=== PATIENT | female | born 1940 | race Caucasian/White ===

== ENCOUNTER 2017-06-08 18:18 | Inpatient (IN) | payer OTHER ==
[~2017-06-08] VITALS: Ht 147.3 cm; Wt 56.0 kg
[~2017-06-08 18:18] MED LIST: FERR325T51 PO; FLX10 PO; FURO80TA63 PO; Ipratropium-Albuterol INH; LDDP5 TD; LEVO125T72 PO; MAGN1CAP2 PO; METO25TA4 PO; MRLP17 PO; OXYB10TA13 PO; PRLSR20 PO; RXC5 PO; TYL325X PO; VLTG EXT
[2017-06-08] MEDS ORDERED: METHYLPREDNISOLONE 125 MG VIAL IV STA (18:27)
[2017-06-08] MEDS ORDERED: ALBUT/IPRATROP 3MG/0.5MG NEB 3 ML VIAL INH ONE (18:30)
[2017-06-08] MEDS ORDERED: SODIUM CHLORIDE 0.9% 1000ML 1,000 ML IV STA (18:31)
[2017-06-08] MEDS ORDERED: SODIUM CHLORIDE 0.9% 250ML 250 ML IV STA (18:31)
[2017-06-08 18:38] VITALS: PULSE 101; O2SAT 92
[2017-06-08 18:48] LABS: BASO % 0.3 %; BASO ABS # 0.04 K/uL (0-0.2); EOS % 0.3 %; EOS ABS # 0.04 K/uL (0-0.5); HEMATOCRIT 39.4 % (37-47); HEMOGLOBIN 13.2 g/dL (12.0-16.0); IG# 0.02 K/uL (0.00-0.02); LYMPH ABS # 1.01 K/uL (1.2-3.4); MEAN CELL VOLUME 92.9 fL (80-100); MEAN CORPUSCULAR HEMOGLOBIN 31.1 pg (25-34); MEAN CORPUSCULAR HGB CONC 33.5 g/dl (32-36); MEAN PLATELET VOLUME 11.1 fL (7.4-10.4); MONO % 5.9 %; MONO ABS # 0.74 K/uL (0.11-0.59); NEUT % 85.3 %; NEUT ABS # 10.73 K/uL (1.4-6.5); PLATELET COUNT 297 K/uL (130-400); RED CELL DISTRIBUTION WIDTH CV 13.3 % (11.5-14.5); RED CELL DISTRIBUTION WIDTH SD 45.2 fL (36.4-46.3); WHITE BLOOD COUNT 12.58 K/uL (4.8-10.8)
--- NOTE | 2017-06-08 18:51 | EMERGENCY ROOM VISIT NOTE ---
History Report prepared by Leatha: Marely Gonzalez Under the Supervision of: Dr. Desiree Gonsales M.D. 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 She presents to the ED by EMS. She lives alone at home. Today she thought she had a syncopal episode so she alerted EMS. She did lose consciousness while EMS was transporting her here. She is feeling weak and SOB. She reports nausea, vomiting, and diarrhea. She has had some black stools which she attributes to taking iron. She notes that she did have a fever at one point. She denies any urinary symptoms. The patient wears 2 L of oxygen at night. She did receive a flu shot this season. She has not had the flu this season. She smokes 1 pack per day. She has a nebulizer at home. She has not been on steroids lately. She has a history of COPD. Source of History: patient, nursing staff Onset: LEAVE COORDINATOR Position: other (global) Quality: other (syncope) Timing: other (episodic) Associated Symptoms: + fevers, + SOB, + nausea, + vomiting, + diarrhea, + weakness, No urinary symptoms Review of Systems See HPI for pertinent positives & negatives. A total of 10 systems reviewed and were otherwise negative. Past Medical & Surgical Medical Problems: (1) COPD (chronic obstructive pulmonary disease) (2) Heart disease (3) Respiratory failure, acute Family History Omitted due to age Social History Smoking Status: Current Every Day Smoker Drug Use: none Housing Status: lives alone Occupation Status: retired Current/Historical Medications Scheduled Alendronate/Cholecalciferol (Fosamax+D 70MG/2800 Iu), 1 TABLET PO WK Aspirin (Aspirin Chewable), 81 MG PO DAILY Atorvastatin (Lipitor), 20 MG PO HS Ferrous Sulfate (Ferrous Sulfate), 325 MG PO DAILY Furosemide (Lasix), 1 TAB PO DAILY Levothyroxine Sodium (Synthroid), 112 MCG PO DAILY Magnesium Oxide (Mg Supplement (Magnesium), 1 CAP PO BID Metoprolol Succinate (Toprol Xl), 1 TAB PO DAILY Moxifloxacin Hcl (Ophth) (Vigamox 0.5% Oph), 1 DROPS OP TID Multivitamins/Minerals (Mvi With Minerals), 1 TAB PO DAILY Omeprazole (Prilosec), 20 MG PO DAILY Potassium Chloride (Micro-K Ext Rel), 10 MEQ PO BID [Monoxidil], 1 APPLN TOP UD Scheduled PRN Acetaminophen Tab (Tylenol), 650 MG PO Q4 PRN for Headache or Pain Ipratropium-Albuterol (Duoneb), 1 TREATMENT INH Q6 PRN for Shortness of Breath Allergies Coded Allergies: Penicillins (Verified Allergy, Intermediate, HIVES,SWELLING, 02/14/15) Sulfa Antibiotics (Verified Allergy, Intermediate, hives, 02/19/15) Simvastatin (Verified Allergy, Unknown, Unknown, 02/14/15) Source - PT List Physical Exam Vital Signs Date Time Temp Pulse Resp B/P (MAP) Pulse Ox O2 Delivery O2 Flow Rate FiO2 06/08/17 20:47 114 06/08/17 20:43 113 101/64 06/08/17 20:35 36.4 167 26 101/67 91 Nasal Cannula 3.0 06/08/17 20:25 150 113/84 167 101/64 06/08/17 18:54 80 Room Air 06/08/17 18:41 104 06/08/17 18:39 36.4 104 26 142/74 80 Room Air 06/08/17 18:38 101 18 92 Nasal Cannula 3.0 Physical Exam Vital signs reviewed. Hypoxic at 79% on room air. General: Chronically ill-appearing female, in some respiratory discomfort. HEENT: No scleral icterus, PERRLA, neck supple. Atraumatic. Cardiovascular: Slightly tachycardic rate and regular rhythm, no extra sounds. Pulmonary: Wheezing throughout the lung dior bilaterally. Normal WOB on 2 L n/ c O2 Abdomen: Soft, nontender, nondistended, positive bowel sounds. Musculoskeletal: Atraumatic, no peripheral edema. Neurologic: Patient awake alert and oriented x 3, full strength in all 4 extremities. Cranial nerves 2 through 12 grossly intact. Skin: Warm, dry, no rash Medical Decision & Procedures ER Provider Diagnostic Interpretation: X-ray results as stated below per interpretation by me and the radiologist. Radiology results as stated below per my review and radiologist interpretation: CHEST ONE VIEW PORTABLE HISTORY: Short of breath. Hypoxia. COMPARISON: Chest 02/21/2015. FINDINGS: No pleural effusions. No pneumothorax. The heart is normal in size. Mild diffuse interstitial thickening. No focal lung consolidations to suggest pneumonia. There is a right shoulder prosthesis. Surgical clips within the right neck. IMPRESSION: Mild interstitial thickening which is likely chronic. No new focal lung consolidations to suggest pneumonia. Electronically signed by: Kvng Urias M.D. 06/08/2017 7:23 PM Dictated Date/Time: 06/08/2017 7:[address]AST CT DOSE: 691.05 mGy.cm HISTORY: syncope, head injury. TECHNIQUE: Multiaxial CT images of the head were performed without the use of intravenous contrast. Automated exposure control was utilized for this study. A dose lowering technique was utilized adhering to the principles of ALARA. Comparison: Head CT 02/23/2015. Findings: The paranasal sinuses and mastoid air cells are clear. The calvarium and skull base are intact. There is no mass, hematoma, midline shift, acute infarct. White matter hypodensity is nonspecific but suggestive of microvascular ischemic change. The ventricles and sulci demonstrate mild age-related involutional changes. Small focus of encephalomalacia within the left frontal lobe, unchanged. 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 Impression: No significant change compared to the prior study. No acute intracranial abnormality. Electronically signed by: Kvng Urias M.D. 06/08/2017 8:14 PM Dictated Date/Time: 06/08/2017 8:07 PM CHEST CTA for PULMONARY ARTERIES CT DOSE: 208.25 mGy.cm HISTORY: Short of breath. Elevated d-dimer. TECHNIQUE: Multiaxial CT images of the chest were performed following the intravenous administration of contrast to evaluate the pulmonary arteries. Maximal intensity projection images were also obtained. A dose lowering technique was utilized adhering to the principles of ALARA. COMPARISON STUDY: Chest 06/12/2014. FINDINGS: Multiple old compression deformities seen within the lower thoracic and upper lumbar spine. The visualized liver and spleen are unremarkable. Subcentimeter mediastinal and hilar lymph nodes do not meet CT criteria for pathologic involvement. Dominant right hilar lymph node measures 8 mm in short axis diameter. A prominent subcarinal lymph node measures 9 mm in short axis diameter. No pleural or pericardial effusions. The heart is mildly enlarged. No suspicious lytic or blastic osseous lesions. No pneumothorax. Mild emphysema. Linear densities within the right middle lobe and lingula favor subsegmental atelectasis persists are scarring. Mild respiratory motion artifact is noted. No focal lung consolidations to suggest pneumonia. Mild calcified plaque within the normal caliber thoracic aorta. No evidence for aortic dissection. No filling defects seen within the visualized pulmonary arteries to suggest pulmonary embolus. The main pulmonary artery measures up to 3.1 cm in diameter. This is consistent with mild pulmonary arterial hypertension. IMPRESSION: 1. No evidence for pulmonary vessels. 2. Mild emphysema. 3. Mild pulmonary arterial hypertension. Electronically signed by: Kvng Urias M.D. 06/08/2017 11:04 PM Dictated Date/Time: 06/08/2017 10:55 PM Laboratory Results Test 06/08/17 17:58 06/08/17 19:15 06/08/17 19:16 06/08/17 20:04 Activated Partial Thromboplast Time 26.8 SECONDS (21.0-31.0) Partial Thromboplastin Ratio 1.0 D-Dimer > 47915 ug/L FEU (0-500) Total Bilirubin 0.7 mg/dl (0.2-1) Direct Bilirubin mg/dl (0-0.2) Aspartate Amino Transf (AST/SGOT) 25 U/L (15-37) Alanine Aminotransferase (ALT/SGPT) 29 U/L (12-78) Alkaline Phosphatase 125 U/L (45-117) Total Creatine Kinase 77 U/L (26-192) Creatine Kinase MB 0.9 ng/ml (0.5-3.6) Creatine Kinase MB Ratio 1.2 (0-3.0) Total Protein 7.3 gm/dl (6.4-8.2) Albumin 3.5 gm/dl (3.4-5.0) Chemistry Specimen Hemolysis Influenza Type A (RT-PCR) POS for Influ A (NEG) Influenza Type B (RT-PCR) Neg for Influ B (NEG) Bedside D-Dimer 6 ng/mlFEU (0-450) Bedside Troponin I < 0.030 ng/ml (0-0.045) Bedside Lactic Acid Venous 3.23 mmol/L (0.90-1.70) Urine Color DK YELLOW Urine Appearance CLEAR (CLEAR) Urine pH 5.0 (4.5-7.5) Urine Specific [place] 1.023 (1.000-1.030) Urine Protein 1+ (NEG) Urine Glucose (UA) NEG (NEG) Urine Ketones 1+ (NEG) Urine Occult Blood NEG (NEG) Urine Nitrite NEG (NEG) Urine Bilirubin NEG (NEG) Urine Urobilinogen NEG (NEG) Urine Leukocyte Esterase NEG (NEG) Urine WBC (Auto) 1-5 /hpf (0-5) Urine RBC (Auto) 5-10 /hpf (0-4) Urine Hyaline Casts (Auto) 5-10 /lpf (0-5) Urine Epithelial Cells (Auto) 10-20 /lpf (0-5) Urine Bacteria (Auto) NEG (NEG) Laboratory results per my review. Medications Administered Medications (Trade) Dose Ordered Sig/Robby Route Start Time Stop Time Status Last Admin Dose Admin Albuterol/ Ipratropium (Duoneb) 12 ml ONE ONCE INH 06/08/17 18:30 06/08/17 18:31 DC 06/08/17 18:37 12 ML Methylprednisolone Sodium Succinate (Solu-Medrol IV) 125 mg NOW STAT IV 06/08/17 18:27 06/08/17 18:29 DC 06/08/17 19:23 125 MG Sodium Chloride 250 ml @ 999 mls/hr Q16M STAT IV 06/08/17 18:31 06/08/17 18:46 DC 06/08/17 19:23 999 MLS/HR Sodium Chloride 1,000 ml @ 125 mls/hr Q8H STAT IV 06/08/17 18:31 06/08/17 22:39 DC 06/08/17 20:10 125 MLS/HR Metoprolol Tartrate (Lopressor Iv) 5 mg NOW STAT IV 06/08/17 20:32 06/08/17 20:33 DC 06/08/17 20:43 5 MG Levofloxacin (Levaquin / D5W) 750 mg NOW STAT IV 06/08/17 21:01 06/08/17 21:02 DC 06/08/17 21:16 750 MG ECG Per My Interpretation Indication: syncope Rate (beats per minute): 101 Rhythm: sinus tachycardia Findings: no acute ischemic change, no ectopy, other (poor quality baseline, QTC 443) ED Course 182: Past medical records reviewed. The patient was evaluated in room C3. A complete history and physical examination was performed. 1826: Solu-Medrol IV 125 mg IV. 1829: Duoneb 12 ml INH. 1830: NSS 1000 ml @ 125 mls/hr IV, NSS 250 ml @ 999 mls/hr IV. 2028: I reevaluated the patient. 2031: Lopressor Iv 5 mg IV. 2034: Repeat EKG per my interpretation shows rapid atrial fibrillation, rate 128 , no acute ischemia. 2035: I reevaluated the patient. She converted to sinus tachycardia without any intervention. She notes that she did not take her medications this morning including metoprolol. 2100: Levofloxacin 750 mg IV. 2118: I reviewed the patient's case with Dr. Orlando, [facility] hospitalist. He will evaluate the patient for further management. Medical Decision Differential diagnosis: Etiologies such as pneumonia, metabolic, infection, hypo/hyperglycemia, electrolyte abnormalities, cardiac sources, intracerebral event, toxicologic, neurologic, as well as others were entertained. This patient was evaluated and appeared to be in no significant distress. IV access was obtained and laboratory work was drawn. The patient was placed on the winding inspector. IV hydration was initiated. Physical examination reveals a chronically ill female with an O2 requirement. The patient does normally wear oxygen to sleep, but not during the day. She has a known history of COPD and does smoke one pack per day. Patient was given an hour-long DuoNeb treatment, IV Solu-Medrol. Blood cultures were obtained and a vdycr-al-ainl lactic. Lactic acid is elevated. Troponin is normal. EKG reveals no evidence of acute ischemia. Patient's chest x-ray is negative for focal infiltrate. Head CT was performed due to the syncopal episode with head injury. This study is negative for acute intracranial findings. Patient did have a short episode of a rapid atrial fibrillation and metoprolol was ordered. The patient denies taking her metoprolol as prescribed today. The episode of atrial fibrillation was self-limited. Influenza swab positive for flu A. The persistent tachycardia thereafter is likely secondary to the albuterol. Given the hypoxia , history of COPD and smoking, elevated lactic acid, IV Levaquin was ordered. D -dimer is noted to be markedly elevated and a CT angiogram was performed. This study is negative for acute pulmonary embolus. Patient's case was discussed with Dr. Sloan of the hospitalist service who will evaluate patient for admission and further management. Medication Reconcilliation Current Medication List: was personally reviewed by me Blood Pressure Screening Patient's blood pressure: Normal blood pressure Blood pressure disposition: Did not require urgent referral Consults Time Called: 2116 Consulting Physician: Dr. Orlando [facility] hospitalist Returned Call: [phone] I reviewed the patient's case with him. He will evaluate the patient for further management. Impression Primary Impression: Influenza A Additional Impressions: Hypoxia Paroxysmal atrial fibrillation Scribe Attestation The scribe's documentation has been prepared under my direction and personally reviewed by me in its entirety. I confirm that the note above accurately reflects all work, treatment, procedures, and medical decision making performed by me. Departure Information Dispostion Being Evaluated By Hospitalist Referrals Shelton Dhillon M.D. (PCP) Problem Qualifiers
--- NOTE | 2017-06-08 19:25 | DIAGNOSTIC IMAGING REPORT ---
CHEST ONE VIEW PORTABLE HISTORY: Short of breath. Hypoxia. COMPARISON: Chest 02/21/2015. FINDINGS: No pleural effusions. No pneumothorax. The heart is normal in size. Mild diffuse interstitial thickening. No focal lung consolidations to suggest pneumonia. There is a right shoulder prosthesis. Surgical clips within the right neck. IMPRESSION: Mild interstitial thickening which is likely chronic. No new focal lung consolidations to suggest pneumonia. Electronically signed by: Kvng Urias M.D. 06/08/2017 7:23 PM Dictated Date/Time: 06/08/2017 7:18 PM
[2017-06-08 19:39] LABS: ALBUMIN 3.5 gm/dl (3.4-5.0)
[2017-06-08 19:40] LABS: CKMB 0.9 ng/ml (0.5-3.6); CREATININE 0.79 mg/dl (0.60-1.20); POTASSIUM 4.3 mmol/L (3.5-5.1); TOTAL PROTEIN 7.3 gm/dl (6.4-8.2)
[2017-06-08] MEDS ORDERED: MONOXIDIL TOP (20:14)
[2017-06-08] MEDS ORDERED: ASPCH81X PO (20:14)
[2017-06-08] MEDS ORDERED: IPRASOL4 INH (20:14)
[2017-06-08] MEDS ORDERED: ACET-1693 PO (20:14)
[2017-06-08] MEDS ORDERED: FERR1TAB62 PO (20:14)
[2017-06-08] MEDS ORDERED: POTA10CA28 PO (20:14)
[2017-06-08] MEDS ORDERED: FSMD/70 PO (20:14)
[2017-06-08] MEDS ORDERED: VGMOPS OP (20:14)
[2017-06-08] MEDS ORDERED: ATOR-22 PO (20:14)
[2017-06-08] MEDS ORDERED: LEVO112T2 PO (20:16)
[2017-06-08] MEDS ORDERED: MULT-513 PO (20:16)
--- NOTE | 2017-06-08 20:16 | DIAGNOSTIC IMAGING REPORT ---
HEAD CT NONCONTRAST CT DOSE: 691.05 mGy.cm HISTORY: syncope, head injury. TECHNIQUE: Multiaxial CT images of the head were performed without the use of intravenous contrast. Automated exposure control was utilized for this study. A dose lowering technique was utilized adhering to the principles of ALARA. Comparison: Head CT 02/23/2015. Findings: The paranasal sinuses and mastoid air cells are clear. The calvarium and skull base are intact. There is no mass, hematoma, midline shift, acute infarct. White matter hypodensity is nonspecific but suggestive of microvascular ischemic change. The ventricles and sulci demonstrate mild age-related involutional changes. Small focus of encephalomalacia within the left frontal lobe, unchanged. 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 Impression: No significant change compared to the prior study. No acute intracranial abnormality. Electronically signed by: Kvng Urias M.D. 06/08/2017 8:14 PM Dictated Date/Time: 06/08/2017 8:07 PM
[2017-06-08] MEDS ORDERED: DILTIAZEM HCL 5 MG/ML 5 ML VIAL IV STA (20:31)
[2017-06-08] MEDS ORDERED: METOPROLOL TARTRATE 1 MG/ML VIAL IV STA (20:32)
[2017-06-08] MEDS ORDERED: METOPROLOL TARTRATE 1 MG/ML VIAL ONE (20:41)
[2017-06-08] MEDS ORDERED: LEVAQUIN 750MG / 150ML D5W IV STA (21:01)
[2017-06-08] MEDS ORDERED: DOXYCYCLINE IV 100 MG in DEXTROSE 5% 100ML 100 ML IV STA (22:40)
[2017-06-08 22:45] LABS: PTT PATIENT 26.8 SECONDS (21.0-31.0)
[2017-06-08] MEDS ORDERED: LEVALBUTEROL/IPRATROPIUM NEB INH PRN (22:45)
[2017-06-08] MEDS ORDERED: TRAMADOL HCL 50 MG TAB PO PRN (22:45)
[2017-06-08] MEDS ORDERED: ACETAMINOPHEN 325 MG TAB PO PRN (22:45)
[2017-06-08] MEDS ORDERED: NITROGLYCERIN 0.4 MG SL PER TAB CHARGE SL PRN (22:45)
[2017-06-08 22:58] LABS: INFLUENZA B PCR Neg for Influ B (NEG)
[2017-06-08] MEDS ORDERED: OSELTAMIVIR PHOSPHATE 75 MG CAP PO ONE (22:59)
--- NOTE | 2017-06-08 23:06 | DIAGNOSTIC IMAGING REPORT ---
CHEST CTA for PULMONARY ARTERIES CT DOSE: 208.25 mGy.cm HISTORY: Short of breath. Elevated d-dimer. TECHNIQUE: Multiaxial CT images of the chest were performed following the intravenous administration of contrast to evaluate the pulmonary arteries. Maximal intensity projection images were also obtained. A dose lowering technique was utilized adhering to the principles of ALARA. COMPARISON STUDY: Chest 06/12/2014. FINDINGS: Multiple old compression deformities seen within the lower thoracic and upper lumbar spine. The visualized liver and spleen are unremarkable. Subcentimeter mediastinal and hilar lymph nodes do not meet CT criteria for pathologic involvement. Dominant right hilar lymph node measures 8 mm in short axis diameter. A prominent subcarinal lymph node measures 9 mm in short axis diameter. No pleural or pericardial effusions. The heart is mildly enlarged. No suspicious lytic or blastic osseous lesions. No pneumothorax. Mild emphysema. Linear densities within the right middle lobe and lingula favor subsegmental atelectasis persists are scarring. Mild respiratory motion artifact is noted. No focal lung consolidations to suggest pneumonia. Mild calcified plaque within the normal caliber thoracic aorta. No evidence for aortic dissection. No filling defects seen within the visualized pulmonary arteries to suggest pulmonary embolus. The main pulmonary artery measures up to 3.1 cm in diameter. This is consistent with mild pulmonary arterial hypertension. IMPRESSION: 1. No evidence for pulmonary vessels. 2. Mild emphysema. 3. Mild pulmonary arterial hypertension. Electronically signed by: Kvng Urias M.D. 06/08/2017 11:04 PM Dictated Date/Time: 06/08/2017 10:55 PM
[2017-06-08 23:08] LABS: INFLUENZA A PCR POS for Influ A (NEG)
[2017-06-08 23:11] VITALS: BP 155/71; PULSE 101; TEMP 37.2; O2SAT 94; Ht 147.3 cm; Wt 56.0 kg
[2017-06-08] MEDS ORDERED: GUAIFENESIN 600 MG TABCR PO ONE (23:31)
[2017-06-09] VITALS (11 sets, daily range): BP systolic 142–174; BP diastolic 67–76; PULSE 78–94; TEMP 36.5–36.9; O2SAT 94–99
[2017-06-09] MEDS: OSELTAMIVIR PHOSPHATE SUSP 30 MG/5 ML UDP PO SCH ×3 (00:10→20:24)
[2017-06-09] MEDS: ALBUMIN HUMAN 25% 12.5 GM/50 ML VIAL IV SCH ×2 (01:06→02:19)
--- NOTE | 2017-06-09 02:35 | Progress Note ---
Progress Note Post Crystalloid Evaluation Date: Jun 08, 2017 Time: 22:30 Subjective (late entry) Cough productive of yellow sputum Physical Exam Vital Signs: Vital Signs Date Time Temp Pulse Resp B/P (MAP) Pulse Ox O2 Delivery O2 Flow Rate FiO2 06/09/17 00:15 154/72 (99) 159/75 (103) 06/08/17 23:11 37.2 101 18 94 Nasal Cannula 4.0 Lungs: + respiratory distress, + wheezing Heart: regular rate, rhythm Peripheral Pulse: Weak Capillary Refill: Normal (less than 2 seconds) Assessment & Plan Presence of: Severe Sepsis Severe sepsis SIRS plus hypoxemic respiratory failure plus lactic acidosis secondary to complicated bronchitis/flu pneumonia Doxycycline, nebs, steroids. Tamiflu course Follow lactic acid. IVF
[2017-06-09] MEDS: IPRATROPIUM BROMIDE NEB SOLN 0.02% 2.5 ML VIAL INH SCH ×4 (02:43→19:01)
[2017-06-09] MEDS: LEVALBUTEROL 1.25MG/0.5ML NEB INH SCH ×4 (02:43→19:01)
[2017-06-09 03:00] LABS: BASO % 0.1 %; BASO ABS # 0.01 K/uL (0-0.2); HEMOGLOBIN 11.6 g/dL (12.0-16.0); IG# 0.04 K/uL (0.00-0.02); LYMPH ABS # 0.26 K/uL (1.2-3.4); MEAN CELL VOLUME 91.6 fL (80-100); MEAN CORPUSCULAR HEMOGLOBIN 30.4 pg (25-34); MEAN CORPUSCULAR HGB CONC 33.1 g/dl (32-36); MONO % 1.7 %; MONO ABS # 0.22 K/uL (0.11-0.59); NEUT % 95.9 %; NEUT ABS # 12.21 K/uL (1.4-6.5); PLATELET COUNT 256 K/uL (130-400); RED CELL DISTRIBUTION WIDTH CV 13.3 % (11.5-14.5); RED CELL DISTRIBUTION WIDTH SD 44.1 fL (36.4-46.3); WHITE BLOOD COUNT 12.74 K/uL (4.8-10.8)
[2017-06-09] MEDS ORDERED: LEVALBUTEROL/IPRATROPIUM NEB INH SCH (03:00)
[2017-06-09 03:18] LABS: CALCIUM 9.6 mg/dl (8.5-10.1); CREATININE 0.66 mg/dl (0.60-1.20); POTASSIUM 3.8 mmol/L (3.5-5.1)
[2017-06-09] MEDS ORDERED: METOPROLOL SUCC 25MG EXT REL TAB PO ONE (03:41)
[2017-06-09] MEDS ORDERED: SODIUM CHLORIDE 0.9% 250ML 250 ML IV ONE ×2 (03:45→04:00)
[2017-06-09] MEDS ORDERED: SODIUM CHLORIDE 0.9% 500ML 500 ML IV ONE (04:00)
[2017-06-09] MEDS: LEVOTHYROXINE 112 MCG TAB PO SCH (05:04)
--- NOTE | 2017-06-09 06:33 | HISTORY & PHYSICAL EXAMINATION ---
DATE OF ADMISSION: 06/08/2017 PRIMARY CARE DOCTOR: Dr. Shelton Dhillon. CHIEF COMPLAINT: Shortness of breath and syncope. HISTORY OF PRESENT ILLNESS: History obtained from patient and records. Medical history significant for chronic respiratory failure on home O2 at night , COPD, ongoing tobacco abuse, hypertension, hyperlipidemia, PAFib as per records, PVD s surgery, hypothyroidism. chronic anemia (baseline hemoglobin 11) Recent confinement January 2015 for pneumonia, thoracolumbar compression fractures. Few days history of cough symptoms, productive of junky sputum, sick contacts. No aspiration. No chest pain. Increasing shortness of breath. She got up to go to the bathroom yesterday because she was going to throw up from coughing. Subsequently passed out, woke up on the floor, no incontinence. Thinks she may have been unconscious for about an hour. She activated her Med alert device. Patient brought to the Emergency Room by EMS. Noted to be hypoxemic, 80s on room air. She received duo nebs, Solu-Medrol, Levaquin for possible COPD exacerbation. Medical history as above, in addition: Colonoscopy 2010, outpatient, normal, as per records. 2D echo from 2014 showed EF 70%, LVH, diastolic dysfunction. Carotid Dopplers, January 2017 showed right carotid artery duplex less than 50%, left carotid less than 50%. SURGERIES: gynecological procedures, orthopedic procedures, and carotid endarterectomy. HOME MEDICATIONS: Include aspirin, Lipitor, Tylenol, Fosamax, ferrous sulfate, Lasix, DuoNeb, Synthroid, magnesium oxide, minoxidil, Vigamox, Toprol, multivitamins, Prilosec, and Micro-K. ALLERGIES: SIMVASTATIN, PENICILLIN, AND SULFA. FAMILY HISTORY: Colon cancer. PERSONAL AND SOCIAL HISTORY: Half pack daily. No chronic intake of alcohol. 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 REVIEW OF SYSTEMS: As per HPI. Occasional black stools attributed to Home iron Rx , some rectal pain on moving bowels, all other ROS negative. PHYSICAL EXAMINATION: VITAL SIGNS: Blood pressure noted to be 142/74, pulse rate 104, RR 26, temperature 36.4, sats 80s on room air 94 on 3 liters. orthostatic vitals were abnormal. GENERAL: Noted to be in respiratory distress. Uncomfortable. SKIN: Pallor, warm. HEENT: Pale palpebral conjuctivae. No ptosis. Dry mucosa. NECK: Short, nontender. CHEST: Expiratory wheezes, nontender chest wall HEART: Tachycardic. No murmur. ABDOMEN: Soft, nontender. RECTAL intact sphincter, yellow stool, heme positive EXTREMITIES: Minimal LE edema noted. No tenderness. No gross deformities on exam. NEUROLOGIC: No gross focality except for mild hearing impairment. No facial symmetry LABORATORY DATA: Hg 12 hematocrit 39.4, white cells 12.15, and platelets 297. Sodium was noted to be 137, potassium 4.3, chloride 101, CO2 27, BUN 30, creatinine 0.7, glucose 119. Lactic acid was 2.2. UA ketones positive. ABG pH 7.34, pCO2 39, pO2 59 on 4 liters. CTA - mild emphysema, pulmonary hypertension Abnormal flu test ASSESSMENT: 1. Severe sepsis SIRS plus hypoxemic respiratory failure plus lactic acidosis secondary to complicated bronchitis/flu pneumonia 2. Chronic obstructive pulmonary disease exacerbation secondary to above 3. Syncope secondary to cough, nausea symptoms, orthostasis rule out cardiac pathology. 4. HTN, slightly elevated 5. history of peripheral vascular disease sp surgery on ASA 6. occult gastrointestinal bleed Patient gives history of intermittent dark stools w/c she attributes home iron Rx. Patient hemoglobin stable. 7. ongoing tobacco abuse PLAN: PCU supplemental O2. Doxycycline, nebs, steroids. Tamiflu course Follow lactic acid. IVF May need Pulmonary consult if without improvement following initial intervention RE COPD exacerbation 2D echo RE syncope. Follow H&H, hold aspirin for now until hemoglobin at baseline outpatient GI workup for occult GI bleed. Nicotine patch PT, OT eval DVT prophylaxis, SCDs RE occult GI bleed. Full code. Patient's son requesting for updates from providers. Mr. Malvin Beth at [phone]. [facility]
[2017-06-09] MEDS: NICOTINE 7 MG/24 HR TDSY TD SCH (07:57)
[2017-06-09] MEDS: PANTOprazole SOD 40 MG TAB PO SCH (07:58)
[2017-06-09] MEDS: FERROUS SULFATE 325 MG TAB PO SCH (07:58)
[2017-06-09] MEDS: CEROVITE ADV FORMULA TAB PO SCH (07:58)
[2017-06-09] MEDS: GUAIFENESIN 600 MG TABCR PO SCH ×2 (07:59→20:22)
[2017-06-09] MEDS ORDERED: METOPROLOL SUCC 25MG EXT REL TAB PO SCH (09:00)
[2017-06-09] MEDS ORDERED: MOXIFLOXACIN HCL 0.5% OP SOLN 3 ML BTL OP SCH (09:00)
--- NOTE | 2017-06-09 10:10 | Clinical Documentation Query ---
CLINICAL DOCUMENTATION QUERY 76 yo female presenting with SOB and syncope. History includes HTN, Afib, and chronic respiratory failure. A 2015 echo showed EF = 70%, left ventricular hypertrophy and diastolic dysfunction. In your clinical opinion is this patient being managed for: ( ) Chronic diastolic CHF ( ) Not Agree ( ) Other explanation of clinical findings (Please Explain) ( ) Unable to determine (Please Define) ( ) Need to Discuss The medical record reflects the following clinical findings, treatment, and risk factors. Clinical Indicators: As above Treatment: Home Lasix 80mg PO Risk Factors: Age, HTN, Afib Please clarify and document your clinical opinion in the progress notes and discharge summary. Terms such as "probable", "suspected", "likely", "questionable", "possible", or "still to be ruled out" are acceptable. IF IN AGREEMENT, YOU MUST DOCUMENT ABOVE DIAGNOSTIC STATEMENT IN DAILY PROGRESS NOTES AND DISCHARGE SUMMARY. This document is not part of the patient's record. Thank You, Felicia Cuellar RN [phone]
--- NOTE | 2017-06-09 11:45 | ECHOCARDIOGRAM REPORT ---
*NOTICE TO RECEIVING [employer] This information is strictly Confidential and protected under [place] law. [place] law prohibits you from making any further disclosure of this information unless further disclosure is expressly permitted by the written consent of the person to whom it pertains or is authorized by law. A general authorization for the release of medical or other information is not sufficient for this purpose. Hospital accepts no responsibility if the information is made available to any other person, INCLUDING THE PATIENT. Interpretation Summary * Name: ALICIA NETTLES Study Date: 06/09/2017 07:15 AM BP: 150/67 mmHg * Patient Location: C.2T\S\S244\S\1 HR: 87 * : 1940 (M/d/yyyy) Gender: Female Height: 58 in * Age: 76 yrs Ethnicity: [place] Weight: 130 lb * Ordering Physician: Narinder Orlando * Referring Physician: Self, Referred * Performed By: Elsie Martinez RCS * * Reason For Study: SYNCOPE * BSA: 1.5 m2 * -- Conclusions -- * The left ventricle is normal in size. * There is moderate concentric left ventricular hypertrophy. * The left ventricle is hyperdynamic. * No regional wall motion abnormalities noted. * Ejection Fraction = >70 %. * Grade I diastolic dysfunction, (abnormal relaxation pattern). * Aortic valve sclerosis moderate, without significant aortic valvular stenosis. * There is moderate mitral annular calcification. * There is mild mitral regurgitation. * There is moderate tricuspid regurgitation. * Right ventricular systolic pressure is moderately elevated at 40-50mmHg. Procedure Details * A complete two-dimensional transthoracic echocardiogram was performed (2D, M-mode, Doppler and color flow Doppler). Left Ventricle * The left ventricle is normal in size. * There is moderate concentric left ventricular hypertrophy. * The left ventricle is hyperdynamic. * Ejection Fraction = >70 %. * No regional wall motion abnormalities noted. Right Ventricle * The right ventricle is normal in size and function. Atria * The left atrial size is normal. * Right atrial size is normal. * No ASD detected; PFO is not assessed. Mitral Valve * There is moderate mitral annular calcification. * There is no mitral valve stenosis. * There is mild mitral regurgitation. Tricuspid Valve * The tricuspid valve is not well visualized, but is grossly normal. * There is no tricuspid stenosis. * There is moderate tricuspid regurgitation. * Right ventricular systolic pressure is elevated at 40-50mmHg. Aortic Valve * The aortic valve is trileaflet. * Aortic valve sclerosis moderate, without significant aortic valvular stenosis. * No aortic regurgitation is present. Pulmonic Valve * The pulmonic valve is not well visualized. Great Vessels * The aortic root is normal size. Pericardium/Pleural * There is no pericardial effusion. Great Vessels * The inferior vena cava is mildly dilated. Left Ventricular Diastolic Function * Grade I diastolic dysfunction, (abnormal relaxation pattern). MMode 2D Measurements and Calculations IVSd 1.5 cm IVSs 2.1 cm LVIDd 4.0 cm LVIDs 2.5 cm LVPWd 1.2 cm LVPWs 1.4 cm IVS/LVPW 1.3 FS 37.4 % EDV(Teich) 69.6 ml ESV(Teich) 22.3 ml EF(Teich) 68.0 % EDV(cubed) 63.6 ml ESV(cubed) 15.6 ml EF(cubed) 75.5 % % IVS thick 38.3 % % LVPW thick 23.2 % LV mass(C)d 197.2 grams LV mass(C)dI 130.0 grams/m\S\2 LV mass(C)s 172.8 grams LV mass(C)sI 113.9 grams/m\S\2 SV(Teich) 47.3 ml SI(Teich) 31.2 ml/m\S\2 SV(cubed) 48.0 ml SI(cubed) 31.6 ml/m\S\2 Ao root diam 2.7 cm Ao root area 5.8 cm\S\2 ACS 1.7 cm LA dimension 3.5 cm LA/Ao 1.3 LVOT diam 1.9 cm LVOT area 2.8 cm\S\2 LVAd ap4 21.6 cm\S\2 LVLd ap4 6.6 cm EDV(MOD-sp4) 58.3 ml EDV(sp4-el) 59.9 ml LVAs ap4 14.4 cm\S\2 LVLs ap4 5.6 cm ESV(MOD-sp4) 31.0 ml ESV(sp4-el) 31.1 ml EF(MOD-sp4) 46.8 % EF(sp4-el) 48.1 % LVAd ap2 24.2 cm\S\2 LVLd ap2 7.2 cm EDV(MOD-sp2) 65.5 ml EDV(sp2-el) 69.0 ml LVAs ap2 17.9 cm\S\2 LVLs ap2 6.7 cm ESV(MOD-sp2) 38.7 ml ESV(sp2-el) 40.6 ml EF(MOD-sp2) 40.9 % EF(sp2-el) 41.2 % LVLd %diff 7.8 % EDV(MOD-bp) 64.2 ml LVLs %diff 16.0 % ESV(MOD-bp) 37.5 ml EF(MOD-bp) 41.6 % SV(MOD-sp4) 27.3 ml SI(MOD-sp4) 18.0 ml/m\S\2 SV(MOD-sp2) 26.8 ml SI(MOD-sp2) 17.7 ml/m\S\2 SV(MOD-bp) 26.7 ml SI(MOD-bp) 17.6 ml/m\S\2 SV(sp4-el) 28.8 ml SI(sp4-el) 19.0 ml/m\S\2 SV(sp2-el) 28.4 ml SI(sp2-el) 18.7 ml/m\S\2 Doppler Measurements and Calculations MV E max carol 131.0 cm/sec MV A max carol 161.2 cm/sec MV E/A 0.81 MV P1/2t max carol 129.5 cm/sec MV P1/2t 77.3 msec MVA(P1/2t) 2.8 cm\S\2 MV dec slope 490.3 cm/sec\S\2 MV dec time 0.25 sec Ao V2 max 186.2 cm/sec Ao max PG 13.9 mmHg Ao max PG (full) 3.5 mmHg IDANIA(V,A) 2.4 cm\S\2 IDANIA(V,D) 2.4 cm\S\2 AI max carol 363.8 cm/sec AI max PG 52.9 mmHg AI dec slope 107.6 cm/sec\S\2 AI P1/2t 989.9 msec LV V1 max PG 10.3 mmHg LV V1 max 160.7 cm/sec MR max carol 559.8 cm/sec MR max PG 125.4 mmHg TR max carol 321.5 cm/sec
[2017-06-09] MEDS: DOXYCYCLINE IV 100 MG in DEXTROSE 5% 100ML 100 ML IV SCH (12:00)
[2017-06-09 12:15] LABS: HEMATOCRIT 33.8 % (37-47); HEMOGLOBIN 11.5 g/dL (12.0-16.0)
[2017-06-09] MEDS ORDERED: METOPROLOL SUCC 50MG EXT REL TAB PO STA (16:57)
--- NOTE | 2017-06-09 17:02 | Progress Note ---
Subjective Date of Service: Jun 09, 2017. Subjective Pt evaluation today including: conversation w/ patient, physical exam, lab review, review of studies, review of inpatient medication list Saw/examined the patient in room 244 She is doing well States she is breathing better; still on supplemental oxygen at rest Denies chest pain +productive cough persists Problem List Medical Problems: (1) Hypoxia Status: Acute (2) Influenza A Status: Acute (3) Paroxysmal atrial fibrillation Status: Acute Review of Systems Constitutional: + weakness, No fever, No chills Respiratory: + cough, + sputum, + wheezing, + shortness of breath, + dyspnea on exertion, + dyspnea at rest, No hemoptysis Cardiac: No chest pain, No edema, No palpitations Abdomen: No pain, No nausea, No vomiting, No diarrhea Heme: No abnormal bleeding/bruising Medications Current Inpatient Medications Medications (Trade) Dose Ordered Sig/Robby Route Start Time Stop Time Status Last Admin Dose Admin Doxycycline Hyclate 100 mg/ Dextrose 110 ml @ 50 mls/hr Q12H IV 06/09/17 12:00 06/16/17 11:59 06/09/17 12:00 50 MLS/HR Prednisone (PredniSONE TAB) 40 mg DAILY PO 06/09/17 09:00 06/14/17 08:59 06/09/17 07:58 40 MG Acetaminophen (Tylenol Tab) 650 mg Q4H PRN PO 06/08/17 22:45 07/08/17 22:44 Nitroglycerin (Nitrostat Tab) 0.4 mg UD PRN SL 06/08/17 22:45 07/08/17 22:44 Atorvastatin Calcium (Lipitor Tab) 20 mg HS PO 06/09/17 21:00 07/09/17 20:59 Levothyroxine Sodium (Synthroid Tab) 112 mcg DAILYBB PO 06/09/17 06:00 07/09/17 05:59 06/09/17 05:04 112 MCG Multivitamins/ Minerals (Multivitamin W/ Minerals Tab) 1 tab DAILY PO 06/09/17 09:00 07/09/17 08:59 06/09/17 07:58 1 TAB Ferrous Sulfate (Feosol Tab) 325 mg DAILY PO 06/09/17 09:00 07/09/17 08:59 06/09/17 07:58 325 MG Pantoprazole Sodium (Protonix Tab) 40 mg QAM PO 06/09/17 09:00 07/09/17 08:59 06/09/17 07:58 40 MG Tramadol HCl (Ultram Tab) 25 mg Q6H PRN PO 06/08/17 22:45 07/08/17 22:44 [address] [place] (Atrovent 0.02% 0.5MG/2.5ML Neb) 0.5 mg Q6R INH 06/09/17 03:00 07/09/17 02:59 06/09/17 14:28 0.5 MG Levalbuterol (Xopenex 1.25MG/ 0.5ML Neb) 1.25 mg Q6R INH 06/09/17 03:00 07/09/17 02:59 06/09/17 14:28 1.25 MG Ipratropium [place] (Atrovent 0.02% 0.5MG/2.5ML Neb) 0.5 mg Q4H PRN INH 06/08/17 23:00 07/08/17 22:59 Levalbuterol (Xopenex 1.25MG/ 0.5ML Neb) 1.25 mg Q4H PRN INH 06/08/17 23:00 07/08/17 22:59 Oseltamivir Phosphate (Tamiflu Susp) 30 mg BID PO 06/08/17 23:30 06/13/17 23:29 06/09/17 08:02 30 MG Guaifenesin (Mucinex Contr Rel Tab) 600 mg Q12 PO 06/09/17 09:00 07/09/17 08:59 06/09/17 07:59 600 MG Metoprolol Succinate (Toprol Xl Tab) 25 mg DAILY PO 06/10/17 09:00 07/09/17 08:59 Nicotine (Nicoderm Cq 7 Mg Patch) 1 patch QAM TD 06/09/17 09:00 07/09/17 08:59 Miscellaneous (Remove Nicoderm Patch) 1 ea HS N/A 06/09/17 21:00 07/09/17 20:59 Objective Vital Signs Date Time Temp Pulse Resp B/P (MAP) Pulse Ox O2 Delivery O2 Flow Rate FiO2 06/09/17 15:15 36.8 94 16 172/75 (107) 96 Nasal Cannula 4.0 06/09/17 12:00 Nasal Cannula 4.0 06/09/17 10:52 36.7 78 20 152/72 (98) 95 Nasal Cannula 4.0 06/09/17 08:00 94 Nasal Cannula 4.0 06/09/17 07:51 36.5 82 20 150/67 (94) 94 06/09/17 07:05 83 20 97 Nasal Cannula 4.0 06/09/17 04:03 36.9 92 16 142/68 (92) 98 06/09/17 04:00 Nasal Cannula 4.0 06/09/17 02:44 91 20 94 Nasal Cannula 4.0 06/09/17 00:15 154/72 (99) 159/75 (103) 06/09/17 00:00 Nasal Cannula 4.0 06/08/17 23:11 37.2 101 18 155/71 94 Nasal Cannula 4.0 06/08/17 22:04 114 26 101/64 91 06/08/17 20:47 114 06/08/17 20:43 113 101/64 06/08/17 20:35 36.4 167 26 101/67 91 Nasal Cannula 3.0 06/08/17 20:25 150 113/84 167 101/64 06/08/17 18:54 80 Room Air 06/08/17 18:41 104 06/08/17 18:39 36.4 104 26 142/74 80 Room Air 06/08/17 18:38 101 18 92 Nasal Cannula 3.0 Physical Exam General Appearance: no apparent distress ENT: + pertinent finding (hard of hearing) Respiratory/Chest: no respiratory distress, no accessory muscle use, + wheezing (end expiratory wheezing diffusely) Cardiovascular: regular rate, rhythm, no edema, no murmur Extremities: normal inspection, no pedal edema Neurologic/Psychiatric: no motor/sensory deficits, alert, normal mood/affect Skin: normal color Lymphatic: no adenopathy Laboratory Results Last 24 Hours Test 06/08/17 17:58 06/08/17 19:15 06/08/17 19:16 06/08/17 20:04 White Blood Count 12.58 K/uL Red Blood Count 4.24 M/uL Hemoglobin 13.2 g/dL Hematocrit 39.4 % Mean Corpuscular Volume 92.9 fL Mean Corpuscular Hemoglobin 31.1 pg Mean Corpuscular Hemoglobin Concent 33.5 g/dl Platelet Count 297 K/uL Mean Platelet Volume 11.1 fL Neutrophils (%) (Auto) 85.3 % Lymphocytes (%) (Auto) 8.0 % Monocytes (%) (Auto) 5.9 % Eosinophils (%) (Auto) 0.3 % Basophils (%) (Auto) 0.3 % Neutrophils # (Auto) 10.73 K/uL Lymphocytes # (Auto) 1.01 K/uL Monocytes # (Auto) 0.74 K/uL Eosinophils # (Auto) 0.04 K/uL Basophils # (Auto) 0.04 K/uL RDW Standard Deviation 45.2 fL RDW Coefficient of Variation 13.3 % Immature Granulocyte % (Auto) 0.2 % Immature Granulocyte # (Auto) 0.02 K/uL Activated Partial Thromboplast Time 26.8 SECONDS Partial Thromboplastin Ratio 1.0 D-Dimer > 55396 ug/L FEU Sodium Level 137 mmol/L Potassium Level 4.3 mmol/L Chloride Level 101 mmol/L Carbon Dioxide Level 27 mmol/L Anion Gap 9.0 mmol/L Blood Urea Nitrogen 13 mg/dl Creatinine 0.79 mg/dl Est Creatinine Clear Calc Drug Dose 44.6 ml/min Estimated GFR () 83.1 Estimated GFR (Non- 71.7 BUN/Creatinine Ratio 16.6 Random Glucose 119 mg/dl Calcium Level 10.0 mg/dl Magnesium Level 1.9 mg/dl Total Bilirubin 0.7 mg/dl Direct Bilirubin mg/dl Aspartate Amino Transf (AST/SGOT) 25 U/L Alanine Aminotransferase (ALT/SGPT) 29 U/L Alkaline Phosphatase 125 U/L Total Creatine Kinase 77 U/L Creatine Kinase MB 0.9 ng/ml Creatine Kinase MB Ratio 1.2 Total Protein 7.3 gm/dl Albumin 3.5 gm/dl Chemistry Specimen Hemolysis Influenza Type A (RT-PCR) POS for Influ A Influenza Type B (RT-PCR) Neg for Influ B Bedside D-Dimer 6 ng/mlFEU Bedside Troponin I < 0.030 ng/ml Bedside Lactic Acid Venous 3.23 mmol/L Urine Color DK YELLOW Urine Appearance CLEAR Urine pH 5.0 Urine Specific [place] 1.023 Urine Protein 1+ Urine Glucose (UA) NEG Urine Ketones 1+ Urine Occult Blood NEG Urine Nitrite NEG Urine Bilirubin NEG Urine Urobilinogen NEG Urine Leukocyte Esterase NEG Urine WBC (Auto) 1-5 /hpf Urine RBC (Auto) 5-10 /hpf Urine Hyaline Casts (Auto) 5-10 /lpf Urine Epithelial Cells (Auto) 10-20 /lpf Urine Bacteria (Auto) NEG Test 06/08/17 22:21 06/08/17 22:59 06/09/17 02:49 06/09/17 07:48 Lactic Acid Level 2.4 mmol/L 2.1 mmol/L 1.5 mmol/L Pro-B-Type Natriuretic Peptide 3346 pg/ml Thyroid Stimulating Hormone (TSH) 0.601 uIu/ml Arterial Blood pH 7.34 Arterial Blood Partial Pressure CO2 39 mmHg Arterial Blood Partial Pressure O2 59 mm/Hg Arterial Blood HCO3 20 mmol/L Arterial Blood Oxygen Saturation 91.0 % Arterial Blood Base Excess -4.9 mEq/L Arterial Blood Gas Delivery 4 L Mendel Test POS White Blood Count 12.74 K/uL Red Blood Count 3.82 M/uL Hemoglobin 11.6 g/dL Hematocrit 35.0 % Mean Corpuscular Volume 91.6 fL Mean Corpuscular Hemoglobin 30.4 pg Mean Corpuscular Hemoglobin Concent 33.1 g/dl Platelet Count 256 K/uL Mean Platelet Volume 10.0 fL Neutrophils (%) (Auto) 95.9 % Lymphocytes (%) (Auto) 2.0 % Monocytes (%) (Auto) 1.7 % Eosinophils (%) (Auto) 0.0 % Basophils (%) (Auto) 0.1 % Neutrophils # (Auto) 12.21 K/uL Lymphocytes # (Auto) 0.26 K/uL Monocytes # (Auto) 0.22 K/uL Eosinophils # (Auto) 0.00 K/uL Basophils # (Auto) 0.01 K/uL RDW Standard Deviation 44.1 fL RDW Coefficient of Variation 13.3 % Immature Granulocyte % (Auto) 0.3 % Immature Granulocyte # (Auto) 0.04 K/uL Sodium Level 136 mmol/L Potassium Level 3.8 mmol/L Chloride Level 103 mmol/L Carbon Dioxide Level 23 mmol/L Anion Gap 10.0 mmol/L Blood Urea Nitrogen 12 mg/dl Creatinine 0.66 mg/dl Est Creatinine Clear Calc Drug Dose 53.4 ml/min Estimated GFR () 98.1 Estimated GFR (Non- 84.6 BUN/Creatinine Ratio 18.9 Random Glucose 156 mg/dl Calcium Level 9.6 mg/dl Magnesium Level 1.9 mg/dl Troponin I 0.090 ng/ml 0.078 ng/ml Test 06/09/17 11:38 Hemoglobin 11.5 g/dL Hematocrit 33.8 % Assessment and Plan This is a 76 year old female with a PMH of COPD, TRAVIS on 2L O2 nocturnally, ongoing tobacco use, hypertension, hypothyroidism, HLD - presents with worsening shortness of breath Sepsis secondary to Influenza A patient is positive for influenza A presented with leukocytosis, lactic acidosis, tachycardia started on Tamiflu which we will continue to complete the course Acute Hypoxic Respiratory Failure Acute COPD Exacerbation patient with worsening COPD she is an ongoing tobacco smoker does not use inhalers at home, maintenance or rescue only uses nebulizers when she is short of breath for now will add prednisone 40mg x5 days added doxycycline will need outpatient PFTs should be discharged with albuterol rescue inhaler and possibly Combivent Tobacco Use Disorder nicotine patch counseled on smoking cessation Chronic Diastolic CHF takes 80mg of Lasix daily will restart diuretics in 1-2 days HTN BP is elevated due to prednisone use will give an extra dose of Toprol restart Lasix in 1-2 days Hypothyroidism TSH wnl continue Synthroid DVT ppx SCDs FULL CODE
[2017-06-09] MEDS: MAGNESIUM OXIDE 400 MG TAB PO SCH (20:19)
[2017-06-09] MEDS: ATORVASTATIN 20 MG TAB PO SCH (20:21)
[2017-06-09] MEDS ORDERED: OSELTAMIVIR PHOSPHATE 75 MG CAP PO SCH (21:00)
[2017-06-10] VITALS (14 sets, daily range): BP systolic 137–185; BP diastolic 67–109; PULSE 68–125; TEMP 36.7–37.2; O2SAT 91–100
[2017-06-10] MEDS: DOXYCYCLINE IV 100 MG in DEXTROSE 5% 100ML 100 ML IV SCH ×2 (00:24→11:51)
[2017-06-10] MEDS: LEVALBUTEROL 1.25MG/0.5ML NEB INH SCH ×5 (02:00→23:06)
[2017-06-10] MEDS: IPRATROPIUM BROMIDE NEB SOLN 0.02% 2.5 ML VIAL INH SCH ×5 (02:00→23:06)
[2017-06-10] MEDS: LEVOTHYROXINE 112 MCG TAB PO SCH (05:56)
[2017-06-10] MEDS ORDERED: METOPROLOL SUCC 25MG EXT REL TAB PO ONE (06:16)
[2017-06-10 07:12] LABS: BASO % 0.1 %; BASO ABS # 0.01 K/uL (0-0.2); EOS % 0.1 %; EOS ABS # 0.01 K/uL (0-0.5); HEMATOCRIT 37.3 % (37-47); HEMOGLOBIN 12.4 g/dL (12.0-16.0); IG# 0.05 K/uL (0.00-0.02); LYMPH % 8.5 %; LYMPH ABS # 1.31 K/uL (1.2-3.4); MEAN CELL VOLUME 92.1 fL (80-100); MEAN CORPUSCULAR HEMOGLOBIN 30.6 pg (25-34); MEAN CORPUSCULAR HGB CONC 33.2 g/dl (32-36); MEAN PLATELET VOLUME 10.1 fL (7.4-10.4); MONO % 16.2 %; MONO ABS # 2.51 K/uL (0.11-0.59); NEUT % 74.8 %; NEUT ABS # 11.57 K/uL (1.4-6.5); PLATELET COUNT 261 K/uL (130-400); RED CELL DISTRIBUTION WIDTH CV 13.5 % (11.5-14.5); RED CELL DISTRIBUTION WIDTH SD 45.9 fL (36.4-46.3); WHITE BLOOD COUNT 15.46 K/uL (4.8-10.8)
[2017-06-10 07:19] LABS: PTT PATIENT 27.6 SECONDS (21.0-31.0)
[2017-06-10 07:42] LABS: CALCIUM 10.1 mg/dl (8.5-10.1); CREATININE 0.69 mg/dl (0.60-1.20); POTASSIUM 3.9 mmol/L (3.5-5.1)
[2017-06-10] MEDS: GUAIFENESIN 600 MG TABCR PO SCH ×2 (07:49→21:04)
[2017-06-10] MEDS: CEROVITE ADV FORMULA TAB PO SCH (07:49)
[2017-06-10] MEDS: PANTOprazole SOD 40 MG TAB PO SCH (07:49)
[2017-06-10] MEDS: MAGNESIUM OXIDE 400 MG TAB PO SCH ×2 (07:49→21:02)
[2017-06-10] MEDS: FERROUS SULFATE 325 MG TAB PO SCH (07:49)
[2017-06-10] MEDS: OSELTAMIVIR PHOSPHATE SUSP 30 MG/5 ML UDP PO SCH ×2 (07:50→09:41)
[2017-06-10] MEDS: NICOTINE 7 MG/24 HR TDSY TD SCH (07:50)
[2017-06-10] MEDS ORDERED: POTASSIUM CHLORIDE 10 MEQ TABCR PO ONE (08:00)
[2017-06-10] MEDS ORDERED: METOPROLOL SUCC 25MG EXT REL TAB PO SCH (09:00)
--- NOTE | 2017-06-10 12:04 | Progress Note ---
Medicine Progress Note Date & Time of Visit: Jun 10, 2017 at 11:52. Subjective patient seen resting in bed, comfortable states her breathing is somewhat better today, less cough- dry no chest pain, dyspnea, palpitations, dizziness states she had headaches and tremors after taking tamiflu- declines taking it again explained that it will help with her flu symptoms and she accepted the risks of not taking it no other symptoms Objective Last 8 Hrs Date Time Temp Pulse Resp B/P (MAP) Pulse Ox O2 Delivery O2 Flow Rate FiO2 06/10/17 11:45 36.9 78 18 185/77 (113) 96 4.0 06/10/17 08:00 Nasal Cannula 4.0 06/10/17 07:33 36.7 68 18 156/84 (108) 91 06/10/17 07:06 116 20 98 Nasal Cannula 4.0 06/10/17 06:39 125 137/109 (118) 06/10/17 04:46 99 Nasal Cannula 4.0 06/10/17 04:11 37.0 69 20 172/67 (102) 100 Nasal Cannula 4.0 Physical Exam: General- oriented x 3, not in distress, speaks in sentences with no effort Head- atraumatic Eyes- PERRL, EOMI, anicteric ENT- oropharynx clear Neck- supple, no JVD, no adenopathy, no thyromegaly; carotids +2/2 Lungs- (+) bilateral wheezing, scattered Heart- regular rhythm; no murmur, normal rate Abdomen- normal bowel sounds, soft, nontender Extremities- no pretibial edema, no calf tenderness; peripheral pulses intact Neuro- alert, oriented x 3; (+ )decreased hearing, otherwise, no other gross focal deficits Skin- warm & dry Laboratory Results: Last 24 Hours Test 06/10/17 06:59 White Blood Count 15.46 K/uL Red Blood Count 4.05 M/uL Hemoglobin 12.4 g/dL Hematocrit 37.3 % Mean Corpuscular Volume 92.1 fL Mean Corpuscular Hemoglobin 30.6 pg Mean Corpuscular Hemoglobin Concent 33.2 g/dl Platelet Count 261 K/uL Mean Platelet Volume 10.1 fL Neutrophils (%) (Auto) 74.8 % Lymphocytes (%) (Auto) 8.5 % Monocytes (%) (Auto) 16.2 % Eosinophils (%) (Auto) 0.1 % Basophils (%) (Auto) 0.1 % Neutrophils # (Auto) 11.57 K/uL Lymphocytes # (Auto) 1.31 K/uL Monocytes # (Auto) 2.51 K/uL Eosinophils # (Auto) 0.01 K/uL Basophils # (Auto) 0.01 K/uL RDW Standard Deviation 45.9 fL RDW Coefficient of Variation 13.5 % Immature Granulocyte % (Auto) 0.3 % Immature Granulocyte # (Auto) 0.05 K/uL Activated Partial Thromboplast Time 27.6 SECONDS Partial Thromboplastin Ratio 1.1 Sodium Level 137 mmol/L Potassium Level 3.9 mmol/L Chloride Level 103 mmol/L Carbon Dioxide Level 29 mmol/L Anion Gap 5.0 mmol/L Blood Urea Nitrogen 14 mg/dl Creatinine 0.69 mg/dl Est Creatinine Clear Calc Drug Dose 50.5 ml/min Estimated GFR () 96.6 Estimated GFR (Non- 83.4 BUN/Creatinine Ratio 20.0 Random Glucose 96 mg/dl Calcium Level 10.1 mg/dl Magnesium Level 2.2 mg/dl Assessment & Plan This is a 76 year old female with a PMH of COPD, TRAVIS on 2L O2 nocturnally, ongoing tobacco use, hypertension, hypothyroidism, HLD - presents with worsening shortness of breath Sepsis secondary to Influenza A patient is positive for influenza A presented with leukocytosis, lactic acidosis, tachycardia - afebrile WBC increased likely from Prednisone started on Tamiflu- patient declining due to headache, tremors monitor Acute Hypoxic Respiratory Failure Acute COPD Exacerbation patient with worsening COPD she is an ongoing tobacco smoker -- still on 4 liters O2 via NC (+) wheezing -- repeat CXR -- change Prednisone to Solumedrol 40mg q8h continue Nebs, Doxy will need outpatient PFTs should be discharged with albuterol rescue inhaler and possibly Combivent Episode of A fib - noted this AM - Metoprolol increased to 50mg daily - Echo noted - Cardiology consulted - resume usual ASA Chronic Diastolic CHF -- may need to resume Lasix -- repeat CXR HTN BP is elevated due to prednisone use - Toprol increased - monitor Tobacco Use Disorder nicotine patch counseled on smoking cessation Hypothyroidism TSH wnl continue Synthroid DVT ppx SCDs Heparin FULL CODE Disposition PT/OT usually lives at home Current Inpatient Medications: Current Inpatient Medications Medications (Trade) Dose Ordered Sig/Robby Route Start Time Stop Time Status Last Admin Dose Admin Doxycycline Hyclate 100 mg/ Dextrose 110 ml @ 50 mls/hr Q12H IV 06/09/17 12:00 06/16/17 11:59 06/10/17 11:51 50 MLS/HR Prednisone (PredniSONE TAB) 40 mg DAILY PO 06/09/17 09:00 06/14/17 08:59 06/10/17 07:49 40 MG Acetaminophen (Tylenol Tab) 650 mg Q4H PRN PO 06/08/17 22:45 07/08/17 22:44 Nitroglycerin (Nitrostat Tab) 0.4 mg UD PRN SL 06/08/17 22:45 07/08/17 22:44 Atorvastatin Calcium (Lipitor Tab) 20 mg HS PO 06/09/17 21:00 07/09/17 20:59 06/09/17 20:21 20 MG Levothyroxine Sodium (Synthroid Tab) 112 mcg DAILYBB PO 06/09/17 06:00 07/09/17 05:59 06/10/17 05:56 112 MCG Multivitamins/ Minerals (Multivitamin W/ Minerals Tab) 1 tab DAILY PO 06/09/17 09:00 07/09/17 08:59 06/10/17 07:49 1 TAB Ferrous Sulfate (Feosol Tab) 325 mg DAILY PO 06/09/17 09:00 07/09/17 08:59 06/10/17 07:49 325 MG Pantoprazole Sodium (Protonix Tab) 40 mg QAM PO 06/09/17 09:00 07/09/17 08:59 06/10/17 07:49 40 MG Tramadol HCl (Ultram Tab) 25 mg Q6H PRN PO 06/08/17 22:45 07/08/17 22:[address] (Atrovent 0.02% 0.5MG/2.5ML Neb) 0.5 mg Q6R INH 06/09/17 03:00 07/09/17 02:59 06/10/17 06:55 0.5 MG Levalbuterol (Xopenex 1.25MG/ 0.5ML Neb) 1.25 mg Q6R INH 06/09/17 03:00 07/09/17 02:59 06/10/17 06:[address] (Atrovent 0.02% 0.5MG/2.5ML Neb) 0.5 mg Q4H PRN INH 06/08/17 23:00 07/08/17 22:59 Levalbuterol (Xopenex 1.25MG/ 0.5ML Neb) 1.25 mg Q4H PRN INH 06/08/17 23:00 07/08/17 22:59 Oseltamivir Phosphate (Tamiflu Susp) 30 mg BID PO 06/08/17 23:30 06/13/17 23:29 06/09/17 20:24 30 MG Guaifenesin (Mucinex Contr Rel Tab) 600 mg Q12 PO 06/09/17 09:00 07/09/17 08:59 06/10/17 07:49 600 MG Nicotine (Nicoderm Cq 7 Mg Patch) 1 patch QAM TD 06/09/17 09:00 07/09/17 08:59 Miscellaneous (Remove Nicoderm Patch) 1 ea HS N/A 06/09/17 21:00 07/09/17 20:59 06/09/17 20:22 1 EA Magnesium Oxide (Mag-Ox Tab) 400 mg BID PO 06/09/17 21:00 07/09/17 20:59 06/10/17 07:49 400 MG Metoprolol Succinate (Toprol Xl Tab) 50 mg DAILY PO 06/11/17 09:00 07/09/17 08:59
[2017-06-10] MEDS ORDERED: ASPIRIN 81 MG CHEW PO ONE (12:30)
--- NOTE | 2017-06-10 13:28 | DIAGNOSTIC IMAGING REPORT ---
CHEST ONE VIEW PORTABLE CLINICAL HISTORY: ff up, hypoxia, influenza dyspnea COMPARISON STUDY: 06/08/2017 FINDINGS: Chronic interstitial change throughout both hemithoraces. Possible small superimposed parenchymal infiltrate left base. Diaphragms smooth but somewhat flattened. There are findings of mild stable cardiomegaly. IMPRESSION: Chronic interstitial change. Small potential developing parenchymal infiltrate left base. The above report was generated using voice recognition software. It may contain grammatical, syntax or spelling errors. Electronically signed by: Alfonso Galo M.D. 06/10/2017 1:27 PM Dictated Date/Time: 06/10/2017 1:26 PM
[2017-06-10] MEDS: METHYLPREDNISOLONE IV 40 MG in SYRINGE 0 ML IV SCH ×2 (13:52→21:00)
--- NOTE | 2017-06-10 15:31 | CARDIOLOGY CONSULTATION ---
DATE OF CONSULTATION: 06/10/2017 REFERRING PHYSICIAN: Dr. Mims. PRIMARY CARE PHYSICIAN: Dr. Dhillon. INDICATIONS: Transient atrial fibrillation and COPD exacerbation. HISTORY OF PRESENT ILLNESS: The patient is a 76-year-old female whose past medical history per review of records is notable for chronic obstructive lung disease with nocturnal oxygen requirement, atherosclerotic vascular disease status post carotid endarterectomy, hypertension, hyperlipidemia, hypothyroidism on replacement, past history of falls, fractures and chronic compression fractures, and chronic anemia. The patient presents on referral. She was hospitalized at [facility], beginning on 06/08/2017 with symptoms of cough, wheeze, increasing shortness of breath and nausea. She presented to the Emergency Room, where she was found to be hypoxic at 79% O2 saturation on room air. She was admitted for exacerbation of underlying obstructive lung disease. The patient notes she has been gradually improving since hospitalization. Notes no prior history of cardiac complaints. Notes no chest pains. Notes no dizziness or lightheadedness. Blood pressure is variable, but tends to run high per the patient. Appetite has been stable. She has chronic dark stools. Not aware of any overt bleeding. Did fall on this presentation due to weakness. Notes past falls when acutely ill with last hospitalization with pneumonia in 2014. She notes moderate unsteadiness on her feet, but is ambulatory about her home, shops for groceries when able. Notes no headache or visual changes. Notes no rash or arthritic complaints, but has chronic aches and pains from back issues. ALLERGIES: LISTED PENICILLIN, SIMVASTATIN, AND SULFA. MEDICATIONS PRIOR TO HOSPITALIZATION: Fosamax D, aspirin 81 mg per day, atorvastatin 20 mg at bedtime, ferrous sulfate 325 mg p.o. daily, furosemide 80 mg daily, levothyroxine 112 mcg p.o. daily, Mag-Ox 400 mg b.i.d., metoprolol succinate 25 mg p.o. daily, multivitamin per day, omeprazole, and potassium. PAST SURGICAL HISTORY: Notable for as described prior right carotid endarterectomy and repair of radial and ulnar fracture in 2007. Past shoulder surgery per patient and D&C. FAMILY HISTORY: Notable for colon cancer. SOCIAL HISTORY: The patient resides outside at [place]. She continues to smoke 1 pack of cigarettes per day. Uses no significant alcoholic beverages. PHYSICAL EXAMINATION: VITAL SIGNS: Heart rate this morning was 68 and blood pressure 156/84. Telemetry revealed transient atrial fibrillation, lasting approximately several hours this morning and spontaneously converting to sinus rhythm. HEENT: Normocephalic and atraumatic. Nares without discharge. Throat was clear. NECK: Supple. There is no distinct thyromegaly. LUNGS: Reveal markedly diminished breath sounds with diffuse wheezes. CARDIOVASCULAR: Regular, normal S1 and S2. There is a less than grade 1/6 systolic murmur. There is no diastolic murmur. ABDOMEN: Soft and nontender. There is no palpable hepatosplenomegaly. EXTREMITIES: Without cyanosis or clubbing. There is no peripheral edema. There are intact distal pulses. DATA: EKG on presentation revealed sinus tachycardia at a rate of 101. EKG while in atrial fibrillation this morning demonstrated atrial fibrillation at a rate of 106. Echocardiogram this admission reveals small left ventricular cavity with moderate left ventricular hypertrophy with ejection fraction greater than 70% with grade 1 diastolic dysfunction, mild mitral and moderate tricuspid insufficiency, and elevated pulmonary pressures. Chest x-ray reveals chronic interstitial changes and possible infiltrate in the left base. CT scan of the chest on admission demonstrated no evidence of pulmonary emboli, emphysematous changes. LABORATORY STUDIES: Sodium is 137, potassium is 3.9, chloride is 103, bicarbonate is 29, BUN is 14, and creatinine is 0.69. White cell count on presentation was 12.7 and this morning is 15.4. Hemoglobin is 12.4. IMPRESSION: A 76-year-old female with a history of chronic obstructive lung disease, hypertension, vascular disease, prior carotid endarterectomy, hypertensive disease with diastolic dysfunction on chronic diuretic, who was admitted with exacerbation of underlying obstructive lung disease. The patient this morning had a transient lapse into atrial fibrillation, likely incited by the patient's current influenza/pneumonia/chronic obstructive pulmonary disease exacerbation. Beta blockers have been increased and rhythm appears to stabilize. The patient is currently not anticoagulated. She has significant risks, including chronic prednisone use and past multiple falls including fall this admission and chronic GI blood loss, on an iron supplement per records. The patient, however, should if she lapsed back into atrial fibrillation again be at least transiently anticoagulated if not permanently anticoagulated to reduce the risk given substantially elevated CHADs score including age, gender, vascular disease, and hypertension. In the meantime, we will continue current dosing of metoprolol and maintain telemetry as underlying pulmonary issues are treated. Strongly emphasized the need for tobacco cessation. MTDD
[2017-06-10] MEDS: IPRATROPIUM BROMIDE NEB SOLN 0.02% 2.5 ML VIAL INH PRN (19:17)
[2017-06-10] MEDS: HEPARIN SOD 5000 UNIT/0.5 ML CARP SQ SCH (21:03)
[2017-06-10] MEDS: ATORVASTATIN 20 MG TAB PO SCH (21:04)
[2017-06-11] VITALS (18 sets, daily range): BP systolic 110–199; BP diastolic 54–87; PULSE 69–122; TEMP 36.4–37.1; O2SAT 95–99
[2017-06-11] MEDS: DOXYCYCLINE IV 100 MG in DEXTROSE 5% 100ML 100 ML IV SCH ×2 (00:04→12:41)
[2017-06-11] MEDS: IPRATROPIUM BROMIDE NEB SOLN 0.02% 2.5 ML VIAL INH SCH ×6 (03:14→23:15)
[2017-06-11] MEDS: LEVALBUTEROL 1.25MG/0.5ML NEB INH SCH ×7 (03:14→23:14)
[2017-06-11] MEDS: METHYLPREDNISOLONE IV 40 MG in SYRINGE 0 ML IV SCH (04:39)
[2017-06-11] MEDS: LEVOTHYROXINE 112 MCG TAB PO SCH (06:06)
[2017-06-11 07:43] LABS: BASO % 0.1 %; BASO ABS # 0.01 K/uL (0-0.2); HEMATOCRIT 34.7 % (37-47); HEMOGLOBIN 11.8 g/dL (12.0-16.0); IG# 0.03 K/uL (0.00-0.02); LYMPH % 5.7 %; LYMPH ABS # 0.62 K/uL (1.2-3.4); MEAN CELL VOLUME 90.4 fL (80-100); MEAN CORPUSCULAR HEMOGLOBIN 30.7 pg (25-34); MEAN PLATELET VOLUME 9.8 fL (7.4-10.4); MONO % 5.9 %; MONO ABS # 0.64 K/uL (0.11-0.59); NEUT ABS # 9.53 K/uL (1.4-6.5); PLATELET COUNT 253 K/uL (130-400); RED CELL DISTRIBUTION WIDTH CV 13.4 % (11.5-14.5); RED CELL DISTRIBUTION WIDTH SD 44.1 fL (36.4-46.3); WHITE BLOOD COUNT 10.83 K/uL (4.8-10.8)
[2017-06-11] MEDS: GUAIFENESIN 600 MG TABCR PO SCH ×2 (07:55→19:57)
[2017-06-11] MEDS: METOPROLOL SUCC 25MG EXT REL TAB PO SCH (07:56)
[2017-06-11] MEDS: FERROUS SULFATE 325 MG TAB PO SCH (07:57)
[2017-06-11] MEDS: CEROVITE ADV FORMULA TAB PO SCH (07:57)
[2017-06-11] MEDS: ASPIRIN 81 MG ECTAB PO SCH (07:57)
[2017-06-11] MEDS: MAGNESIUM OXIDE 400 MG TAB PO SCH ×2 (07:57→19:59)
[2017-06-11] MEDS: PANTOprazole SOD 40 MG TAB PO SCH (07:58)
[2017-06-11] MEDS: NICOTINE 7 MG/24 HR TDSY TD SCH (07:58)
[2017-06-11] MEDS: HEPARIN SOD 5000 UNIT/0.5 ML CARP SQ SCH ×2 (08:03→19:56)
[2017-06-11] MEDS: IPRATROPIUM BROMIDE NEB SOLN 0.02% 2.5 ML VIAL INH PRN ×2 (11:23→19:15)
[2017-06-11] MEDS ORDERED: CLONIDINE HCL 0.1 MG TAB PO ONE (11:37)
[2017-06-11] MEDS ORDERED: CLONIDINE HCL 0.1 MG TAB PO PRN (11:45)
[2017-06-11] MEDS ORDERED: FUROSEMIDE 40 MG TAB PO ONE (11:56)
[2017-06-11] MEDS ORDERED: NICOTINE 14 MG/24 HR TDSY TD ONE (11:56)
--- NOTE | 2017-06-11 11:56 | Progress Note ---
Medicine Progress Note Date & Time of Visit: Jun 11, 2017 at 11:47. Subjective patient seen resting in bedside chair comfortable, speaks in sentences with no effort states her breathing and cough continues to improve denies palpitations, dizziness, chest pain BP elevated this morning- denies headache, or any other symptoms denies other symptoms Objective Last 8 Hrs Date Time Temp Pulse Resp B/P (MAP) Pulse Ox O2 Delivery O2 Flow Rate FiO2 06/11/17 11:31 36.8 76 20 198/84 (122) 99 4.0 194/86 (122) 06/11/17 11:26 76 18 98 Nasal Cannula 4.0 06/11/17 08:00 Nasal Cannula 4.0 06/11/17 07:20 36.4 76 22 199/78 (118) 06/11/17 07:02 78 20 96 Nasal Cannula 4.0 06/11/17 04:00 97 Nasal Cannula 4.0 06/11/17 04:00 36.4 81 20 145/87 (106) 97 Nasal Cannula 4.0 06/11/17 04:00 97 Nasal Cannula 4.0 Physical Exam: General- oriented x 3, not in distress, speaks in sentences with no effort Eyes- anicteric Neck- supple, no JVD Lungs- (+) bilateral wheezing, scattered- improved Heart- regular rhythm; no murmur, normal rate Abdomen- normal bowel sounds, soft, nontender Extremities- no pretibial edema, no calf tenderness Neuro- alert, oriented x 3; (+)decreased hearing, otherwise, no other gross focal deficits Skin- warm & dry Laboratory Results: Last 24 Hours Test 06/11/17 07:21 White Blood Count 10.83 K/uL Red Blood Count 3.84 M/uL Hemoglobin 11.8 g/dL Hematocrit 34.7 % Mean Corpuscular Volume 90.4 fL Mean Corpuscular Hemoglobin 30.7 pg Mean Corpuscular Hemoglobin Concent 34.0 g/dl Platelet Count 253 K/uL Mean Platelet Volume 9.8 fL Neutrophils (%) (Auto) 88.0 % Lymphocytes (%) (Auto) 5.7 % Monocytes (%) (Auto) 5.9 % Eosinophils (%) (Auto) 0.0 % Basophils (%) (Auto) 0.1 % Neutrophils # (Auto) 9.53 K/uL Lymphocytes # (Auto) 0.62 K/uL Monocytes # (Auto) 0.64 K/uL Eosinophils # (Auto) 0.00 K/uL Basophils # (Auto) 0.01 K/uL RDW Standard Deviation 44.1 fL RDW Coefficient of Variation 13.4 % Immature Granulocyte % (Auto) 0.3 % Immature Granulocyte # (Auto) 0.03 K/uL Assessment & Plan This is a 76 year old female with a PMH of COPD, TRAVIS on 2L O2 nocturnally, ongoing tobacco use, hypertension, hypothyroidism, HLD - presents with worsening shortness of breath Sepsis secondary to Influenza A presented with leukocytosis, lactic acidosis, tachycardia - remains afebrile symptoms continue to improve WBC increased likely from Prednisone patient declined Tamiflu due to headache/tremors Acute Hypoxic Respiratory Failure Acute COPD Exacerbation Smoker -- still on 4 liters O2 via NC less wheezing -- repeat CXR: Chronic interstitial change. Small potential developing parenchymal infiltrate left base. -- d/c Solumedrol, resume Prednisone 40m po daily continue Doxycycline continue Nebs will need outpatient PFTs should be discharged with albuterol rescue inhaler and possibly Combivent Episode of A fib - resolved - Metoprolol increased to 50mg daily resumed usual ASA - Echo noted - Cardiology consulted Dr. Pierce may consider anticoagulation if A Fib recurs Chronic Diastolic CHF -- resume Lasix HTN BP is elevated due to steroids - Toprol increased - PRN Clonidine added d/c Solumedrol Tobacco Use Disorder nicotine patch counseled on smoking cessation Hypothyroidism TSH wnl continue Synthroid DVT ppx SCDs Heparin FULL CODE Disposition PT/OT usually lives at home Current Inpatient Medications: Current Inpatient Medications Medications (Trade) Dose Ordered Sig/Robby Route Start Time Stop Time Status Last Admin Dose Admin Doxycycline Hyclate 100 mg/ Dextrose 110 ml @ 50 mls/hr Q12H IV 06/09/17 12:00 06/16/17 11:59 06/11/17 00:04 50 MLS/HR Acetaminophen (Tylenol Tab) 650 mg Q4H PRN PO 06/08/17 22:45 07/08/17 22:44 06/11/17 10:55 650 MG Nitroglycerin (Nitrostat Tab) 0.4 mg UD PRN SL 06/08/17 22:45 07/08/17 22:44 Atorvastatin Calcium (Lipitor Tab) 20 mg HS PO 06/09/17 21:00 07/09/17 20:59 06/10/17 21:04 20 MG Levothyroxine Sodium (Synthroid Tab) 112 mcg DAILYBB PO 06/09/17 06:00 07/09/17 05:59 06/11/17 06:06 112 MCG Multivitamins/ Minerals (Multivitamin W/ Minerals Tab) 1 tab DAILY PO 06/09/17 09:00 07/09/17 08:59 06/11/17 07:57 1 TAB Ferrous Sulfate (Feosol Tab) 325 mg DAILY PO 06/09/17 09:00 07/09/17 08:59 06/11/17 07:57 325 MG Pantoprazole Sodium (Protonix Tab) 40 mg QAM PO 06/09/17 09:00 07/09/17 08:59 06/11/17 07:58 40 MG Tramadol HCl (Ultram Tab) 25 mg Q6H PRN PO 06/08/17 22:45 07/08/17 22:44 Ipratropium [place] (Atrovent 0.02% 0.5MG/2.5ML Neb) 0.5 mg Q4H PRN INH 06/08/17 23:00 07/08/17 22:59 06/11/17 11:23 0.5 MG Levalbuterol (Xopenex 1.25MG/ 0.5ML Neb) 1.25 mg Q4H PRN INH 06/08/17 23:00 07/08/17 22:59 Guaifenesin (Mucinex Contr Rel Tab) 600 mg Q12 PO 06/09/17 09:00 07/09/17 08:59 06/11/17 07:55 600 MG Nicotine (Nicoderm Cq 7 Mg Patch) 1 patch QAM TD 06/09/17 09:00 07/09/17 08:59 Miscellaneous (Remove Nicoderm Patch) 1 ea HS N/A 06/09/17 21:00 07/09/17 20:59 06/09/17 20:22 1 EA Magnesium Oxide (Mag-Ox Tab) 400 mg BID PO 06/09/17 21:00 07/09/17 20:59 06/11/17 07:57 400 MG Metoprolol Succinate (Toprol Xl Tab) 50 mg DAILY PO 06/11/17 09:00 07/09/17 08:59 06/11/17 07:56 50 MG Ipratropium [place] (Atrovent 0.02% 0.5MG/2.5ML Neb) 0.5 mg Q4R INH 06/10/17 12:30 07/10/17 12:29 06/11/17 07:00 0.5 MG Levalbuterol (Xopenex 1.25MG/ 0.5ML Neb) 1.25 mg Q4R INH 06/10/17 12:30 07/10/17 12:29 06/11/17 11:23 1.25 MG Methylprednisolone Sodium Succinate 40 mg/Syringe 0.64 ml @ 1.5 mls/min Q8H IV 06/10/17 12:30 07/10/17 12:29 06/11/17 04:39 1.5 MLS/MIN Heparin Sodium (Porcine) (Heparin Sq 5000 Unit/0.5ml) 5,000 unit Q12 SQ 06/10/17 21:00 07/10/17 20:59 06/11/17 08:03 5,000 UNIT Aspirin (Ecotrin Tab) 81 mg DAILY PO 06/11/17 09:00 07/11/17 08:59 06/11/17 07:57 81 MG Clonidine HCl (Catapres Tab) 0.1 mg Q6H PRN PO 06/11/17 11:45 07/11/17 11:44 UNV Clonidine HCl (Catapres Tab) 0.1 mg 1137 ONCE PO 06/11/17 11:37 06/11/17 11:38 UNV
[2017-06-11] MEDS ORDERED: AMLODIPINE BESYLATE 5 MG TAB PO ONE (16:25)
--- NOTE | 2017-06-11 16:30 | PROGRESS NOTE ---
DATE: 06/11/2017 CARDIOLOGY CONSULTATION FOLLOWUP NOTE The patient seen and examined. Chart, medications, telemetry reviewed. SUBJECTIVE: The patient has had no further atrial fibrillation, pulmonary status is slowly improving. She has been increasingly more hypertensive this admission. OBJECTIVE: VITAL SIGNS: Heart rate is 76, blood pressure is 167/83. NECK: Without jugular venous distention. LUNGS: Reveal markedly diminished breath sounds, slightly improved by respiratory wheezing. CARDIOVASCULAR: Regular. There is no S3 gallop. ABDOMEN: Soft. EXTREMITIES: Without edema. LABORATORY DATA: White cell count is 10.8, hemoglobin is 11.8. IMAGING DATA: Telemetry reveals sinus rhythm without recurrence of atrial fibrillation. IMPRESSION AND PLAN: A 76-year-old female admitted with acute respiratory decline secondary to influenza A superimposed on chronic obstructive lung disease, O2 dependent. The patient had transient atrial fibrillation yesterday without recurrence. Metoprolol has been increased. Will add amlodipine for hypertension control. If atrial fibrillation recurs, would consider anticoagulation long-term. Strongly encouraged tobacco cessation once again.
[2017-06-11] MEDS ORDERED: METOPROLOL TARTRATE 1 MG/ML VIAL IV PRN (18:15)
[2017-06-11] MEDS ORDERED: HEPARIN IV LOW DOSE NO BOLUS SCH (18:15)
[2017-06-11] MEDS ORDERED: METOPROLOL TARTRATE 1 MG/ML VIAL IV ONE (18:15)
[2017-06-11 19:27] LABS: BASO % 0.1 %; BASO ABS # 0.01 K/uL (0-0.2); HEMATOCRIT 36.1 % (37-47); HEMOGLOBIN 12.3 g/dL (12.0-16.0); IG# 0.03 K/uL (0.00-0.02); LYMPH % 5.4 %; MEAN CORPUSCULAR HEMOGLOBIN 30.7 pg (25-34); MONO % 9.9 %; MONO ABS # 1.48 K/uL (0.11-0.59); NEUT % 84.4 %; NEUT ABS # 12.57 K/uL (1.4-6.5); PLATELET COUNT 282 K/uL (130-400); RED CELL DISTRIBUTION WIDTH CV 13.4 % (11.5-14.5); RED CELL DISTRIBUTION WIDTH SD 44.3 fL (36.4-46.3); WHITE BLOOD COUNT 14.89 K/uL (4.8-10.8)
[2017-06-11 19:32] LABS: MEAN CORPUSCULAR HGB CONC 34.1 g/dl (32-36)
[2017-06-11] MEDS: HEPARIN 25,000 UNIT/500ML D5W 500 ML IV PRN (19:54)
[2017-06-11] MEDS: ATORVASTATIN 20 MG TAB PO SCH (19:59)
[2017-06-11] MEDS ORDERED: METOPROLOL TARTRATE 1 MG/ML VIAL IV STA ×2 (20:47→22:45)
[2017-06-11] MEDS ORDERED: NURSING VERBAL MED ORDER ONE (22:45)
[2017-06-12] VITALS (15 sets, daily range): BP systolic 130–196; BP diastolic 74–88; PULSE 63–116; TEMP 36.4–36.8; O2SAT 91–100
[2017-06-12] MEDS: DOXYCYCLINE IV 100 MG in DEXTROSE 5% 100ML 100 ML IV SCH ×2 (00:07→12:37)
[2017-06-12] MEDS: IPRATROPIUM BROMIDE NEB SOLN 0.02% 2.5 ML VIAL INH PRN ×2 (03:13→19:06)
[2017-06-12] MEDS: IPRATROPIUM BROMIDE NEB SOLN 0.02% 2.5 ML VIAL INH SCH ×6 (03:13→22:58)
[2017-06-12] MEDS: LEVALBUTEROL 1.25MG/0.5ML NEB INH SCH ×6 (03:13→22:58)
[2017-06-12] MEDS ORDERED: HEPARIN IV BOLUS 2,000 UNIT in SYRINGE 0 ML IV ONE (03:30)
[2017-06-12] MEDS: HEPARIN 25,000 UNIT/500ML D5W 500 ML IV PRN (03:35)
[2017-06-12] MEDS: LEVOTHYROXINE 112 MCG TAB PO SCH (06:11)
[2017-06-12] MEDS: FUROSEMIDE 40 MG TAB PO SCH (08:08)
[2017-06-12] MEDS: MAGNESIUM OXIDE 400 MG TAB PO SCH ×2 (08:08→21:40)
[2017-06-12] MEDS: ASPIRIN 81 MG ECTAB PO SCH (08:09)
[2017-06-12] MEDS: METOPROLOL SUCC 25MG EXT REL TAB PO SCH (08:10)
[2017-06-12] MEDS: CEROVITE ADV FORMULA TAB PO SCH (08:11)
[2017-06-12] MEDS: PANTOprazole SOD 40 MG TAB PO SCH (08:11)
[2017-06-12] MEDS: NICOTINE 14 MG/24 HR TDSY TD SCH (08:11)
[2017-06-12] MEDS: GUAIFENESIN 600 MG TABCR PO SCH ×2 (08:12→21:37)
[2017-06-12] MEDS: FERROUS SULFATE 325 MG TAB PO SCH (08:12)
[2017-06-12 08:27] LABS: BASO % 0.1 %; BASO ABS # 0.01 K/uL (0-0.2); EOS % 0.3 %; EOS ABS # 0.03 K/uL (0-0.5); HEMATOCRIT 36.3 % (37-47); HEMOGLOBIN 12.2 g/dL (12.0-16.0); IG# 0.05 K/uL (0.00-0.02); LYMPH % 19.1 %; LYMPH ABS # 2.27 K/uL (1.2-3.4); MEAN CELL VOLUME 91.7 fL (80-100); MEAN CORPUSCULAR HEMOGLOBIN 30.8 pg (25-34); MEAN CORPUSCULAR HGB CONC 33.6 g/dl (32-36); MEAN PLATELET VOLUME 9.9 fL (7.4-10.4); MONO % 9.7 %; MONO ABS # 1.16 K/uL (0.11-0.59); NEUT % 70.4 %; NEUT ABS # 8.39 K/uL (1.4-6.5); PLATELET COUNT 276 K/uL (130-400); RED CELL DISTRIBUTION WIDTH CV 13.5 % (11.5-14.5); RED CELL DISTRIBUTION WIDTH SD 44.8 fL (36.4-46.3); WHITE BLOOD COUNT 11.91 K/uL (4.8-10.8)
[2017-06-12 08:50] LABS: PTT PATIENT 63.9 SECONDS (21.0-31.0)
[2017-06-12] MEDS ORDERED: AMLODIPINE BESYLATE 5 MG TAB PO SCH (09:00)
--- NOTE | 2017-06-12 09:29 | Cardiology Follow-Up ---
Subjective General Date of Service: Jun 12, 2017. Chief Complaint: PAF Pt evaluation today including: conversation w/ patient, physical exam, chart review, lab review, review of studies, review of inpatient medication list History of Present Illness Patient seen and examined. Chart, medications, and telemetry reviewed. + Cough. + Wheezing. + Chest congestion + Fatigue. Paroxysmal atrial fibrillation with a rapid ventricular response noted once again, currently in sinus around 80 bpm. Notes intermittent hypertension associated with pressure on the chest and difficulty breathing. No overt palpitations. No orthopnea or PND. No peripheral edema. Allergies Coded Allergies: Penicillins (Verified Allergy, Intermediate, HIVES,SWELLING, 02/14/15) Sulfa Antibiotics (Verified Allergy, Intermediate, hives, 02/19/15) Simvastatin (Verified Allergy, Unknown, Unknown, 02/14/15) Source - PT List Social History Smoking Status: Current Every Day Smoker Hx Tobacco Use In Past Year?: Yes Hx Alcohol Use - Type And Amou: No Hx Substance Use - Type And Am: No Problem List Medical Problems: (1) Hypoxia Status: Acute (2) Influenza A Status: Acute (3) Paroxysmal atrial fibrillation Status: Acute Physical Exam Vital Signs Last Vital Signs Documentation Date Time Temp Pulse Resp B/P (MAP) Pulse Ox O2 Delivery O2 Flow Rate FiO2 06/12/17 07:44 36.5 73 18 165/85 (111) 100 06/12/17 07:02 Nasal Cannula 2.0 Physical Exam Constitutional: Level of Distress: NAD, chronically ill Psychiatric: Mental Status: active & alert Orientation: to time, to place, to person Memory: recent memory normal, remote memory normal Head: normocephalic, atraumatic Eyes: Pupils: PERRLA Neck: pertinent finding (Normal JVP. No HJR) Lungs: Respiratory effort: dyspneic Auscultation: deminished air movement, decreased breath sounds, inspiratory wheezing, expiratory wheezing, rhonchi Cardiovascular: Heart Auscultation: RRR, normal S1, normal S2, no murmurs, no rubs Peripheral Pulses: Bruits: carotid bruit on the left, carotid bruit on the right Radial Pulse: normal on the left, normal on the right Dorsalis Pedis Pulse: decreased on the left, decreased on the right Abdomen: Bowel Sounds: normal Inspection & Palpation: soft, non-distended, no masses Extremities: no edema Neurologic: Cranial Nerves: grossly intact Assessment and Plan Assessment and Plan 1. Admission with acute respiratory failure, influenza A superimposed on what appears to be significant oxygen dependent obstructive pulmonary disease with ongoing tobacco abuse. 2. Paroxysmal atrial fibrillation with a rapid ventricular response,currently in normal sinus at 80 bpm. 3. [id number] Score 5. Risks of usp anticoagulation appear to be greater than the benefit (multiple falls, chronic GI blood loss, iron deficiency , patient request) 4. Labile hypertension, hypertensive heart disease 5. Peripheral vascular disease status post carotid endarterectomy 6. Dyslipidemia RECOMMENDATIONS: Discontinue Toprol XL Initiate Sotalol 80 mg every twelve hours. Daily electrocardiograms Maintain continuous telemetry monitoring. Increase amlodipine for additional blood pressure control Continue ASA and statin Patient personally seen, plan as outlined above. Will need addtional minimum 48 hours telemetry. Patrice Pierce MD Laboratory Results Last 24 Hours Test 06/11/17 19:10 06/12/17 02:02 06/12/17 08:12 06/12/17 08:56 White Blood Count 14.89 K/uL 11.91 K/uL Red Blood Count 4.01 M/uL 3.96 M/uL Hemoglobin 12.3 g/dL 12.2 g/dL Hematocrit 36.1 % 36.3 % Mean Corpuscular Volume 90.0 fL 91.7 fL Mean Corpuscular Hemoglobin 30.7 pg 30.8 pg Mean Corpuscular Hemoglobin Concent 34.1 g/dl 33.6 g/dl Platelet Count 282 K/uL 276 K/uL Mean Platelet Volume 10.0 fL 9.9 fL Neutrophils (%) (Auto) 84.4 % 70.4 % Lymphocytes (%) (Auto) 5.4 % 19.1 % Monocytes (%) (Auto) 9.9 % 9.7 % Eosinophils (%) (Auto) 0.0 % 0.3 % Basophils (%) (Auto) 0.1 % 0.1 % Neutrophils # (Auto) 12.57 K/uL 8.39 K/uL Lymphocytes # (Auto) 0.80 K/uL 2.27 K/uL Monocytes # (Auto) 1.48 K/uL 1.16 K/uL Eosinophils # (Auto) 0.00 K/uL 0.03 K/uL Basophils # (Auto) 0.01 K/uL 0.01 K/uL RDW Standard Deviation 44.3 fL 44.8 fL RDW Coefficient of Variation 13.4 % 13.5 % Immature Granulocyte % (Auto) 0.2 % 0.4 % Immature Granulocyte # (Auto) 0.03 K/uL 0.05 K/uL Prothrombin Time 10.2 SECONDS Prothromb Time International Ratio 1.0 Activated Partial Thromboplast Time 26.0 SECONDS 46.0 SECONDS 63.9 SECONDS Partial Thromboplastin Ratio 1.0 1.8 2.5
[2017-06-12 10:40] LABS: CALCIUM 9.9 mg/dl (8.5-10.1); CREATININE 0.75 mg/dl (0.60-1.20); POTASSIUM 3.4 mmol/L (3.5-5.1)
[2017-06-12 10:44] LABS: PTT PATIENT 50.4 SECONDS (21.0-31.0)
--- NOTE | 2017-06-12 11:40 | Progress Note ---
Medicine Progress Note Date & Time of Visit: Jun 12, 2017 at 11:35. Subjective converted to a fib last, then converted back to sinus rhythm at around 2am was having chest pain this AM, BP elevated improved after AM meds resting in bed, alert, not in distress, in good spirits speaks in sentences with minimal effort, on 4 liters NC states she feels about the same as yesterday has occasional cough denies chest pain, palpitations, dizziness no other symptom Objective Last 8 Hrs Date Time Temp Pulse Resp B/P (MAP) Pulse Ox O2 Delivery O2 Flow Rate FiO2 06/12/17 11:22 75 18 98 Nasal Cannula 1.0 06/12/17 08:00 Nasal Cannula 2.0 06/12/17 07:44 36.5 73 18 165/85 (111) 100 06/12/17 07:02 75 18 98 Nasal Cannula 2.0 06/12/17 04:00 Nasal Cannula 2.0 06/12/17 03:48 36.7 87 18 158/77 (104) 97 3.0 Physical Exam: General- oriented x 3, not in distress, speaks in sentences with minimal effort Eyes- anicteric Neck- supple, no JVD Lungs- (+) bilateral wheezing, scattered- increased Heart- regular rhythm; no murmur, normal rate Abdomen- normal bowel sounds, soft, nontender Extremities- no pretibial edema, no calf tenderness Neuro- alert, oriented x 3; (+)decreased hearing, otherwise, no other gross focal deficits Skin- warm & dry Laboratory Results: Last 24 Hours Test 06/11/17 19:10 06/12/17 02:02 06/12/17 08:12 06/12/17 10:10 White Blood Count 14.89 K/uL 11.91 K/uL Red Blood Count 4.01 M/uL 3.96 M/uL Hemoglobin 12.3 g/dL 12.2 g/dL Hematocrit 36.1 % 36.3 % Mean Corpuscular Volume 90.0 fL 91.7 fL Mean Corpuscular Hemoglobin 30.7 pg 30.8 pg Mean Corpuscular Hemoglobin Concent 34.1 g/dl 33.6 g/dl Platelet Count 282 K/uL 276 K/uL Mean Platelet Volume 10.0 fL 9.9 fL Neutrophils (%) (Auto) 84.4 % 70.4 % Lymphocytes (%) (Auto) 5.4 % 19.1 % Monocytes (%) (Auto) 9.9 % 9.7 % Eosinophils (%) (Auto) 0.0 % 0.3 % Basophils (%) (Auto) 0.1 % 0.1 % Neutrophils # (Auto) 12.57 K/uL 8.39 K/uL Lymphocytes # (Auto) 0.80 K/uL 2.27 K/uL Monocytes # (Auto) 1.48 K/uL 1.16 K/uL Eosinophils # (Auto) 0.00 K/uL 0.03 K/uL Basophils # (Auto) 0.01 K/uL 0.01 K/uL RDW Standard Deviation 44.3 fL 44.8 fL RDW Coefficient of Variation 13.4 % 13.5 % Immature Granulocyte % (Auto) 0.2 % 0.4 % Immature Granulocyte # (Auto) 0.03 K/uL 0.05 K/uL Prothrombin Time 10.2 SECONDS Prothromb Time International Ratio 1.0 Activated Partial Thromboplast Time 26.0 SECONDS 46.0 SECONDS 63.9 SECONDS 50.4 SECONDS Partial Thromboplastin Ratio 1.0 1.8 2.5 1.9 Sodium Level 139 mmol/L Potassium Level 3.4 mmol/L Chloride Level 101 mmol/L Carbon Dioxide Level 32 mmol/L Anion Gap 6.0 mmol/L Blood Urea Nitrogen 22 mg/dl Creatinine 0.75 mg/dl Est Creatinine Clear Calc Drug Dose 46.3 ml/min Estimated GFR () 88.5 Estimated GFR (Non- 76.3 BUN/Creatinine Ratio 29.2 Random Glucose 116 mg/dl Calcium Level 9.9 mg/dl Assessment & Plan This is a 76 year old female with a PMH of COPD, TRAVIS on 2L O2 nocturnally, ongoing tobacco use, hypertension, hypothyroidism, HLD - presents with worsening shortness of breath Sepsis secondary to Influenza A presented with leukocytosis, lactic acidosis, tachycardia - remains afebrile symptoms about the same (+) increased wheezing patient declined Tamiflu due to headache/tremors Acute Hypoxic Respiratory Failure Acute COPD Exacerbation Smoker -- still on 4 liters O2 via NC less wheezing -- repeat CXR: Chronic interstitial change. Small potential developing parenchymal infiltrate left base. -- Solumedrol changed to Prednisone yesterday (+) increased wheezing will resume Solumedrol 40mg q8h today, monitor BP continue Doxycycline continue Nebs q4h -- will consult Pulmonary Paroxysmal A fib - Metoprolol increased to 50mg daily resumed usual ASA - Echo noted - Cardiology consulted Dr. Pierce - Metoprolol changed to Sotalol today discussion re: chronic anticoagulation in progress Chronic Diastolic CHF -- resumed Lasix at 40mg po daily, usually takes 80 mg HTN BP is elevated due to steroids - Amlodipine added - PRN Clonidine added - monitor while on Solumedrol Tobacco Use Disorder nicotine patch counseled on smoking cessation Hypothyroidism TSH wnl continue Synthroid DVT ppx SCDs Heparin FULL CODE Disposition PT/OT usually lives at home Current Inpatient Medications: Current Inpatient Medications Medications (Trade) Dose Ordered Sig/Robby Route Start Time Stop Time Status Last Admin Dose Admin Doxycycline Hyclate 100 mg/ Dextrose 110 ml @ 50 mls/hr Q12H IV 06/09/17 12:00 06/16/17 11:59 06/12/17 00:07 50 MLS/HR Acetaminophen (Tylenol Tab) 650 mg Q4H PRN PO 06/08/17 22:45 07/08/17 22:44 06/11/17 10:55 650 MG Nitroglycerin (Nitrostat Tab) 0.4 mg UD PRN SL 06/08/17 22:45 07/08/17 22:44 Atorvastatin Calcium (Lipitor Tab) 20 mg HS PO 06/09/17 21:00 07/09/17 20:59 06/11/17 19:59 20 MG Levothyroxine Sodium (Synthroid Tab) 112 mcg DAILYBB PO 06/09/17 06:00 07/09/17 05:59 06/12/17 06:11 112 MCG Multivitamins/ Minerals (Multivitamin W/ Minerals Tab) 1 tab DAILY PO 06/09/17 09:00 07/09/17 08:59 06/12/17 08:11 1 TAB Ferrous Sulfate (Feosol Tab) 325 mg DAILY PO 06/09/17 09:00 07/09/17 08:59 06/12/17 08:12 325 MG Pantoprazole Sodium (Protonix Tab) 40 mg QAM PO 06/09/17 09:00 07/09/17 08:59 06/12/17 08:11 40 MG Tramadol HCl (Ultram Tab) 25 mg Q6H PRN PO 06/08/17 22:45 07/08/17 22:44 Ipratropium [place] (Atrovent 0.02% 0.5MG/2.5ML Neb) 0.5 mg Q4H PRN INH 06/08/17 23:00 07/08/17 22:59 06/12/17 03:13 0.5 MG Levalbuterol (Xopenex 1.25MG/ 0.5ML Neb) 1.25 mg Q4H PRN INH 06/08/17 23:00 07/08/17 22:59 Guaifenesin (Mucinex Contr Rel Tab) 600 mg Q12 PO 06/09/17 09:00 07/09/17 08:59 06/12/17 08:12 600 MG Miscellaneous (Remove Nicoderm Patch) 1 ea HS N/A 06/09/17 21:00 07/09/17 20:59 06/11/17 19:56 1 EA Magnesium Oxide (Mag-Ox Tab) 400 mg BID PO 06/09/17 21:00 07/09/17 20:59 06/12/17 08:08 400 MG Ipratropium [place] (Atrovent 0.02% 0.5MG/2.5ML Neb) 0.5 mg Q4R INH 06/10/17 12:30 07/10/17 12:29 06/12/17 11:18 0.5 MG Levalbuterol (Xopenex 1.25MG/ 0.5ML Neb) 1.25 mg Q4R INH 06/10/17 12:30 07/10/17 12:29 06/12/17 11:18 1.25 MG Aspirin (Ecotrin Tab) 81 mg DAILY PO 06/11/17 09:00 07/11/17 08:59 06/12/17 08:09 81 MG Clonidine HCl (Catapres Tab) 0.1 mg Q6H PRN PO 06/11/17 11:45 07/11/17 11:44 Nicotine (Nicoderm Cq 14MG Patch) 1 patch QAM TD 06/12/17 09:00 07/12/17 08:59 06/12/17 08:11 1 PATCH Furosemide (Lasix Tab) 40 mg DAILY PO 06/12/17 09:00 07/12/17 08:59 06/12/17 08:08 40 MG Metoprolol Tartrate (Lopressor Iv) 2.5 mg Q6 PRN IV 06/11/17 18:15 07/11/17 18:14 Heparin Sodium/ Dextrose 500 ml @ 13 mls/hr Q24H PRN IV 06/11/17 19:30 07/11/17 19:29 06/12/17 03:35 13 MLS/HR Amlodipine Besylate (Norvasc Tab) 2.5 mg BID PO 06/12/17 21:00 07/12/17 08:59 Sotalol HCl (Betapace Tab) 80 mg BID PO 06/12/17 21:00 07/12/17 20:59 Methylprednisolone Sodium Succinate 40 mg/Syringe 0.64 ml @ 1.5 mls/min Q8H IV 06/12/17 11:45 07/12/17 11:44 UNV
[2017-06-12] MEDS ORDERED: POTASSIUM CHLORIDE 20 MEQ TABCR PO ONE (11:45)
[2017-06-12] MEDS: METHYLPREDNISOLONE IV 40 MG in SYRINGE 0 ML IV SCH ×2 (14:23→21:37)
--- NOTE | 2017-06-12 20:23 | Pulmonary Consultation ---
History General Date of Service: Jun 12, 2017. Stated Complaint: Respiratory Failure, Acute HPI This is 76-year-old female with history of COPD, home O2 dependent mainly at night, has been followed by Dr. Mares as an outpatient, the patient has history of peripheral arterial disease, hypertension, osteoporosis, and brief A. fib, presented to the hospital after the patient felt near syncopal episode according to her. The patient did have shortness of breath but was not above then her level of respiratory status. The patient has been using the oxygen and the bronchodilators at home. The patient last seen her group care worker was 6 months ago. The patient denies any cough no sputum production. No chest pain but she felt heavy in her chest only. No abdominal pain no nausea or vomiting no heartburn. Denies any increased swelling in her lower extremities. The patient was admitted to the hospital and underwent cardiac workup as well as had a chest x-ray which showed chronic left pleural effusion which appeared to be small. No infiltrate was reported. Cardiac megaly was noted. Hyperinflated lungs as well. In evaluation of the patient, she did not have any wheezing, no cough or colored sputum, no hemoptysis reported. She has been taking her inhalers and which she has been using only the nebulizer and bronchodilator more. Historian: patient Severity: mild Complaint Status: improved Review of Systems Constitutional: reports: no symptoms Eyes: reports: no symptoms Cardiovascular: reports: chest pain Respiratory: reports: cough, shortness of breath Musculoskeletal: denies: no symptoms, as stated in HPI, arthralgias, neck pain , back pain, joint pain, joint swelling, deformity, myalgias, muscle spasms, other Neurologic: denies: no symptoms, as stated in HPI, headache, dizziness, general weakness, focal weakness, numbness, tingling, paresthesia, pre-existing deficit, tremors, tics, vertigo, seizure, lethargy, memory loss, other Psychiatric: denies: no symptoms, as stated in HPI, anxiety, depression, suicidal ideation, homicidal ideation, visual hallucinations, auditory hallucinations, mood changes, alcohol abuse, drug abuse, other Past Medical History Past Medical History: As above. Family History Omitted due to age Social History Hx Tobacco Use In Past Year?: Yes Smoking Status: Current Every Day Smoker Housing status: lives alone Occupational Status: retired Immunizations History of Influenza Vaccine: Yes Influenza Vaccine Date: Apr 21, 2012 History of Tetanus Vaccine?: 5 YEARS AGO History of Pneumococcal: 4 YEARS AGO History of Hepatitis B Vaccine: Unknown Allergies Coded Allergies: Penicillins (Verified Allergy, Intermediate, HIVES,SWELLING, 02/14/15) Sulfa Antibiotics (Verified Allergy, Intermediate, hives, 02/19/15) Simvastatin (Verified Allergy, Unknown, Unknown, 02/14/15) Source - PT List Current Medications Reported Home Medications Medications Dose Route/Sig Max Daily Dose Days Date Category Dose Instructions Mvi With Minerals (Multivitamins/Minerals) Tab 1 Tab PO DAILY 06/08/17 Reported Synthroid (Levothyroxine Sodium) 112 Mcg Tab 112 Mcg PO DAILY 06/08/17 Reported [Monoxidil] 1 Appln TOP UD 06/08/17 Reported APPLY TO SCALP AM & PM Vigamox 0.5% Oph (Moxifloxacin Hcl (Ophth)) 0.5 % Tremaine 1 Drops OP TID 7 06/08/17 Reported Tylenol (Acetaminophen) 325 Mg Tab 650 Mg PO Q4 PRN 06/08/17 Reported Aspirin Chewable (Aspirin) 81 Mg Chew 81 Mg PO DAILY 06/08/17 Reported Micro-K Ext Rel (Potassium Chloride) 10 Meq Capcr 10 Meq PO BID 06/08/17 Reported Lipitor (Atorvastatin Calcium) 20 Mg Tab 20 Mg PO HS 06/08/17 Reported Duoneb (Ipratropium-Albuterol) 3 Ml Nebu 1 Treatment INH Q6 PRN 06/08/17 Reported Fosamax+D 70MG/2800 Iu (Alendronate Sodium/Vitamin D3) 70 Mg Tab 1 Tablet PO WK 06/08/17 Reported Ferrous Sulfate 325 Mg Tab 325 Mg PO DAILY 06/08/17 Reported Magnesium (Magnesium Oxide (Mg Supplement) 400 Mg Cap 1 Cap PO BID 02/14/15 Reported Lasix (Furosemide) 80 Mg Tab 1 Tab PO DAILY 30 02/14/15 Reported Prilosec (Omeprazole) 20 Mg Capcr 20 Mg PO DAILY 02/14/15 Reported Toprol Xl (Metoprolol Succinate) 25 Mg Tabcr 1 Tab PO DAILY 30 02/14/15 Reported Physical Physical Exam Vital Signs: Date Time Temp Pulse Resp B/P (MAP) Pulse Ox O2 Delivery O2 Flow Rate FiO2 06/12/17 19:16 36.8 78 28 172/87 (115) 99 Room Air 06/12/17 16:02 73 18 97 Nasal Cannula 4.0 06/12/17 16:00 Nasal Cannula 2.0 06/12/17 15:01 36.4 78 20 170/83 (112) 99 Nasal Cannula 2.0 06/12/17 12:00 36.6 87 22 172/87 (115) 99 Nasal Cannula 2.0 06/12/17 12:00 Nasal Cannula 2.0 06/12/17 11:22 75 18 98 Nasal Cannula 1.0 06/12/17 08:35 86 166/78 (107) 06/12/17 08:05 94 196/88 (124) 06/12/17 08:00 Nasal Cannula 2.0 06/12/17 07:44 36.5 73 18 165/85 (111) 100 06/12/17 07:02 75 18 98 Nasal Cannula 2.0 06/12/17 04:00 Nasal Cannula 2.0 06/12/17 03:48 36.7 87 18 158/77 (104) 97 3.0 06/12/17 03:13 78 18 99 Nasal Cannula 3.0 06/12/17 00:01 36.7 116 20 135/86 (102) 97 Room Air 06/11/17 23:59 Nasal Cannula 2.0 06/11/17 23:29 132 06/11/17 23:16 120 20 98 Nasal Cannula 3.0 06/11/17 22:26 122 113/76 (88) 06/11/17 21:29 135 General Appearance: NO APPARENT DISTRESS Eyes: PERRLA, EOMI ENT: NORMAL THROAT EXAM Neck: TRACHEA MIDLINE, NO STRIDOR Respiratory: BREATH SOUNDS NORMAL, other (distant breath sounds) Cardiovasular: REGULAR RATE/RHYTHM, NORMAL S1S2, NO M/G/R, NO MURMUR Abdomen: NON TENDER, NO MASSES, NO GUARDING Lower Extremities: NO EDEMA Neuro: ALERT, ORIENTED x 3, NORMAL MOTOR EXAM Psychiatric: NORMAL AFFECT Diagnostics Labs Results Past 24 Hours Test 06/12/17 02:02 06/12/17 08:12 06/12/17 10:10 Range/Units Activated Partial Thromboplast Time 46.0 63.9 50.4 21.0-31.0 SECONDS Partial Thromboplastin Ratio 1.8 2.5 1.9 White Blood Count 11.91 4.8-10.8 K/uL Red Blood Count 3.96 4.2-5.4 M/uL Hemoglobin 12.2 12.0-16.0 g/dL Hematocrit 36.3 37-47 % Mean Corpuscular Volume 91.7 80-100 fL Mean Corpuscular Hemoglobin 30.8 25-34 pg Mean Corpuscular Hemoglobin Concent 33.6 32-36 g/dl Platelet Count 276 130-400 K/uL Mean Platelet Volume 9.9 7.4-10.4 fL Neutrophils (%) (Auto) 70.4 % Lymphocytes (%) (Auto) 19.1 % Monocytes (%) (Auto) 9.7 % Eosinophils (%) (Auto) 0.3 % Basophils (%) (Auto) 0.1 % Neutrophils # (Auto) 8.39 1.4-6.5 K/uL Lymphocytes # (Auto) 2.27 1.2-3.4 K/uL Monocytes # (Auto) 1.16 0.11-0.59 K/uL Eosinophils # (Auto) 0.03 0-0.5 K/uL Basophils # (Auto) 0.01 0-0.2 K/uL RDW Standard Deviation 44.8 36.4-46.3 fL RDW Coefficient of Variation 13.5 11.5-14.5 % Immature Granulocyte % (Auto) 0.4 % Immature Granulocyte # (Auto) 0.05 0.00-0.02 K/uL Sodium Level 139 136-145 mmol/L Potassium Level 3.4 3.5-5.1 mmol/L Chloride Level 101 98-107 mmol/L Carbon Dioxide Level 32 21-32 mmol/L Anion Gap 6.0 3-11 mmol/L Blood Urea Nitrogen 22 7-18 mg/dl Creatinine 0.75 0.60-1.20 mg/dl Est Creatinine Clear Calc Drug Dose 46.3 ml/min Estimated GFR () 88.5 Estimated GFR (Non- 76.3 BUN/Creatinine Ratio 29.2 10-20 Random Glucose 116 70-99 mg/dl Calcium Level 9.9 8.5-10.1 mg/dl Diagnostic Radiology Chest x-ray reviewed personally which showed hyperinflated lungs, small pleural effusion on the left, I did not appreciate any infiltrate. Impression Assessment and Plan #1 COPD, does not appear to be in exacerbation. #2 chest pain, likely related to her current and recurrent A. fib. Not sure about it. #3 pulmonary hypertension. #4 small left-sided pleural effusion which has been chronic. Plan: #1 agree with your current management including steroids bronchodilators and oxygen. #2 continue oxygen on 24/7 basis not nocturnally as the patient was doing at home. #3 change steroids to oral prednisone 60 mg by mouth daily and continue it for 5 days with no taper. #4 disposition plan per hospital service. #5 complete 5 days course of doxycycline only. #6 no evidence of significant infiltrate. Leukocytosis, steroid related. Thank you, will follow.
[2017-06-12] MEDS: AMLODIPINE BESYLATE 5 MG TAB PO SCH (21:38)
[2017-06-12] MEDS: SOTALOL HCL 80 MG TAB PO SCH (21:39)
[2017-06-12] MEDS: ATORVASTATIN 20 MG TAB PO SCH (21:39)
[2017-06-13] VITALS (11 sets, daily range): BP systolic 133–158; BP diastolic 69–82; PULSE 53–72; TEMP 36.5–36.8; O2SAT 91–100
[2017-06-13] MEDS: DOXYCYCLINE IV 100 MG in DEXTROSE 5% 100ML 100 ML IV SCH ×2 (00:39→12:17)
[2017-06-13] MEDS: LEVALBUTEROL 1.25MG/0.5ML NEB INH SCH ×6 (03:41→23:05)
[2017-06-13] MEDS: IPRATROPIUM BROMIDE NEB SOLN 0.02% 2.5 ML VIAL INH SCH ×6 (03:41→23:05)
[2017-06-13 06:05] LABS: BASO % 0.1 %; BASO ABS # 0.01 K/uL (0-0.2); HEMOGLOBIN 12.4 g/dL (12.0-16.0); IG# 0.06 K/uL (0.00-0.02); LYMPH % 8.2 %; LYMPH ABS # 0.85 K/uL (1.2-3.4); MEAN CELL VOLUME 91.1 fL (80-100); MEAN CORPUSCULAR HEMOGLOBIN 30.5 pg (25-34); MEAN CORPUSCULAR HGB CONC 33.5 g/dl (32-36); MEAN PLATELET VOLUME 10.2 fL (7.4-10.4); MONO % 6.2 %; MONO ABS # 0.64 K/uL (0.11-0.59); NEUT % 84.9 %; NEUT ABS # 8.81 K/uL (1.4-6.5); PLATELET COUNT 297 K/uL (130-400); RED CELL DISTRIBUTION WIDTH CV 13.3 % (11.5-14.5); RED CELL DISTRIBUTION WIDTH SD 44.6 fL (36.4-46.3); WHITE BLOOD COUNT 10.37 K/uL (4.8-10.8)
[2017-06-13] MEDS: LEVOTHYROXINE 112 MCG TAB PO SCH (06:07)
[2017-06-13] MEDS: METHYLPREDNISOLONE IV 40 MG in SYRINGE 0 ML IV SCH ×2 (06:07→14:13)
[2017-06-13 06:19] LABS: PTT PATIENT 36.2 SECONDS (21.0-31.0)
[2017-06-13 06:43] LABS: CALCIUM 9.8 mg/dl (8.5-10.1); CREATININE 0.69 mg/dl (0.60-1.20); POTASSIUM 4.8 mmol/L (3.5-5.1)
[2017-06-13] MEDS ORDERED: HEPARIN IV BOLUS 4,000 UNIT in SYRINGE 0 ML IV ONE (07:45)
[2017-06-13] MEDS: PANTOprazole SOD 40 MG TAB PO SCH (08:15)
[2017-06-13] MEDS: GUAIFENESIN 600 MG TABCR PO SCH ×2 (08:16→21:32)
[2017-06-13] MEDS: CEROVITE ADV FORMULA TAB PO SCH (08:16)
[2017-06-13] MEDS: FERROUS SULFATE 325 MG TAB PO SCH (08:17)
[2017-06-13] MEDS: ASPIRIN 81 MG ECTAB PO SCH (08:17)
[2017-06-13] MEDS: HEPARIN 25,000 UNIT/500ML D5W 500 ML IV PRN (08:18)
[2017-06-13] MEDS: NICOTINE 14 MG/24 HR TDSY TD SCH (08:20)
[2017-06-13] MEDS: MAGNESIUM OXIDE 400 MG TAB PO SCH ×2 (08:21→21:37)
[2017-06-13] MEDS: FUROSEMIDE 40 MG TAB PO SCH (08:21)
[2017-06-13] MEDS: SOTALOL HCL 80 MG TAB PO SCH ×2 (08:21→21:35)
[2017-06-13] MEDS: AMLODIPINE BESYLATE 5 MG TAB PO SCH ×2 (08:21→21:36)
--- NOTE | 2017-06-13 09:31 | Cardiology Follow-Up ---
Subjective General Date of Service: Jun 13, 2017. Chief Complaint: PAF Pt evaluation today including: conversation w/ patient, physical exam, chart review, lab review, review of studies, review of inpatient medication list History of Present Illness Patient seen and examined. Chart, medications, and telemetry reviewed. Feels better overall. Less cough, congestion and wheezing. First dose of sotalol administered on 06/12/2017 at 21:39. No atrial fibrillation noted on the last 24 hours of continuous telemetry monitoring Electrocardiogram pending from this morning. Blood pressures are mildly improved with titration of amlodipine. No chest pain. No palpitations. No orthopnea or PND. No peripheral edema. Allergies Coded Allergies: Penicillins (Verified Allergy, Intermediate, HIVES,SWELLING, 02/14/15) Sulfa Antibiotics (Verified Allergy, Intermediate, hives, 02/19/15) Simvastatin (Verified Allergy, Unknown, Unknown, 02/14/15) Source - PT List Social History Smoking Status: Current Every Day Smoker Hx Tobacco Use In Past Year?: Yes Hx Alcohol Use - Type And Amou: No Hx Substance Use - Type And Am: No Problem List Medical Problems: (1) Hypoxia Status: Acute (2) Influenza A Status: Acute (3) Paroxysmal atrial fibrillation Status: Acute Physical Exam Vital Signs Last Vital Signs Documentation Date Time Temp Pulse Resp B/P (MAP) Pulse Ox O2 Delivery O2 Flow Rate FiO2 06/13/17 07:12 36.5 57 20 158/82 (107) 91 Nasal Cannula 2.0 Physical Exam Constitutional: Level of Distress: NAD, chronically ill Psychiatric: Mental Status: active & alert Orientation: to time, to place, to person Memory: recent memory normal, remote memory normal Head: normocephalic, atraumatic Eyes: Pupils: PERRLA Neck: pertinent finding (Normal JVP. No HJR) Lungs: Respiratory effort: dyspneic Auscultation: deminished air movement, decreased breath sounds, inspiratory wheezing, expiratory wheezing, rhonchi Cardiovascular: Heart Auscultation: RRR, normal S1, normal S2, no murmurs, no rubs Peripheral Pulses: Bruits: carotid bruit on the left, carotid bruit on the right Radial Pulse: normal on the left, normal on the right Dorsalis Pedis Pulse: decreased on the left, decreased on the right Abdomen: Bowel Sounds: normal Inspection & Palpation: soft, non-distended, no masses Extremities: no edema Neurologic: Cranial Nerves: grossly intact Assessment and Plan Assessment and Plan 1. Admission with acute respiratory failure, influenza A superimposed on what appears to be significant oxygen dependent obstructive pulmonary disease with ongoing tobacco abuse. 2. Paroxysmal atrial fibrillation with a rapid ventricular response 3. [id number] Score 5. History of multiple falls, chronic GI blood loss, iron deficiency. 4. Labile hypertension, hypertensive heart disease 5. Suspect mild intravascular volume depletion. 6. Peripheral vascular disease status post carotid endarterectomy 7. Dyslipidemia RECOMMENDATIONS: 1. Continue Sotalol, 80 mg every twelve hours. Note: Toprol XL discontinued this admission 2. Daily electrocardiograms 3. Maintain continuous telemetry monitoring. 4. Continue ASA and statin 5. Risks of correction anticoagulation appear to be greater than the benefit and patient is adverse. 6. Oral fluid intake encouraged. 7. Increase activity as tolerated. Addendum: EKG this AM reveals sinus bradycardia at 58 bpm. QT/QTc 454/445 ms. Patient seen and examined, assessment as above . Maintaining sinus, no QT prolongation Continue telemetry , daily EKG Patrice Pierce MD Laboratory Results Last 24 Hours Test 06/12/17 10:10 06/13/17 05:15 Activated Partial Thromboplast Time 50.4 SECONDS 36.2 SECONDS Partial Thromboplastin Ratio 1.9 1.4 Sodium Level 139 mmol/L 134 mmol/L Potassium Level 3.4 mmol/L 4.8 mmol/L Chloride Level 101 mmol/L 97 mmol/L Carbon Dioxide Level 32 mmol/L 31 mmol/L Anion Gap 6.0 mmol/L 6.0 mmol/L Blood Urea Nitrogen 22 mg/dl 27 mg/dl Creatinine 0.75 mg/dl 0.69 mg/dl Est Creatinine Clear Calc Drug Dose 46.3 ml/min 50.4 ml/min Estimated GFR () 88.5 96.6 Estimated GFR (Non- 76.3 83.4 BUN/Creatinine Ratio 29.2 38.8 Random Glucose 116 mg/dl 114 mg/dl Calcium Level 9.9 mg/dl 9.8 mg/dl White Blood Count 10.37 K/uL Red Blood Count 4.06 M/uL Hemoglobin 12.4 g/dL Hematocrit 37.0 % Mean Corpuscular Volume 91.1 fL Mean Corpuscular Hemoglobin 30.5 pg Mean Corpuscular Hemoglobin Concent 33.5 g/dl Platelet Count 297 K/uL Mean Platelet Volume 10.2 fL Neutrophils (%) (Auto) 84.9 % Lymphocytes (%) (Auto) 8.2 % Monocytes (%) (Auto) 6.2 % Eosinophils (%) (Auto) 0.0 % Basophils (%) (Auto) 0.1 % Neutrophils # (Auto) 8.81 K/uL Lymphocytes # (Auto) 0.85 K/uL Monocytes # (Auto) 0.64 K/uL Eosinophils # (Auto) 0.00 K/uL Basophils # (Auto) 0.01 K/uL RDW Standard Deviation 44.6 fL RDW Coefficient of Variation 13.3 % Immature Granulocyte % (Auto) 0.6 % Immature Granulocyte # (Auto) 0.06 K/uL
[2017-06-13 14:41] LABS: PTT PATIENT 67.1 SECONDS (21.0-31.0)
--- NOTE | 2017-06-13 15:07 | Progress Note ---
Medicine Progress Note Date & Time of Visit: Jun 13, 2017 at 14:58. Subjective seen resting in bed, in good spirits states she feels improved, breathing and coughing is better denies chest pain, dyspnea, palpitations, dizziness no bleeding no other symptoms Objective Last 8 Hrs Date Time Temp Pulse Resp B/P (MAP) Pulse Ox O2 Delivery O2 Flow Rate FiO2 06/13/17 12:41 36.5 53 20 145/69 (94) 95 Nasal Cannula 2.0 06/13/17 12:00 Nasal Cannula 2.0 06/13/17 11:24 54 18 93 Nasal Cannula 2.0 06/13/17 08:00 Nasal Cannula 2.0 06/13/17 07:12 36.5 57 20 158/82 (107) 91 Nasal Cannula 2.0 06/13/17 07:06 58 18 93 Nasal Cannula 2.0 Physical Exam: General- oriented x 3, not in distress, speaks in sentences with minimal effort Eyes- anicteric Neck- supple, no JVD Lungs- no wheezing, no rales, clear bilaterally Heart- regular rhythm; no murmur, normal rate Abdomen- normal bowel sounds, soft, nontender Extremities- no pretibial edema, no calf tenderness Neuro- alert, oriented x 3; (+)decreased hearing, otherwise, no other gross focal deficits Skin- warm & dry Laboratory Results: Last 24 Hours Test 06/13/17 05:15 06/13/17 14:02 White Blood Count 10.37 K/uL Red Blood Count 4.06 M/uL Hemoglobin 12.4 g/dL Hematocrit 37.0 % Mean Corpuscular Volume 91.1 fL Mean Corpuscular Hemoglobin 30.5 pg Mean Corpuscular Hemoglobin Concent 33.5 g/dl Platelet Count 297 K/uL Mean Platelet Volume 10.2 fL Neutrophils (%) (Auto) 84.9 % Lymphocytes (%) (Auto) 8.2 % Monocytes (%) (Auto) 6.2 % Eosinophils (%) (Auto) 0.0 % Basophils (%) (Auto) 0.1 % Neutrophils # (Auto) 8.81 K/uL Lymphocytes # (Auto) 0.85 K/uL Monocytes # (Auto) 0.64 K/uL Eosinophils # (Auto) 0.00 K/uL Basophils # (Auto) 0.01 K/uL RDW Standard Deviation 44.6 fL RDW Coefficient of Variation 13.3 % Immature Granulocyte % (Auto) 0.6 % Immature Granulocyte # (Auto) 0.06 K/uL Activated Partial Thromboplast Time 36.2 SECONDS 67.1 SECONDS Partial Thromboplastin Ratio 1.4 2.6 Sodium Level 134 mmol/L Potassium Level 4.8 mmol/L Chloride Level 97 mmol/L Carbon Dioxide Level 31 mmol/L Anion Gap 6.0 mmol/L Blood Urea Nitrogen 27 mg/dl Creatinine 0.69 mg/dl Est Creatinine Clear Calc Drug Dose 50.4 ml/min Estimated GFR () 96.6 Estimated GFR (Non- 83.4 BUN/Creatinine Ratio 38.8 Random Glucose 114 mg/dl Calcium Level 9.8 mg/dl Assessment & Plan This is a 76 year old female with a PMH of COPD, TRAVIS on 2L O2 nocturnally, ongoing tobacco use, hypertension, hypothyroidism, HLD - presents with worsening shortness of breath Sepsis secondary to Influenza A presented with leukocytosis, lactic acidosis, tachycardia - remains afebrile improving clinically patient declined Tamiflu due to headache/tremors Acute Hypoxic Respiratory Failure Acute COPD Exacerbation Smoker -- still on 4 liters O2 via NC -- repeat CXR: Chronic interstitial change. Small potential developing parenchymal infiltrate left base. -- wheezing resolved transition to Prednisone tomorrow continue Doxycycline continue Nebs q4h --Pulmonary consulted Paroxysmal A fib - Echo noted - Cardiology consulted Dr. Pierce - Metoprolol changed to Sotalol Day 2 chronic anticoagulation not recommended at this time Chronic Diastolic CHF -- resumed Lasix at 40mg po daily, usually takes 80 mg HTN BP is elevated due to steroids - Amlodipine added - PRN Clonidine added - BP improving Tobacco Use Disorder nicotine patch counseled on smoking cessation Hypothyroidism TSH wnl continue Synthroid DVT ppx SCDs Heparin FULL CODE Disposition PT/OT usually lives at home Current Inpatient Medications: Current Inpatient Medications Medications (Trade) Dose Ordered Sig/Robby Route Start Time Stop Time Status Last Admin Dose Admin Doxycycline Hyclate 100 mg/ Dextrose 110 ml @ 50 mls/hr Q12H IV 06/09/17 12:00 06/16/17 11:59 06/13/17 12:17 50 MLS/HR Acetaminophen (Tylenol Tab) 650 mg Q4H PRN PO 06/08/17 22:45 3/20/18 22:44 06/11/17 10:55 650 MG Nitroglycerin (Nitrostat Tab) 0.4 mg UD PRN SL 06/08/17 22:45 07/08/17 22:44 Atorvastatin Calcium (Lipitor Tab) 20 mg HS PO 06/09/17 21:00 07/09/17 20:59 06/12/17 21:39 20 MG Levothyroxine Sodium (Synthroid Tab) 112 mcg DAILYBB PO 06/09/17 06:00 07/09/17 05:59 06/13/17 06:07 112 MCG Multivitamins/ Minerals (Multivitamin W/ Minerals Tab) 1 tab DAILY PO 06/09/17 09:00 07/09/17 08:59 06/13/17 08:16 1 TAB Ferrous Sulfate (Feosol Tab) 325 mg DAILY PO 06/09/17 09:00 07/09/17 08:59 06/13/17 08:17 325 MG Pantoprazole Sodium (Protonix Tab) 40 mg QAM PO 06/09/17 09:00 07/09/17 08:59 06/13/17 08:15 40 MG Tramadol HCl (Ultram Tab) 25 mg Q6H PRN PO 06/08/17 22:45 07/08/17 22:44 Ipratropium [place] (Atrovent 0.02% 0.5MG/2.5ML Neb) 0.5 mg Q4H PRN INH 06/08/17 23:00 07/08/17 22:59 06/12/17 19:06 0.5 MG Levalbuterol (Xopenex 1.25MG/ 0.5ML Neb) 1.25 mg Q4H PRN INH 06/08/17 23:00 07/08/17 22:59 Guaifenesin (Mucinex Contr Rel Tab) 600 mg Q12 PO 06/09/17 09:00 07/09/17 08:59 06/13/17 08:16 600 MG Miscellaneous (Remove Nicoderm Patch) 1 ea HS N/A 06/09/17 21:00 07/09/17 20:59 06/12/17 21:00 1 EA Magnesium Oxide (Mag-Ox Tab) 400 mg BID PO 06/09/17 21:00 07/09/17 20:59 06/13/17 08:21 400 MG Ipratropium [place] (Atrovent 0.02% 0.5MG/2.5ML Neb) 0.5 mg Q4R INH 06/10/17 12:30 07/10/17 12:29 06/13/17 11:21 0.5 MG Levalbuterol (Xopenex 1.25MG/ 0.5ML Neb) 1.25 mg Q4R INH 06/10/17 12:30 07/10/17 12:29 06/13/17 11:21 1.25 MG Aspirin (Ecotrin Tab) 81 mg DAILY PO 06/11/17 09:00 07/11/17 08:59 06/13/17 08:17 81 MG Clonidine HCl (Catapres Tab) 0.1 mg Q6H PRN PO 06/11/17 11:45 07/11/17 11:44 06/12/17 15:49 0.1 MG Nicotine (Nicoderm Cq 14MG Patch) 1 patch QAM TD 06/12/17 09:00 07/12/17 08:59 06/13/17 08:20 1 PATCH Furosemide (Lasix Tab) 40 mg DAILY PO 06/12/17 09:00 07/12/17 08:59 06/13/17 08:21 40 MG Metoprolol Tartrate (Lopressor Iv) 2.5 mg Q6 PRN IV 06/11/17 18:15 07/11/17 18:14 Heparin Sodium/ Dextrose 500 ml @ 15 mls/hr Q24H PRN IV 06/11/17 19:30 07/11/17 19:29 06/13/17 08:18 15 MLS/HR Amlodipine Besylate (Norvasc Tab) 2.5 mg BID PO 06/12/17 21:00 07/12/17 08:59 06/13/17 08:21 2.5 MG Sotalol HCl (Betapace Tab) 80 mg BID PO 06/12/17 21:00 07/12/17 20:59 06/13/17 08:21 80 MG Methylprednisolone Sodium Succinate 40 mg/Syringe 0.64 ml @ 1.5 mls/min Q8H IV 06/12/17 14:00 07/12/17 13:59 06/13/17 14:13 1.5 MLS/MIN
--- NOTE | 2017-06-13 17:49 | Pulmonology Progress Note ---
Pulmonary Progress Note Date of Service Jun 13, 2017. Attending Dr. Samantha Fallon The patient is slightly improving, she was ambulatory today, she does have shortness of breath and wheezing only with ambulation that resolved within 1 minute. No sputum production, she continue to have occasional cough. No fever reported. No events overnight. Objective Physical exam on 06/13/2017, the patient has no fever, O2 saturation 92% on 2 L which is what she uses at home, scattered wheezing, S1-S2 regular rate and rhythm with systolic ejection murmur, abdomen is benign, edema. Assessment & Plan #1 COPD, gold level III, grade C. #2 cor pulmonale with pulmonary hypertension. #3 demand,2 non-ST elevation [place]. #4 chronic respiratory failure. With hypoxia. #5 small, negligible pleural effusion left-sided. Plan: #1 agree with prednisone 60 mg for 5 days with no taper, the patient continued to be short of breath, then taper course by 10 mg every third day can be initiated after a full course. #2 continue current bronchodilators. #3 I have stopped ipratropium as needed since the patient is receiving already 6 doses daily. #4 I have changed doxycycline 200 mg by mouth twice a day for additional 4 days. #5 continue oxygen with 2 L O2 saturation above than 88%. #6 disposition plan per possible team. Thank you Data Medications: Current Inpatient Medications Medications (Trade) Dose Ordered Sig/Robby Route Start Time Stop Time Status Last Admin Dose Admin Acetaminophen (Tylenol Tab) 650 mg Q4H PRN PO 06/08/17 22:45 07/08/17 22:44 06/11/17 10:55 650 MG Nitroglycerin (Nitrostat Tab) 0.4 mg UD PRN SL 06/08/17 22:45 07/08/17 22:44 Atorvastatin Calcium (Lipitor Tab) 20 mg HS PO 06/09/17 21:00 07/09/17 20:59 06/12/17 21:39 20 MG Levothyroxine Sodium (Synthroid Tab) 112 mcg DAILYBB PO 06/09/17 06:00 07/09/17 05:59 06/13/17 06:07 112 MCG Multivitamins/ Minerals (Multivitamin W/ Minerals Tab) 1 tab DAILY PO 06/09/17 09:00 07/09/17 08:59 06/13/17 08:16 1 TAB Ferrous Sulfate (Feosol Tab) 325 mg DAILY PO 06/09/17 09:00 07/09/17 08:59 06/13/17 08:17 325 MG Pantoprazole Sodium (Protonix Tab) 40 mg QAM PO 06/09/17 09:00 07/09/17 08:59 06/13/17 08:15 40 MG Tramadol HCl (Ultram Tab) 25 mg Q6H PRN PO 06/08/17 22:45 07/08/17 22:44 Levalbuterol (Xopenex 1.25MG/ 0.5ML Neb) 1.25 mg Q4H PRN INH 06/08/17 23:00 07/08/17 22:59 Guaifenesin (Mucinex Contr Rel Tab) 600 mg Q12 PO 06/09/17 09:00 07/09/17 08:59 06/13/17 08:16 600 MG Miscellaneous (Remove Nicoderm Patch) 1 ea HS N/A 06/09/17 21:00 07/09/17 20:59 06/12/17 21:00 1 EA Magnesium Oxide (Mag-Ox Tab) 400 mg BID PO 06/09/17 21:00 07/09/17 20:59 06/13/17 08:21 400 MG Ipratropium [place] (Atrovent 0.02% 0.5MG/2.5ML Neb) 0.5 mg Q4R INH 06/10/17 12:30 07/10/17 12:29 06/13/17 15:25 0.5 MG Levalbuterol (Xopenex 1.25MG/ 0.5ML Neb) 1.25 mg Q4R INH 06/10/17 12:30 07/10/17 12:29 06/13/17 15:25 1.25 MG Aspirin (Ecotrin Tab) 81 mg DAILY PO 06/11/17 09:00 07/11/17 08:59 06/13/17 08:17 81 MG Clonidine HCl (Catapres Tab) 0.1 mg Q6H PRN PO 06/11/17 11:45 07/11/17 11:44 06/12/17 15:49 0.1 MG Nicotine (Nicoderm Cq 14MG Patch) 1 patch QAM TD 2/22/18 09:00 07/12/17 08:59 06/13/17 08:20 1 PATCH Furosemide (Lasix Tab) 40 mg DAILY PO 06/12/17 09:00 07/12/17 08:59 06/13/17 08:21 40 MG Metoprolol Tartrate (Lopressor Iv) 2.5 mg Q6 PRN IV 06/11/17 18:15 07/11/17 18:14 Amlodipine Besylate (Norvasc Tab) 2.5 mg BID PO 06/12/17 21:00 07/12/17 08:59 06/13/17 08:21 2.5 MG Sotalol HCl (Betapace Tab) 80 mg BID PO 06/12/17 21:00 07/12/17 20:59 06/13/17 08:21 80 MG Prednisone (PredniSONE TAB) 60 mg DAILY PO 06/14/17 09:00 07/14/17 08:59 Heparin Sodium (Porcine) (Heparin Sq 5000 Unit/0.5ml) 5,000 unit Q8 SQ 06/13/17 22:00 07/13/17 21:59 I & O: 24-Hour Column 06/14/17 08:00 Intake Total 1006 ml Output Total 925 ml Balance 81 ml Vital Signs: Date Time Temp Pulse Resp B/P (MAP) Pulse Ox O2 Delivery O2 Flow Rate FiO2 06/13/17 16:00 Nasal Cannula 2.0 06/13/17 15:53 36.7 62 26 153/79 (103) 92 Nasal Cannula 2.0 06/13/17 15:27 68 18 93 Nasal Cannula 2.0 06/13/17 12:41 36.5 53 20 145/69 (94) 95 Nasal Cannula 2.0 06/13/17 12:00 Nasal Cannula 2.0 06/13/17 11:24 54 18 93 Nasal Cannula 2.0 06/13/17 08:00 Nasal Cannula 2.0 06/13/17 07:12 36.5 57 20 158/82 (107) 91 Nasal Cannula 2.0 06/13/17 07:06 58 18 93 Nasal Cannula 2.0 06/13/17 04:00 Nasal Cannula 2.0 06/13/17 03:43 36.8 56 18 144/75 (98) 100 3.0 06/13/17 03:41 57 16 98 Nasal Cannula 3.0 06/12/17 23:59 Nasal Cannula 2.0 06/12/17 23:58 36.6 63 20 130/74 (92) 98 Nasal Cannula 2.0 06/12/17 22:59 69 18 91 Room Air 06/12/17 20:00 Nasal Cannula 2.0 06/12/17 19:16 36.8 78 28 172/87 (115) 99 Room Air 06/12/17 19:06 77 18 97 Nasal Cannula 3.0 Laboratory Results: Last 24 Hours Test 06/13/17 05:15 06/13/17 14:02 White Blood Count 10.37 K/uL Red Blood Count 4.06 M/uL Hemoglobin 12.4 g/dL Hematocrit 37.0 % Mean Corpuscular Volume 91.1 fL Mean Corpuscular Hemoglobin 30.5 pg Mean Corpuscular Hemoglobin Concent 33.5 g/dl Platelet Count 297 K/uL Mean Platelet Volume 10.2 fL Neutrophils (%) (Auto) 84.9 % Lymphocytes (%) (Auto) 8.2 % Monocytes (%) (Auto) 6.2 % Eosinophils (%) (Auto) 0.0 % Basophils (%) (Auto) 0.1 % Neutrophils # (Auto) 8.81 K/uL Lymphocytes # (Auto) 0.85 K/uL Monocytes # (Auto) 0.64 K/uL Eosinophils # (Auto) 0.00 K/uL Basophils # (Auto) 0.01 K/uL RDW Standard Deviation 44.6 fL RDW Coefficient of Variation 13.3 % Immature Granulocyte % (Auto) 0.6 % Immature Granulocyte # (Auto) 0.06 K/uL Activated Partial Thromboplast Time 36.2 SECONDS 67.1 SECONDS Partial Thromboplastin Ratio 1.4 2.6 Sodium Level 134 mmol/L Potassium Level 4.8 mmol/L Chloride Level 97 mmol/L Carbon Dioxide Level 31 mmol/L Anion Gap 6.0 mmol/L Blood Urea Nitrogen 27 mg/dl Creatinine 0.69 mg/dl Est Creatinine Clear Calc Drug Dose 50.4 ml/min Estimated GFR () 96.6 Estimated GFR (Non- 83.4 BUN/Creatinine Ratio 38.8 Random Glucose 114 mg/dl Calcium Level 9.8 mg/dl
[2017-06-13] MEDS: HEPARIN SOD 5000 UNIT/0.5 ML CARP SQ SCH (21:34)
[2017-06-13] MEDS: ATORVASTATIN 20 MG TAB PO SCH (21:35)
[2017-06-13] MEDS: DOXYCYCLINE HYCLATE 100 MG CAP PO SCH (21:48)
[2017-06-14] VITALS (12 sets, daily range): BP systolic 107–184; BP diastolic 66–85; PULSE 49–60; TEMP 36.3–36.7; O2SAT 90–98
[2017-06-14] MEDS: LEVALBUTEROL 1.25MG/0.5ML NEB INH SCH ×5 (03:20→19:13)
[2017-06-14] MEDS: IPRATROPIUM BROMIDE NEB SOLN 0.02% 2.5 ML VIAL INH SCH ×5 (03:20→19:12)
[2017-06-14] MEDS: LEVOTHYROXINE 112 MCG TAB PO SCH (05:45)
[2017-06-14] MEDS: HEPARIN SOD 5000 UNIT/0.5 ML CARP SQ SCH ×3 (05:46→21:54)
[2017-06-14] MEDS: AMLODIPINE BESYLATE 5 MG TAB PO SCH ×2 (07:54→19:35)
[2017-06-14] MEDS: DOXYCYCLINE HYCLATE 100 MG CAP PO SCH ×2 (07:55→19:34)
[2017-06-14] MEDS: ASPIRIN 81 MG ECTAB PO SCH (07:55)
[2017-06-14] MEDS: NICOTINE 14 MG/24 HR TDSY TD SCH (07:55)
[2017-06-14] MEDS: CEROVITE ADV FORMULA TAB PO SCH (07:55)
[2017-06-14] MEDS: PANTOprazole SOD 40 MG TAB PO SCH (07:55)
[2017-06-14] MEDS: FERROUS SULFATE 325 MG TAB PO SCH (07:56)
[2017-06-14] MEDS: MAGNESIUM OXIDE 400 MG TAB PO SCH ×2 (07:56→19:34)
[2017-06-14] MEDS: GUAIFENESIN 600 MG TABCR PO SCH ×2 (07:56→19:27)
[2017-06-14] MEDS: FUROSEMIDE 40 MG TAB PO SCH (07:59)
[2017-06-14 08:58] LABS: HEMATOCRIT 39.6 % (37-47); HEMOGLOBIN 13.4 g/dL (12.0-16.0); MEAN CELL VOLUME 90.4 fL (80-100); MEAN CORPUSCULAR HEMOGLOBIN 30.6 pg (25-34); MEAN CORPUSCULAR HGB CONC 33.8 g/dl (32-36); MEAN PLATELET VOLUME 10.7 fL (7.4-10.4); PLATELET COUNT 330 K/uL (130-400); RED CELL DISTRIBUTION WIDTH CV 12.9 % (11.5-14.5); WHITE BLOOD COUNT 11.27 K/uL (4.8-10.8)
[2017-06-14 09:08] LABS: PTT PATIENT 27.1 SECONDS (21.0-31.0)
[2017-06-14] MEDS: SOTALOL HCL 80 MG TAB PO SCH ×2 (09:27→19:33)
[2017-06-14 09:37] LABS: CALCIUM 9.7 mg/dl (8.5-10.1); CREATININE 0.78 mg/dl (0.60-1.20); POTASSIUM 3.7 mmol/L (3.5-5.1)
[2017-06-14] MEDS ORDERED: COUGH DROP (SUGAR FREE) LOZ 24 LOZ/1 BOX LOZ PRN (16:00)
[2017-06-14] MEDS ORDERED: NURSING VERBAL MED ORDER ONE (16:00)
--- NOTE | 2017-06-14 17:25 | Progress Note ---
Medicine Progress Note Date & Time of Visit: Jun 14, 2017 at 17:21. Subjective resting in bedside chair comfortable states she continues to feel improved no dyspnea, less cough no chest pain,palpitations,dizziness no other symptoms Objective Last 8 Hrs Date Time Temp Pulse Resp B/P (MAP) Pulse Ox O2 Delivery O2 Flow Rate FiO2 06/14/17 16:02 Nasal Cannula 2.0 06/14/17 15:21 36.5 56 18 137/74 (95) 90 Nasal Cannula 1.0 06/14/17 15:09 49 16 94 Nasal Cannula 2.0 06/14/17 12:03 Nasal Cannula 2.0 06/14/17 11:32 36.3 54 19 157/72 (100) 93 Nasal Cannula 2.0 06/14/17 11:29 55 16 94 Nasal Cannula 2.0 Physical Exam: General- oriented x 3, not in distress, speaks in sentences with minimal effort Neck- no JVD Lungs- no wheezing, clear breath sounds bl Heart- regular rhythm; no murmur, normal rate Abdomen- normal bowel sounds, soft, nontender Extremities- no pretibial edema, no calf tenderness Neuro- alert, oriented x 3; (+)decreased hearing, otherwise, no other gross focal deficits Skin- warm & dry Laboratory Results: Last 24 Hours Test 06/14/17 08:08 White Blood Count 11.27 K/uL Red Blood Count 4.38 M/uL Hemoglobin 13.4 g/dL Hematocrit 39.6 % Mean Corpuscular Volume 90.4 fL Mean Corpuscular Hemoglobin 30.6 pg Mean Corpuscular Hemoglobin Concent 33.8 g/dl RDW Standard Deviation 43.0 fL RDW Coefficient of Variation 12.9 % Platelet Count 330 K/uL Mean Platelet Volume 10.7 fL Activated Partial Thromboplast Time 27.1 SECONDS Partial Thromboplastin Ratio 1.0 Sodium Level 134 mmol/L Potassium Level 3.7 mmol/L Chloride Level 95 mmol/L Carbon Dioxide Level 34 mmol/L Anion Gap 6.0 mmol/L Blood Urea Nitrogen 32 mg/dl Creatinine 0.78 mg/dl Est Creatinine Clear Calc Drug Dose 44.4 ml/min Estimated GFR () 84.4 Estimated GFR (Non- 72.8 BUN/Creatinine Ratio 40.6 Random Glucose 118 mg/dl Calcium Level 9.7 mg/dl Assessment & Plan This is a 76 year old female with a PMH of COPD, TRAVIS on 2L O2 nocturnally, ongoing tobacco use, hypertension, hypothyroidism, HLD - presents with worsening shortness of breath Sepsis secondary to Influenza A presented with leukocytosis, lactic acidosis, tachycardia - much improved patient declined Tamiflu due to headache/tremors Acute Hypoxic Respiratory Failure Acute COPD Exacerbation Smoker --now only on 2 L via NC -- repeat CXR: Chronic interstitial change. Small potential developing parenchymal infiltrate left base. -- wheezing resolved transitioned to Prednisone continue Doxycycline continue Nebs q6h --Pulmonary consulted Paroxysmal A fib - Echo noted - Cardiology consulted Dr. Pierce - Metoprolol changed to Sotalol Day 3 chronic anticoagulation not recommended at this time Chronic Diastolic CHF -- resumed Lasix at 40mg po daily, usually takes 80 mg HTN BP is elevated due to steroids - Amlodipine added - PRN Clonidine added - BP improving Tobacco Use Disorder nicotine patch counseled on smoking cessation Hypothyroidism TSH wnl continue Synthroid DVT ppx SCDs Heparin FULL CODE Disposition PT/OT usually lives at home Current Inpatient Medications: Current Inpatient Medications Medications (Trade) Dose Ordered Sig/Robby Route Start Time Stop Time Status Last Admin Dose Admin Acetaminophen (Tylenol Tab) 650 mg Q4H PRN PO 06/08/17 22:45 07/08/17 22:44 06/11/17 10:55 650 MG Nitroglycerin (Nitrostat Tab) 0.4 mg UD PRN SL 06/08/17 22:45 07/08/17 22:44 Atorvastatin Calcium (Lipitor Tab) 20 mg HS PO 06/09/17 21:00 07/09/17 20:59 06/13/17 21:35 20 MG Levothyroxine Sodium (Synthroid Tab) 112 mcg DAILYBB PO 06/09/17 06:00 07/09/17 05:59 06/14/17 05:45 112 MCG Multivitamins/ Minerals (Multivitamin W/ Minerals Tab) 1 tab DAILY PO 06/09/17 09:00 07/09/17 08:59 06/14/17 07:55 1 TAB Ferrous Sulfate (Feosol Tab) 325 mg DAILY PO 06/09/17 09:00 07/09/17 08:59 06/14/17 07:56 325 MG Pantoprazole Sodium (Protonix Tab) 40 mg QAM PO 06/09/17 09:00 07/09/17 08:59 06/14/17 07:55 40 MG Tramadol HCl (Ultram Tab) 25 mg Q6H PRN PO 06/08/17 22:45 07/08/17 22:44 Levalbuterol (Xopenex 1.25MG/ 0.5ML Neb) 1.25 mg Q4H PRN INH 06/08/17 23:00 07/08/17 22:59 Guaifenesin (Mucinex Contr Rel Tab) 600 mg Q12 PO 06/09/17 09:00 07/09/17 08:59 06/14/17 07:56 600 MG Miscellaneous (Remove Nicoderm Patch) 1 ea HS N/A 06/09/17 21:00 07/09/17 20:59 06/13/17 21:00 1 EA Magnesium Oxide (Mag-Ox Tab) 400 mg BID PO 06/09/17 21:00 07/09/17 20:59 06/14/17 07:56 400 MG Ipratropium [place] (Atrovent 0.02% 0.5MG/2.5ML Neb) 0.5 mg Q4R INH 06/10/17 12:30 07/10/17 12:29 06/14/17 15:08 0.5 MG Levalbuterol (Xopenex 1.25MG/ 0.5ML Neb) 1.25 mg Q4R INH 06/10/17 12:30 07/10/17 12:29 06/14/17 15:08 1.25 MG Aspirin (Ecotrin Tab) 81 mg DAILY PO 06/11/17 09:00 07/11/17 08:59 06/14/17 07:55 81 MG Clonidine HCl (Catapres Tab) 0.1 mg Q6H PRN PO 06/11/17 11:45 07/11/17 11:44 06/12/17 15:49 0.1 MG Nicotine (Nicoderm Cq 14MG Patch) 1 patch QAM TD 06/12/17 09:00 07/12/17 08:59 06/14/17 07:55 1 PATCH Furosemide (Lasix Tab) 40 mg DAILY PO 06/12/17 09:00 07/12/17 08:59 06/14/17 07:59 40 MG Metoprolol Tartrate (Lopressor Iv) 2.5 mg Q6 PRN IV 06/11/17 18:15 07/11/17 18:14 Sotalol HCl (Betapace Tab) 80 mg BID PO 06/12/17 21:00 07/12/17 20:59 06/14/17 09:27 80 MG Prednisone (PredniSONE TAB) 60 mg DAILY PO 06/14/17 09:00 07/14/17 08:59 06/14/17 07:55 60 MG Heparin Sodium (Porcine) (Heparin Sq 5000 Unit/0.5ml) 5,000 unit Q8 SQ 06/13/17 22:00 07/13/17 21:59 06/14/17 14:18 5,000 UNIT Doxycycline Hyclate (Vibramycin Cap) 100 mg BID PO 06/13/17 21:00 06/17/17 20:59 06/14/17 07:55 100 MG Amlodipine Besylate (Norvasc Tab) 5 mg BID PO 06/14/17 09:00 07/12/17 08:59 06/14/17 07:54 5 MG Menthol (Nice Quintin) 1 quintin PRN PRN QUINTIN 06/14/17 16:00 07/14/17 15:59
--- NOTE | 2017-06-14 17:25 | Cardiology Progress Note ---
Cardiology Progress Note Date of Service Jun 14, 2017. Cardiology Progress Note Telemetry reviewed. Currently sinus rhythm at 63 bpm is present. Sinus rhythm in the 50-60 bpm range has been present throughout the day today and overnight last night. EKG this morning 06/14/17 revealed sinus bradycardia 51 bpm with stable QT interval 447 ms. The patient has received 4 doses of sotalol thus far, and her fifth dose of sotalol loading will be due this evening. Repeat EKG tomorrow. Continue current dose of sotalol 80 mg twice daily
--- NOTE | 2017-06-14 18:13 | Pulmonology Progress Note ---
Pulmonary Progress Note Date of Service Jun 14, 2017. Attending Dr. Singh Subjective The patient is doing better, she has been off the oxygen with O2 sats 94%, however with ambulation her O2 saturation dropped significantly. The patient denies any shortness of breath or chest pain, no wheezing. Overall she is returning to her baseline. Objective Physical exam on 06/13/2017, the patient has no fever, O2 saturation 92% on 2 L which is what she uses at home, scattered wheezing, S1-S2 regular rate and rhythm with systolic ejection murmur, abdomen is benign, edema. Her physical exam on 06/14/2017, the patient had no fever, O2 saturation 94% on room air at rest, no wheezing, S1-S2 regular rate and rhythm, systolic ejection murmur, edema in the periphery. Assessment & Plan #1 COPD, gold level III, grade C. #2 cor pulmonale with pulmonary hypertension. #3 demand,2 non-ST elevation [place]. #4 chronic respiratory failure. With hypoxia. #5 small, negligible pleural effusion left-sided. Plan: #1 agree with prednisone 60 mg for 5 days with no taper, if the patient continued to be short of breath, then taper course by 10 mg every third day can be initiated after a full course. #2 continue current bronchodilators. #3 no need for when necessary ipratropium. #4 I have changed doxycycline 100 mg by mouth twice a day for additional 3 days. #5 continue oxygen with 2 L O2 saturation above than 88%. Even of the patient O2 sats at rest remains above 90, I would continue with 24/7 oxygen. #6 disposition plan per possible team. No further recommendation from pulmonary standpoint, we'll follow as needed, please call me with any questions. Thank you Data Medications: Current Inpatient Medications Medications (Trade) Dose Ordered Sig/Robby Route Start Time Stop Time Status Last Admin Dose Admin Acetaminophen (Tylenol Tab) 650 mg Q4H PRN PO 06/08/17 22:45 07/08/17 22:44 06/11/17 10:55 650 MG Nitroglycerin (Nitrostat Tab) 0.4 mg UD PRN SL 06/08/17 22:45 07/08/17 22:44 Atorvastatin Calcium (Lipitor Tab) 20 mg HS PO 06/09/17 21:00 07/09/17 20:59 06/13/17 21:35 20 MG Levothyroxine Sodium (Synthroid Tab) 112 mcg DAILYBB PO 06/09/17 06:00 07/09/17 05:59 06/14/17 05:45 112 MCG Multivitamins/ Minerals (Multivitamin W/ Minerals Tab) 1 tab DAILY PO 06/09/17 09:00 07/09/17 08:59 06/14/17 07:55 1 TAB Ferrous Sulfate (Feosol Tab) 325 mg DAILY PO 06/09/17 09:00 07/09/17 08:59 06/14/17 07:56 325 MG Pantoprazole Sodium (Protonix Tab) 40 mg QAM PO 06/09/17 09:00 07/09/17 08:59 06/14/17 07:55 40 MG Tramadol HCl (Ultram Tab) 25 mg Q6H PRN PO 06/08/17 22:45 07/08/17 22:44 Levalbuterol (Xopenex 1.25MG/ 0.5ML Neb) 1.25 mg Q4H PRN INH 06/08/17 23:00 07/08/17 22:59 Guaifenesin (Mucinex Contr Rel Tab) 600 mg Q12 PO 06/09/17 09:00 07/09/17 08:59 06/14/17 07:56 600 MG Miscellaneous (Remove Nicoderm Patch) 1 ea HS N/A 06/09/17 21:00 07/09/17 20:59 06/13/17 21:00 1 EA Magnesium Oxide (Mag-Ox Tab) 400 mg BID PO 06/09/17 21:00 07/09/17 20:59 06/14/17 07:56 400 MG Aspirin (Ecotrin Tab) 81 mg DAILY PO 06/11/17 09:00 07/11/17 08:59 06/14/17 07:55 81 MG Clonidine HCl (Catapres Tab) 0.1 mg Q6H PRN PO 06/11/17 11:45 07/11/17 11:44 06/12/17 15:49 0.1 MG Nicotine (Nicoderm Cq 14MG Patch) 1 patch QAM TD 06/12/17 09:00 07/12/17 08:59 06/14/17 07:55 1 PATCH Furosemide (Lasix Tab) 40 mg DAILY PO 06/12/17 09:00 07/12/17 08:59 06/14/17 07:59 40 MG Metoprolol Tartrate (Lopressor Iv) 2.5 mg Q6 PRN IV 06/11/17 18:15 07/11/17 18:14 Sotalol HCl (Betapace Tab) 80 mg BID PO 06/12/17 21:00 07/12/17 20:59 06/14/17 09:27 80 MG Prednisone (PredniSONE TAB) 60 mg DAILY PO 06/14/17 09:00 07/14/17 08:59 06/14/17 07:55 60 MG Heparin Sodium (Porcine) (Heparin Sq 5000 Unit/0.5ml) 5,000 unit Q8 SQ 06/13/17 22:00 07/13/17 21:59 06/14/17 14:18 5,000 UNIT Doxycycline Hyclate (Vibramycin Cap) 100 mg BID PO 06/13/17 21:00 06/17/17 20:59 06/14/17 07:55 100 MG Amlodipine Besylate (Norvasc Tab) 5 mg BID PO 06/14/17 09:00 07/12/17 08:59 06/14/17 07:54 5 MG Menthol (Nice [place]) 1 eloina PRN PRN ELOINA 06/14/17 16:00 07/14/17 15:59 Ipratropium [place] (Atrovent 0.02% 0.5MG/2.5ML Neb) 0.5 mg Q6RWA INH 06/14/17 21:00 07/14/17 20:59 Levalbuterol (Xopenex 1.25MG/ 0.5ML Neb) 1.25 mg Q6RWA INH 06/14/17 21:00 07/14/17 20:59 I & O: 24-Hour Column 06/15/17 08:00 Intake Total 980 ml Output Total 800 ml Balance 180 ml Vital Signs: Date Time Temp Pulse Resp B/P (MAP) Pulse Ox O2 Delivery O2 Flow Rate FiO2 06/14/17 16:02 Nasal Cannula 2.0 06/14/17 15:21 36.5 56 18 137/74 (95) 90 Nasal Cannula 1.0 06/14/17 15:09 49 16 94 Nasal Cannula 2.0 06/14/17 12:03 Nasal Cannula 2.0 06/14/17 11:32 36.3 54 19 157/72 (100) 93 Nasal Cannula 2.0 06/14/17 11:29 55 16 94 Nasal Cannula 2.0 06/14/17 08:05 Nasal Cannula 2.0 06/14/17 07:37 36.6 57 20 107/85 (92) 95 Room Air 06/14/17 07:04 50 16 98 Nasal Cannula 2.0 06/14/17 04:05 36.7 55 18 184/78 (113) 98 06/14/17 04:00 Nasal Cannula 2.0 06/14/17 03:20 52 16 92 Nasal Cannula 2.0 06/14/17 00:14 36.4 54 18 173/80 (111) 97 Nasal Cannula 06/14/17 00:00 Nasal Cannula 2.0 06/13/17 23:06 57 16 96 Nasal Cannula 2.0 06/13/17 20:13 36.6 60 20 133/73 (93) 97 Nasal Cannula 2.0 06/13/17 20:00 Nasal Cannula 2.0 06/13/17 19:38 72 18 94 Nasal Cannula 2.0 Laboratory Results: Last 24 Hours Test 06/14/17 08:08 White Blood Count 11.27 K/uL Red Blood Count 4.38 M/uL Hemoglobin 13.4 g/dL Hematocrit 39.6 % Mean Corpuscular Volume 90.4 fL Mean Corpuscular Hemoglobin 30.6 pg Mean Corpuscular Hemoglobin Concent 33.8 g/dl RDW Standard Deviation 43.0 fL RDW Coefficient of Variation 12.9 % Platelet Count 330 K/uL Mean Platelet Volume 10.7 fL Activated Partial Thromboplast Time 27.1 SECONDS Partial Thromboplastin Ratio 1.0 Sodium Level 134 mmol/L Potassium Level 3.7 mmol/L Chloride Level 95 mmol/L Carbon Dioxide Level 34 mmol/L Anion Gap 6.0 mmol/L Blood Urea Nitrogen 32 mg/dl Creatinine 0.78 mg/dl Est Creatinine Clear Calc Drug Dose 44.4 ml/min Estimated GFR () 84.4 Estimated GFR (Non- 72.8 BUN/Creatinine Ratio 40.6 Random Glucose 118 mg/dl Calcium Level 9.7 mg/dl
[2017-06-14] MEDS: LEVALBUTEROL 1.25MG/0.5ML NEB INH PRN (19:12)
[2017-06-14] MEDS: ATORVASTATIN 20 MG TAB PO SCH (19:34)
[2017-06-15 04:50] VITALS: BP 139/57; PULSE 50; TEMP 36.7; O2SAT 93
[2017-06-15] MEDS: HEPARIN SOD 5000 UNIT/0.5 ML CARP SQ SCH ×2 (05:32→14:00)
[2017-06-15] MEDS: LEVOTHYROXINE 112 MCG TAB PO SCH (05:32)
[2017-06-15] MEDS: LEVALBUTEROL 1.25MG/0.5ML NEB INH SCH (07:03)
[2017-06-15] MEDS: IPRATROPIUM BROMIDE NEB SOLN 0.02% 2.5 ML VIAL INH SCH ×2 (07:03→14:16)
[2017-06-15 07:05] VITALS: PULSE 51; O2SAT 94
[2017-06-15 07:53] LABS: BASO % 0.2 %; BASO ABS # 0.03 K/uL (0-0.2); EOS % 0.9 %; EOS ABS # 0.12 K/uL (0-0.5); HEMATOCRIT 37.3 % (37-47); HEMOGLOBIN 12.8 g/dL (12.0-16.0); IG# 0.45 K/uL (0.00-0.02); LYMPH % 23.2 %; LYMPH ABS # 3.07 K/uL (1.2-3.4); MEAN CELL VOLUME 89.7 fL (80-100); MEAN CORPUSCULAR HEMOGLOBIN 30.8 pg (25-34); MEAN CORPUSCULAR HGB CONC 34.3 g/dl (32-36); MEAN PLATELET VOLUME 10.3 fL (7.4-10.4); MONO % 16.1 %; MONO ABS # 2.13 K/uL (0.11-0.59); NEUT % 56.2 %; NEUT ABS # 7.42 K/uL (1.4-6.5); PLATELET COUNT 335 K/uL (130-400); RED CELL DISTRIBUTION WIDTH CV 12.9 % (11.5-14.5); RED CELL DISTRIBUTION WIDTH SD 42.2 fL (36.4-46.3); WHITE BLOOD COUNT 13.22 K/uL (4.8-10.8)
[2017-06-15 07:54] VITALS: BP 152/77; PULSE 52; TEMP 36.6; O2SAT 92
[2017-06-15] MEDS: CEROVITE ADV FORMULA TAB PO SCH (07:56)
[2017-06-15] MEDS: PANTOprazole SOD 40 MG TAB PO SCH (07:56)
[2017-06-15] MEDS: SOTALOL HCL 80 MG TAB PO SCH (07:56)
[2017-06-15] MEDS: MAGNESIUM OXIDE 400 MG TAB PO SCH (07:57)
[2017-06-15] MEDS: GUAIFENESIN 600 MG TABCR PO SCH (07:57)
[2017-06-15] MEDS: NICOTINE 14 MG/24 HR TDSY TD SCH (07:57)
[2017-06-15] MEDS: ASPIRIN 81 MG ECTAB PO SCH (07:57)
[2017-06-15] MEDS: AMLODIPINE BESYLATE 5 MG TAB PO SCH (07:57)
[2017-06-15] MEDS: FUROSEMIDE 40 MG TAB PO SCH (07:57)
[2017-06-15] MEDS: DOXYCYCLINE HYCLATE 100 MG CAP PO SCH (07:58)
[2017-06-15] MEDS: FERROUS SULFATE 325 MG TAB PO SCH (07:58)
[2017-06-15 07:59] LABS: PTT PATIENT 31.9 SECONDS (21.0-31.0)
[2017-06-15 08:23] LABS: CALCIUM 9.4 mg/dl (8.5-10.1); CREATININE 0.71 mg/dl (0.60-1.20); POTASSIUM 3.7 mmol/L (3.5-5.1)
[2017-06-15 11:59] VITALS: BP 127/64; PULSE 48; TEMP 37; O2SAT 94
[2017-06-15 13:03] VITALS: BP 127/64; PULSE 48; TEMP 37; O2SAT 94
--- NOTE | 2017-06-15 13:20 | Cardiology Progress Note ---
Cardiology Progress Note Date of Service Jun 15, 2017. Cardiology Progress Note Telemetry, EKG reviewed. Telemetry reveals sinus bradycardia in the range of 44-55 bpm without any significant pauses. EKG performed this morning 06/15/17 and reviewed independently reveals sinus bradycardia at 49 bpm with stable corrected QT interval 448 ms. Patient has received 6 doses of sotalol 80 mg thus far. As noted, metoprolol discontinued this admission in favor of sotalol. Not an anticoagulation candidate due to bleeding risk, falls.
[2017-06-15 14:16] VITALS: PULSE 60; O2SAT 95
[2017-06-15] MEDS: LEVALBUTEROL 1.25MG/0.5ML NEB INH PRN (14:16)
--- NOTE | 2017-06-15 15:07 | Progress Note ---
Medicine Progress Note Date & Time of Visit: Jun 15, 2017 at 15:01. Subjective resting in bed, comfortable states she feels much better overall denies dyspnea, cough, chest pain, palpitations, dizziness no other symptoms states she is ready and would like to be discharged Objective Last 8 Hrs Date Time Temp Pulse Resp B/P (MAP) Pulse Ox O2 Delivery O2 Flow Rate FiO2 06/15/17 14:16 60 16 95 Nasal Cannula 2.0 06/15/17 13:03 37.0 48 19 94 Nasal Cannula 06/15/17 12:03 Nasal Cannula 2.0 06/15/17 11:59 37.0 48 19 127/64 (85) 94 Nasal Cannula 2.0 06/15/17 08:04 Nasal Cannula 2.0 06/15/17 07:54 36.6 52 20 152/77 (102) 92 Nasal Cannula 2.0 06/15/17 07:05 51 16 94 Nasal Cannula 2.0 Physical Exam: General- oriented x 3, not in distress, speaks in sentences with minimal effort Neck- no JVD Lungs- clear breath sounds bilaterally, no rales/wheezes Heart- regular rhythm; no murmur, normal rate Abdomen- normal bowel sounds, soft, nontender Extremities- no pretibial edema, no calf tenderness Neuro- alert, oriented x 3; (+)decreased hearing, otherwise, no other gross focal deficits Skin- warm & dry Laboratory Results: Last 24 Hours Test 06/15/17 07:24 White Blood Count 13.22 K/uL Red Blood Count 4.16 M/uL Hemoglobin 12.8 g/dL Hematocrit 37.3 % Mean Corpuscular Volume 89.7 fL Mean Corpuscular Hemoglobin 30.8 pg Mean Corpuscular Hemoglobin Concent 34.3 g/dl Platelet Count 335 K/uL Mean Platelet Volume 10.3 fL Neutrophils (%) (Auto) 56.2 % Lymphocytes (%) (Auto) 23.2 % Monocytes (%) (Auto) 16.1 % Eosinophils (%) (Auto) 0.9 % Basophils (%) (Auto) 0.2 % Neutrophils # (Auto) 7.42 K/uL Lymphocytes # (Auto) 3.07 K/uL Monocytes # (Auto) 2.13 K/uL Eosinophils # (Auto) 0.12 K/uL Basophils # (Auto) 0.03 K/uL RDW Standard Deviation 42.2 fL RDW Coefficient of Variation 12.9 % Immature Granulocyte % (Auto) 3.4 % Immature Granulocyte # (Auto) 0.45 K/uL Activated Partial Thromboplast Time 31.9 SECONDS Partial Thromboplastin Ratio 1.2 Sodium Level 134 mmol/L Potassium Level 3.7 mmol/L Chloride Level 95 mmol/L Carbon Dioxide Level 35 mmol/L Anion Gap 5.0 mmol/L Blood Urea Nitrogen 35 mg/dl Creatinine 0.71 mg/dl Est Creatinine Clear Calc Drug Dose 48.4 ml/min Estimated GFR () 94.6 Estimated GFR (Non- 81.6 BUN/Creatinine Ratio 48.5 Random Glucose 77 mg/dl Calcium Level 9.4 mg/dl Assessment & Plan This is a 76 year old female with a PMH of COPD, TRAVIS on 2L O2 nocturnally, ongoing tobacco use, hypertension, hypothyroidism, HLD - presents with worsening shortness of breath Sepsis secondary to Influenza A presented with leukocytosis, lactic acidosis, tachycardia - much improved patient declined Tamiflu due to headache/tremors Acute Hypoxic Respiratory Failure Acute COPD Exacerbation Smoker --now only on 2 L via NC -- repeat CXR: Chronic interstitial change. Small potential developing parenchymal infiltrate left base. -- wheezing resolved transitioned to Prednisone taper received 7 days of Doxycycline given Nebs q6h --Pulmonary consulted, Dr Singh -- discharge plan: tapering course of Prednisone Duoneb PRN Oxygen at rest and while ambulating Paroxysmal A fib - Echo noted - Cardiology consulted Dr. Pierce - Metoprolol changed to Sotalol 80mg bid chronic anticoagulation not recommended at this time continue Aspirin - ff up with [facility] in 1-2 weeks Chronic Diastolic CHF -- Lasix reduced to 40mg daily monitor HTN BP is elevated due to steroids - Amlodipine 5mg bid added - BP improved monitor Tobacco Use Disorder nicotine patch counseled on smoking cessation Hypothyroidism TSH wnl continue Synthroid Disposition d/c home with home health services ff up with PCP in 3-5 days ff up with [facility] 1-2 weeks Current Inpatient Medications: Current Inpatient Medications Medications (Trade) Dose Ordered Sig/Robby Route Start Time Stop Time Status Last Admin Dose Admin Acetaminophen (Tylenol Tab) 650 mg Q4H PRN PO 06/08/17 22:45 07/08/17 22:44 06/11/17 10:55 650 MG Nitroglycerin (Nitrostat Tab) 0.4 mg UD PRN SL 06/08/17 22:45 07/08/17 22:44 Atorvastatin Calcium (Lipitor Tab) 20 mg HS PO 06/09/17 21:00 07/09/17 20:59 06/14/17 19:34 20 MG Levothyroxine Sodium (Synthroid Tab) 112 mcg DAILYBB PO 06/09/17 06:00 07/09/17 05:59 06/15/17 05:32 112 MCG Multivitamins/ Minerals (Multivitamin W/ Minerals Tab) 1 tab DAILY PO 06/09/17 09:00 07/09/17 08:59 06/15/17 07:56 1 TAB Ferrous Sulfate (Feosol Tab) 325 mg DAILY PO 06/09/17 09:00 07/09/17 08:59 06/15/17 07:58 325 MG Pantoprazole Sodium (Protonix Tab) 40 mg QAM PO 06/09/17 09:00 07/09/17 08:59 06/15/17 07:56 40 MG Tramadol HCl (Ultram Tab) 25 mg Q6H PRN PO 06/08/17 22:45 07/08/17 22:44 Levalbuterol (Xopenex 1.25MG/ 0.5ML Neb) 1.25 mg Q4H PRN INH 06/08/17 23:00 07/08/17 22:59 06/15/17 14:16 1.25 MG Guaifenesin (Mucinex Contr Rel Tab) 600 mg Q12 PO 06/09/17 09:00 07/09/17 08:59 06/15/17 07:57 600 MG Miscellaneous (Remove Nicoderm Patch) 1 ea HS N/A 06/09/17 21:00 07/09/17 20:59 06/13/17 21:00 1 EA Magnesium Oxide (Mag-Ox Tab) 400 mg BID PO 06/09/17 21:00 07/09/17 20:59 06/15/17 07:57 400 MG Aspirin (Ecotrin Tab) 81 mg DAILY PO 06/11/17 09:00 07/11/17 08:59 06/15/17 07:57 81 MG Clonidine HCl (Catapres Tab) 0.1 mg Q6H PRN PO 06/11/17 11:45 07/11/17 11:44 06/12/17 15:49 0.1 MG Nicotine (Nicoderm Cq 14MG Patch) 1 patch QAM TD 06/12/17 09:00 07/12/17 08:59 06/15/17 07:57 1 PATCH Furosemide (Lasix Tab) 40 mg DAILY PO 06/12/17 09:00 07/12/17 08:59 06/15/17 07:57 40 MG Metoprolol Tartrate (Lopressor Iv) 2.5 mg Q6 PRN IV 06/11/17 18:15 07/11/17 18:14 Sotalol HCl (Betapace Tab) 80 mg BID PO 06/12/17 21:00 07/12/17 20:59 06/15/17 07:56 80 MG Prednisone (PredniSONE TAB) 60 mg DAILY PO 06/14/17 09:00 07/14/17 08:59 06/15/17 07:56 60 MG Heparin Sodium (Porcine) (Heparin Sq 5000 Unit/0.5ml) 5,000 unit Q8 SQ 06/13/17 22:00 07/13/17 21:59 06/15/17 05:32 5,000 UNIT Doxycycline Hyclate (Vibramycin Cap) 100 mg BID PO 06/13/17 21:00 06/17/17 20:59 06/15/17 07:58 100 MG Amlodipine Besylate (Norvasc Tab) 5 mg BID PO 06/14/17 09:00 07/12/17 08:59 06/15/17 07:57 5 MG Menthol (Nice Quintin) 1 quintin PRN PRN QUINTIN 06/14/17 16:00 07/14/17 15:59 Ipratropium [place] (Atrovent 0.02% 0.5MG/2.5ML Neb) 0.5 mg Q6RWA INH 06/14/17 21:00 07/14/17 20:59 06/15/17 14:16 0.5 MG Levalbuterol (Xopenex 1.25MG/ 0.5ML Neb) 1.25 mg Q6RWA INH 06/14/17 21:00 07/14/17 20:59 06/15/17 07:03 1.25 MG
[2017-06-15] MEDS ORDERED: LSX40 PO (15:12)
[2017-06-15] MEDS ORDERED: PRED10TA PO (15:12)
[2017-06-15] MEDS ORDERED: NRV5 PO (15:12)
[2017-06-15] MEDS ORDERED: BTP80 PO (15:12)
[2017-06-15] MEDS ORDERED: NICO14DI5 TD (15:12)
--- NOTE | 2017-06-15 15:17 | Discharge Summary ---
Discharge Summary Date of Service Jun 15, 2017. Discharge Summary Admission Date: Jun 08, 2017 at 21:37 Discharge Date: Jun 15, 2017 Discharge Disposition: Home with services Principal Diagnosis: Sepsis secondary to Influenza A Acute Hypoxic Respiratory Failure Acute COPD Exacerbation Secondary Diagnoses/Problems: New Onset Atrial Fibrillation, Please refer to hospital course below for further details. Procedures: CHEST ONE VIEW PORTABLE HISTORY: Short of breath. Hypoxia. COMPARISON: Chest 02/21/2015. FINDINGS: No pleural effusions. No pneumothorax. The heart is normal in size. Mild diffuse interstitial thickening. No focal lung consolidations to suggest pneumonia. There is a right shoulder prosthesis. Surgical clips within the right neck. IMPRESSION: Mild interstitial thickening which is likely chronic. No new focal lung consolidations to suggest pneumonia. HEAD CT NONCONTRAST CT DOSE: 691.05 mGy.cm HISTORY: syncope, head injury. TECHNIQUE: Multiaxial CT images of the head were performed without the use of intravenous contrast. Automated exposure control was utilized for this study. A dose lowering technique was utilized adhering to the principles of ALARA. Comparison: Head CT 02/23/2015. Findings: The paranasal sinuses and mastoid air cells are clear. The calvarium and skull base are intact. There is no mass, hematoma, midline shift, acute infarct. White matter hypodensity is nonspecific but suggestive of microvascular ischemic change. The ventricles and sulci demonstrate mild age-related involutional changes. Small focus of encephalomalacia within the left frontal lobe, unchanged. 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 Impression: No significant change compared to the prior study. No acute intracranial abnormality. CHEST CTA for PULMONARY ARTERIES CT DOSE: 208.25 mGy.cm HISTORY: Short of breath. Elevated d-dimer. TECHNIQUE: Multiaxial CT images of the chest were performed following the intravenous administration of contrast to evaluate the pulmonary arteries. Maximal intensity projection images were also obtained. A dose lowering technique was utilized adhering to the principles of ALARA. COMPARISON STUDY: Chest 06/12/2014. FINDINGS: Multiple old compression deformities seen within the lower thoracic and upper lumbar spine. The visualized liver and spleen are unremarkable. Subcentimeter mediastinal and hilar lymph nodes do not meet CT criteria for pathologic involvement. Dominant right hilar lymph node measures 8 mm in short axis diameter. A prominent subcarinal lymph node measures 9 mm in short axis diameter. No pleural or pericardial effusions. The heart is mildly enlarged. No suspicious lytic or blastic osseous lesions. No pneumothorax. Mild emphysema. Linear densities within the right middle lobe and lingula favor subsegmental atelectasis persists are scarring. Mild respiratory motion artifact is noted. No focal lung consolidations to suggest pneumonia. Mild calcified plaque within the normal caliber thoracic aorta. No evidence for aortic dissection. No filling defects seen within the visualized pulmonary arteries to suggest pulmonary embolus. The main pulmonary artery measures up to 3.1 cm in diameter. This is consistent with mild pulmonary arterial hypertension. IMPRESSION: 1. No evidence for pulmonary vessels. 2. Mild emphysema. 3. Mild pulmonary arterial hypertension. CHEST ONE VIEW PORTABLE CLINICAL HISTORY: ff up, hypoxia, influenza dyspnea COMPARISON STUDY: 06/08/2017 FINDINGS: Chronic interstitial change throughout both hemithoraces. Possible small superimposed parenchymal infiltrate left base. Diaphragms smooth but somewhat flattened. There are findings of mild stable cardiomegaly. IMPRESSION: Chronic interstitial change. Small potential developing parenchymal infiltrate left base. Consultations: [facility] Director Pending Studies/Follow-Up: Please refer to hospital course below. Medication Reconciliation New Medications: Prednisone Tab (Prednisone) 10 Mg Tab 10 MG PO UD for 11 Days, #34 TAB take 6 tabs po daily x 1 day, then take 5 tabs po daiy x 2 days, then take 4 tabs po daily x 2 days, then take 3 tabs po daily x 2 days, then take 2 tabs po daily x 2 days, then take 1 tab po daily x 2 days, then STOP Amlodipine Besylate (Amlodipine Besylate) 5 Mg Tab 5 MG PO BID for 30 Days, #60 TAB 2 Refills Furosemide (Furosemide) 40 Mg Tab 40 MG PO DAILY for 30 Days, #30 TAB 2 Refills Nicotine (Nicoderm Cq 14MG Patch) 14 Mg/24 Hr Dis 1 PATCH TD QAM for 7 Days, #7 PATCH 0 Refills Sotalol HCl (Sotalol HCl) 80 Mg Tab 80 MG PO BID for 30 Days, #60 TAB 2 Refills Continued Medications: Acetaminophen Tab (Tylenol) 325 Mg Tab 650 MG PO Q4 PRN for Headache or Pain, TAB Alendronate/Cholecalciferol (Fosamax+D 70MG/2800 Iu) 70 Mg Tab 1 TABLET PO WK, TAB Aspirin (Aspirin Chewable) 81 Mg Chew 81 MG PO DAILY Atorvastatin (Lipitor) 20 Mg Tab 20 MG PO HS, TAB Ferrous Sulfate (Ferrous Sulfate) 325 Mg Tab 325 MG PO DAILY Ipratropium-Albuterol (Duoneb) 3 Ml Nebu 1 TREATMENT INH Q6 PRN for Shortness of Breath, INHA Levothyroxine Sodium (Synthroid) 112 Mcg Tab 112 MCG PO DAILY, TAB Magnesium Oxide (Mg Supplement (Magnesium) 400 Mg Cap 1 CAP PO BID Moxifloxacin Hcl (Ophth) (Vigamox 0.5% Oph) 0.5 % [place]aine 1 DROPS OP TID for 7 Days, BTL Multivitamins/Minerals (Mvi With Minerals) Tab 1 TAB PO DAILY, TAB Omeprazole (Prilosec) 20 Mg Capcr 20 MG PO DAILY, CAP Potassium Chloride (Micro-K Ext Rel) 10 Meq Capcr 10 MEQ PO BID, CAP [Monoxidil] () 1 APPLN TOP UD APPLY TO SCALP AM & PM Discontinued Medications: Furosemide (Lasix) 80 Mg Tab 1 TAB PO DAILY for 30 Days, #30 TAB 5 Refills Metoprolol Succinate (Toprol Xl) 25 Mg Tabcr 1 TAB PO DAILY for 30 Days, #30 TAB 5 Refills Admission Information HPI (per Admitting provider): CHIEF COMPLAINT: Shortness of breath and syncope. HISTORY OF PRESENT ILLNESS: History obtained from patient and records. Medical history significant for chronic respiratory failure on home O2 at night , COPD, ongoing tobacco abuse, hypertension, hyperlipidemia, PAFib as per records, PVD s surgery, hypothyroidism. chronic anemia (baseline hemoglobin 11) Recent confinement January 2015 for pneumonia, thoracolumbar compression fractures. Few days history of cough symptoms, productive of junky sputum, sick contacts. No aspiration. No chest pain. Increasing shortness of breath. She got up to go to the bathroom yesterday because she was going to throw up from coughing. Subsequently passed out, woke up on the floor, no incontinence. Thinks she may have been unconscious for about an hour. She activated her Med alert device. Patient brought to the Emergency Room by EMS. Noted to be hypoxemic, 80s on room air. She received duo nebs, Solu-Medrol, Levaquin for possible COPD exacerbation. Medical history as above, in addition: Colonoscopy 2010, outpatient, normal, as per records. 2D echo from 2014 showed EF 70%, LVH, diastolic dysfunction. Carotid Dopplers, January 2017 showed right carotid artery duplex less than 50%, left carotid less than 50%. Physical Exam (per Admitting): VITAL SIGNS: Blood pressure noted to be 142/74, pulse rate 104, RR 26, temperature 36.4, sats 80s on room air 94 on 3 liters. orthostatic vitals were abnormal. GENERAL: Noted to be in respiratory distress. Uncomfortable. SKIN: Pallor, warm. HEENT: Pale palpebral conjuctivae. No ptosis. Dry mucosa. NECK: Short, nontender. CHEST: Expiratory wheezes, nontender chest wall HEART: Tachycardic. No murmur. ABDOMEN: Soft, nontender. RECTAL intact sphincter, yellow stool, heme positive EXTREMITIES: Minimal LE edema noted. No tenderness. No gross deformities on exam. NEUROLOGIC: No gross focality except for mild hearing impairment. No facial symmetry Hospital Course This is a 76 year old female with a PMH of COPD, TRAVIS on 2L O2 nocturnally, ongoing tobacco use, hypertension, hypothyroidism, HLD - presents with worsening shortness of breath Sepsis secondary to Influenza A - presented with leukocytosis, lactic acidosis, tachycardia - patient declined Tamiflu due to headache/tremors - symptoms resolved Acute Hypoxic Respiratory Failure Acute COPD Exacerbation Smoker -- required 4 liters o2 via nasal cannula, weaned off to 2 L -- repeat CXR: Chronic interstitial change. Small potential developing parenchymal infiltrate left base. --- Pulmonary Dr. Singh consulted given Solumedrol, transitioned to Prednisone taper finished course of Doxycycline x 1 week given Nebs treatments -- discharge plan: tapering course of Prednisone Duoneb PRN Oxygen at rest and while ambulating -- ff up with PCP in 3-5 days Paroxysmal A fib - noted during inpatient stay - Echo: * -- Conclusions -- * The left ventricle is normal in size. * There is moderate concentric left ventricular hypertrophy. * The left ventricle is hyperdynamic. * No regional wall motion abnormalities noted. * Ejection Fraction = >70 %. * Grade I diastolic dysfunction, (abnormal relaxation pattern). * Aortic valve sclerosis moderate, without significant aortic valvular stenosis. * There is moderate mitral annular calcification. * There is mild mitral regurgitation. * There is moderate tricuspid regurgitation. * Right ventricular systolic pressure is moderately elevated at 40-50mmHg. - Cardiology consulted Dr. Pierce - Metoprolol changed to Sotalol 80mg bid, QT monitored chronic anticoagulation not recommended at this time per Cardiology, patient also declines continue Aspirin - ff up with [facility] in 1-2 weeks Chronic Diastolic CHF -- Lasix reduced to 40mg daily euvolemic monitor HTN BP is elevated due to steroids - Amlodipine 5mg bid added - BP improved monitor Tobacco Use Disorder nicotine patch counseled on smoking cessation Hypothyroidism continue Synthroid Disposition d/c home with home health services ff up with PCP in 3-5 days ff up with [facility] Director 1-2 weeks Total time spent on discharge = 40 mins This includes examination of the patient, discharge planning, medication reconciliation, and communication with other providers. Discharge Instructions Discharge Instructions Date of Service Jun 15, 2017. Admission Reason for Admission: Respiratory Failure, Acute Discharge Discharge Diagnosis / Problem: INFLUENZA, BRONCHITIS, ATRIAL FIBRILLATION Discharge Goals Goal(s): Diagnostic testing, Therapeutic intervention Activity Recommendations Activity Limitations: as noted below (NO HEAVY EXERTION UNTIL FOLLOW UP WITH PRIMARY CARE PHYSICIAN) Lifting Limitations: until after follow-up appointment Exercise/Sports Limitations: until after follow-up appointment . Instructions / Follow-Up Instructions / Follow-Up PLEASE REFER TO YOUR NEW MEDICATION LIST AND FOLLOW INSTRUCTIONS CAREFULLY. CALL YOUR PRIMARY CARE PHYSICIAN OR RETURN TO ER IMMEDIATELY IF WITH WORSENING OF SYMPTOMS, SHORTNESS OF BREATH, CHEST PAIN, HEART RACING, DIZZINESS, WEAKNESS. FOLLOW UP WITH YOUR PRIMARY CARE PHYSICIAN IN 3-5 DAYS. FOLLOW UP WITH YOUR [facility] IN [facility] IN 1-2 WEEKS. THE CLINIC WILL BE CALLING YOU FOR YOUR APPOINTMENTS. Current Hospital Diet Patient's current hospital diet: AHA Diet (Heart Healthy) Discharge Diet Recommended Diet: AHA Diet (Heart Healthy) Procedures Procedures Performed: ECHOCARDIOGRAM, CHEST XRAY Pending Studies Studies pending at discharge: no Medical Emergencies . Who to Call and When: Medical Emergencies: If at any time you feel your situation is an emergency, please call 911 immediately. . Non-Emergent Contact Non-Emergency issues call your: Primary Care Provider, Re[facility] Director Call Non-Emergent contact if: you have a fever, you have any medication questions . . "Provider Documentation" section prepared by Terrance Mims. . VTE Core Measure Inpt VTE Proph given/why not?: Unfractionated heparin SQ, Warfarin (Coumadin)
== END 2017-06-15 16:07 | disposition home health service (06) | DRG 871 ==
LOC: EDBD 18:18 → C.EDC 18:19 → C.2T 21:37 → ENRESERV 21:50 → C.2T 06-09 00:04
PROVIDERS: ADMIT Family Medicine; ATTEND Internal Medicine
DX: A41.9 Sepsis, unspecified organism (principal); J96.01 Acute respiratory failure with hypoxia; J44.1 Chronic obstructive pulmonary disease with (acute) exacerbation; I50.32 Chronic diastolic (congestive) heart failure; E87.2 Acidosis; K92.2 Gastrointestinal hemorrhage, unspecified; J10.1 Influenza due to other identified influenza virus with other respiratory manifestations; I51.9 Heart disease, unspecified; R65.20 Severe sepsis without septic shock; F17.200 Nicotine dependence, unspecified, uncomplicated; I48.0 Paroxysmal atrial fibrillation; E78.5 Hyperlipidemia, unspecified; E03.9 Hypothyroidism, unspecified; I27.20 Pulmonary hypertension, unspecified; Z87.01 Personal history of pneumonia (recurrent); Z99.81 Dependence on supplemental oxygen; Z79.82 Long term (current) use of aspirin; Z88.0 Allergy status to penicillin; Z88.2 Allergy status to sulfonamides; Z80.0 Family history of malignant neoplasm of digestive organs; Z91.81 History of falling

== ENCOUNTER 2019-05-21 21:47 | Inpatient (IN) ==
--- OUTSIDE RECORDS SUMMARY | 2019-05-21 21:49 | External Medical Summary | Continuity of Care Document ---
:1940 Author Name Amanda Doyle, Provider Address Unavailable Unavailable , Care Team Providers Name Role Phone Non[facility] Vivek, Provider Unavailable [email or web address] PCP, UNKNOWN Unavailable Unavailable Problems Active medical history not documented Allergies and Adverse Reactions Allergy history not documented Medications Medications not documented Procedures Procedures not documented Immunizations Immunizations not documented Plan of Treatment Planned Observations Planned Goals not documented Results No Known Results Results not documented
[2019-05-21] MEDS ORDERED: SODIUM CHLORIDE 0.9% 500 ML IV ONE (22:28)
[2019-05-21 22:34] LABS: Basophils # (auto) 0.02 K/uL (0-0.2); Basophils % (auto) 0.1 %; Eosinophils # (auto) 0.56 K/uL (0-0.5); Eosinophils % (auto) 3.5 %; Hematocrit (blood only) 39.4 % (37-47); Immature Granulocytes # (auto) 0.06 K/uL (0.00-0.02); Immature Granulocytes % (auto) 0.4 %; Lymphocytes # (auto) 1.86 K/uL (1.2-3.4); Lymphocytes % (auto) 11.6 %; Mean Corpuscular Volume 90.8 fL (80-100); Mean Platelet Volume 10.1 fL (7.4-10.4); Monocytes # (auto) 2.93 K/uL (0.11-0.59); Monocytes % (auto) 18.3 %; Neutrophils # (auto) 10.61 K/uL (1.4-6.5); Neutrophils % (auto) 66.1 %; Platelet Count 312 K/uL (130-400); RDW Coefficient of Variation 13.7 % (11.5-14.5); RDW Standard Deviation 45.3 fL (36.4-46.3); Red Blood Count 4.34 M/uL (4.2-5.4); White Blood Count 16.04 K/uL (4.8-10.8)
--- NOTE | 2019-05-21 22:35 | XRay Report ---
XR chest 1V portable HISTORY: 78 years-old Female Chest Pain acute atypical chest pain COMPARISON: Chest radiograph 03/13/2019 TECHNIQUE: Portable AP view of the chest FINDINGS: Cardiac silhouette is enlarged, unchanged. Calcified plaque of the thoracic aortic arch. Mild scarrin g/atelectasis of the lateral right midlung. Chronic interstitial coarsening of the lung bases. Emphys johnathon. Chronic blunting of the costophrenic angles. No pneumothorax, large pleural effusion or overt pu lmonary edema. No airspace consolidation typical for pneumonia. Degenerative changes of the spine and left shoulder. Right shoulder arthroplasty. Surgical clips of the right neck. IMPRESSION: 1. Cardiomegaly without acute process. 2. Emphysema with chronic bibasilar interstitial coarsening and lateral right midlung scarring/atelec tasis. ACT 112: Negative or not required by law. The above report was generated using voice recognition software. It may contain grammatical, syntax o r spelling errors. Electronically signed by: Sukhdeep Sanz M.D. 05/21/2019 10:34 PM
[2019-05-21 22:47] LABS: Partial Thromboplastin Time 27.2 Seconds (21.0-31.0)
[2019-05-21 22:53] LABS: Alanine Aminotransferase 48 U/L (12-78); Albumin Level 3.1 gm/dl (3.4-5.0); Aspartate Aminotransferase 35 U/L (15-37); BUN Creatinine Ratio 25.4 (10-20); Blood Urea Nitrogen 17 mg/dl (7-18); Calcium 9.6 mg/dl (8.5-10.1); Carbon Dioxide 29 mmol/L (21-32); Chloride 103 mmol/L (98-107); Creatinine Clr Calc Pharmacy 49.7 ml/min; Est GFR (African American) 96.2; Glucose 103 mg/dl (70-99); Lipase 99 U/L (73-393); Magnesium 1.9 mg/dl (1.8-2.4); Potassium 4.1 mmol/L (3.5-5.1); Sodium 137 mmol/L (136-145)
[2019-05-21 22:58] LABS: Albumin Globulin Ratio 0.8 (0.9-2); Alkaline Phosphatase 149 U/L (45-117); Bilirubin,Total 0.4 mg/dl (0.2-1); Globulin 3.7 gm/dl (2.5-4.0); Total Protein 6.8 gm/dl (6.4-8.2); Troponin I < 0.015 ng/ml (0-0.045)
[2019-05-21] MEDS ORDERED: MAGNESIUM SULFATE / D5W 1 GM/100 ML BAG IV ONE (23:13)
[2019-05-21 23:35] LABS: Thyroid Stimulating Hormone 0.146 uIu/ml (0.300-4.500)
--- NOTE | 2019-05-21 23:58 | History & Physical Report ---
Date of Service May 21, 2019 Assessment & Plan (1) Symptomatic bradycardia: Secondary to sick sinus syndrome Episodic outpatient sinus pauses causing near syncope/syncopal events hx AF, rate controlled on decreased outpatient Sotalol dose, not on anticoagulation second to fall risk n chronic respiratory failure secondary to COPD on home O2 at night, pulmonary status at baseline ongoing tobacco abuse chronic diastolic heart failure (EF 575-60%, TTE 2019), euvolemic hypertension, slight elevated hyperlipidemia on statin Rx PVD sp surgery hypothyroidism. low TSH likely secondary to sick euthyroid syndrome PCU Hold sotalol for now Atropine as needed for symptomatic bradycardia External pacer pads on Cardiology consult RE symptomatic bradycardia (ER provider already in touch with Dr. Spears.) N.p.o. after midnight in anticipation of procedure in a.m. Nicotine patch PRN DVT prophylaxis. Lovenox subcu Full code Patient son requesting updates from providers. Mr. Miguel Varela, contact #[phone]. History of Present Illness Chief Complaint: Recurrent syncope Primary Care Provider: Dr. Dhillon History obtained from patient, family, and records. History somewhat limited from patient secondary to hearing impairment. Medical history significant for chronic respiratory failure on home O2 at night, COPD, ongoing tobacco abuse, chronic diastolic heart failure (EF 575-60%, TTE 2019), hypertension, hyperlipidemia, PAFib not on anticoagulation secondary to fall risk as per records, PVD sp surgery, hypothyroidism. Recent confinement May 2017 for new onset A. fib. Patient discharged on on Sotalol. Anticoagulation not recommended by cardiology due to fall risk as per records. Recent ER visit February 2019 for syncopal event. Sinus bradycardia on EKG. Outpatient providers arrange for [facility] nurse monitoring March 2019 which showed multiple long conversion pauses of 10 seconds as per documentation. Patient sotalol decreased to half dose. Recurrent near syncope//syncopal events outpatient as per patient and family. EPS outpatient referral appointment this a.m. Outpatient PPM placement scheduled May 25, 2019 for sinus node dysfunction. Upon return to personal residential, patient had 2 syncopal events while sitting down as per son. Patient denies chest pain or unusual shortness of breath. Usual smoker's cough symptoms. Patient brought to the ER for evaluation. Medical history as above, in addition: SURGERIES: gynecological procedures, orthopedic procedures, carotid endarterectomy FAMILY HISTORY: Colon cancer. PERSONAL AND SOCIAL HISTORY: Half pack daily. No chronic intake of alcohol. 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 Allergies Allergy/AdvReac Type Severity Reaction Status Date / Time Penicillins Allergy Intermediate Hives of Verified 05/21/19 23:08 lower extremeties, no resp symptoms Sulfa (Sulfonamide Allergy Intermediate hives Verified 05/21/19 23:08 Antibiotics) simvastatin Allergy Unknown Unknown Verified 05/21/19 23:08 Home Medications Home Medications Medication Instructions Recorded Confirmed Type aspirin [Aspirin Low Dose] 81 mg PO DAILY 03/13/19 05/21/19 History atorvastatin 10 mg PO HS 03/13/19 05/21/19 History ferrous sulfate 325 mg PO BID 03/13/19 05/21/19 History omeprazole 20 mg PO DAILYBB 03/13/19 05/21/19 History potassium chloride 10 meq PO BID 03/13/19 05/21/19 History amlodipine 5 mg PO DAILY 05/21/19 05/21/19 History calcium carbonate-vitamin D3 2 tab PO DAILY 05/21/19 05/21/19 History [Calcium 600 + D(3)] diphenhydramine HCl [Benadryl] 25 mg PO Q6H PRN 05/21/19 05/21/19 History furosemide [Lasix] 40 mg PO DAILY 05/21/19 05/21/19 History hydrocodone-acetaminophen 1 tab PO Q6H PRN MDD 3 GRAMS/24 05/21/19 05/21/19 History HOURS. ipratropium-albuterol 3 ml INHALATION Q6H PRN 05/21/19 05/21/19 History levothyroxine 125 mcg PO DAILYBB 05/21/19 05/21/19 History loratadine [Claritin] 10 mg PO DAILY PRN 05/21/19 05/21/19 History hdofdgjt-xfmg-VZ-calcium-mins 1 tab PO DAILY 05/21/19 05/21/19 History [Women's One Daily] sotalol 40 mg PO BID 05/21/19 05/21/19 History Past Med/Surg History Medical History Afib COPD (chronic obstructive pulmonary disease) (Chronic) Forearm fracture (Acute) Humeral surgical neck fracture (Acute) Hyponatremia (Acute) Leukocytosis (Acute) Oxygen desaturation (Acute) Pneumonia (Acute) Respiratory failure, acute Syncope (Acute) Troponin level elevated (Acute) Family History Other No significant family history Social History Preferred Language: [place] Communication Ability: Effective Mottle Lay Up Operator Required: No Beliefs That Will Affect Care: None Current Living Situation: Other Other Information That Helps Us Care for You: No Feels Safe at Home: Yes Safety Concerns: Feels Safe At This Time Smoking Status: Unknown if ever smoked Hx Alcohol Use: No Hx Substance Use: No Review of Systems Review of Systems: As per HPI, all 10 systems reviewed, all other ROS negative Physical Exam Physical Exam: GENERAL: Comfortable, mild hearing impairment, no respiratory distress SKIN: Normal color, warm HEENT: Ne[place]ert palpebral conjunctivae, no ptosis, dry buccal mucosa, nasal cannula in place NECK : Supple, no tenderness CHEST : Decreased breath sounds, expiratory wheezes that clear with coughing, no tenderness HEART : Irregular,, systolic murmur ABDOMEN: Some distention, nontender EXTREMITIES : Minimal LE swelling, no LE tenderness, no other conspicuous deformities noted NEUROLOGIC : Coherent, no facial asymmetry, mild hearing impairment, no other gross focality Results & Data Vital Signs (Past 12 Hours) Vital Signs Temp Pulse Pulse Resp BP BP Pulse Ox 05/21/19 23:45 93 H 28 H 146/65 H 92 05/21/19 23:30 91 H 22 127/62 97 05/21/19 23:15 94 H 20 123/102 H 98 05/21/19 23:01 109 H 21 123/97 93 05/21/19 22:45 88 20 117/73 96 05/21/19 22:30 97 H 20 130/63 96 05/21/19 22:28 94 05/21/19 22:07 37.1 C 94 H 18 113/73 94 Diagnostic Findings Laboratory Results WBC 16.04 K/uL (4.8-10.8) H 05/21/19 22:22 RBC 4.34 M/uL (4.2-5.4) 05/21/19 22:22 Hgb 13.0 g/dL (12.0-16.0) 05/21/19 22:22 Hct 39.4 % (37-47) 05/21/19 22:22 MCV 90.8 fL (80-100) 05/21/19 22:22 MCH 30.0 pg (25-34) 05/21/19 22:22 MCHC 33.0 g/dL (32-36) 05/21/19 22:22 RDW Std Deviation 45.3 fL (36.4-46.3) 05/21/19: RDW Coeff of [place] 13.7 % (11.5-14.5) 05/21/19 22:22 Plt Count 312 K/uL (130-400) 05/21/19 22:22 MPV 10.1 fL (7.4-10.4) 05/21/19 22:22 Immature Gran % (Auto) 0.4 % 05/21/19 22:22 Neut % (Auto) 66.1 % 05/21/19 22:22 Lymph % (Auto) 11.6 % 05/21/19 22:22 [place] % (Auto) 18.3 % 05/21/19 22:22 Eos % (Auto) 3.5 % 05/21/19 22:22 Baso % (Auto) 0.1 % 05/21/19:22 Immature Gran # (Auto) 0.06 K/uL (0.00-0.02) H 05/21/19 22:22 Neut # (Auto) 10.61 K/uL (1.4-6.5) H 05/21/19 22:22 Lymph # (Auto) 1.86 K/uL (1.2-3.4) 05/21/19 22:22 [place] # (Auto) 2.93 K/uL (0.11-0.59) H 05/21/19 22:22 Eos # (Auto) 0.56 K/uL (0-0.5) H 05/21/19:22 Baso # (Auto) 0.02 K/uL (0-0.2) 05/21/19:22 PT 10.0 Seconds (9.0-12.0) 05/21/19 22:22 INR 1.0 (0.9-1.1) 05/21/19 22:22 APTT 27.2 Seconds (21.0-31.0) 05/21/19 22:22 PTT Ratio 1.0 05/21/19 22:22 Sodium 137 mmol/L (136-145) 05/21/19 22:22 Potassium 4.1 mmol/L (3.5-5.1) 05/21/19 22:22 Chloride 103 mmol/L (98-107) 05/21/19 22:22 Carbon Dioxide 29 mmol/L (21-32) 05/21/19 22:22 Anion Gap 5.0 (3-11) 05/21/19 22:22 BUN 17 mg/dl (7-18) 05/21/19 22:22 Creatinine 0.67 mg/dl (0.6-1.2) 05/21/19 22:22 Est Cr Clr Drug Dosing 49.7 ml/min 05/21/19 22:22 Est GFR ( Amer) 96.2 05/21/19 22:22 Est GFR (Non-Af Amer) 83.0 05/21/19 22:22 BUN/Creatinine Ratio 25.4 (10-20) H 05/21/19 22:22 Glucose 103 mg/dl (70-99) H 05/21/19 22:22 Calcium 9.6 mg/dl (8.5-10.1) 05/21/19 22:22 Phosphorus 3.0 mg/dl (2.5-4.9) 05/21/19 22:22 Magnesium 1.9 mg/dl (1.8-2.4) 05/21/19 22:22 Total Bilirubin 0.4 mg/dl (0.2-1) 05/21/19 22:22 AST 35 U/L (15-37) 05/21/19 22:22 ALT 48 U/L (12-78) 05/21/19 22:22 Alkaline Phosphatase 149 U/L (45-117) H 05/21/19 22:22 Troponin I < 0.015 ng/ml (0-0.045) 05/21/19 22:22 Total Protein 6.8 gm/dl (6.4-8.2) 05/21/19 22:22 Albumin 3.1 gm/dl (3.4-5.0) L 05/21/19 22:22 Globulin 3.7 gm/dl (2.5-4.0) 05/21/19 22:22 Albumin/Globulin Ratio 0.8 (0.9-2) L 05/21/19 22:22 Lipase 99 U/L (73-393) 05/21/19 22:22 Procalcitonin 0.05 ng/ml (0-0.5) 05/21/19 22:23 TSH 0.146 uIu/ml (0.300-4.500) L 05/21/19 22:22 Free T4 1.60 ng/dl (0.8-1.6) 05/21/19 22:22 Chest x-ray : 1. Cardiomegaly without acute process. 2. Emphysema with chronic bibasilar interstitial coarsening and lateral right midlung scarring/atelectasis. EKG as per my interpretation : Rate 90, A. fib, normal axis, ST depression inferior leads
[2019-05-22] MEDS ORDERED: ALBUT/IPRATROP 3MG/0.5MG NEB 3 ML VIAL NEB STA (00:06)
[2019-05-22 00:27] LABS: Appearance Urine Clear (Clear); Bacteria Urine Automated Negative (Negative); Bilirubin Urine Negative (Negative); Blood Urine Negative (Negative); Cast Urine Automated 0 /lpf (0-5); Color Urine Yellow; Epithelial Cell Urine Auto 0-5 /lpf (0-5); Glucose Urine UA Negative (Negative); Ketones Urine Negative (Negative); Leukocyte Esterase Urine Trace (Negative); Nitrite Urine Negative (Negative); Protein Urine Negative (Negative); RBC Urine Automated 0-4 /hpf (0-4); Specific Gravity Urine 1.007 (1.000-1.030); Urobilinogen Urine Negative (Negative)
[2019-05-22] MEDS ORDERED: ATROPINE SULFATE 0.1 MG/ML 5ML SYR IV PRN (01:08)
[2019-05-22] MEDS ORDERED: SODIUM CHLORIDE 0.9% 1000ML 1,000 ML IV SCH (01:08)
[2019-05-22] MEDS ORDERED: ACETAMINOPHEN 325 MG TAB PO PRN ×2 (01:08→11:30)
[2019-05-22] MEDS ORDERED: PROMETHAZINE HCL 12.5 MG in SODIUM CHLORIDE 0.9% 50 ML IV PRN (01:08)
[2019-05-22] MEDS ORDERED: HYDROCODONE/ACETAMOPHEN 5/325MG TAB PO PRN (01:08)
[2019-05-22] MEDS ORDERED: LORATADINE 10 MG TAB PO PRN (01:08)
[2019-05-22] MEDS ORDERED: TRAMADOL HCL 50 MG TABLET PO PRN (01:08)
--- NOTE | 2019-05-22 03:26 | Emergency Department Note ---
Entered by Diamond Robbins acting as a scribe for History of Present Illness General Chief complaint: Cardiac Assessment Stated complaint: HEART STOPPING FOR 12 SECONDS, GOES UNCONCIOUS Time Seen by Provider: 05/21/19 22:16 History of Present Illness Provider complaint: cardiac pauses Onset (ago): hour(s) (12) Pain Consistency: + intermittent Maximum Pain Intensity: 0 Quality: + other (cardiac pauses) Associated symptoms: + denies other symptoms (congestion), + syncope (2 episodes today) and + other (last 5-10 seconds, anxious, bears down, occurs when sitting down, Sotalol prescription cut in half last week ); no cough Treatments prior to arrival: none The patient is an 78 year old female who presents to the ED for intermittent cardiac pauses that started 12 hours ago. The patient states that she saw Dr. Gray- Cardiology today because she has had one of these episode. The patient states that these episodes last for approximately 5-10 seconds. 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 The patient states that she becomes very anxious when she feels these episodes coming on so she bears down and has an episode of syncope. The patient states that she had 2 episodes of syncope today. The patient states that she is usually sitting down when these episodes occur. The patient notes that she had her Sotalol prescription cut in half last week. The patient states that she has a history of Afib but does not take blood thinners because of fall risk. The patient denies cough and congestion. The patient states that she did not receive any treatments prior to arrival. Home Medications Home Medications Medication Instructions Recorded Confirmed Type aspirin [Aspirin Low Dose] 81 mg PO DAILY 03/13/19 05/21/19 History atorvastatin 10 mg PO HS 03/13/19 05/21/19 History ferrous sulfate 325 mg PO BID 03/13/19 05/21/19 History omeprazole 20 mg PO DAILYBB 03/13/19 05/21/19 History potassium chloride 10 meq PO BID 03/13/19 05/21/19 History amlodipine 5 mg PO DAILY 05/21/19 05/21/19 History calcium carbonate-vitamin D3 2 tab PO DAILY 05/21/19 05/21/19 History [Calcium 600 + D(3)] diphenhydramine HCl [Benadryl] 25 mg PO Q6H PRN 05/21/19 05/21/19 History furosemide [Lasix] 40 mg PO DAILY 05/21/19 05/21/19 History hydrocodone-acetaminophen 1 tab PO Q6H PRN MDD 3 GRAMS/24 05/21/19 05/21/19 History HOURS. ipratropium-albuterol 3 ml INHALATION Q6H PRN 05/21/19 05/21/19 History levothyroxine 125 mcg PO DAILYBB 05/21/19 05/21/19 History loratadine [Claritin] 10 mg PO DAILY PRN 05/21/19 05/21/19 History hqcsebym-lhcn-AJ-calcium-mins 1 tab PO DAILY 05/21/19 05/21/19 History [Women's One Daily] sotalol 40 mg PO BID 05/21/19 05/21/19 History Allergies Allergy/AdvReac Type Severity Reaction Status Date / Time Penicillins Allergy Intermediate Hives of Verified 05/21/19 23:08 lower extremeties, no resp symptoms Sulfa (Sulfonamide Allergy Intermediate hives Verified 05/21/19 23:08 Antibiotics) simvastatin Allergy Unknown Unknown Verified 05/21/19 23:08 Past Med/Surg History Medical History Afib COPD (chronic obstructive pulmonary disease) (Chronic) Forearm fracture (Acute) Humeral surgical neck fracture (Acute) Hyponatremia (Acute) Leukocytosis (Acute) Oxygen desaturation (Acute) Pneumonia (Acute) Respiratory failure, acute Syncope (Acute) Troponin level elevated (Acute) Family History Other No significant family history Social History Preferred Language: Nigerian Communication Ability: Effective [employer] 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 and A total of 10 systems reviewed and were otherwise negative Physical Exam Vital Signs Vital Signs - 24 hr 05/21/19 22:07 05/21/19 22:28 05/21/19 22:30 Temperature 37.1 C Temperature Source Oral Pulse Rate 94 H Pulse Rate [Finger] 97 H Pulse Rate from SpO2 Sensor Pulse Rhythm Regular Pulse Strength Normal Respiratory Rate 18 20 Respiratory Effort / Characteristics Non-Labored Spontaneous Non-Labored Spontaneous Respiratory Depth Normal Normal Respiratory Pattern Regular Blood Pressure 113/73 Blood Pressure [Right Arm] 130/63 Blood Pressure Mean 86 Blood Pressure Mean [Right Arm] 85 Blood Pressure Position Sitting Pulse Oximetry 94 94 96 Oxygen Delivery Method Room Air Room Air Room Air Oxygen Flow Rate Sepsis Recent Fever Within 48 Hours No Sepsis Action Taken by Nursing No Action Required 05/21/19 22:45 05/21/19 23:01 05/21/19 23:15 Temperature Temperature Source Pulse Rate 109 H 94 H Pulse Rate [Finger] 88 Pulse Rate from SpO2 Sensor 102 H 98 H Pulse Rhythm Pulse Strength Respiratory Rate 20 21 20 Respiratory Effort / Characteristics Respiratory Depth Respiratory Pattern Blood Pressure 123/97 123/102 H Blood Pressure [Right Arm] 117/73 Blood Pressure Mean 110 105 Blood Pressure Mean [Right Arm] 87 Blood Pressure Position Pulse Oximetry 96 93 98 Oxygen Delivery Method Room Air Room Air Oxygen Flow Rate Sepsis Recent Fever Within 48 Hours Sepsis Action Taken by Nursing 05/21/19 23:30 05/21/19 23:45 Temperature Temperature Source Pulse Rate 91 H 93 H Pulse Rate [Finger] Pulse Rate from SpO2 Sensor 91 H 92 H Pulse Rhythm Pulse Strength Respiratory Rate 22 28 H Respiratory Effort / Characteristics Respiratory Depth Respiratory Pattern Blood Pressure 127/62 146/65 H Blood Pressure [Right Arm] Blood Pressure Mean 108 92 Blood Pressure Mean [Right Arm] Blood Pressure Position Pulse Oximetry 97 92 Oxygen Delivery Method Nasal Cannula Oxygen Flow Rate 2 Sepsis Recent Fever Within 48 Hours Sepsis Action Taken by Nursing GENERAL: Awake, alert, fatigued-appearing, in no distress HENT: Normocephalic, atraumatic. Oropharynx with dry mucous membranes and otherwise unremarkable. EYES: Normal conjunctiva. Sclera non-icteric. NECK: Supple. No nuchal rigidity. FROM. No JVD. RESPIRATORY: Clear to auscultation bilaterally. CARDIAC: Regular rate, normal rhythm. Extremities warm and well perfused. Pulses equal. ABDOMEN: Soft, non-distended. No tenderness to palpation. No rebound or guarding. No masses. RECTAL: Deferred. MUSCULOSKELETAL: Chest examination reveals no tenderness. The back is symmetrical on inspection without obvious abnormality. There is no CVA tenderness to palpation. No joint edema. LOWER EXTREMITIES: Calves are equal size bilaterally and non-tender. No edema. No discoloration. NEURO: Normal sensorium. No sensory or motor deficits noted. SKIN: No rash or jaundice noted. Course Course 2220: Past medical records reviewed. The patient was evaluated in room A01. A complete history and physical exam was performed. 2310: I discussed the patient's case with Dr. Spears Cardiology. He agrees admission and telemetry. He states that if the patient does not have any episodes longer than 5 seconds then there is no need for emergent pacer at this time. 2349: I discussed the patient's case with Dr. Castillo Bar, Hospitalist. He will evaluate the patient for further management. Consultations Consultation #1: I discussed the patient's case with Dr. Spears Cardiology. He agrees admission and telemetry. He states that if the patient does not have any episodes longer than 5 seconds then there is no need for emergent pacer at this time. Time: 23:10 Consultation #2: I discussed the patient's case with Dr. Castillo Bar, Hospitalist. He will evaluate the patient for further management. Time: 23:49 Administered Medications Sodium Chloride (Nss 1000ml) 1,000 mls @ 40 mls/hr IV .Q24H DAVID Stop: 06/21/19 01:07 Last Admin: 05/22/19 01:51 Dose: 40 mls/hr Documented by: [id number] Discontinued Medications Albuterol (Duoneb) 3 ml NEB NOW STA Stop: 05/22/19 00:07 Last Admin: 05/22/19 00:27 Dose: 3 ml Documented by: [id number] Sodium Chloride (Nss) 500 mls @ 999 mls/hr IV .Q31M ONE Stop: 05/21/19 22:58 Last Infusion: 05/21/19 23:07 Dose: 0 mls/hr Documented by: [id number] Admin: 05/21/19 22:36 Dose: 999 mls/hr Documented by: [id number] Magnesium Sulfate/Dextrose (Magnesium Sulfate / D5w) 1 gm in 100 mls @ 100 mls/hr IV ONE ONE Stop: 05/22/19 00:12 Last Infusion: 05/22/19 00:20 Dose: 0 mls/hr Documented by: [id number] Admin: 05/21/19 23:20 Dose: 100 mls/hr Documented by: [id number] Medical Decision Making Differential Diagnosis Differential diagnosis: Etiologies such as vasovagal event, infection, anemia, hypoglycemia, hypovolemia, electrolyte abnormalities, dysrhythmias, cardiac ischemia, cardiac tamponade, valvular heart disease, structural heart disease, seizure, vascular stenosis/dissection, pulmonary embolism, intracerebral event, toxicological process, neurologic event, as well as others were entertained. Medical Records Attestation: I reviewed the patient's medical records. Home Medications Current Medication List: was personally reviewed by me Laboratory Data Attestation: I reviewed the patient's lab results. Result diagrams: 05/21/19 22:22 05/21/19 22:22 Lab Results 05/21/19 05/21/19 05/21/19 Range/Units 22:22 22:22 22:22 WBC 16.04 H (4.8-10.8) K/uL RBC 4.34 (4.2-5.4) M/uL Hgb 13.0 (12.0-16.0) g/dL Hct 39.4 (37-47) % MCV 90.8 (80-100) fL MCH 30.0 (25-34) pg MCHC 33.0 (32-36) g/dL RDW Std Deviation 45.3 (36.4-46.3) fL RDW Coeff of Haydee 13.7 (11.5-14.5) % Plt Count 312 (130-400) K/uL MPV 10.1 (7.4-10.4) fL Immature Gran % (Auto) 0.4 % Neut % (Auto) 66.1 % Lymph % (Auto) 11.6 % Power % (Auto) 18.3 % Eos % (Auto) 3.5 % Baso % (Auto) 0.1 % Immature Gran # (Auto) 0.06 H (0.00-0.02) K/uL Neut # (Auto) 10.61 H (1.4-6.5) K/uL Lymph # (Auto) 1.86 (1.2-3.4) K/uL Power # (Auto) 2.93 H (0.11-0.59) K/uL Eos # (Auto) 0.56 H (0-0.5) K/uL Baso # (Auto) 0.02 (0-0.2) K/uL PT 10.0 (9.0-12.0) Seconds INR 1.0 (0.9-1.1) APTT 27.2 (21.0-31.0) Seconds PTT Ratio 1.0 Sodium 137 (136-145) mmol/L Potassium 4.1 (3.5-5.1) mmol/L Chloride 103 (98-107) mmol/L Carbon Dioxide 29 (21-32) mmol/L Anion Gap 5.0 (3-11) BUN 17 (7-18) mg/dl Creatinine 0.67 (0.6-1.2) mg/dl Est Cr Clr Drug Dosing 49.7 ml/min Est GFR ( Amer) 96.2 Est GFR (Non-Af Amer) 83.0 BUN/Creatinine Ratio 25.4 H (10-20) Glucose 103 H (70-99) mg/dl Calcium 9.6 (8.5-10.1) mg/dl Phosphorus 3.0 (2.5-4.9) mg/dl Magnesium 1.9 (1.8-2.4) mg/dl Total Bilirubin 0.4 (0.2-1) mg/dl AST 35 (15-37) U/L ALT 48 (12-78) U/L Alkaline Phosphatase 149 H (45-117) U/L Troponin I < 0.015 (0-0.045) ng/ml Total Protein 6.8 (6.4-8.2) gm/dl Albumin 3.1 L (3.4-5.0) gm/dl Globulin 3.7 (2.5-4.0) gm/dl Albumin/Globulin Ratio 0.8 L (0.9-2) Lipase 99 (73-393) U/L Procalcitonin (0-0.5) ng/ml TSH 0.146 L (0.300-4.500) uIu/ml Free T4 1.60 (0.8-1.6) ng/dl 05/21/19 Range/Units 22:23 WBC (4.8-10.8) K/uL RBC (4.2-5.4) M/uL Hgb (12.0-16.0) g/dL Hct (37-47) % MCV (80-100) fL MCH (25-34) pg MCHC (32-36) g/dL RDW Std Deviation (36.4-46.3) fL RDW Coeff of Haydee (11.5-14.5) % Plt Count (130-400) K/uL MPV (7.4-10.4) fL Immature Gran % (Auto) % Neut % (Auto) % Lymph % (Auto) % Power % (Auto) % Eos % (Auto) % Baso % (Auto) % Immature Gran # (Auto) (0.00-0.02) K/uL Neut # (Auto) (1.4-6.5) K/uL Lymph # (Auto) (1.2-3.4) K/uL Power # (Auto) (0.11-0.59) K/uL Eos # (Auto) (0-0.5) K/uL Baso # (Auto) (0-0.2) K/uL PT (9.0-12.0) Seconds INR (0.9-1.1) APTT (21.0-31.0) Seconds PTT Ratio Sodium (136-145) mmol/L Potassium (3.5-5.1) mmol/L Chloride (98-107) mmol/L Carbon Dioxide (21-32) mmol/L Anion Gap (3-11) BUN (7-18) mg/dl Creatinine (0.6-1.2) mg/dl Est Cr Clr Drug Dosing ml/min Est GFR ( Amer) Est GFR (Non-Af Amer) BUN/Creatinine Ratio (10-20) Glucose (70-99) mg/dl Calcium (8.5-10.1) mg/dl Phosphorus (2.5-4.9) mg/dl Magnesium (1.8-2.4) mg/dl Total Bilirubin (0.2-1) mg/dl AST (15-37) U/L ALT (12-78) U/L Alkaline Phosphatase (45-117) U/L Troponin I (0-0.045) ng/ml Total Protein (6.4-8.2) gm/dl Albumin (3.4-5.0) gm/dl Globulin (2.5-4.0) gm/dl Albumin/Globulin Ratio (0.9-2) Lipase (73-393) U/L Procalcitonin 0.05 (0-0.5) ng/ml TSH (0.300-4.500) uIu/ml Free T4 (0.8-1.6) ng/dl Imaging Data Radiologist's Impression: Radiology results as stated below per my review and the radiologist's interpretation: XR chest 1V portable HISTORY: 78 years-old Female Chest Pain acute atypical chest pain COMPARISON: Chest radiograph 03/13/2019 TECHNIQUE: Portable AP view of the chest FINDINGS: Cardiac silhouette is enlarged, unchanged. Calcified plaque of the thoracic aor tic arch. Mild scarring/atelectasis of the lateral right midlung. Chronic interstitial coarsening of the lung bases. Emphysema. Chronic blunting of the costophrenic angles. No pneumothorax, large pleural effusion or overt pulmonary edema. No airspace consolidation typical for pneumonia. Degenerative changes of the spine and left shoulder. Right shoulder arthroplasty. Surgical clips of the right neck. IMPRESSION: 1. Cardiomegaly without acute process. 2. Emphysema with chronic bibasilar interstitial coarsening and lateral right midlung scarring/atelectasis. ACT 112: Negative or not required by law. The above report was generated using voice recognition software. It may contain grammatical, syntax or spelling errors. Electronically signed by: Sukhdeep Sanz M.D. 05/21/2019 10:34 PM ECG Data Attestation: I personally reviewed and interpreted this ECG as follows: Indication: + weakness Rate (beats per minute): 88 Rhythm: + atrial fibrillation ECG Tiro: + Normal ECG ST segments: + Nonspecific ST abnormalities; no ST depression and no ST elevation ECG Findings: + Other (QTC 457) Blood Pressure Blood Pressure Findings: Elevated blood pressure Blood Pressure Disposition: further management by hospitalist MDM Narrative The patient is a pleasant 78-year-old woman with a past medical history of COPD paroxysmal atrial fibrillation on Sotalol not on anticoagulation due to fall risk who presents emergency department for recurrent episodes of syncope/near syncope who was recently seen this morning by cardio electrophysiology where Zio monitor was interpreted and noted to have recurrent conversion pauses with the longest episode lasting 11 seconds that occurred on 05/02. Given it appeared that the patient was not having any episodes today, plan was made to have the patient have pacemaker placed on Friday but was instructed to go to emergency department should any episodes recur per HPI. Per patient and family report upon returning to her facility today she did have 2 episodes this evening of near syncope with concern for repeat pauses. Here in the emergency department she did also have repeat episodes of 2-3 second during which she would maintain alertness but would sense the episodes and instant before they would occur. EKG demonstrates A. fib without overt acute ischemia. Chest x-ray without acute process. WBC 16, nonspecific. H/H and platelets within normal limits. Chemi stry without acidosis. Magnesium 1.9 with repletion provided. Electrolytes and LFTs otherwise unremarkable. Troponin negative/undetectable. Case was discussed with Dr. Monzon, [facility] hospitalist, who will evaluate the patient for admission. Case was also discussed with Dr. pSears, [facility] cardiology on- call and we agree that given the patient is hemodynamically stable and mentating throughout episodes no indication for emergent pacer at this time. Agrees with plan for admission to hospitalist service on telemetry. 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 I confirm that the note above accurately reflects all work, treatment, procedures, and medical decision making performed by me.
[2019-05-22] MEDS: PANTOprazole 40 MG TAB PO SCH (06:25)
[2019-05-22] MEDS: LEVOTHYROXINE SODIUM 125 MCG TABLET PO SCH (06:25)
[2019-05-22 07:29] LABS: Basophils # (auto) 0.04 K/uL (0-0.2); Basophils % (auto) 0.4 %; Eosinophils # (auto) 0.36 K/uL (0-0.5); Eosinophils % (auto) 3.2 %; Hematocrit (blood only) 37.3 % (37-47); Hemoglobin 12.2 g/dL (12.0-16.0); Immature Granulocytes # (auto) 0.02 K/uL (0.00-0.02); Immature Granulocytes % (auto) 0.2 %; Lymphocytes # (auto) 1.78 K/uL (1.2-3.4); Lymphocytes % (auto) 15.7 %; Mean Corpuscular Hgb Conc 32.7 g/dL (32-36); Mean Corpuscular Volume 91.6 fL (80-100); Mean Platelet Volume 10.2 fL (7.4-10.4); Monocytes % (auto) 14.1 %; Neutrophils # (auto) 7.57 K/uL (1.4-6.5); Neutrophils % (auto) 66.4 %; Platelet Count 264 K/uL (130-400); RDW Coefficient of Variation 13.9 % (11.5-14.5); RDW Standard Deviation 46.4 fL (36.4-46.3); Red Blood Count 4.07 M/uL (4.2-5.4); White Blood Count 11.37 K/uL (4.8-10.8)
--- NOTE | 2019-05-22 09:11 | Cardiology Consultation ---
Date of Consultation May 22, 2019 Assessment & Plan (1) Tachy-shad syndrome: (2) Paroxysmal A-fib: (3) Syncope: The patient obviously needs a permanent pacemaker. Unfortunately, I do not believe he can wait until Friday. I will try to have the EP service come in today and complete the procedure otherwise the patient will require temporary pacing line until an elective pacemaker can be put in early next week. I spoke to the patient's son Malvin over the phone so that he is aware and is willing to proceed. History of Present Illness Attending Physician: Terrance Mims MD History of Present Illness This is an elderly 78-year-old female, resident of [facility]. She has been having syncopal episodes and blackout spells and was evaluated as an outpatient with a ZIO monitor. The patient has a history of paroxysmal atrial fibrillation. The monitor indicated episodes of PAF followed by prolonged pauses of up to 12 seconds. Her sotalol was decreased. She was evaluated by Dr. Morris yesterday and she was scheduled for a permanent pacemaker on Friday. Last evening she was brought to the ER by her son stating she had additional episodes of dizziness. No syncope. She was admitted to the telemetry floor and although she is in sinus rhythm she is having runs of PAF with pauses up to 11 seconds overnight. She has no complaints this morning. She is very hard of hearing but appears to be alert and oriented. She has been in bed and has not noted any dizziness or lightheadedness through the night. She denies shortness of breath or chest pain. Allergies Allergy/AdvReac Type Severity Reaction Status Date / Time Penicillins Allergy Intermediate Hives of Verified 05/21/19 23:08 lower extremeties, no resp symptoms Sulfa (Sulfonamide Allergy Intermediate hives Verified 05/21/19 23:08 Antibiotics) simvastatin Allergy Unknown Unknown Verified 05/21/19 23:08 Home Medications Home Medications Medication Instructions Recorded Confirmed Type aspirin [Aspirin Low Dose] 81 mg PO DAILY 03/13/19 05/21/19 History atorvastatin 10 mg PO HS 03/13/19 05/21/19 History ferrous sulfate 325 mg PO BID 03/13/19 05/21/19 History omeprazole 20 mg PO DAILYBB 03/13/19 05/21/19 History potassium chloride 10 meq PO BID 03/13/19 05/21/19 History amlodipine 5 mg PO DAILY 05/21/19 05/21/19 History calcium carbonate-vitamin D3 2 tab PO DAILY 05/21/19 05/21/19 History [Calcium 600 + D(3)] diphenhydramine HCl [Benadryl] 25 mg PO Q6H PRN 05/21/19 05/21/19 History furosemide [Lasix] 40 mg PO DAILY 05/21/19 05/21/19 History hydrocodone-acetaminophen 1 tab PO Q6H PRN MDD 3 GRAMS/24 05/21/19 05/21/19 History HOURS. ipratropium-albuterol 3 ml INHALATION Q6H PRN 05/21/19 05/21/19 History levothyroxine 125 mcg PO DAILYBB 05/21/19 05/21/19 History loratadine [Claritin] 10 mg PO DAILY PRN 05/21/19 05/21/19 History cpgiajrb-ppvl-KP-calcium-mins 1 tab PO DAILY 05/21/19 05/21/19 History [Women's One Daily] sotalol 40 mg PO BID 05/21/19 05/21/19 History Patient History Medical History Afib COPD (chronic obstructive pulmonary disease) (Chronic) Forearm fracture (Acute) Humeral surgical neck fracture (Acute) Hyponatremia (Acute) Leukocytosis (Acute) Oxygen desaturation (Acute) Pneumonia (Acute) Respiratory failure, acute Syncope (Acute) Troponin level elevated (Acute) Family History Other No significant family history Social History Preferred Language: Khmer Communication Ability: Effective Management Trainer Required: No Beliefs That Will Affect Care: None Current Living Situation: Other Other Information That Helps Us Care for You: No Feels Safe at Home: Yes Safety Concerns: Feels Safe At This Time Smoking Status: Unknown if ever smoked Hx Alcohol Use: No Hx Substance Use: No Review of Systems Review of Systems: All systems reviewed & are unremarkable except as noted in HPI & below Nothing additional to add. Physical Exam Physical Exam: General: no acute distress and stated age Head: normocephalic, no masses, lesions, tenderness or abnormalities Eyes: conjunctiva are pink and non-injected, sclera clear Neck: supple, no adenopathy, no bruits, normal jugular venous pulse, no hepatojugular reflux Chest: normal shape and normal respiratory effort Lungs: clear to auscultation and percussion Cardiac Exam: - regular rate & rhythm, no murmurs gallops or rubs - normal S1, normal S2 Pulses: 2(+) throughout Abdomen: abdomen soft, non-tender, no abnormal masses and no hepatosplenomegaly Musculoskeletal: no gait disturbance, no joint inflammation, no deforming arthritis Extremities: no edema and no cyanosis Neuro: grossly normal exam Results & Data Vital Signs (Past 12 Hours) Vital Signs Temp Pulse Pulse Resp BP BP Pulse Ox 05/22/19 03:38 36.4 C L 76 19 116/61 97 05/22/19 02:20 87 05/22/19 01:21 36.4 C L 74 16 151/78 H 96 05/22/19 00:31 85 19 142/66 H 100 05/22/19 00:29 94 H 22 100 05/22/19 00:20 102 H 17 141/68 H 97 05/22/19 00:03 79 25 H 158/75 H 97 05/21/19 23:45 93 H 28 H 146/65 H 92 05/21/19 23:30 91 H 22 127/62 97 05/21/19 23:15 94 H 20 123/102 H 98 05/21/19 23:01 109 H 21 123/97 93 05/21/19 22:45 88 20 117/73 96 05/21/19 22:30 97 H 20 130/63 96 05/21/19 22:28 94 05/21/19 22:07 37.1 C 94 H 18 113/73 94 Laboratory Results Laboratory Results - last 24 hr 05/21/19 05/21/19 05/21/19 22:22 22:22 22:22 WBC 16.04 H RBC 4.34 Hgb 13.0 Hct 39.4 MCV 90.8 MCH 30.0 MCHC 33.0 RDW Std Deviation 45.3 RDW Coeff of [place] 13.7 Plt Count 312 MPV 10.1 Immature Gran % (Auto) 0.4 Neut % (Auto) 66.1 Lymph % (Auto) 11.6 [place] % (Auto) 18.3 Eos % (Auto) 3.5 Baso % (Auto) 0.1 Immature Gran # (Auto) 0.06 H Neut # (Auto) 10.61 H Lymph # (Auto) 1.86 [place] # (Auto) 2.93 H Eos # (Auto) 0.56 H Baso # (Auto) 0.02 PT 10.0 INR 1.0 APTT 27.2 PTT Ratio 1.0 Sodium 137 Potassium 4.1 Chloride 103 Carbon Dioxide 29 Anion Gap 5.0 BUN 17 Creatinine 0.67 Est Cr Clr Drug Dosing 49.7 Est GFR ( Amer) 96.2 Est GFR (Non-Af Amer) 83.0 BUN/Creatinine Ratio 25.4 H Glucose 103 H Calcium 9.6 Phosphorus 3.0 Magnesium 1.9 Total Bilirubin 0.4 AST 35 ALT 48 Alkaline Phosphatase 149 H Troponin I < 0.015 Total Protein 6.8 Albumin 3.1 L Globulin 3.7 Albumin/Globulin Ratio 0.8 L Lipase 99 Procalcitonin TSH 0.146 L Free T4 1.60 Total T3 Urine Color Urine Appearance Urine pH Ur Specific [place] Urine Protein Urine Glucose (UA) Urine Ketones Urine Blood Urine Nitrite Urine Bilirubin Urine Urobilinogen Ur Leukocyte Esterase Urine WBC (Auto) Urine RBC (Auto) U Hyaline Cast (Auto) U Epithel Cells (Auto) Urine Bacteria (Auto) 05/21/19 05/22/19 05/22/19 22:23 00:05 07:04 WBC 11.37 H RBC 4.07 L Hgb 12.2 Hct 37.3 MCV 91.6 MCH 30.0 MCHC 32.7 RDW Std Deviation 46.4 H RDW Coeff of [place] 13.9 Plt Count 264 MPV 10.2 Immature Gran % (Auto) 0.2 Neut % (Auto) 66.4 Lymph % (Auto) 15.7 [place] % (Auto) 14.1 Eos % (Auto) 3.2 Baso % (Auto) 0.4 Immature Gran # (Auto) 0.02 Neut # (Auto) 7.57 H Lymph # (Auto) 1.78 [place] # (Auto) 1.60 H Eos # (Auto) 0.36 Baso # (Auto) 0.04 PT INR APTT PTT Ratio Sodium Potassium Chloride Carbon Dioxide Anion Gap BUN Creatinine Est Cr Clr Drug Dosing Est GFR ( Amer) Est GFR (Non-Af Amer) BUN/Creatinine Ratio Glucose Calcium Phosphorus Magnesium Total Bilirubin AST ALT Alkaline Phosphatase Troponin I Total Protein Albumin Globulin Albumin/Globulin Ratio Lipase Procalcitonin 0.05 TSH Free T4 Total T3 Urine Color Yellow Urine Appearance Clear Urine pH 7.0 Ur Specific [place] 1.007 Urine Protein Negative Urine Glucose (UA) Negative Urine Ketones Negative Urine Blood Negative Urine Nitrite Negative Urine Bilirubin Negative Urine Urobilinogen Negative Ur Leukocyte Esterase Trace H Urine WBC (Auto) 1-5 Urine RBC (Auto) 0-4 U Hyaline Cast (Auto) 0 U Epithel Cells (Auto) 0-5 Urine Bacteria (Auto) Negative 05/22/19 07:12 WBC RBC Hgb Hct MCV MCH MCHC RDW Std Deviation RDW Coeff of [place] Plt Count MPV Immature Gran % (Auto) Neut % (Auto) Lymph % (Auto) [place] % (Auto) Eos % (Auto) Baso % (Auto) Immature Gran # (Auto) Neut # (Auto) Lymph # (Auto) [place] # (Auto) Eos # (Auto) Baso # (Auto) PT INR APTT PTT Ratio Sodium Potassium Chloride Carbon Dioxide Anion Gap BUN Creatinine Est Cr Clr Drug Dosing Est GFR ( Amer) Est GFR (Non-Af Amer) BUN/Creatinine Ratio Glucose Calcium Phosphorus Magnesium Total Bilirubin AST ALT Alkaline Phosphatase Troponin I Total Protein Albumin Globulin Albumin/Globulin Ratio Lipase Procalcitonin TSH Free T4 Total T3 0.87 Urine Color Urine Appearance Urine pH Ur Specific [place] Urine Protein Urine Glucose (UA) Urine Ketones Urine Blood Urine Nitrite Urine Bilirubin Urine Urobilinogen Ur Leukocyte Esterase Urine WBC (Auto) Urine RBC (Auto) U Hyaline Cast (Auto) U Epithel Cells (Auto) Urine Bacteria (Auto) Medications Administered Current Inpatient Medications Acetaminophen (Tylenol) 650 mg PO Q4H PRN PRN Reason: Pain or Fever Stop: 06/21/19 01:07 Hydrocodone Bitart/Acetaminophen ([place] 5/325) 1 tab PO Q6H PRN PRN Reason: Pain Stop: 06/05/19 01:07 Albuterol (Duoneb) 3 ml NEB Q2H PRN PRN Reason: Wheezing Stop: 06/21/19 01:07 Amlodipine Besylate (Norvasc) 5 mg PO DAILY DAVID Stop: 06/21/19 08:59 Aspirin (Ecotrin Ectab) 81 mg PO DAILY DAVID Stop: 06/21/19 08:59 Atorvastatin Calcium (Lipitor) 10 mg PO HS [facility] Stop: 06/21/19 20:59 Atropine Sulfate (Atropine Sulfate) 0.5 mg IV Q3M PRN PRN Reason: symptomatic bradycardia Stop: 06/21/19 01:07 Enoxaparin Sodium (Lovenox) 30 mg SQ QAM DAVID Stop: 06/21/19 08:59 Ferrous Sulfate (Feosol) 325 mg PO BID DAVID Stop: 06/21/19 08:59 Sodium Chloride (Nss 1000ml) 1,000 mls @ 40 mls/hr IV .Q24H DAVID Stop: 06/21/19 01:07 Last Admin: 05/22/19 01:51 Dose: 40 mls/hr Documented by: Promethazine HCl 12.5 mg/ (Sodium Chloride) 50.5 mls @ 202 mls/hr IV Q6H PRN PRN Reason: Nausea And Vomiting Stop: 06/21/19 01:07 Levothyroxine Sodium (Synthroid) 125 mcg PO DAILYBB [facility] Stop: 06/21/19 06:29 Last Admin: 05/22/19 06:25 Dose: 125 mcg Documented by: Loratadine (Claritin) 10 mg PO DAILY PRN PRN Reason: Congestion Stop: 06/21/19 01:07 Multivitamins/Minerals (Multivitamin W/ Minerals Tab) 1 tab PO DAILY DAVID Stop: 06/21/19 08:59 Pantoprazole Sodium (Protonix) 40 mg PO DAILYBB [facility] Stop: 06/21/19 06:29 Last Admin: 05/22/19 06:25 Dose: 40 mg Documented by: Tramadol HCl (Ultram) 25 mg PO Q4H PRN PRN Reason: Pain Stop: 06/21/19 01:07 (1) Syncope Syncope type: unspecified Qualified Code(s): R55 - Syncope and collapse
--- NOTE | 2019-05-22 09:53 | History & Physical Bridge Note ---
Date of Service May 22, 2019 History & Physical Bridge Note I have examined the patient, reviewed the History & Physical and in the interval since the performance of the History & Physical I have noted the following changes of clinical significance: pt with significant sinus arrest and needs emergent ppm. consents signed
--- NOTE | 2019-05-22 09:54 | Pre Anesthesia Assessment ---
Date of Service May 22, 2019 Pre Sedation Assessment Vital Signs Temp Pulse Pulse Resp BP BP Pulse Ox 05/22/19 03:38 36.4 C L 76 19 116/61 97 05/22/19 02:20 87 05/22/19 01:21 36.4 C L 74 16 151/78 H 96 05/22/19 00:31 85 19 142/66 H 100 05/22/19 00:29 94 H 22 100 05/22/19 00:20 102 H 17 141/68 H 97 05/22/19 00:03 79 25 H 158/75 H 97 05/21/19 23:45 93 H 28 H 146/65 H 92 05/21/19 23:30 91 H 22 127/62 97 05/21/19 23:15 94 H 20 123/102 H 98 05/21/19 23:01 109 H 21 123/97 93 05/21/19 22:45 88 20 117/73 96 05/21/19 22:30 97 H 20 130/63 96 05/21/19 22:28 94 05/21/19 22:07 37.1 C 94 H 18 113/73 94 Cardiovascular + bradycardic Respiratory normal respiratory effort, lungs clear to auscultation Pre-Sedation Airway Assessment Smoking Status: Unknown if ever smoked Oral Cavity: + Dental Abnormalities Mallampati Class: III ASA: ASA3 NPO Status Date of Last Intake of Fluids: 05/21/19 Date of Last Intake of Solid Food: 05/21/19 Procedure Planning Contraindications for Sedation: none Current Medications Reviewed: Yes Notes The planned sedation has been discussed with the patient. Informed Consent was obtained. I have identified the patient, determined the appropriateness of sedation and have assessed the patient immediately prior to the procedure. All medicine(s) and interventions are by my order.
[2019-05-22] MEDS ORDERED: LIDOCAINE HCL 1% 20 ML VIAL ONE (10:04)
[2019-05-22] MEDS ORDERED: MIDAZOLAM HCL 5 MG/ML 1 ML VIAL ONE (10:04)
[2019-05-22] MEDS ORDERED: BUPIVACAINE 0.25% 30 ML VIAL ONE (10:04)
[2019-05-22] MEDS ORDERED: fentaNYL citrate 100 MCG/2 ML VIAL ONE (10:04)
[2019-05-22] MEDS ORDERED: CLINDAMYCIN PHOS 300 MG/2 ML VIAL ONE (10:10)
[2019-05-22] MEDS ORDERED: METOPROLOL TARTRATE 1 MG/ML VIAL IV ONE (11:14)
--- NOTE | 2019-05-22 11:29 | Post Anesthesia Assessment ---
Date of Service May 22, 2019 Post Sedation Assessment Vital Signs Temp Pulse Pulse Resp BP BP Pulse Ox 05/22/19 03:38 36.4 C L 76 19 116/61 97 05/22/19 02:20 87 05/22/19 01:21 36.4 C L 74 16 151/78 H 96 05/22/19 00:31 85 19 142/66 H 100 05/22/19 00:29 94 H 22 100 05/22/19 00:20 102 H 17 141/68 H 97 05/22/19 00:03 79 25 H 158/75 H 97 05/21/19 23:45 93 H 28 H 146/65 H 92 05/21/19 23:30 91 H 22 127/62 97 05/21/19 23:15 94 H 20 123/102 H 98 05/21/19 23:01 109 H 21 123/97 93 05/21/19 22:45 88 20 117/73 96 05/21/19 22:30 97 H 20 130/63 96 05/21/19 22:28 94 05/21/19 22:07 37.1 C 94 H 18 113/73 94 Recovery Score Activity: Moves 4 extremities Respiration: Deep Breath/Cough Circulation: +/-20% PreAnes Value Consciousness: Fully Awake Oxygen Saturation: > 92% On Room Air Discharge Sedation Level of Care: Fast Track Phase II Post Sedation Plan On clinical assessment, the patient appears to have tolerated the sedation without complications. Patient is recovering as anticipated. Patient will continue to be monitored by nursing and may be discharged when sedation discharge criteria are met per below protocol. Upon Completions of procedure up to 15 minutes continue every 5 minute vital signs and the P.A.R. score; then discharge to a Phase I or Fast Track to Phase II per the following guidelines: * Discharge Patient to appropriate Phase II area if PAR is 8 or greater or return to pre- procedure baseline. The post - procedure orders will be as directed. * If PAR score is less than 8 or not return to pre-procedure baseline then patient will follow Phase I monitoring till PAR is reached for Phase II. The Phase I may be done in procedure room or may call to secure a Phase I area. * If naloxone or flumazenil are used for reversal, hold in Phase I for continued monitoring from when last reversal dose was given for a minimum of 60 minutes or longer pending the nurse and/or physician discretion of patient condition before discharge to Phase II. Please call the Sedation Physician to re-evaluate and complete post-note for discharge to Phase II area. Do NOT discharge from procedure sedation or Phase 1 until post- sedation evaluation note is complete by procedure /sedation MD Sedation Discharge Instructions to be given to the patient at discharge to home.
[2019-05-22] MEDS ORDERED: OXYCODONE/ACETAMINOPHEN 5mg/325mg TAB PO PRN (11:30)
--- NOTE | 2019-05-22 11:30 | Operative Report ---
Post Operative Report Pre & Post Diagnosis Sinus arrest and syncope Operation Date: 05/22/19 10:30 <No data on this case meets the specified criteria> I identified the patient and participated in the time-out.: Yes Procedure Operation Date: 05/22/19 10:30 Actual Procedures p Pacer with A/V Leads (Dual) - Doris Morris DO Surgeon Doris Morris, DO Management Specialist none Estimated Blood Loss 10 Findings Consistent with Post-Op Diagnosis Specimens none Description of Procedure see official report I attest to the content of the Intraoperative Record and any orders documented therein. Any exceptions are noted below.
[2019-05-22] MEDS: ASPIRIN 81 MG ECTAB PO SCH (12:00)
[2019-05-22] MEDS: CEROVITE ADV FORMULA TAB PO SCH (12:01)
[2019-05-22] MEDS: FERROUS SULFATE 325 MG TAB PO SCH ×2 (12:01→20:04)
[2019-05-22] MEDS: AMLODIPINE BESYLATE 5 MG TAB PO SCH (12:01)
[2019-05-22] MEDS: ALBUT/IPRATROP 3MG/0.5MG NEB 3 ML VIAL NEB PRN ×2 (12:06→19:39)
[2019-05-22] MEDS: ENOXAPARIN INJ 30 MG/0.3 ML SYR SQ SCH (13:00)
[2019-05-22] MEDS: FUROSEMIDE 40 MG TAB PO SCH (13:01)
[2019-05-22] MEDS: SOTALOL HCL 80 MG TAB PO SCH ×2 (13:14→20:06)
--- NOTE | 2019-05-22 16:46 | Hospitalist Progress Note ---
Date of Service delayed entry date of service noted below May 22, 2019 Assessment & Plan (1) Tachy-shad syndrome: (2) Paroxysmal A-fib: (3) Syncope: Episodic outpatient sinus pauses causing near syncope/syncopal events hx AF -- s/p pacemaker placement no recurrence of syncope, asymptomatic -- continue Sotalol monitor chronic respiratory failure secondary to COPD on home O2 at night ongoing tobacco abuse - respiratory status stable chronic diastolic heart failure (EF 575-60%, TTE 2019) -- euvolemic -- continue Lasix hypertension -- continue Amlodipine hyperlipidemia on statin Rx PVD sp surgery hypothyroidism. low TSH 0.14, normal t4 and t3 -- likely secondary to sick euthyroid syndrome -- repeat TFTs as outpatient may need to decrease Lthyroxine Subjective ff up for syncope seen resting in bed, comfortable mild soreness over pacemaker denies dizziness, chest pain, SOB, palpitations no other symptoms Review of Systems Review of Systems: All systems reviewed & are unremarkable except as noted in HPI & below Physical Exam Physical Exam: General- oriented x 3, not in distress, speaks in sentences with no effort or accessory muscle use Head- atraumatic Eyes- PERRL, EOMI, anicteric ENT- oropharynx clear Neck- supple, no JVD, no adenopathy, no thyromegaly; carotids +2/2, no bruits appreciated Lungs- clear to auscultation bilaterally, no rales/wheezes Heart- normal rate, regular rhythm; no murmur, no gallop, no rub appreciated (+) dressing in place over PM- no bleeding, edema Abdomen- normal bowel sounds, nondistended, soft, nontender, no masses or hepatosplenomegaly Extremities- no pretibial edema, no calf tenderness; peripheral pulses intact Neuro- alert, oriented x 3; CN 2-12 grossly intact; motor 5/5 bilaterally;sensation 100% on all extremities; no other gross focal neurologic deficits Skin- warm & dry Results & Data ([facility]) Vital Signs (Past 12 Hours) Vital Signs Temp Pulse Resp BP Pulse Ox 05/22/19 15:45 36.4 C L 90 18 129/72 96 05/22/19 13:45 94 H 18 126/71 97 05/22/19 12:45 36.5 C 84 18 104/61 05/22/19 12:06 64 18 96 05/22/19 12:00 70 18 114/67 95 05/22/19 11:30 72 20 106/60 96 Laboratory Results all noted and reviewed (1) Syncope Syncope type: unspecified Qualified Code(s): R55 - Syncope and collapse
[2019-05-22] MEDS: POTASSIUM CHLORIDE 10 MEQ TABCR PO SCH (20:04)
[2019-05-22] MEDS ORDERED: ATORVASTATIN 10 MG TAB PO SCH (21:00)
[2019-05-22] MEDS ORDERED: SOTALOL HCL 80 MG TAB PO SCH (21:00)
--- NOTE | 2019-05-22 21:45 | Electrocardiogram Report ---
Test Reason : Blood Pressure : / mmHG Vent. Rate : 088 BPM Atrial Rate : 267 BPM P-R Int : 000 ms QRS Dur : 082 ms QT Int : 378 ms P-R-T Axes : 000 018 030 degrees QTc Int : 457 ms Poor data quality, interpretation may be adversely affected Atrial fibrillation Nonspecific ST abnormality Abnormal ECG When compared with ECG of 13-MAR-2019 14:08, Atrial fibrillation has replaced Sinus rhythm Vent. rate has increased BY 36 BPM Confirmed by Cuong Anguiano ([id number]) on 05/22/2019 9:45:27 PM Referred By: REFERRED SELF Confirmed By:Cuong Anguiano
--- NOTE | 2019-05-22 22:45 | Electrocardiogram Report ---
Test Reason : Blood Pressure : / mmHG Vent. Rate : 097 BPM Atrial Rate : 125 BPM P-R Int : 000 ms QRS Dur : 084 ms QT Int : 364 ms P-R-T Axes : 000 -06 026 degrees QTc Int : 462 ms Atrial fibrillation with occasional ventricular-paced complexes When compared with ECG of 21-MAY-2019 22:10, Ventricular paced complexes are now Present Confirmed by Cuong Anguiano ([id number]) on 05/22/2019 10:45:29 PM Referred By: REFERRED SELF Confirmed By:Cuong Anguiano
[2019-05-23] MEDS: PANTOprazole 40 MG TAB PO SCH (05:49)
[2019-05-23] MEDS: LEVOTHYROXINE SODIUM 125 MCG TABLET PO SCH (05:49)
[2019-05-23] MEDS: ALBUT/IPRATROP 3MG/0.5MG NEB 3 ML VIAL NEB PRN (06:23)
[2019-05-23] MEDS: FUROSEMIDE 40 MG TAB PO SCH (08:15)
[2019-05-23] MEDS: CEROVITE ADV FORMULA TAB PO SCH (08:15)
[2019-05-23] MEDS: ASPIRIN 81 MG ECTAB PO SCH (08:15)
[2019-05-23] MEDS: AMLODIPINE BESYLATE 5 MG TAB PO SCH (08:15)
[2019-05-23] MEDS: ENOXAPARIN INJ 30 MG/0.3 ML SYR SQ SCH (08:16)
[2019-05-23] MEDS: FERROUS SULFATE 325 MG TAB PO SCH (08:16)
[2019-05-23] MEDS: SOTALOL HCL 80 MG TAB PO SCH (08:16)
[2019-05-23] MEDS: POTASSIUM CHLORIDE 10 MEQ TABCR PO SCH (08:16)
--- NOTE | 2019-05-23 08:30 | XRay Report ---
TWO VIEW CHEST CLINICAL HISTORY: Status post pacemaker implantation. FINDINGS: PA and lateral chest radiographs are compared to study dated 05/21/2019. Correlation is made with chest CT dated 06/08/2017. A 2-lead cardiac pacemaker has been placed. Leads project over the ri ght atrial appendage and the right ventricle. The heart is enlarged noting atherosclerotic calcificat ion of the thoracic aorta. The pulmonary vasculature is noncongested. Emphysema and chronic interstit ial thickening are similar to previous. There is bibasilar scarring/atelectasis. No airspace consolid ation is seen typical for pneumonia. Trace pleural effusions are identified. There is no pneumothorax . The skeletal structures are osteopenic. There are healed bilateral rib fractures. Degenerative alexandra ge and mild scoliosis is noted in the thoracic spine. Thoracic compression deformities are noted. A r ight shoulder arthroplasty is in place. Surgical clips are noted in the right lower neck. IMPRESSION: 1. A 2-lead cardiac pacemaker has been placed as above. No pneumothorax is seen post procedure. 2. Cardiomegaly and emphysema. There is no radiographic evidence of congestive failure. 3. Trace pleural effusions. ACT 112: Negative or not required by law. Electronically signed by: Inocente Sheriff M.D. 05/23/2019 8:29 AM
[2019-05-23 10:27] LABS: BUN Creatinine Ratio 25.7 (10-20); Calcium 9.3 mg/dl (8.5-10.1); Creatinine Clr Calc Pharmacy 59.8 ml/min; Est GFR (African American) 102.1; Est GFR (Non-African American) 88.1; Potassium 3.9 mmol/L (3.5-5.1)
[2019-05-23 10:36] LABS: Hematocrit (blood only) 33.5 % (37-47); Hemoglobin 11.1 g/dL (12.0-16.0); Mean Corpuscular Hemoglobin 29.4 pg (25-34); Mean Corpuscular Hgb Conc 33.1 g/dL (32-36); Mean Corpuscular Volume 88.6 fL (80-100); Mean Platelet Volume 9.7 fL (7.4-10.4); Platelet Count 233 K/uL (130-400); RDW Coefficient of Variation 13.2 % (11.5-14.5); RDW Standard Deviation 43.1 fL (36.4-46.3); Red Blood Count 3.78 M/uL (4.2-5.4); White Blood Count 19.49 K/uL (4.8-10.8)
[2019-05-23 10:58] LABS: Basophils # (auto) 0.03 K/uL (0-0.2); Basophils % (auto) 0.2 %; Eosinophils # (auto) 0.28 K/uL (0-0.5); Eosinophils % (auto) 1.4 %; Immature Granulocytes # (auto) 0.04 K/uL (0.00-0.02); Immature Granulocytes % (auto) 0.2 %; Lymphocytes # (auto) 1.75 K/uL (1.2-3.4); Monocytes % (auto) 6.7 %; Neutrophils # (auto) 16.09 K/uL (1.4-6.5); Neutrophils % (auto) 82.5 %
--- NOTE | 2019-05-23 12:09 | Cardiology Progress Note ---
Date of Service May 23, 2019 Assessment & Plan (1) Tachy-shad syndrome: (2) Paroxysmal A-fib: (3) Syncope: The patient can be discharged home to outpatient follow-up. She has a wound check scheduled for Friday at her office. As an outpatient she was on aspirin only and no anticoagulation. I believe she is a fall risk and she should continue with aspirin only. All her other medications will remain the same including the sotalol. She is currently in a sinus mechanism with a pac ing. Subjective Pacemaker parameter check is good. The patient is sitting and eating lunch. She has no complaints today. Review of Systems Review of Systems: All systems reviewed & are unremarkable except as noted in HPI & below Nothing additional to add. Physical Exam Physical Exam: General: no acute distress and stated age Head: normocephalic, no masses, lesions, tenderness or abnormalities Eyes: conjunctiva are pink and non-injected, sclera clear Neck: supple, no adenopathy, no bruits, normal jugular venous pulse, no hepatojugular reflux Chest: Pacer site is clean and dry. Lungs: clear to auscultation and percussion Cardiac Exam: - regular rate & rhythm, no murmurs gallops or rubs - normal S1, normal S2 Pulses: 2(+) throughout Abdomen: abdomen soft, non-tender, no abnormal masses and no hepatosplenomegaly Musculoskeletal: no gait disturbance, no joint inflammation, no deforming arthritis Extremities: no edema and no cyanosis Neuro: grossly normal exam Results & Data Vital Signs (Past 12 Hours) Vital Signs Temp Pulse Resp BP Pulse Ox 05/23/19 09:55 111/61 05/23/19 08:13 37.1 C 72 16 156/70 H 95 05/23/19 06:23 72 20 98 05/23/19 03:14 36.8 C 72 20 170/70 H 96 Laboratory Results Laboratory Results - last 24 hr 05/23/19 05/23/19 05/23/19 09:46 09:46 10:17 WBC Cancelled 19.49 H RBC Cancelled 3.78 L Hgb Cancelled 11.1 L Hct Cancelled 33.5 L MCV Cancelled 88.6 MCH Cancelled 29.4 MCHC Cancelled 33.1 RDW Std Deviation Cancelled 43.1 RDW Coeff of [place] Cancelled 13.2 Plt Count Cancelled 233 MPV Cancelled 9.7 Immature Gran % (Auto) Cancelled 0.2 Neut % (Auto) Cancelled 82.5 Lymph % (Auto) Cancelled 9.0 [place] % (Auto) Cancelled 6.7 Eos % (Auto) Cancelled 1.4 Baso % (Auto) Cancelled 0.2 Immature Gran # (Auto) Cancelled 0.04 H Neut # (Auto) Cancelled 16.09 H Lymph # (Auto) Cancelled 1.75 [place] # (Auto) Cancelled 1.30 H Eos # (Auto) Cancelled 0.28 Baso # (Auto) Cancelled 0.03 Absolute Nucleated RBC Cancelled Nucleated RBC % (auto) Cancelled Neutrophils % (Manual) Cancelled Band Neutrophils % Cancelled Lymphocytes % (Manual) Cancelled Prolymphocyte % Cancelled Reactive Lymphs % (Man) Cancelled Monocytes % (Manual) Cancelled Eosinophils % (Manual) Cancelled Basophils % (Manual) Cancelled Metamyelocytes % (Man) Cancelled Myelocytes % (Man) Cancelled Promyelocytes % (Man) Cancelled Blast Cells % (Manual) Cancelled Plasma Cell % (Manual) Cancelled Other Cells % Cancelled Nucleated RBC % Cancelled Neutrophils # (Manual) Cancelled Band Neutrophils # Cancelled Total Absolute Neuts Cancelled Lymphocytes # (Manual) Cancelled Prolymphocyte # Cancelled Reactive Lymphs # Cancelled Total Abs Lymphocytes Cancelled Monocytes # (Manual) Cancelled Eosinophils # (Manual) Cancelled Basophils # (Manual) Cancelled Metamyelocytes # (Man) Cancelled Myelocytes # (Manual) Cancelled Promyelocytes # (Man) Cancelled Blast Cells # (Man) Cancelled Plasma Cell # (Manual) Cancelled Other Cells # Cancelled Nucleated RBCs # (Man) Cancelled Hypersegmented Neuts Cancelled Hyposegmented Neuts Cancelled Hypogranular Neuts Cancelled Large Granular Lymphs Cancelled # Lrg Granular Lymphs Cancelled Hairy Cells Cancelled Smudge Cells Cancelled Toxic Granulation Cancelled Toxic Vacuolation Cancelled Dohle Bodies Cancelled [place] Rods Cancelled Platelet Estimate Cancelled Hypogranular Platelets Cancelled Clumped Platelets Cancelled Giant Platelets Cancelled Platelet Satelliting Cancelled RBC Morphology Cancelled Polychromasia Cancelled Hypochromasia Cancelled Poikilocytosis Cancelled Basophilic Stippling Cancelled Anisocytosis Cancelled Microcytosis Cancelled Macrocytosis Cancelled Spherocytes Cancelled Pappenheimer Bodies Cancelled Sickle Cells Cancelled Target Cells Cancelled Tear Drop Cells Cancelled Ovalocytes Cancelled Stomatocytes Cancelled [place] Bodies Cancelled Echinocytes Cancelled Acanthocytes (Spur) Cancelled Rouleaux Cancelled RBC Agglutinates Cancelled Schistocytes Cancelled RBC Morph Comment Cancelled Sezary Cell Cancelled Sodium 134 L Potassium 3.9 Chloride 102 Carbon Dioxide 27 Anion Gap 5.0 BUN 14 Creatinine 0.56 L Est Cr Clr Drug Dosing 59.8 Est GFR ( Amer) 102.1 Est GFR (Non-Af Amer) 88.1 BUN/Creatinine Ratio 25.7 H Glucose 177 H Calcium 9.3 Specimen Hemolysis Medications Administered Current Inpatient Medications Acetaminophen (Tylenol) 650 mg PO Q4H PRN PRN Reason: Pain or Fever Stop: 06/21/19 01:07 Hydrocodone Bitart/Acetaminophen (Switzer 5/325) 1 tab PO Q6H PRN PRN Reason: Pain Stop: 06/05/19 01:07 Last Admin: 05/22/19 20:04 Dose: 1 tab Documented by: Albuterol (Duoneb) 3 ml NEB Q2H PRN PRN Reason: Wheezing Stop: 06/21/19 01:07 Last Admin: 05/23/19 06:23 Dose: 3 ml Documented by: Amlodipine Besylate (Norvasc) 5 mg PO DAILY [facility] Stop: 06/21/19 08:59 Last Admin: 05/23/19 08:15 Dose: 5 mg Documented by: Aspirin (Ecotrin Ectab) 81 mg PO DAILY [facility] Stop: 06/21/19 08:59 Last Admin: 05/23/19 08:15 Dose: 81 mg Documented by: Atorvastatin Calcium (Lipitor) 10 mg PO HS [facility] Stop: 06/21/19 20:59 Last Admin: 05/22/19 20:05 Dose: 10 mg Documented by: Atropine Sulfate (Atropine Sulfate) 0.5 mg IV Q3M PRN PRN Reason: symptomatic bradycardia Stop: 06/21/19 01:07 Enoxaparin Sodium (Lovenox) 30 mg SQ QAM [facility] Stop: 06/21/19 08:59 Last Admin: 05/23/19 08:16 Dose: 30 mg Documented by: Ferrous Sulfate (Feosol) 325 mg PO BID [facility] Stop: 06/21/19 08:59 Last Admin: 05/23/19 08:16 Dose: 325 mg Documented by: Furosemide (Lasix) 40 mg PO DAILY [facility] Stop: 06/21/19 11:34 Last Admin: 05/23/19 08:15 Dose: 40 mg Documented by: Promethazine HCl 12.5 mg/ (Sodium Chloride) 50.5 mls @ 202 mls/hr IV Q6H PRN PRN Reason: Nausea And Vomiting Stop: 06/21/19 01:07 Levothyroxine Sodium (Synthroid) 125 mcg PO DAILYBB [facility] Stop: 06/21/19 06:29 Last Admin: 05/23/19 05:49 Dose: 125 mcg Documented by: Loratadine (Claritin) 10 mg PO DAILY PRN PRN Reason: Congestion Stop: 06/21/19 01:07 Multivitamins/Minerals (Multivitamin W/ Minerals Tab) 1 tab PO DAILY [facility] Stop: 06/21/19 08:59 Last Admin: 05/23/19 08:15 Dose: 1 tab Documented by: Oxycodone/Acetaminophen (Percocet 5mg/325mg) 1 - 2 tab PO Q6H PRN PRN Reason: Moderate-Severe Pain Stop: 06/05/19 11:29 Last Admin: 05/23/19 08:19 Dose: 1 tab Documented by: Pantoprazole Sodium (Protonix) 40 mg PO DAILYBB [facility] Stop: 06/21/19 06:29 Last Admin: 05/23/19 05:49 Dose: 40 mg Documented by: Potassium Chloride (Klor-Con M10) 10 meq PO BID [facility] Stop: 06/21/19 20:59 Last Admin: 05/23/19 08:16 Dose: 10 meq Documented by: Sotalol HCl (Betapace) 40 mg PO BID [facility] Stop: 06/21/19 11:54 Last Admin: 05/23/19 08:16 Dose: 40 mg Documented by: Tramadol HCl (Ultram) 25 mg PO Q4H PRN PRN Reason: Pain Stop: 06/21/19 01:07 (1) Syncope Syncope type: unspecified Qualified Code(s): R55 - Syncope and collapse
--- NOTE | 2019-05-23 23:55 | Hospitalist Progress Note ---
Date of Service delayed entry date of service note below May 23, 2019 Assessment & Plan (1) Tachy-shad syndrome: (2) Paroxysmal A-fib: (3) Syncope: Episodic outpatient sinus pauses causing near syncope/syncopal events hx AF -- s/p pacemaker placement no recurrence of syncope, asymptomatic -- continue Sotalol -- cleared for d/c by Material Manager ff up in Cardio clinic, office to call patient Chronic respiratory failure secondary to COPD on home O2 at night ongoing tobacco abuse - respiratory status stable chronic diastolic heart failure (EF 575-60%, TTE 2019) -- euvolemic -- continue Lasix hypertension -- continue Amlodipine hyperlipidemia on statin Rx PVD sp surgery hypothyroidism. low TSH 0.14, normal t4 and t3 -- likely secondary to sick euthyroid syndrome -- repeat TFTs as outpatient may need to decrease Lthyroxine DC to [facility] ff up with PCP, clinic to call patient, sched office closed ff up with Cardio, clinic to call patient Subjective ff up for syncope, sp pacemaker resting in bed, comfortable states she feels better overall mild soreness of PM site denies dizziness, palpitations, SOB, chest pain no other symptoms Review of Systems Review of Systems: All systems reviewed & are unremarkable except as noted in HPI & below Physical Exam Physical Exam: General- oriented x 3, not in distress, speaks in sentences with no effort or accessory muscle use Eyes- anicteric Neck- no JVD Lungs- clear breath sounds bilaterally Heart- normal rate, regular rhythm; no murmurs PM site- dressing in place, no edema/erythema/bleeding Abdomen- normal bowel sounds, nondistended, soft, nontender Extremities- no pretibial edema, no calf tenderness Neuro- alert, oriented x 3; no gross focal neurologic deficits Skin- warm & dry Results & Data ([facility]) Vital Signs (Past 12 Hours) Vital Signs Temp Pulse Resp BP BP Pulse Ox 05/23/19 15:38 36.6 C 72 18 149/75 H 97 05/23/19 13:04 36.5 C 71 20 111/61 115/65 94 05/23/19 12:00 36.5 C 71 20 115/65 94 Laboratory Results all noted and reviewed (1) Syncope Syncope type: unspecified Qualified Code(s): R55 - Syncope and collapse
--- NOTE | 2019-05-25 01:46 | Operative Report ---
DATE OF OPERATION: 05/22/2019 PREOPERATIVE DIAGNOSIS: Syncope secondary to long conversion pauses, up to 11 seconds. POSTOPERATIVE DIAGNOSIS: Syncope secondary to long conversion pauses, up to 11 seconds. PROCEDURE: Urgent permanent pacemaker, dual chamber pacemaker implantation under fluoroscopic guidance. SURGEON: Doris Morris DO ASSISTANTS: None. ANESTHESIA: Monitored conscious sedation administered under my supervision by Jennifer Ley, start time 10:37, end time 11:26. Total of 2 mg Versed, 75 mcg of fentanyl. INTRAVENOUS FLUIDS: 51 mL. ANTIBIOTICS: 600 mg clindamycin. BLOOD LOSS: 10 mL. URINE OUTPUT: Not applicable. SPECIMENS: None. FINDINGS: See below. DRAINS: None. INDICATIONS: This is an 78-year-old female with past medical history for recurrent syncope. Finally caught on a Zio patch that she has been having 11-second sinus arrest conversion pauses, paroxysmal atrial fibrillation on sotalol. No anticoagulation secondary to high fall risk, chronic diastolic heart failure, [place] Heart Association class 3, hyperlipidemia, hypothyroidism, gastroesophageal reflux disease, hypertension, iron deficiency anemia, tobacco use, on home oxygen at night. Due to the patient's syncope and sinus arrest conversion pauses, she was recommended a pacemaker. CONSENT: Consent was obtained prior to the patient going into the electrophysiology lab. The patient was informed of the risks, benefits and alternatives to procedure. Risks include, but not limited to, sudden cardiac , cardiac arrhythmia, cerebrovascular accident, myocardial infarction, injury to the blood vessels, chamber of the heart, lung, bleeding, and infection. The patient understood these risks and agreed to the procedure as planned. Informed consent was obtained. DESCRIPTION OF THE PROCEDURE: The patient was brought into the electrophysiology lab in a fasting state. She was connected to continuous cardiac monitoring. A timeout was performed to ensure patient's identity and procedure correctly. The patient was prepped and draped over the left infraclavicular space in normal surgical standard fashion. Monitored conscious sedation was given throughout the procedure for patient's comfort level. [place] precautions were maintained throughout the procedure. A 10 mL of 1% lidocaine and bupivacaine mixture were given in the left deltopectoral groove. Incision was made in left deltopectoral groove. Blunt dissection was performed down to identify cephalic vein. Cephalic vein was identified and isolated using 0 silk ties. The vein was nicked with a 11-blade and a guidewire was inserted without any resistance. An 8-Gabonese sheath was inserted over the guidewire without any resistance. The dilator was removed and a second guidewire was inserted through the retained sheath to allow for retained venous access. Then sheath was removed, flushed, and then the sheath was inserted over the guidewire without any resistance. Guidewire and dilator removed and the right ventricular pacing lead was advanced into right ventricle and positioned in the right ventricular apex under fluoroscopic guidance. There was adequate pacing and sensing and there was no diaphragmatic stimulation with high output pacing. The 8-Gabonese sheath was peeled away and lead was fixated to pectoralis muscle using 0 silk suture. A second 8-Gabonese sheath was inserted over the retained guidewire without any resistance. Guidewire and dilator were removed and the right atrial lead was advanced into right atrium and positioned in the right atrial appendage under fluoroscopic guidance. There was adequate pacing and sensing thresholds and no diaphragmatic stimulation with high output pacing. The 8-Gabonese sheath was peeled away and lead was fixated to pectoralis muscle using 0 silk suture. A pursestring was placed around the venous puncture site to prevent any black flow bleeding. Then blunt dissection was performed over the pectoralis muscle within the pectoral fascia and pacemaker pocket was created. The pocket was flushed with copious amounts of bacitracin saline wash and inspected for hemostasis. The leads were attached to the pacemaker making sure that the pins were in appropriate position, passed set screw and set screws were tightened. The lead was placed in the pocket, making sure that the leads were lying flat beneath the device. A stay stitch using 0 silk suture was used to suture the device to the pectoralis muscle. Elizabeth stat was placed in the pocket and then the incision was closed in 3-layer fashion using 2-0 Vicryl interrupted suture followed by 3-0 Vicryl interrupted suture followed by 4-0 Monocryl running stitch, followed by Dermabond and Tegaderm and a micropore dressing. EQUIPMENT: 1. Pulse generator is a Medtronic Alicia XT DR RADAMES Lindsey [id number], serial number [id number]. 2. Right atrial lead, Medtronic 5076-52 cm, serial number [id number]. 3. Right ventricular lead, Medtronic 5076-58 cm, serial number [id number]. INTRAOPERATIVE TESTIN. Right atrial lead: The patient was in fib, so her fib waves were 1.125, impedance was 532 ohms, no threshold testing, but there was no diaphragmatic stimulation with a few paced beats that we got through. 2. Right ventricular lead: R-wave 6.9 millivolts, impedance 722 ohms, threshold 0.75 volts at 0.4 milliseconds. FINAL MEASUREMENTS THROUGH THE DEVICE: 1. Right atrial lead: Fib waves, 1 millivolt, impedance 532 ohms, no threshold testing. The patient is in AFib. 2. Right ventricular lead: R waves 4 millivolts, impedance 741 ohms, threshold 0.5 volts at 0.4 milliseconds. FINAL PARAMETERS: MVP-R 60/130, right atrial amplitude 3.5 volts, pulse width 0.4 milliseconds, sensitivity 0.3 millivolts. Right ventricular amplitude 3.5 volts, pulse width 0.4 milliseconds, sensitivity 0.9 millivolts. IMPRESSION: Successful implantation of a dual chamber rate responsive permanent pacemaker under fluoroscopic guidance secondary to recurrent syncope due to 11-second sinus arrest conversion pauses. PLAN: Monitor patient overnight, 12-lead ECG, chest x-ray. She is not allowed to lift left elbow or left shoulder for 1 month. She cannot lift more than 10 pounds with the left arm for 2 weeks. She is to keep the dressing on and dry until her wound check the following week. We will increase her sotalol back to 80. She will follow up in our [facility] office for device and wound check in 1 week's time. I attest to the content of the Intraoperative Record and any orders documented therein. Any exceptions are noted below. AURELIO
--- NOTE | 2019-05-26 08:18 | Discharge Summary ---
Date of Service May 26, 2019 Admission HPI Per Admitting Provider History obtained from patient, family, and records. History somewhat limited from patient secondary to hearing impairment. Medical history significant for chronic respiratory failure on home O2 at night, COPD, ongoing tobacco abuse, chronic diastolic heart failure (EF 575-60%, TTE 2019), hypertension, hyperlipidemia, PAFib not on anticoagulation secondary to fall risk as per records, PVD sp surgery, hypothyroidism. Recent confinement May 2017 for new onset A. fib. Patient discharged on on Sotalol. Anticoagulation not recommended by cardiology due to fall risk as per records. Recent ER visit February 2019 for syncopal event. Sinus bradycardia on EKG. Outpatient providers arrange for [employer] library monitor March 2019 which showed multiple long conversion pauses of 10 seconds as per documentation. Patient sotalol decreased to half dose. Recurrent near syncope//syncopal events outpatient as per patient and family. EPS outpatient referral appointment this a.m. Outpatient PPM placement scheduled May 25, 2019 for sinus node dysfunction. Upon return to personal custodial, patient had 2 syncopal events while sitting down as per son. Patient denies chest pain or unusual shortness of breath. Usual smoker's cough symptoms. Patient brought to the ER for evaluation. Medical history as above, in addition: SURGERIES: gynecological procedures, orthopedic procedures, carotid endarterectomy FAMILY HISTORY: Colon cancer. PERSONAL AND SOCIAL HISTORY: Half pack daily. No chronic intake of alcohol. 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 Admission Exam Per Admitting Provider GENERAL: Comfortable, mild hearing impairment, no respiratory distress SKIN: Normal color, warm HEENT: Mather palpebral conjunctivae, no ptosis, dry buccal mucosa, nasal cannula in place NECK : Supple, no tenderness CHEST : Decreased breath sounds, expiratory wheezes that clear with coughing, no tenderness HEART : Irregular,, systolic murmur ABDOMEN: Some distention, nontender EXTREMITIES : Minimal LE swelling, no LE tenderness, no other conspicuous deformities noted NEUROLOGIC : Coherent, no facial asymmetry, mild hearing impairment, no other gross focality Principal Diagnosis SYNCOPE, TACHY SHAD SYNDROME, PAROXYSMAL A FIB Discharge Exam General- oriented x 3, not in distress, speaks in sentences with no effort or accessory muscle use Eyes- anicteric Neck- no JVD Lungs- clear breath sounds bilaterally Heart- normal rate, regular rhythm; no murmurs PM site- dressing in place, no edema/erythema/bleeding Abdomen- normal bowel sounds, nondistended, soft, nontender Extremities- no pretibial edema, no calf tenderness Neuro- alert, oriented x 3; no gross focal neurologic deficits Skin- warm & dry Discharge Data Allergies Allergy/AdvReac Type Severity Reaction Status Date / Time Penicillins Allergy Intermediate Hives of Verified 05/21/19 23:08 lower extremeties, no resp symptoms Sulfa (Sulfonamide Allergy Intermediate hives Verified 05/21/19 23:08 Antibiotics) simvastatin Allergy Unknown Unknown Verified 05/21/19 23:08 Consultations 05/21/19 23:03 ED Decision to Admit Stat 05/22/19 01:08 Consult Cardiology Routine Procedures Performed Operation Date: 05/22/19 10:30 Actual Procedures p Pacer with A/V Leads (Dual) - Doris Morris DO Ordered Studies 05/22/19 10:15 EP Lab Images for PACS ONCE 05/22/19 10:24 CL Cath Imgs for PACS use only Stat Hospital Course (1) Tachy-shad syndrome: (2) Paroxysmal A-fib: (3) Syncope: Episodic outpatient sinus pauses causing near syncope/syncopal events hx AF -- s/p pacemaker placement BY Dr burt recurrence of syncope, asymptomatic -- continue Sotalol -- cleared for d/c by Geothermal Operations Manager ff up in Cardio clinic, office to call patient Chronic respiratory failure secondary to COPD on home O2 at night ongoing tobacco abuse - respiratory status stable chronic diastolic heart failure (EF 575-60%, TTE 2019) -- euvolemic -- continue Lasix hypertension -- continue Amlodipine hyperlipidemia on statin Rx PVD sp surgery hypothyroidism. low TSH 0.14, normal t4 and t3 -- likely secondary to sick euthyroid syndrome -- repeat TFTs as outpatient may need to decrease Lthyroxine DC to [facility] ff up with PCP, clinic to call patient, sched office closed ff up with Cardio, clinic to call patient Total Time Total Time Spent Total Time Spent (In Minutes): 40 minutes Discharge Plan Discharge Items Patient Disposition: Transfer [facility] Fac Reason For Visit: SYMPTOMATIC BRADYCARDIA Discharge Diagnosis: TACHYBRADYCARDIA SYNDROME, SYNCOPE Activity: Per Instructions section Activity Comment: do not raise the left shoulder over the right arm for 1 month Lifting: No more than 10 pounds Lifting Comment: do not lift more than 10 pounds with the left arm for 2 weeks Bathing: Keep incision dry Bathing Comment: keep dressing on & dry until Sat 2/8 then remove dressing water run over it Driving/Machine Use: No driving Non-emergency contact: Primary Care Provider and Geothermal Operations Manager Call non-emergency contact if: you have any medication questions, your symptoms worsen, your pain is not controlled, your pain is worsening, your pain is unusual for you, your pain is concerning for you, your wound has increased redness and your wound has increased drainage Follow-up/Referrals: MARILYN Calderon [Primary Care Provider] - Сергей Spears DO [Geothermal Operations Manager] - 05/28/19 Diet: Heart Healthy Addtl Attending Provider Instructions: device and wound check at [facility] Cardiology-call on Wednesday 05/24 to move it up to sunday 05/28 keep dressing on & dry until sunday 05/28 then remove dressing and let water run over the incision Any concerns or swelling at the incision site call Dr. Morris's office immediately Please follow-up with primary care physician Dr. Becky Caldwell on May 26, 2019 at 12:30 PM. Pending Studies at Discharge: Yes Studies:: Pacemaker device and wound check at [facility] cardiology clinic, please call the office to have appointment set up on Tuesday, May 28, 2019 Stand-Alone Forms: My [facility] Skilled Items Patient informed of condition?: Yes DNR: No Discharge Level of Care: Skilled Communicable Disease: No Discharge Prognosis: Stable Lines: None Urinary Catheter: No Medications and DC Order Prescriptions: Continued atorvastatin 10 mg Tablet 10 mg PO HS RF: 0 potassium chloride 10 mEq Tablet Extended Release 10 meq PO BID RF: 0 aspirin [Aspirin Low Dose] 81 mg Tablet,Delayed Release (Dr/Ec) 81 mg PO DAILY RF: 0 ferrous sulfate 325 mg (65 mg iron) Tablet 325 mg PO BID RF: 0 omeprazole 20 mg Capsule,Delayed Release(Dr/Ec) 20 mg PO DAILYBB RF: 0 furosemide [Lasix] 40 mg Tablet 40 mg PO DAILY RF: 0 ipratropium-albuterol 0.5 mg-3 mg(2.5 mg base)/3 mL Solution For Nebulization 3 ml INHALATION Q6H PRN (Reason: Shortness Of Breath Or Wheezing) RF: 0 hydrocodone-acetaminophen 5-325 mg Tablet 1 tab PO Q6H MDD 3 GRAMS/24 HOURS. PRN (Reason: Pain) RF: 0 sotalol 80 mg Tablet 40 mg PO BID RF: 0 amlodipine 5 mg Tablet 5 mg PO DAILY RF: 0 calcium carbonate-vitamin D3 [Calcium 600 + D(3)] 600 mg(1,500mg) -200 unit Tablet 2 tab PO DAILY RF: 0 diphenhydramine HCl [Benadryl] 25 mg Capsule 25 mg PO Q6H PRN (Reason: NEEDED) RF: 0 levothyroxine 125 mcg Tablet 125 mcg PO DAILYBB RF: 0 loratadine [Claritin] 10 mg Tablet 10 mg PO DAILY PRN (Reason: Congestion) RF: 0 Women's One Daily 18 mg iron-400 mcg-500 mg Ca Tablet 1 tab PO DAILY RF: 0 Discharge Orders: Discharge Order (Routine); Ordered 05/23/19 Ordered By: Terrance Hoff/Other Patient Handouts: Pacemakers, Pacemaker Implantation Dc Admission Data Admit Date/Time: 05/21/19 23:59 Attending Provider: Terrance Mims Admit Provider: Narinder Orlando Primary Care Provider: BELLA Calderon Other Providers: Narinder Orlando ; Сергей Spears Other Interventions: Discharge Summary Assessment (RN) Last Done: 05/23/19 13:04 DC Date/Time DO NOT enter until pt leaves facility: 05/23/19 16:44
== END 2019-05-23 16:44 | DRG 243 ==
LOC: ED 21:47 → 2S 23:59

== ENCOUNTER 2023-12-11 06:21 | Inpatient (IN) ==
--- NOTE | 2023-12-11 06:32 | Emergency Department Note ---
Impression & Plan Closed fracture of right hip, Fall ED Provider Note NAME: ALICIA NETTLES AGE: 83 SEX: F : 1940 ARRIVES VIA: Ambulance INFORMANT: Patient, ED PROVIDER(S): Bernardino Campos DO CHIEF COMPLAINT: Trauma alert HPI: The patient is an 83-year-old female who presented to the emergency department for an evaluation after fall. The patient was made a trauma alert prior to arrival. The patient fell onto her right side. The patient injured her right hip. She states that she has no history of trauma to the hip. She denies having any headache. She did not strike her head. The patient denies having any vomiting or abdominal pain but does have some nausea at this time. The patient states her pain is moderate to severe. The patient does take antiplatelet medication and was made a trauma alert because of this. The patient denies having any back pain. She states that she has chronic neck pain. ROS: See above HPI for pertinent positives & negatives. A total of 10 systems reviewed and were otherwise negative. PAST MEDICAL HISTORY: See Below PAST SURGICAL HISTORY: See Below FAMILY HISTORY: See Below SOCIAL HISTORY: See Below HOME MEDICATIONS: See Below ALLERGIES: See Below VITALS: See Below PHYSICAL EXAMINATION: GENERAL: The patient is awake and alert. She is very anxious and appears to be uncomfortable. EYES: The conjunctivae are clear. The pupils are round and reactive. EARS, NOSE, MOUTH AND THROAT: The nose is without any evidence of any deformity. NECK: The neck is nontender and supple. RESPIRATORY: Diminished breath sounds are noted at both bases. There is no tachypnea or conversational dyspnea. CARDIOVASCULAR: Regular rate and rhythm noted there no murmurs rubs or gallops normal S1 normal S2. GASTROINTESTINAL: The abdomen is soft. Abdomen is nontender. BACK: No midline tenderness or or step-off noted range of motion in flexion extension as well as rotation no signs of muscle spasm noted MUSCULOSKELETAL/EXTREMITIES: Right lower extremity shortened and rotated. Pulses were symmetric in both feet. The patient has no palpable tenderness below the knee but there is significant palpable tenderness on the lateral aspect of the right hip. SKIN: Trace pedal edema was noted bilaterally. NEUROLOGIC: Patient is awake alert and oriented x3 MEDICAL DECISION MAKING: The patient is an 83-year-old female who presented to the emergency department for an evaluation after a fall. The patient fell this morning onto her right side. She had an isolated right lower extremity injury. The patient had a history and physical exam consistent with a right hip fracture. X-rays revealed a right hip fracture. The patient was treated with pain medication in the emergency department. I discussed the patient's laboratory and radiographic studies with her. Given her age and comorbidities she will likely be difficult to medically clear for surgery. I discussed her condition with the on-call [facility] group. They have agreed to evaluate the patient in the emergency department for further management and disposition. Triage Nursing notes reviewed. Prior medical records reviewed Vital Signs: reviewed and remarkable for elevated blood pressure. Differential diagnosis: Fracture, dislocation, neurovascular compromise, compartment syndrome, soft tissue injury, as well as other pathologies. ER treatment provided: See below Diagnostics interpreted by me: ECG: EKG was obtained in the emergency department. My interpretation is dual- chamber pacemaker with ventricular sensing at 71 bpm. There were no tlingit & haida beats. This was compared to a tracing from July 25, 2020. No specific changes were noted. Cardiac Monitoring: An order was placed for continuous cardiac monitoring. The monitor shows a rate of with rhythm. Laboratory studies: As stated above and show below. Imaging studies: See below. Radiographic imaging was reviewed by myself Consultation(s): I discussed this case with Dr. Mims who is on-call for the [facility] group. Past Med/Surg History Problem List (Updated 12/11/23 @ 07:36 by Bernardino Campos DO) Fall (Acute) Closed fracture of right hip (Acute) Symptomatic bradycardia SSS (sick sinus syndrome) Tachy-shad syndrome (Acute) Near syncope (Acute) Paroxysmal A-fib (Acute) Syncope (Acute) Respiratory failure, acute Oxygen desaturation (Acute) Pneumonia (Acute) Troponin level elevated (Acute) Leukocytosis (Acute) Hyponatremia (Acute) Humeral surgical neck fracture (Acute) Forearm fracture (Acute) COPD (chronic obstructive pulmonary disease) (Chronic) Heart disease (Chronic) Dizziness (Acute) Fall (Acute) Medical History (Updated 12/11/23 @ 07:36 by Bernardino Campos DO) Afib Family History Other No significant family history Social History Smoking Status: Never smoker Tobacco Type: Cigarettes Hx Alcohol Use: No Hx Substance Use: No Preferred Language: Guamanian Communication Ability: Effective Order Desk Caller Required: No Beliefs That Will Affect Care: None Current Living Situation: Other Feels Safe at Home: Yes Assistive Devices: Oxygen - Continuous Allergies Allergies Allergy/AdvReac Type Severity Reaction Status Date / Time Penicillins Allergy Intermediate Hives of Verified 05/21/19 23:08 lower extremeties, no resp symptoms Sulfa (Sulfonamide Allergy Intermediate hives Verified 05/21/19 23:08 Antibiotics) simvastatin Allergy Unknown Unknown Verified 05/21/19 23:08 Home Meds Home Medications Medication Instructions Recorded Confirmed aspirin 81 mg tablet,delayed 81 mg PO DAILY 03/13/19 05/21/19 release (Kristi Low Dose Aspirin) atorvastatin 10 mg tablet 10 mg PO HS 03/13/19 05/21/19 ferrous sulfate 325 mg (65 mg 325 mg PO BID 03/13/19 05/21/19 iron) tablet omeprazole 20 mg capsule,delayed 20 mg PO DAILYBB 03/13/19 05/21/19 release potassium chloride 10 mEq 10 meq PO BID 03/13/19 05/21/19 tablet,extended release amlodipine 5 mg tablet 5 mg PO DAILY 05/21/19 05/21/19 calcium carbonate 600 mg-vitamin 2 tab PO DAILY 05/21/19 05/21/19 D3 5 mcg (200 unit) tablet (Calcium 600 + D(3)) diphenhydramine HCl 25 mg capsule 25 mg PO Q6H PRN NEEDED 05/21/19 05/21/19 (Benadryl) furosemide 40 mg tablet (Lasix) 40 mg PO DAILY 05/21/19 05/21/19 hydrocodone 5 mg-acetaminophen 325 1 tab PO Q6H PRN Pain 05/21/19 05/21/19 mg tablet ipratropium 0.5 mg-albuterol 3 mg 3 ml inhalation Q6H PRN Shortness 05/21/19 05/21/19 (2.5 mg base)/3 mL nebulization Of Breath Or Wheezing soln levothyroxine 125 mcg tablet 125 mcg PO DAILYBB 05/21/19 05/21/19 loratadine 10 mg tablet (Claritin) 10 mg PO DAILY PRN Congestion 05/21/19 05/21/19 multivit-iron 18 mg-folic acid 400 1 tab PO DAILY 05/21/19 05/21/19 mcg-calcium 500 mg-minerals tablet (Women's One Daily) sotalol 80 mg tablet 40 mg PO BID 05/21/19 05/21/19 Previous Rx's Medication Instructions Recorded tramadol 50 mg tablet 50 mg PO Q6H PRN pain #14 tabs 03/09/23 Results & Data (ED) Vital Signs Vital Signs - 24 hr 12/11/23 06:24 12/11/23 06:24 12/11/23 06:24 Temperature 36.4 C 36.4 C Temperature Source Oral Pulse Rate 73 Pulse Rate [Finger] 73 Pulse Rhythm [Finger] Regular Pulse Strength [Finger] Normal Respiratory Rate 18 18 Respiratory Effort / Characteristics Non-Labored Respiratory Depth Normal Respiratory Pattern Regular Blood Pressure 198/82 H Blood Pressure [Right Arm] 198/82 H Blood Pressure Mean [Right Arm] 120 Pulse Oximetry 100 100 Oxygen Delivery Method Nasal Cannula Room Air Oxygen Flow Rate 4 Sepsis Recent Fever Within 48 Hours No Sepsis New/Unexplained Change in Mental Status No Sepsis Action Taken by Nursing No Action Required 12/11/23 06:27 12/11/23 07:27 Temperature Temperature Source Pulse Rate Pulse Rate [Finger] 70 Pulse Rhythm [Finger] Pulse Strength [Finger] Respiratory Rate 21 Respiratory Effort / Characteristics Non-Labored Respiratory Depth Normal Respiratory Pattern Regular Blood Pressure Blood Pressure [Right Arm] 150/80 H Blood Pressure Mean [Right Arm] 103 Pulse Oximetry 98 99 Oxygen Delivery Method Nasal Cannula Nasal Cannula Oxygen Flow Rate 4 4 Sepsis Recent Fever Within 48 Hours Sepsis New/Unexplained Change in Mental Status Sepsis Action Taken by Usp Medications Current Medication List: was personally reviewed by me Laboratory Data Attestation: I reviewed the patient's lab results. 12/11/23 06:40 12/11/23 06:40 Lab Results 12/11/23 12/11/23 12/11/23 Range/Units 06:40 06:45 07:20 WBC 10.64 (4.8-10.8) K/ul RBC 3.95 L (4.20-5.40) M/uL Hgb 11.6 L (12.0-16.0) g/dl Hct 36.2 L (37.0-47.0) % MCV 91.6 (80.0-100.0) fL MCH 29.4 (25.0-34.0) pg MCHC 32.0 (32.0-36.0) g/dL RDW Std Deviation 47.3 H (36.4-46.3) fL RDW Coeff of Hay[place] 14.0 (11.5-14.5) % Plt Count 307 (130-400) K/uL MPV 10.6 (9.4-12.4) fL Immature Gran % (Auto) 0.6 % Neut % (Auto) 71.7 % Lymph % (Auto) 12.1 % [place] % (Auto) 11.0 % Eos % (Auto) 4.0 % Baso % (Auto) 0.6 % Neut # (Auto) 7.63 H (1.40-6.50) K/uL Lymph # (Auto) 1.29 (1.20-3.40) K/uL [place] # (Auto) 1.17 H (0.11-0.59) K/uL Eos # (Auto) 0.43 (0.00-0.50) K/uL Baso # (Auto) 0.06 (0.00-0.20) K/uL Immature Gran # (Auto) 0.06 (0.01-0.20) K/uL Sodium 137 (136-145) mmol/L Potassium 4.1 (3.5-5.1) mmol/L Chloride 98 (98-107) mmol/L Carbon Dioxide 35 H (21-32) mmol/L Anion Gap 4 (3-11) BUN 33 H (6-23) mg/dl Creatinine 0.81 (0.6-1.2) mg/dl Est Cr Clr Drug Dosing 38.1 ml/min Est GFR ( Amer) 76.8 ml/min Est GFR (Non-Af Amer) 66.2 ml/min BUN/Creatinine Ratio 40.7 H (10-20) Glucose 152 H (70-99(Fasting)) mg/dl Calcium 10.9 H (8.6-10.3) mg/dl Magnesium 2.0 (1.7-2.4) mg/dl Total Bilirubin 0.6 (0.2-1.0) mg/dl AST 22 (13-39) U/L ALT 21 (7-52) U/L Alkaline Phosphatase 122 H (34-104) U/L Troponin I High Sens 10.0 (0-14) pg/ml Total Protein 7.3 (6.0-8.3) gm/dl Albumin 4.1 (3.4-5.0) gm/dl Globulin 3.2 (2.5-4.0) gm/dl Albumin/Globulin Ratio 1.3 (0.9-2) Urine Color Yellow Urine Appearance Clear (Clear) Urine pH 6.0 (4.5-7.5) Ur Specific [place] 1.010 (1.000-1.030) Urine Protein Negative (Negative) Urine Glucose (UA) Negative (Negative) Urine Ketones Negative (Negative) Urine Blood Negative (Negative) Urine Nitrite Negative (Negative) Urine Bilirubin Negative (Negative) Urine Urobilinogen Negative (Negative) Ur Leukocyte Esterase Trace H (Negative) Urine WBC (Auto) 11-20 H (0-5) /hpf Urine RBC (Auto) 0-2 (0-2) /hpf U Hyaline Cast (Auto) 0-2 (0-2) /lpf U Epithel Cells (Auto) 0-2 (0-2) /hpf Urine Bacteria (Auto) 1+ H (None Seen) SARS-CoV-2, RNA, NAAT NEGATIVE (NEGATIVE) Administered Medications Fentanyl Citrate (Fentanyl Citrate Pf 100 Mcg/2 Ml Vial) 25 mcg IV Q15M PRN PRN Reason: Pain Stop: 12/25/23 06:25 Last Admin: 12/11/23 07:28 Dose: 25 mcg Documented By: Admin: 12/11/23 06:40 Dose: 25 mcg Documented By: YU Discontinued Medications Ondansetron HCl (Ondansetron Inj 2 Mg/Ml 2 Ml Vial) 4 mg IV NOW STA Stop: 12/11/23 06:27 Last Admin: 12/11/23 06:40 Dose: 4 mg Documented By: YU Imaging Data Attestation: I personally reviewed and interpreted this imaging study as follows: My Impression: X-ray of the chest was obtained in the emergency department. My interpretation is no definite free air or infiltrate, final report below. X-ray of the right hip and pelvis was obtained in the emergency department. My interpretation is acute right hip fracture, final report pending. Radiologist's Impression: Chest X-Ray 12/11/23 06:27 XR chest 1V portable CLINICAL HISTORY: weakness TECHNIQUE: Single frontal radiograph of the chest was obtained. Comparison: Comparison is made to chest radiograph 07/25/2020 FINDINGS: An implanted pacemaker is seen. There is a right shoulder arthroplasty. Age indeterminate displaced fracture of the left humeral head is seen. Calcified aortic knob is seen. The lungs are clear. No evidence of pleural effusion or pneumothorax. IMPRESSION: No acute chest disease. ACT 112: Negative or not required by law. Electronically signed by: Miguel Ángel Kaye M.D. 12/11/2023 7:03 AM Discharge Plan Visit Data Chief Complaint: Trauma Stated Complaint: ground level fall, on thinners ED Provider: Bernardino Campos Discharge Problem: Closed fracture of right hip, Fall Patient Disposition: Being Evaluated by Hospitalist Forms Stand Alone Forms: My [facility] Prescriptions Prescriptions: No Action atorvastatin 10 mg Tablet 10 mg PO HS potassium chloride 10 mEq Tablet Extended Release 10 meq PO BID aspirin [Kristi Low Dose Aspirin] 81 mg Tablet,Delayed Release (Dr/Ec) 81 mg PO DAILY ferrous sulfate 325 mg (65 mg iron) Tablet 325 mg PO BID omeprazole 20 mg Capsule,Delayed Release(Dr/Ec) 20 mg PO DAILYBB furosemide [Lasix] 40 mg Tablet 40 mg PO DAILY ipratropium-albuterol 0.5 mg-3 mg(2.5 mg base)/3 mL Solution For Nebulization 3 ml INHALATION Q6H PRN (Reason: Shortness Of Breath Or Wheezing) hydrocodone-acetaminophen 5-325 mg Tablet 1 tab PO Q6H MDD 3 GRAMS/24 HOURS. PRN (Reason: Pain) sotalol 80 mg Tablet 40 mg PO BID amlodipine 5 mg Tablet 5 mg PO DAILY calcium carbonate-vitamin D3 [Calcium 600 + D(3)] 600 mg(1,500mg) -200 unit Tablet 2 tab PO DAILY diphenhydramine HCl [Benadryl] 25 mg Capsule 25 mg PO Q6H PRN (Reason: NEEDED) levothyroxine 125 mcg Tablet 125 mcg PO DAILYBB loratadine [Claritin] 10 mg Tablet 10 mg PO DAILY PRN (Reason: Congestion) Women's One Daily 18 mg iron-400 mcg-500 mg Ca Tablet 1 tab PO DAILY tramadol 50 mg tablet 50 mg PO Q6H PRN (Reason: pain) Qty: 14 0RF [facility]errals [facility] - Discharge Problem: Closed fracture of right hip Qualifiers: Encounter type: initial encounter Qualified Code(s): S72.001A - Fracture of unspecified part of neck of right femur, initial encounter for closed fracture Fall Qualifiers: Encounter type: initial encounter Qualified Code(s): W19.XXXA - Unspecified fall, initial encounter
[2023-12-11] MEDS: fentaNYL citrate PF 100 MCG/2 ML VIAL IV PRN (06:40)
[2023-12-11] MEDS: ONDANSETRON INJ 2 MG/ML 2 ML VIAL IV STA ×2 (06:40→11:01)
[2023-12-11 07:01] LABS: Basophils # (auto) 0.06 K/uL (0.00-0.20); Basophils % (auto) 0.6 %; Eosinophils # (auto) 0.43 K/uL (0.00-0.50); Hematocrit (blood only) 36.2 % (37.0-47.0); Hemoglobin 11.6 g/dl (12.0-16.0); Immature Granulocytes # (auto) 0.06 K/uL (0.01-0.20); Immature Granulocytes % (auto) 0.6 %; Lymphocytes # (auto) 1.29 K/uL (1.20-3.40); Lymphocytes % (auto) 12.1 %; Mean Corpuscular Hemoglobin 29.4 pg (25.0-34.0); Mean Corpuscular Volume 91.6 fL (80.0-100.0); Mean Platelet Volume 10.6 fL (9.4-12.4); Monocytes # (auto) 1.17 K/uL (0.11-0.59); Neutrophils # (auto) 7.63 K/uL (1.40-6.50); Neutrophils % (auto) 71.7 %; Platelet Count 307 K/uL (130-400); RDW Standard Deviation 47.3 fL (36.4-46.3); Red Blood Count 3.95 M/uL (4.20-5.40); White Blood Count 10.64 K/ul (4.8-10.8)
--- NOTE | 2023-12-11 07:05 | XRay Report ---
XR chest 1V portable CLINICAL HISTORY: weakness TECHNIQUE: Single frontal radiograph of the chest was obtained. Comparison: Comparison is made to chest radiograph 07/25/2020 FINDINGS: An implanted pacemaker is seen. There is a right shoulder arthroplasty. Age indeterminate displaced f racture of the left humeral head is seen. Calcified aortic knob is seen. The lungs are clear. No evid ence of pleural effusion or pneumothorax. IMPRESSION: No acute chest disease. ACT 112: Negative or not required by law. Electronically signed by: Miguel Ángel Kaye M.D. 12/11/2023 7:03 AM
[2023-12-11 07:24] LABS: Albumin Globulin Ratio 1.3 (0.9-2); Albumin Level 4.1 gm/dl (3.4-5.0); BUN Creatinine Ratio 40.7 (10-20); Bilirubin,Total 0.6 mg/dl (0.2-1.0); Calcium 10.9 mg/dl (8.6-10.3); Creatinine Clr Calc Pharmacy 38.1 ml/min; Est GFR (African American) 76.8 ml/min; Est GFR (Non-African American) 66.2 ml/min; Globulin 3.2 gm/dl (2.5-4.0); Potassium 4.1 mmol/L (3.5-5.1); Total Protein 7.3 gm/dl (6.0-8.3)
[2023-12-11 07:33] LABS: Appearance Urine Clear (Clear); Bacteria Urine Automated 1+ (None Seen); Bilirubin Urine Negative (Negative); Blood Urine Negative (Negative); Cast Urine Automated 0-2 /lpf (0-2); Color Urine Yellow; Epithelial Cell Urine Auto 0-2 /hpf (0-2); Glucose Urine UA Negative (Negative); Ketones Urine Negative (Negative); Leukocyte Esterase Urine Trace (Negative); Nitrite Urine Negative (Negative); Protein Urine Negative (Negative); RBC Urine Automated 0-2 /hpf (0-2); Urobilinogen Urine Negative (Negative)
[2023-12-11 07:34] LABS: Prothrombin Time 10.7 Seconds (9.0-12.0)
[2023-12-11 07:40] LABS: Thyroid Stimulating Hormone 5.306 uIu/ml (0.300-4.500)
--- NOTE | 2023-12-11 07:43 | XRay Report ---
XR hip RT 2V w pelvis CLINICAL HISTORY: fall COMPARISON STUDY: Pelvis 06/12/2014. FINDINGS: Angulated and mildly displaced intertrochanteric fracture within the proximal right femur. The bones are osteopenic. The visualized pelvic bones are intact. Vascular calcifications are noted. No dislocation. No acute fractures within the left hip. IMPRESSION: Angulated and mildly displaced intertrochanteric fracture within the proximal right femu r. ACT 112: Negative or not required by law. Electronically signed by: Kvng Urias M.D. 12/11/2023 7:41 AM
--- NOTE | 2023-12-11 08:15 | History & Physical Report ---
Date of Service December 11, 2023 Assessment & Plan (1) Closed fracture of right hip: (2) Acute UTI (urinary tract infection): Plan Whitney Russell is an 83y/o F with PMHx of chronic hypoxemic respiratory failure [on oxygen supplementation therapy], dyslipidemia, hypothyroidism, COPD, HTN, bilateral carotid artery stenosis, PAD, chronic diastolic congestive heart failure, paroxysmal atrial fibrillation, tachybrady syndrome s/p pacemaker placement, osteoporosis, history of tobacco use disorder and other problems listed below who presented to the ED today from [facility] for evaluation secondary to right hip pain after sustaining a fall and was found to have an acute fracture of her right hip. Closed Fracture of Right Hip CXR negative. Lab work rather unremarkable. Right hip XR reveals an angulated and mildly displaced intertrochanteric fra cture within the proximal femur. Routine ortho consult, NPO until evaluated. Pain regimen. Will need PT/OT evals. Clifton cath placed. Acute UTI: No leukocytosis. UA positive for trace leukocyte esterase, WBC and urine bacteria. Will start her on IV Rocephin for now, urine cx pending - follow. Chronic Hypoxemic Respiratory Failure, COPD: Patient on ~7L O2 via NC at baseline per her son. Continue home inhaler PRN. Currently sating well on 4L via NC at time of admission - continue. CXR negative. Paroxysmal Atrial Fibrillation Tachybrady Syndrome s/p Pacemaker Placement: Patient follows w/ [facility]. Pacemaker interrogation pending - follow. Not currently on anticoagulation therapy. Hold ASA and Eliquis for now. Chronic Diastolic Heart Failure CXR negative. Patient follows w/ [facility]. Most recent echo done 05/20/2023 that showed the following: LVEF of 60 to 64%, grade 1 LV diastolic dysfunction, moderately enlarged left atrium and mild aortic valve regurgitation. HTN: Chronic, stable. Lasix and metoprolol on hold. Continue sotalol. Dyslipidemia, PAD Carotid Artery Stenosis: History of R carotid endarterectomy. Chronic, stable. Continue statin. Hold ASA for now. Hypothyroidism: TSH elevated, free T4 WNL. Continue levothyroxine. DVT Prophylaxis: SCDs/TEDs for now pending orthopedic evaluation. Code Status: FULL CODE PCP: Shelton Dhillon MD Disposition: Admit to PCU/Telemetry Patient seen in collaboration with Dr. Mims. Please see addendum. I spent a total of 55 minutes coordinating, documenting, and providing care for this patient excluding time spent in the performance of separately billed services. This included personally reviewing all current laboratories and imaging studies, medical reconciliation, outpatient chart review and discussion with specialists. This chart was completed in part utilizing Speech Voice Recognition Software. Grammatical errors, random word insertions, pronoun errors, and incomplete sentences are an occasional consequence of this system due to software limitations, ambient noise, and hardware issues. Any formal questions or concerns about the content, text, or information contained within the body of this dictation should be directly addressed to the provider for clarification. History of Present Illness Chief Complaint: Right Hip Pain S/P Fall Primary Care Provider: Spyra, [employer] Juan Carlos Russell is an 83y/o F with PMHx of chronic hypoxemic respiratory failure [on oxygen supplementation therapy], dyslipidemia, hypothyroidism, COPD, HTN, bilateral carotid artery stenosis, PAD, chronic diastolic congestive heart failure, paroxysmal atrial fibrillation, tachybrady syndrome s/p pacemaker placement, osteoporosis, history of tobacco use disorder and other problems listed below who presented to the ED today for evaluation of right hip pain after sustaining a fall. History obtained from patient, son at bedside and associated chart review. Patient was made a trauma alert prior to arrival given a fall on antiplatelet therapy. She was trying to stand and twist herself around this morning around 6AM when she fell onto her right hip region. Did not hit her head or lose consciousness at any point. Son reports that she is generally on ~7L supplemental O2 via NC at baseline given her chronic respiratory failure. Patient is having some pain in her right hip region. Notes a bit of improvement in her pain following a dose of IV fentanyl in the ED. Has been intermittently nauseous since the fall, but no vomiting. Allergies Allergy/AdvReac Type Severity Reaction Status Date / Time Penicillins Allergy Intermediate Hives of Verified 12/12/23 10:48 lower extremeties, no resp symptoms Sulfa (Sulfonamide Allergy Intermediate hives Verified 12/12/23 10:48 Antibiotics) simvastatin Allergy Unknown Unknown Verified 12/12/23 10:48 Home Medications Medication Instructions Recorded Confirmed Type aspirin 81 mg tablet,delayed 81 mg PO DAILY 03/13/19 12/11/23 History release (Kristi Low Dose Aspirin) atorvastatin 10 mg tablet 10 mg PO HS 03/13/19 12/11/23 History ferrous sulfate 325 mg (65 mg 325 mg PO BID 03/13/19 12/11/23 History iron) tablet omeprazole 20 mg capsule,delayed 20 mg PO DAILYBB 03/13/19 12/11/23 History release potassium chloride 10 mEq 10 meq PO BID 03/13/19 12/11/23 History tablet,extended release diphenhydramine HCl 25 mg capsule 25 mg PO HS Allergies 05/21/19 12/11/23 History (Benadryl) ipratropium 0.5 mg-albuterol 3 mg 3 ml inhalation Q6H PRN SOB/COPD 05/21/19 12/11/23 History (2.5 mg base)/3 mL nebulization soln multivit-iron 18 mg-folic acid 400 1 tab PO DAILY 05/21/19 12/11/23 History mcg-calcium 500 mg-minerals tablet (Women's One Daily) sotalol 80 mg tablet 40 mg PO BID 05/21/19 12/11/23 History acetaminophen 325 mg tablet 650 mg PO Q6H PRN Mild Pain/Fever 12/11/23 12/11/23 History (Tylenol) apixaban 2.5 mg tablet (Eliquis) 2.5 mg PO BID 12/11/23 12/12/23 History calcium carbonate 600 mg-vitamin 2 tab PO DAILY 12/11/23 12/11/23 History D3 10 mcg (400 unit) tablet (Calcium 600 + D(3)) diphenhydramine 25 1 tab PO HS PRN Sleep 12/11/23 12/11/23 History mg-acetaminophen 500 mg tablet (Tylenol PM Extra Strength) fluticasone 250 mcg-salmeterol 50 1 inh inhalation BID SOB/Wheezing 12/11/23 12/11/23 History mcg/dose blistr powdr for inhalation fluticasone propionate 50 1 spray intranasal QAM Congestion 12/11/23 12/11/23 History mcg/actuation nasal spray,suspension furosemide 80 mg tablet See Rx Instructions .Route .COMPLEX 12/11/23 12/11/23 History guaifenesin 600 mg tablet, 600 mg PO BID 12/11/23 12/11/23 History extended release 12 hr (Mucus Relief ER) levothyroxine 100 mcg tablet 100 mcg PO DAILYBB 12/11/23 12/11/23 History metoprolol succinate 50 mg 50 mg PO DAILY HTN 12/11/23 12/11/23 History tablet,extended release 24 hr montelukast 10 mg tablet 10 mg PO DAILY 12/11/23 12/11/23 History nystatin 100,000 unit/gram topical 1 applic topical BID PRN yeast rash 12/11/23 12/11/23 History powder peg 400-propylene glycol (PF) 0.4 2 drp OPB BID Dry Eye 12/11/23 12/11/23 History %-0.3 % eye drops in a dropperette (Systane (PF)) Past Med/Surg History Problem List Closed fracture of right hip (Acute) Symptomatic bradycardia Paroxysmal A-fib (Acute) Near syncope (Acute) Troponin level elevated (Acute) Syncope (Acute) Respiratory failure, acute Pneumonia (Acute) Oxygen desaturation (Acute) Leukocytosis (Acute) Hyponatremia (Acute) Humeral surgical neck fracture (Acute) Forearm fracture (Acute) Fall (Acute) Dizziness (Acute) Heart disease (Chronic) Medical History Encounter for pre-operative examination Wrist injury Hypoxemic respiratory failure, chronic Tobacco use disorder Diastolic congestive heart failure PAD (peripheral artery disease) Carotid stenosis, bilateral Pacemaker Hypertension Hypothyroidism Acute UTI (urinary tract infection) Fall SSS (sick sinus syndrome) Tachy-shad syndrome COPD (chronic obstructive pulmonary disease) Afib Surgical History History of arthroplasty of left shoulder History of total replacement of right shoulder joint History of surgery on left wrist fracture repair, Family History Other No significant family history Social History Smoking Status: Current every day smoker Tobacco Type: Cigarettes Second Hand Exposure: Yes; Do You Dip or Chew Tobacco: No; Tobacco Cessation Education Requested by Patient: No Hx Alcohol Use: No Hx Substance Use: No Preferred Language: French Communication Ability: Effective Proofer Apprentice Required: No Beliefs That Will Affect Care: None Current Living Situation: Custodial Feels Safe at Home: Yes Safety Concerns: Feels Safe At This Time Assistive Devices: Cane, Oxygen - Continuous and Walker Review of Systems Review of Systems: At least ten systems reviewed and negative, except as noted in the HPI. Physical Exam Physical Exam: General: WD/WN, vitals as above, NAD, laying down in bed, pleasant, conversing, very hard of hearing, A+Ox3, euthymic affect. HEENT: Normocephalic, atraumatic. Conjunctivae normal, anicteric sclerae. External ear and nose normal, oropharynx normal. Respiratory: Normal respiratory effort, chronic wheezing heard throughout, no crackles. No accessory muscle use. Cardiovascular: Regular rate, rhythm, no murmur, normal peripheral pulses, no BLE edema. Vessels: No JVD Abdomen/GI: Normal bowel sounds, soft, nontender, no hepatosplenomegaly. : Clifton catheter in place and draining clear, yellow urine. Extremities/Musculoskeletal: No cyanosis or clubbing, unable to move right leg very well 2/2 pain. Neurologic: PERRL, EOMI, accommodation nl, no face palsy, no dysarthria. Skin: No rashes, normal color, warm/dry. Results & Data Results & Data Vital Signs (Past 12 Hours) Vital Signs Temp Pulse Pulse Resp BP BP Pulse Ox 12/11/23 07:27 70 21 150/80 H 99 12/11/23 06:27 98 12/11/23 06:24 36.4 C 73 18 198/82 H 100 12/11/23 06:24 36.4 C 73 18 198/82 H 100 O2 Del Method O2 Flow Rate 12/11/23 07:27 Nasal Cannula 4 12/11/23 06:27 Nasal Cannula 4 12/11/23 06:24 Room Air 12/11/23 06:24 Nasal Cannula 4 Laboratory Results Short CBC 12/11/23 Range/Units 06:40 WBC 10.64 (4.8-10.8) K/ul Hgb 11.6 L (12.0-16.0) g/dl Hct 36.2 L (37.0-47.0) % Plt Count 307 (130-400) K/uL BMP 12/11/23 06:40 Sodium 137 Potassium 4.1 Chloride 98 Carbon Dioxide 35 H BUN 33 H Creatinine 0.81 Glucose 152 H Calcium 10.9 H Liver Function 12/11/23 Range/Units 06:40 Total Bilirubin 0.6 (0.2-1.0) mg/dl AST 22 (13-39) U/L ALT 21 (7-52) U/L Alkaline Phosphatase 122 H (34-104) U/L Albumin 4.1 (3.4-5.0) gm/dl Urine 12/11/23 Range/Units 07:20 Urine Color Yellow Urine Appearance Clear (Clear) Urine pH 6.0 (4.5-7.5) Ur Specific Jackson 1.010 (1.000-1.030) Urine Protein Negative (Negative) Urine Glucose (UA) Negative (Negative) Diagnostic Findings Hip/Pelvis X-Ray 12/11/23 06:26 XR hip RT 2V w pelvis CLINICAL HISTORY: fall COMPARISON STUDY: Pelvis 06/12/2014. FINDINGS: Angulated and mildly displaced intertrochanteric fracture within the proximal right femur. The bones are osteopenic. The visualized pelvic bones are intact. Vascular calcifications are noted. No dislocation. No acute fractures within the left hip. IMPRESSION: Angulated and mildly displaced intertrochanteric fracture within the proximal right femur. ACT 112: Negative or not required by law. Electronically signed by: Kvng Urias M.D. 12/11/2023 7:41 AM Chest X-Ray 12/11/23 06:27 XR chest 1V portable CLINICAL HISTORY: weakness TECHNIQUE: Single frontal radiograph of the chest was obtained. Comparison: Comparison is made to chest radiograph 07/25/2020 FINDINGS: An implanted pacemaker is seen. There is a right shoulder arthroplasty. Age indeterminate displaced fracture of the left humeral head is seen. Calcified aortic knob is seen. The lungs are clear. No evidence of pleural effusion or pneumothorax. IMPRESSION: No acute chest disease. ACT 112: Negative or not required by law. Electronically signed by: Miguel Ángel Kaye M.D. 12/11/2023 7:03 AM Medications Administered Fentanyl Citrate (Fentanyl Citrate Pf 100 Mcg/2 Ml Vial) 25 mcg IV Q15M PRN PRN Reason: Pain Stop: 12/25/23 06:25 Last Admin: 12/11/23 07:28 Dose: 25 mcg Documented By: Admin: 12/11/23 06:40 Dose: 25 mcg Documented By: YU Discontinued Medications Ondansetron HCl (Ondansetron Inj 2 Mg/Ml 2 Ml Vial) 4 mg IV NOW STA Stop: 12/11/23 06:27 Last Admin: 12/11/23 06:40 Dose: 4 mg Documented By: YU Code Status & VTE Plan Code Status FULL CODE VTE Prophylaxis Plan VTE Prophylaxis will be ordered: Yes Supervising Physician Co-Signing Physician Notes delayed entry date of service noted above Attending Addendum: Case reviewed with the advanced practitioner. I have personally performed a history and physical examination on the patient. I have reviewed the advanced practitioner's documentation on the date of service referenced in note, and I agree with, and take responsibility for the plan of care. please refer to her notes for full details patient seen and examined, records reviewed by myself as well on exam, patient Seen resting in bed, not in distress Having right hip pain but well-controlled overall no chest pain, dyspnea, palpitations, dizziness no other symptoms VS noted and reviewed oriented x3, not in distress, speaks in sentences with no effort nor accessory muscle use normal rate, regular rhythm, no murmurs clear breath sounds bilaterally non distended, soft, nontender no bipedal edema, erythema, warmth Right lower extremity externally rotated no neuro deficits all labs, imaging noted and reviewed ASSESSMENT AND PLAN Right femur fracture Pacemaker interrogation ordered for preop evaluation Otherwise patient medically stable, optimized for planned orthopedic surgery Patient is at high risk for cardiopulmonary complications secondary to advanced age, multiple comorbidities Patient verbalized understanding and agreement Possible urinary tract infection Urine culture pending Empiric IV ceftriaxone ordered other diagnoses and plan of care as per advanced practitioner's notes Terrance Mims MD (1) Closed fracture of right hip Encounter type: initial encounter Qualified Code(s): S72.001A - Fracture of unspecified part of neck of right femur, initial encounter for closed fracture
[2023-12-11 08:17] LABS: T4 Free Thyroxine 1.34 ng/dl (0.61-1.60)
--- NOTE | 2023-12-11 08:22 | Electrocardiogram Report ---
Test Reason : Blood Pressure : */* mmHG Vent. Rate : 71 BPM Atrial Rate : 71 BPM P-R Int : 242 ms QRS Dur : 92 ms QT Int : 408 ms P-R-T Axes : * -17 18 degrees QTcB Int : 443 ms Atrial-paced rhythm with prolonged AV conduction Abnormal ECG When compared with ECG of 25-Jul-2020 11:16, Atrial fibrillation no longer present Confirmed by Blaine Edward ([id number]) on 12/11/2023 8:21:58 AM Referred By: Confirmed By: Blaine Edward
[2023-12-11] MEDS: MoRPHine SULFATE 2 MG/ML CARP IV STA (11:01)
--- OUTSIDE RECORDS SUMMARY | 2023-12-11 11:16 | External Medical Summary | Summary of Care ---
Author Name Unknown Organization [facility] Address [address] [place] [address] Phone [phone] Care Team Providers Care Artists' Booking Representative Name Role Phone Shelton Emmanuel MD Primary Care Provider [phone]- [phone] Reason for Visit * Reason Comments eRx-Medication Refill Encounter Details Date Type Department Care Team (Late st Contact Info) Description 12/06/2023 Refill [facility] [address] [place] [address] Shelton Emmanuel MD [address] [place] [address] COPD, severity to be determined (HCC) Allergies Active Allergy Reactions Criticality Noted Date Comments Penicillins 07/10/2007 Simvastatin 07/04/2014 Sulfa Antibiotics 07/10/2007 documented as of this encounter (statuses as of 12/08/2023) Medications Medication Sig Dispensed Refills Start Date End Date Status aspirin 81 MG chewable tablet Take 1 Tablet by mouth in the morning. With food.. 100 Tab 5 7 Active ferrous sulfate (FEOSOL) 325 (65 FE) MG Tablet Take 1 Tab by mouth 2 times a day. 180 Tab 3 9 Active diphenhydrAMINE HCl 25 MG Oral Capsule Take 1 Capsule by mouth every 6 hours as needed for Other (Facial swelling). 30 Cap 0 Active Nystatin 182086 UNIT/GM External Cream As needed Active Calcium Carb-Cholecalcife rol 600-500 MG-UNIT Oral Capsule Take 2 Tabs by mouth daily. Active Mucinex DM 30-600 MG Oral Tablet Extended Release 12 Hour Take 1 Tab by mouth 2 times a day as needed for Cough. Take with plenty of water. Do not cut, crush or chew 60 Tab 3 1 Active oxygen IN GAS Use 4 L/min(Oxygen) as directed as needed. Active Acetaminophen 325 MG Oral Capsule Take by mouth 650 mg every 6 hours as needed for Pain, Mild or Other (fever). 90 Capsule 3 2 Active Tylenol PM Extra Strength 500-25 MG Oral Tablet (diphenhydrAMINE- APAP (sleep)) Take 1 tab by mouth at bedtime as needed for sleep 30 Tablet 5 2 Active Ketoconazole 2 % External Shampoo (Nizoral)Indicati ons:Seborrheic dermatitis,Tinea amiantacea Massage into scalp, rinse out after 5-10 minutes, do 3x weekly. Able to use own shampoo afterwards (see printed instructions on checkout sheet) 240 mL 3 2 Active Diclofenac Sodium 1 % External Gel (Voltaren) APPLY 4GMS TOPICALLY TO AFFECTED JOINTS UP TO FOUR TIMES DAILY . MAXIUM DOSE OF 32 GRMS PER DAY FOR PAIN 300 g 5 2 Active Eliquis 2.5 MG Oral Tablet (Apixaban)Indicat ions:Paroxysmal atrial fibrillation (HCC) TAKE ONE TABLET BY MOUTH TWICE DAILY. *A-FIB* 180 Tablet 3 3 Active Fluticasone-Salme terol 250-50 MCG/ACT Inhalation Aerosol Powder Breath Activated (Advair Diskus) Inhale 1 Puff by mouth in the morning and 1 Puff before bedtime. 180 Each 3 3 Active Omeprazole 20 MG Oral Capsule Delayed Release (PriLOSEC) TAKE ONE CAPSULE BY MOUTH DAILY 1HR BEFORE THE 1ST MEAL OF THE DAY *GERD* 28 Capsule 10 3 Active traMADol HCl 50 MG Oral Tablet (Ultram)Indicatio ns:Closed fracture of proximal end of humerus, unspecified fracture morphology, unspecified laterality, initial encounter Take 1 Tablet by mouth every 6 hours as needed for Pain, Moderate. 40 Tablet 3 Active Metoprolol Succinate ER 50 MG Oral Tablet Extended Release 24 Hour (toPROL XL)Indications:HT N, goal below 140/90,Paroxysmal atrial fibrillation (HCC) Take 1 Tablet by mouth daily. 90 Tablet 3 4 Active Loratadine 10 MG Oral Capsule Take 1 Capsule by mouth as needed for Allergies. Active Systane 0.4-0.3 % Ophthalmic Solution (Artificial Tears) Instill 2 Drops into both eyes as needed for Dry eyes. Active Montelukast Sodium 10 MG Oral Tablet (Singulair)Indica tions:Allergy, subsequent encounter TAKE ONE TAB BY MOUTH DAILY FOR ALLERGIES 28 Tablet 5 4 Active Atorvastatin Calcium 10 MG Oral Tablet (Lipitor) TAKE 1 TABLET BY MOUTH DAILY AT BEDTIME (CHOLESTEROL) 28 Tablet 9 4 Active Potassium Chloride Ju ER 10 MEQ Oral Tablet Extended Release TAKE 1 TABLET BY MOUTH TWICE DAILY FOR SUPPLEMENT 56 Tablet 9 4 Active Fluticasone Propionate 50 MCG/ACT Nasal Suspension (Flonase) INSTILL 2 SPRAYS INTO EACH NOSTRIL ONCE DAILY IN THE MORNING FOR CONGESTION 16 g 1 4 Active Levothyroxine Sodium 100 MCG Oral Tablet (Levoxyl)Indicati ons: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 30 Tablet 5 4 Active Sotalol HCl 80 MG Oral Tablet (Betapace)Indicat ions:Paroxysmal atrial fibrillation (HCC) Take 0.5 Tablets by mouth in the morning and 0.5 Tablets before bedtime. 30 Tablet 11 4 Active Furosemide 40 MG Oral Tablet (Lasix)Indication s:HTN, goal below 140/90 TAKE 1 TABLET BY MOUTH DAILY *EDEMA* 28 Tablet 10 4 Active Furosemide 40 MG Oral Tablet (Lasix)Indication s:HTN, goal below 140/90 Take 1 tablet by mouth in the afternoon on Friday, Friday, Friday. 13 Tablet 6 4 Active Ipratropium-Albut quynh 0.5-2.5 (3) MG/3ML Inhalation Solution (Duoneb)Indicatio ns:COPD, severity to be determined (HCC) INHALE 1 VIAL VIA NEB EVERY 6 HOURS (SOB) 90 mL 11 4 Active Ipratropium-Albut quynh 0.5-2.5 (3) MG/3ML Inhalation Solution (Duoneb)Indicatio ns:COPD, severity to be determined (HCC) INHALE 1 VIAL VIA NEB EVERY 6 HOURS 90 mL 11 3 12/08/19 24 Discontinued documented as of this encounter (statuses as of 12/08/2023) Active Problems Problem Noted Date Diagnosed Date Psoriasis 03/12/2023 Osteoporosis without current pathological fractu re 03/12/2023 Other specified peripheral vascular diseases Chronic hypoxemic respiratory failure 12/18/2020 Cardiac pacemaker in situ 06/14/2019 COPD, group B, by GOLD 2017 classification 06/01 Overview: Per COPD GOLD Classification Carotid artery stenosis, unilateral, left 2019 Hypertensive heart disease w ith chronic diastolic congestive heart failure 01/19/2018 Chronic diastolic congestive heart failure 11/28 Paroxysmal atrial fibrillation 11/28/2017 Carotid stenosis, non-symptomatic, bilateral 09/2016 Smoker 02/24/2017 Dyslipidemia, goal LDL below 70 Overview: Hypercholesterolemia Hypothyroidism Overview: Hypothyroidism HTN, goal below 140/90 Overview: Hypertension, benign documented as of this encounter (statuses as of 12/08/2023) Resolved Problems Problem Noted Date Diagnosed Date Resolved Date Gastroesophageal reflux dise ase without esophagitis 05/06/2019 12/05/2020 Senile osteoporosis 05/06/2019 12/06/19 21 Compression fracture of body of thoracic vertebra 03/21/2015 10/01/2016 COPD, severity to be determined 03/21/2015 06/02/2019 Overview: Per COPD GOLD Classification Hyponatremia 03/21/2015 01/12/2019 Open fracture of distal end of ulna (alone) 07/27/2007 10/01/2016 Fracture of radius, open 07/10/2007 documented as of this encounter (statuses as of 12/08/2023) Immunizations Name Administration Dates Next Due COVID-19 mRNA, LNP-s, No Pre serve, 2-Dose Series (Moderna) 06/12/2020,05/15/2020 COVID-19, mRNA, LNP-s, PF, B ooster, 100mcg/0.5mg (Moderna) 03/09/2021 Covid-19, Mrna, Lnp-s, Pf, B ivalent, 50 Mcg, IM, 12 yrs and above (Moderna) 01/28/2022 Pneumococcal Conjugate Vacc, 13 Valent (Prevnar) 07/04/2016 Pneumococcal Polysaccharide PPV23 (Pneumovax) 01/19/2018 Seasonal Influenza Virus Vac cine, Unspecified Formulation 01/12/2019,01/19/2018,01/06/2017,05/13,02/17/2015 Seasonal Influenza, PF, 6 M & above, IM , (FluLaval or Fluzone) 01/12/2019,01/19/2018 Seasonal Influenza, Quadriva lent Hd, 65+ Yrs 01/28/2022 Seasonal Influenza, Quadrivalent, ID 01/28/2022 Seasonal Influenza, Quadriva lent, No Preserve, IM 01/06/2017,05/13/2016 Seasonal Influenza, Quadriva lent, No Preserve, Mdck 02/02/2020 Seasonal Influenza, Split, I IV3, With Preserve, Inj 02/17/2015 TD - Tetanus/Diptheria (ADULT) 07/10/2007 TDAP (age 10 and older)(Boostrix) 08/27/2018 Zoster Vaccine Recombinant (Shingrix) 06/26/2021 documented as of this encounter Social History Tobacco Use Types Packs/Day Years Used Date Smoking Tobacco: Every Day Cigarettes Passive Smoke Exposure: Current Smokeless Tobacco: Never Comments:3 cigarettes a day Alcohol Use Standard Drinks/Week Comments Not Currently 0 (1 standard drink = 0.6 oz pur e alcohol) PHQ-2 Answer Date Recorded PHQ Adult Total Score 18 12/05/2020 Hunger Vital Sign Answer Date Recorded Worried About Running Out of Food in the Last Ye ar Never true 04/20/2019 Ran Out of Food in the Last Year Never true 04/20/2019 Utilities Answer Date Recorded Do you have trouble paying y our heating, water, or electric bill? (Adult - for ages 18 years and over) Not on file 10/07/2023 Is your family able to pay t he heat, water, or electric bill? (Household - for ages 0-17 years) Not on file 10/07/2023 Does your family have access to good internet? (Household - for ages 0-17 years) Not on file 10/07/2023 Social Connections Answer Date Recorded How often do you feel lonely or isolated from those around you? (Adult - for ages 18 years and over) Not on file 10/07/2023 Sex and Gender Information Value Date Recorded Sex Assigned at Female 04/20/2019 11:06 AM EST Gender Identity Female 04/20/2019 11:06 AM EST Sexual Orientation Straight 04/20/2019 11 :06 AM EST Job Start Date Occupation Industry Not on file Not on file Not on file documented as of this encounter Miscellaneous Notes * Telephone Encounter - Shelton Emmanuel MD - 12/08/2023 1:36 PM EDTSigned Prescriptions: Disp Refills Ipratropium-Albuterol 0.5-2.5 (3) MG/3ML I*90 mL 11 Sig: INHALE 1 VIAL VIA NEB EVERY 6 HOURS (SOB)Authorizing Provider: SHELTON EMMANUEL * Telephone Encounter - Wyatt Babcock [facility] - 12/08/2023 1:23 PM EDT Pending Prescriptions: Disp Refills Ipratropium-Albuterol 0.5-2.5 (3) MG/3ML I*90 mL 11 Sig: INHALE 1 VIAL VIA NEB EVERY 6 HOURS (SOB) * Telephone Encounter - Wyatt Babcock, [facility] - 12/08/2023 1:22 PM EDT Unable to authorize proactive medication refills at this time. Part of the criteria used for refill authorization was not satisfied. Patients using Duoneb should have an active short-acting beta agonist rescue inhaler. Please approve if appropriate. Thank you, Wyatt Babcock, PharmD Clinical Pharmacist [facility] ([facility]) 12/08/23 1:22 PM [phone] * Telephone Encounter - Wyatt Babcock, [facility] - 12/08/2023 1:22 PM EDT Pending Prescriptions: Disp Refills Ipratropium-Albuterol 0.5-2.5 (3) MG/3ML *90 mL 11 Sig: INHALE 1 VIAL VIA NEB EVERY 6 HOURS (SOB) Last Visit: 03/12/2023 (in office), 07/16/2021 (telemedicine) Next Visit: Visit date not found If no future appointments scheduled, and last appointment is greater than a year ago, please schedule patient for a follow-up appointment Last date the medication was ordered: 03/20/2023 Pharmacy: [facility] [address] Is this request for a controlled substance? No Urine Drug Screen:No results found for this or any previous visit. Patient Phone Numbers Labs: Lab Results Component Value Date/Time CREAT 0.8 03/06/2023 01:53 PM CREAT 0.71 02/01/2021 12:00 AM CREAT 0.7 05/26/2019 01:27 PM POTASSIUM 4.7 03/06/2023 01:53 PM POTASSIUM 4.2 02/01/2021 12:00 AM POTASSIUM 4.4 05/26/2019 01:27 PM TSH 1.85 03/06/2023 01:53 PM TSH 1.86 03/06/2023 01:53 PM TSH 1.340 02/01/2021 12:00 AM TSH 0.06 (L) 04/20/2019 12:07 PM LDLCALC 103 08/27/2018 11:30 AM LDLDIRECT 119 03/20/2022 03:08 PM LDLDIRECT 90 07/30/2021 12:00 AM LDLDIRECT NOT APPLICABLE 08/27/2018 11:30 AM ALT 24 03/06/2023 01:53 PM ALT 31 02/01/2021 12:00 AM ALT 25 08/27/2018 11:30 AM documented in this encounter Plan of Treatment Health Maintenance Due Date Last Done Comments DISCUSS TOBACCO CESSATION (REFER TO SMARTSET #3291) 1938 Albumin/Creatinine Ratio 1956 Alpha-1 Antitrypsin 1956 Adult Wellness Visit 2004 *COPD SEVERITY VERIFIED BY PFT 03/24/2015 DXA Scan 03/24/2019 03/24/2017, 10/27/2013 Zoster Vaccines (2 of 2) 08/21/2021 06/26/2021 Depression Monitoring 12/05/2021 12/05/2020 COVID-19 Vaccine ( season) 2022 01/28/2022, 03/09/2021, 06/12/2020, Additional history exists *BISPHONATE OR OTHER ACCEPTABLE MEDICATION NEEDED FOR OSTEOPOROSIS (REFER TO SMARTSET #1146) 03/15/2023 Influenza Vaccine (FLU shot) (#1) 2023 01/28/2022, 01/28/2022, 02/02/2020, Additional history exists TSH 03/06/2024 03/06/2023, 02/19, 03/20/2022, Additional history exists O2 ASSESSMENT COMPLETED IN PAST YEAR FOR COPD 03/12/2024 03/12/2023 DTaP,Tdap,and Td Vaccines (2 - Td or Tdap) 08/27/2028 08/27/2018, 07/10/2007 Pneumococcal Vaccine: 65+ Years Completed 01/19/2018, 07/04/2016 VITAMIN D LEVEL ONCE IN A LIFETIME-USE SMARTSET# 63418 Completed 05/15/2020, 10/21/2017 HPV (Gardasil) Vaccine Aged Out No lo nger eligible based on patient's age to complete this topic Hepatitis B Vaccine Aged Out No longe r eligible based on patient's age to complete this topic MENINGOCOCCAL (MENACTRA/MENVEO) Aged Out No longer eligible based on patient's age to complete this topic documented as of this encounter Medical Devices Implanted Type Area Collector Of Aquarium Specimens Device Identifier Shelf Expiration Date Model / Serial / Lot Plate T Lcp 3h5 Ob Lt 241.951 - [id number] [place] [facility] [place] SYNTHES 241.951 / / Screw Lock 3.5 10mm 212.101 - [id number] Implanted:Q[place]: 1 [place]10[place] [facility] [place] Arm SYNTHES 212.101 / / Screw Lock 3.5 60mm 212.124 - [id number] Im[place]ed:Q[place] 1 [place] [facility] [place] Lower Arm SYNTHES 212.124 / / Screw Lock 3.5 12mm 212.102 - [id number] Implanted:Qty: 2 [place] [facility] [place] Lower Arm SYNTHES 212.102 / / Screw Lock 3.5 14mm 212.103 - [id number] [place]ed:Q[place] 1 [place] [facility] [place] Lower Arm SYNTHES 212.103 / / Screw Lock 3.5 16mm 212.104 - [id number] Implanted:Qty: 1 [place] [facility] [place] Lower Arm SYNTHES 212.104 / / Screw Lock 3.5 20mm 212.106 - [id number] Implanted:Q[place] 1 [place] [facility] [place] Lower Arm SYNTHES 212.106 / / Screw Lock 3.5 22mm 212.107 - [id number] Implanted:Q[place]: 1 [place]10[place] [facility] [place] Arm SYNTHES 212.107 / / documented as of this encounter Visit Diagnoses Diagnosis COPD, severity to be determined (HCC) Chronic airway obstruction, not elsewhere classified documented in this encounter Advance Directives Documents on File Type Date Recorded Patient Securities Settlement Processor Expl anation Power of Banking Services Advisor 05/25/2019 POWER OF A TTORNEY Advance Directives and Katy Tovar 07/09/2005 ADVANCE DIRECTIVE Care Teams Artists' Booking Representative Relationship Specialty Start Date End Date Shelton Emmanuel MD [address] [place] [address] PCP - General Family Medicine 11/14/23 documented as of this encounter
--- OUTSIDE RECORDS SUMMARY | 2023-12-11 11:16 | External Medical Summary | Summary of Care ---
Author Name Unknown Organization [facility] Address [address] [place] [address] Phone [phone] Care Team Providers Care Rn Flight Name Role Phone Shelton Dhillon MD Primary Care Provider [phone]- [phone] Encounter Details Date Type Department Care Team (Late st Contact Info) Description 12/08/2023 Result Scan Unspecified Department Kalpesh Gray, DO [address] [place] [address] <No scans attached> Allergies Active Allergy Reactions Criticality Noted Date Comments Penicillins 07/10/2007 Simvastatin 07/04/2014 Sulfa Antibiotics 07/10/2007 documented as of this encounter (statuses as of 12/08/2023) Medications Medication Sig Dispensed Refills Start Date End Date Status aspirin 81 MG chewable tablet Take 1 Tablet by mouth in the morning. With food.. 100 Tab 5 05/13/2016 Active ferrous sulfate (FEOSOL) 325 (65 FE) MG Tablet Take 1 Tab by mouth 2 times a day. 180 Tab 3 02/17/2019 Active diphenhydrAMINE HCl 25 MG Oral Capsule Take 1 Capsule by mouth every 6 hours as needed for Other (Facial swelling). 30 Cap 12/01/2019 Active Nystatin 885798 UNIT/GM External Cream As needed Active Calcium Carb-Cholecalcifero l 600-500 MG-UNIT Oral Capsule Take 2 Tabs by mouth daily. Active Mucinex DM 30-600 MG Oral Tablet Extended Release 12 Hour Take 1 Tab by mouth 2 times a day as needed for Cough. Take with plenty of water. Do not cut, crush or chew 60 Tab 3 06/09/2020 Active oxygen IN GAS Use 4 L/min(Oxygen) as directed as needed. Active Acetaminophen 325 MG Oral Capsule Take by mouth 650 mg every 6 hours as needed for Pain, Mild or Other (fever). 90 Capsule 3 08/07/2021 Active Tylenol PM Extra Strength 500-25 MG Oral Tablet (diphenhydrAMINE-AP AP (sleep)) Take 1 tab by mouth at bedtime as needed for sleep 30 Tablet 5 11/13/2021 Active Ketoconazole 2 % External Shampoo (Nizoral)Indication s:Seborrheic dermatitis,Tinea amiantacea Massage into scalp, rinse out after 5-10 minutes, do 3x weekly. Able to use own shampoo afterwards (see printed instructions on checkout sheet) 240 mL 3 01/29/2022 Active Diclofenac Sodium 1 % External Gel (Voltaren) APPLY 4GMS TOPICALLY TO AFFECTED JOINTS UP TO FOUR TIMES DAILY . MAXIUM DOSE OF 32 GRMS PER DAY FOR PAIN 300 g 5 04/01/2022 Active Eliquis 2.5 MG Oral Tablet (Apixaban)Indicatio ns:Paroxysmal atrial fibrillation (HCC) TAKE ONE TABLET BY MOUTH TWICE DAILY. *A-FIB* 180 Tablet 3 01/13/2023 Active Fluticasone-Salmete rol 250-50 MCG/ACT Inhalation Aerosol Powder Breath Activated (Advair Diskus) Inhale 1 Puff by mouth in the morning and 1 Puff before bedtime. 180 Each 3 03/06/2023 Active Ipratropium-Albuter ol 0.5-2.5 (3) MG/3ML Inhalation Solution (Duoneb)Indications :COPD, severity to be determined (HCC) INHALE 1 VIAL VIA NEB EVERY 6 HOURS 90 mL 11 03/20/2023 Active Omeprazole 20 MG Oral Capsule Delayed Release (PriLOSEC) TAKE ONE CAPSULE BY MOUTH DAILY 1HR BEFORE THE 1ST MEAL OF THE DAY *GERD* 28 Capsule 10 03/21/2023 Active traMADol HCl 50 MG Oral Tablet (Ultram)Indications :Closed fracture of proximal end of humerus, unspecified fracture morphology, unspecified laterality, initial encounter Take 1 Tablet by mouth every 6 hours as needed for Pain, Moderate. 40 Tablet 04/11/2023 Active Metoprolol Succinate ER 50 MG Oral Tablet Extended Release 24 Hour (toPROL XL)Indications:HTN, goal below 140/90,Paroxysmal atrial fibrillation (HCC) Take 1 Tablet by mouth daily. 90 Tablet 3 05/20/2023 Active Loratadine 10 MG Oral Capsule Take 1 Capsule by mouth as needed for Allergies. Active Systane 0.4-0.3 % Ophthalmic Solution (Artificial Tears) Instill 2 Drops into both eyes as needed for Dry eyes. Active Montelukast Sodium 10 MG Oral Tablet (Singulair)Indicati ons:Allergy, subsequent encounter TAKE ONE TAB BY MOUTH DAILY FOR ALLERGIES 28 Tablet 5 06/08/2023 Active Atorvastatin Calcium 10 MG Oral Tablet (Lipitor) TAKE 1 TABLET BY MOUTH DAILY AT BEDTIME (CHOLESTEROL) 28 Tablet 9 06/08/2023 Active Potassium Chloride Ju ER 10 MEQ Oral Tablet Extended Release TAKE 1 TABLET BY MOUTH TWICE DAILY FOR SUPPLEMENT 56 Tablet 9 06/08/2023 Active Fluticasone Propionate 50 MCG/ACT Nasal Suspension (Flonase) INSTILL 2 SPRAYS INTO EACH NOSTRIL ONCE DAILY IN THE MORNING FOR CONGESTION 16 g 1 08/07/2023 Active Levothyroxine Sodium 100 MCG Oral Tablet (Levoxyl)Indication s: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 30 Tablet 5 08/29/2023 Active Sotalol HCl 80 MG Oral Tablet (Betapace)Indicatio ns:Paroxysmal atrial fibrillation (HCC) Take 0.5 Tablets by mouth in the morning and 0.5 Tablets before bedtime. 30 Tablet 11 10/02/2023 Active Furosemide 40 MG Oral Tablet (Lasix)Indications: HTN, goal below 140/90 TAKE 1 TABLET BY MOUTH DAILY *EDEMA* 28 Tablet 10 11/20/2023 Active Furosemide 40 MG Oral Tablet (Lasix)Indications: HTN, goal below 140/90 Take 1 tablet by mouth in the afternoon on Friday, Friday, Friday. 13 Tablet 6 11/20/2023 Active documented as of this encounter (statuses as [...] on file documented as of this encounter Plan of Treatment Health Maintenance [...] D LEVEL ONCE IN A LIFETIME-USE SMARTSET# 71365 Completed 05/15/2020, 10/21/2017 HPV (Gardasil) Vaccine Aged Out No lo nger eligible based on patient's age to complete this topic Hepatitis B Vaccine Aged Out No longe r eligible based on patient's age to complete this topic MENINGOCOCCAL (MENACTRA/MENVEO) Aged Out No longer eligible based on patient's age to complete this topic documented as of this encounter Medical Devices Implanted Type Area Wrist Closer Device Identifier Shelf Expiration Date Model / Serial / Lot Plate T Lcp 3h5 Ob Lt 241.951 - [id number] Implanted:Qty: 1 on 07/10/2007 [place] [facility] [place]: Lower Arm SYNTHES 241.951 / / Screw Lock 3.5 10mm 212.101 - [id number] Implanted:Qty: 1 on 07/10/2007 [place] [facility] [place]: Lower Arm SYNTHES 212.101 / / Screw Lock 3.5 60mm 212.124 - [id number] Implanted:Qty: 1 on 07/10/2007 [place] [facility] [place]: Lower Arm SYNTHES 212.124 / / Screw Lock 3.5 12mm 212.102 - [id number] Implanted:Qty: 2 on 07/10/2007 [place] [facility] [place]: Lower Arm SYNTHES 212.102 / / Screw Lock 3.5 14mm 212.103 - [id number] Implanted:Qty: 1 on 07/10/2007 at [place] [facility] [place] Left: Lower Arm SYNTHES 212.103 / / Screw Lock 3.5 16mm 212.104 - [id number] Implanted:Qty: 1 on 07/10/2007 at [place] [facility] [place] Left: Lower Arm SYNTHES 212.104 / / Screw Lock 3.5 20mm 212.106 - [id number] Implanted:Qty: 1 on 07/10/2007 [place] [facility] [place]: Lower Arm SYNTHES 212.106 / / Screw Lock 3.5 22mm 212.107 - [id number] Implanted:Qty: 1 on 07/10/2007 at [place] [facility] [place]: Lower Arm SYNTHES 212.107 / / documented as of this encounter Procedures Procedure Name Priority Date/Time Associated Diagnosis Comments CARDIOLOGY SCANNED RESULT 12/08/2023 documented in this encounter Results * CARDIOLOGY SCANNED RESULT (12/08/2023) 12/08/2023 Kalpesh Gray DO OTHER documented in this encounter Advance Directives Documents on File Type Date Recorded Patient Joggle Press Operator Expl anation Power of Area Relief Pilot 05/25/2019 POWER OF A TTORNEY Advance Directives and Katy Tovar 07/09/2005 ADVANCE DIRECTIVE Care Teams Rn Flight Relationship Specialty Start Date End Date Shelton Dhillon MD [address] [place] [address] PCP - General Family Medicine 11/14/23 documented as of this encounter
--- OUTSIDE RECORDS SUMMARY | 2023-12-11 11:17 | External Medical Summary | Summary of Care ---
Author Name Unknown Organization [facility] Address [address] [place] [address] Phone [phone] Care Team Providers Care Rn Recruitment Name Role Phone Unavailable Primary Care Provider Unavailabl e Encounter Details Date Type Department Care Team (Late st Contact Info) Description 11/11/2023 Population Health External Data Unspecified Department Allergies Active Allergy Reactions Criticality Noted Date Comments Penicillins 07/10/2007 Simvastatin 07/04/2014 Sulfa Antibiotics 07/10/2007 documented as of this encounter (statuses as of 11/14/2023) Medications Medication Sig Dispensed Refills Start Date [...] (Facial swelling). 30 Cap 12/01/2019 Active Nystatin 335811 UNIT/GM External Cream As needed Active Calcium [...] DAILY. *A-FIB* 180 Tablet 3 01/13/2023 Active Furosemide 40 MG Oral Tablet (Lasix)Indications: HTN, goal below 140/90 Take 1 tab twice per day for 4 days and then resume previous dosing of 1 tab in the morning with an extra tab in the afternoon on Mon, Wed, Fri. 140 Tablet 3 02/27/2023 Active Fluticasone-[place] rol 250-50 MCG/ACT Inhalation Aerosol [...] before bedtime. 30 Tablet 11 10/02/2023 Active documented as of this encounter (statuses as of 11/14/2023) Active Problems Problem Noted Date Diagnosed Date [...] as of this encounter (statuses as of 11/14/2023) Resolved Problems Problem Noted Date Diagnosed Date [...] as of this encounter (statuses as of 11/14/2023) Immunizations Name Administration Dates Next Due COVID-19 [...] Comments DISCUSS TOBACCO CESSATION (REFER TO SMARTSET #6543) 1940 Alpha-1 Antitrypsin 1956 *COPD SEVERITY VERIFIED BY PFT 03/24/2015 DXA Scan 03/24/2019 03/24/2017, 10/27/2013 Zoster Vaccines (2 of 2) 08/21/2021 06/26/2021 Depression Monitoring 12/05/2021 12/05/2020 COVID-19 Vaccine ( season) 2022 01/28/2022, 03/09/2021, 06/12/2020, Additional history exists *BISPHONATE OR OTHER ACCEPTABLE MEDICATION NEEDED FOR OSTEOPOROSIS (REFER TO SMARTSET #1146) 03/15/2023 *CXR OR CT FOR COPD EVER 11/02/2023 Influenza Vaccine (FLU shot) (#1) 2023 01/28/2022, 01/28/2022, 02/02/2020, Additional history exists GFR 03/06/2024 03/06/2023, 04/21, 03/20/2022, Additional history exists TSH 03/06/2024 03/06/2023, 02/19, 03/20/2022, Additional history exists O2 ASSESSMENT COMPLETED IN PAST YEAR FOR COPD 03/12/2024 03/12/2023 Albumin/Creatinine Ratio 07/30/2024 07/30/2021 DTaP,Tdap,and Td Vaccines (2 - Td or Tdap) 08/27/2028 08/27/2018, 07/10/2007 Pneumococcal Vaccine: 65+ Years Completed 01/19/2018, 07/04/2016 VITAMIN D LEVEL ONCE IN A LIFETIME-USE SMARTSET# [id number] Completed 05/15/2020, 10/21/2017 HPV (Gardasil) Vaccine Aged Out No lo nger eligible based on patient's age to complete this topic Hepatitis B Vaccine Aged Out No longe r eligible based on patient's age to complete this topic MENINGOCOCCAL (MENACTRA/MENVEO) Aged Out No longer eligible based on patient's age to complete this topic documented as of this encounter Medical Devices Implanted Type Area Host/Hostess Restaurant Device Identifier Shelf Expiration Date Model / Serial / Lot Plate T Lcp 3h5 Ob Lt 241.951 - [id number] [place] [facility] [place] SYNTHES 241.951 / / Screw Lock 3.5 10mm 212.101 - [id number] Implanted:Qty: 1 [place] [facility] [place] Lower Arm SYNTHES 212.101 / / Screw Lock 3.5 60mm 212.124 - [id number] Implanted:Qty: 1 [place] [facility] [place] Lower Arm SYNTHES 212.124 / / Screw Lock 3.5 12mm 212.102 - [id number] Implanted:Qty: 2 on 07[place]10[place]2007 [place] [facility] [place] Lower Arm SYNTHES 212.102 / / Screw Lock 3.5 14mm 212.103 - [id number] Implanted:Qty: 1 on [place]2007 [place] [facility] [place] Lower Arm SYNTHES 212.103 / / Screw Lock 3.5 16mm 212.104 - [id number] Implanted:Qty: 1 on 07[place]10/2007 [place] [facility] [place] Lower Arm SYNTHES 212.104 / / Screw Lock 3.5 20mm 212.106 - [id number] Implanted:Qty: 1 on 07[place]10[place]2007 [place] [facility] [place] Lower Arm SYNTHES 212.106 / / Screw Lock 3.5 22mm 212.107 - [id number] Implanted:Qty: 1 on 07[place]10/2007 [place] [facility] [place] Lower Arm SYNTHES 212.107 / / documented as of this encounter Advance Directives Documents on File Type Date Recorded Patient Driftman Expl anation Power of Oil Rig Driller 05/25/2019 POWER OF A TTORNEY Advance Directives and Katy Tovar 07/09/2005 ADVANCE DIRECTIVE
--- OUTSIDE RECORDS SUMMARY | 2023-12-11 11:17 | External Medical Summary | Summary of Care ---
Author Name Unknown Organization [facility] Address [address] [place] [address] Phone [phone] Care Team Providers Care Electrical And Radio Mechanic Name Role Phone Unavailable Primary Care Provider Unavailabl e Reason for Visit * Reason Onset Date Comments Health Maintenance 11/14/2023 Encounter Details Date Type Department Care Team (Late st Contact Info) Description 11/14/2023 Telephone [facility] [address] [place] [address] Сергей Martins, DO [address] [place] [address] Health Maintenance Allergies Active Allergy Reactions Criticality Noted Date [...] (Facial swelling). 30 Cap 12/01/2019 Active Nystatin 494396 UNIT/GM External Cream As needed Active Calcium [...] encounter Miscellaneous Notes * Telephone Encounter - Vicky Baker LPN - 11/14/2023 10:15 AM EDT Care Gaps Comprehensive Care Outreach Last Office/Telemedicine Visit: 03/12/2023 (in office), 07/16/2021 (telemedicine) Next Office Visit: Visit date not found Hemoglobin AIC Results: No results found for: "HEMOGLOBIN A1C" BP Readings from Last 1 Encounters: 05/22/23 116/66 Reviewed Health Maintenance below: Health Maintenance Topic Date Due DISCUSS TOBACCO CESSATION (REFER TO SMARTSET #3111) Never done Alpha-1 Antitrypsin Never done *COPD SEVERITY VERIFIED BY PFT Never done DXA Scan 03/24/2019 Zoster Vaccines (2 of 2) 08/21/2021 Depression Monitoring 12/05/2021 COVID-19 Vaccine (2022- season) 2022 *BISPHONATE OR OTHER ACCEPTABLE MEDICATION NEEDED FOR OSTEOPOROSIS (REFER TO SMARTSET #1146) Never done *CXR OR CT FOR COPD EVER Never done Influenza Vaccine (FLU shot) (1) 12/21/2023 GFR 03/06/2024 TSH 03/06/2024 O2 ASSESSMENT COMPLETED IN PAST YEAR FOR COPD 03/12/2024 Albumin/Creatinine Ratio 07/30/2024 DTaP,Tdap,and Td Vaccines (2 - Td or Tdap) 08/27/2028 VITAMIN D LEVEL ONCE IN A LIFETIME-USE SMARTSET# 94097 Completed Pneumococcal Vaccine: 65+ Years Completed Hepatitis B Vaccine Aged Out MENINGOCOCCAL (MENACTRA/MENVEO) Aged Out HPV (Gardasil) Vaccine Aged Out Ghp recapture Care Gap Outreach Action Taken: Non-[facility] PCP chart updated documented in this encounter Plan of Treatment Health Maintenance Due Date Last Done Comments DISCUSS TOBACCO CESSATION (REFER TO SMARTSET #3298) 1940 Alpha-1 Antitrypsin 1956 *COPD SEVERITY VERIFIED [...] D LEVEL ONCE IN A LIFETIME-USE SMARTSET# 01670 Completed 05/15/2020, 10/21/2017 HPV (Gardasil) Vaccine Aged Out No lo nger eligible based on patient's age to complete this topic Hepatitis B Vaccine Aged Out No longe r eligible based on patient's age to complete this topic MENINGOCOCCAL (MENACTRA/MENVEO) Aged Out No longer eligible based on patient's age to complete this topic documented as of this encounter Medical Devices Implanted Type Area Telecommunication Systems Designer Device Identifier Shelf Expiration Date Model / Serial / Lot Plate T Lcp 3h5 Ob Lt 241.951 - [id number] [place]ed:Q[place] 1 [place] [facility] [place] SYNTHES 241.951 / / Screw Lock 3.5 10mm 212.101 - [id number] Implanted:Qty: 1 [place] 07/10/2007 [place] [facility] [place] Lower Arm SYNTHES 212.101 / / Screw Lock 3.5 60mm 212.124 - [id number] Implanted:Qty: 1 on 07/10/2007 [place] [facility] [place] Lower Arm SYNTHES 212.124 / / Screw Lock 3.5 12mm 212.102 - [id number] Implanted:Qty: 2 on 07/10/2007 [place] [facility] [place] Lower Arm SYNTHES 212.102 / / Screw Lock 3.5 14mm 212.103 - [id number] Implanted:Qty: 1 [place] 07[place]10[place]2007 [place] [facility] [place] Lower Arm SYNTHES 212.103 / / Screw Lock 3.5 16mm 212.104 - [id number] Implanted:Qty: 1 on 07/10[place]2007 [place] [facility] [place]: Lower Arm SYNTHES 212.104 / / Screw Lock 3.5 20mm 212.106 - [id number] Implanted:Qty: 1 [place] 07[place]10[place]2007 [place] [facility] [place]: Lower Arm SYNTHES 212.106 / / Screw Lock 3.5 22mm 212.107 - [id number] Implanted:Qty: 1 [place] 07[place]10[place]2007 [place] [facility] [place] Lower Arm SYNTHES 212.107 / / documented as of this encounter Advance Directives Documents on File Type Date Recorded Patient Patient Registration Representative Expl anation Power of Medical Accounting Clerk 05/25/2019 POWER OF A TTORNEY Advance Directives and Katy Tovar 07/09/2005 ADVANCE DIRECTIVE
--- OUTSIDE RECORDS SUMMARY | 2023-12-11 11:17 | External Medical Summary | Summary of Care ---
Author Name Unknown Organization [facility] Address [address] [place] [address] Phone [phone] Care Team Providers Care Set Up / Operator Name Role Phone Unavailable Primary Care Provider Unavailabl e Encounter Details Date Type Department Care Team (Late st Contact Info) Description 10/13/2023 Population Health External Data Unspecified Department Allergies Active Allergy Reactions Criticality Noted Date Comments Penicillins 07/10/2007 Simvastatin 07/04/2014 Sulfa Antibiotics 07/10/2007 documented as of this encounter (statuses as of 10/14/2023) Medications Medication Sig Dispensed Refills Start Date [...] (Facial swelling). 30 Cap 12/01/2019 Active Nystatin 029867 UNIT/GM External Cream As needed Active Calcium [...] as of this encounter (statuses as of 10/14/2023) Active Problems Problem Noted Date Diagnosed Date [...] as of this encounter (statuses as of 10/14/2023) Resolved Problems Problem Noted Date Diagnosed Date [...] as of this encounter (statuses as of 10/14/2023) Immunizations Name Administration Dates Next Due COVID-19 [...] Comments DISCUSS TOBACCO CESSATION (REFER TO SMARTSET #8289) 1940 Alpha-1 Antitrypsin 1956 *COPD SEVERITY VERIFIED BY PFT 03/24/2015 DXA Scan 03/24/2019 03/24/2017, 10/27/2013 Zoster Vaccines (2 of 2) 08/21/2021 06/26/2021 Depression Monitoring 12/05/2021 12/05/2020 COVID-19 Vaccine ( season) 2022 01/28/2022, 03/09/2021, 06/12/2020, Additional history exists *BISPHONATE OR OTHER ACCEPTABLE MEDICATION NEEDED FOR OSTEOPOROSIS (REFER TO SMARTSET #1146) 03/15/2023 Influenza Vaccine (FLU shot) (Season Ended) 2023 01/28/2022, 01/28/2022, 02/02/2020, Additional history exists GFR 03/06/2024 03/06/2023, 04/21, 03/20/2022, Additional history exists TSH 03/06/2024 03/06/2023, 02/19, 03/20/2022, Additional history exists O2 ASSESSMENT COMPLETED IN PAST YEAR FOR COPD 03/12/2024 03/12/2023 Albumin/Creatinine Ratio 07/30/2024 07/30/2021 DTaP,Tdap,and Td Vaccines (2 - Td or Tdap) 08/27/2028 08/27/2018, 07/10/2007 Pneumococcal Vaccine: 65+ Years Completed 01/19/2018, 07/04/2016 VITAMIN D LEVEL ONCE IN A LIFETIME-USE SMARTSET# [id number] Completed 05/15/2020, 10/21/2017 GARDASIL-HPV IMMUNIZATION SERIES Aged Out No longer eligible based on patient's age to complete this topic Hepatitis B Aged Out No longer eligi ble based on patient's age to complete this topic MENINGOCOCCAL (MENACTRA/MENVEO) Aged Out No longer eligible based on patient's age to complete this topic documented as of this encounter Medical Devices Implanted Type Area Accounts Payable Payroll Coordinator Device Identifier Shelf Expiration Date Model / Serial / Lot Plate T Lcp 3h5 Ob Lt 241.951 - [id number] Implanted:Qty: 1 on [place] [facility] [place] Lower Arm SYNTHES 241.951 / / Screw Lock 3.5 10mm 212.101 - [id number] Implanted:Qty: 1 on 07/10/2007 [place] [facility] [place]: Lower Arm SYNTHES 212.101 / / Screw Lock 3.5 60mm 212.124 - [id number] Implanted:Qty: 1 on 07[place]10/2007 [place] [facility] [place]: Lower Arm SYNTHES 212.124 / / Screw Lock 3.5 12mm 212.102 - [id number] Implanted:Qty: 2 on 07/10/2007 [place] [facility] [place]: Lower Arm SYNTHES 212.102 / / Screw Lock 3.5 14mm 212.103 - [id number] Implanted:Qty: 1 on 07[place]10/2007 [place] [facility] [place]: Lower Arm SYNTHES 212.103 / / Screw Lock 3.5 16mm 212.104 - [id number] Implanted:Qty: 1 on 07/10/2007 [place] [facility] [place]: Lower Arm SYNTHES 212.104 / / Screw Lock 3.5 20mm 212.106 - [id number] Implanted:Qty: 1 on 07[place]10/2007 [place] [facility] [place]: Lower Arm SYNTHES 212.106 / / Screw Lock 3.5 22mm 212.107 - [id number] Implanted:Qty: 1 on 07/10/2007 [place] [facility] [place]: Lower Arm SYNTHES 212.107 / / documented as of this encounter Advance Directives Documents on File Type Date Recorded Patient Horticultural Manager Expl anation Power of Intelligence Analyst 05/25/2019 POWER OF A TTORNEY Advance Directives and Katy Tovar 07/09/2005 ADVANCE DIRECTIVE
--- OUTSIDE RECORDS SUMMARY | 2023-12-11 11:17 | External Medical Summary | Summary of Care ---
Author Name Unknown Organization [facility] Address [address] [place] [address] Phone [phone] Care Team Providers Care Scroll Machine Operator Name Role Phone Shelton Dhillon MD Primary Care Provider [phone] Reason for Visit * Reason Onset Date Comments Pacemaker Clinic 11/21/2023 Remote transmis lisa Encounter Details Date Type Department Care Team (Late st Contact Info) Description 11/21/2023 Telephone Cardiology, [facility] [address] [facility] [place] [address] [place], Pacer Clinic [facility] [address] [place] [address] Pacemaker Clinic (Remote transmission ) Allergies Active Allergy Reactions Criticality Noted Date Comments Penicillins 07/10/2007 Simvastatin 07/04/2014 Sulfa Antibiotics 07/10/2007 documented as of this encounter (statuses as of 11/25/2023) Medications Medication Sig Dispensed Refills Start Date [...] (Facial swelling). 30 Cap 12/01/2019 Active Nystatin 074612 UNIT/GM External Cream As needed Active Calcium [...] as of this encounter (statuses as of 11/25/2023) Active Problems Problem Noted Date Diagnosed Date [...] as of this encounter (statuses as of 11/25/2023) Resolved Problems Problem Noted Date Diagnosed Date [...] as of this encounter (statuses as of 11/25/2023) Immunizations Name Administration Dates Next Due COVID-19 [...] encounter Miscellaneous Notes * Telephone Encounter - Ora Waterman PA-C - 11/25/2023 1:47 PM EDT Updates noted. Known history of PAF. On appropriate medical therapies - sotalol and metoprolol for rhythm control and Eliquis for anticoagulation. Afib burden remains relatively low and stable from past interrogations. No changes at this time * Telephone Encounter - Nisa Cortez LPN - 11/21/2023 12:46 PM EDT Normal Remote: With Events Normal Device Function Events or Alerts: 79 Battery: 2.99V, 8.58 yrs Sensing, impedance and thresholds reviewed Programmed parameters reviewed Presenting rhythm APVS Heart Rate Histograms reviewed Tachycardia: AF Stored EGMs are consistent with or suggestive of Atrial Fibrillation AT/AF [place]: 4.9% Total number of events: 79 Longest episode 9hr 30sec Additional Notes: Eliquis Appropriate AT/AF Therapy: Successful Stored EGMs are consistent with or suggestive of appropriate Atrial ATP therapy delivered due to AT/AF Total episodes: 79 AT [place]: 4.9% ATP therapy: 8 Shock(s) delivered: 0 Appropriate AT/AF Therapy: Unsuccessful Stored EGMs are consistent with or suggestive of AT/AF with unsuccessful therapy Total episodes: 79 AT [place]: 4.9% Number of ATP therapy: 42 Alert: Yellow 1 A Yellow Alert was reported by the device: 79 episodes of AF (AC-Eliquis) 8 successful ATP therapies delivered 42 unsuccessful ATP therapies documented in this encounter Plan of Treatment [...] D LEVEL ONCE IN A LIFETIME-USE SMARTSET# 43432 Completed 05/15/2020, 10/21/2017 HPV (Gardasil) Vaccine Aged Out No lo nger eligible based on patient's age to complete this topic Hepatitis B Vaccine Aged Out No longe r eligible based on patient's age to complete this topic MENINGOCOCCAL (MENACTRA/MENVEO) Aged Out No longer eligible based on patient's age to complete this topic documented as of this encounter Medical Devices Implanted Type Area Gang Mower Operator Device Identifier Shelf Expiration Date Model / Serial / Lot Plate T Lcp 3h5 Ob Lt 241.951 - [id number] Implanted:Qty: 1 on 07/10[place]2007 [place] [facility] [place] Lower Arm SYNTHES 241.951 / / Screw Lock 3.5 10mm 212.101 - [id number] Implanted:Qty: 1 on 07/10/2007 [place] [facility] [place]: Lower Arm SYNTHES 212.101 / / Screw Lock 3.5 60mm 212.124 - [id number] Implanted:Qty: 1 on 07/10/2007 [place] [facility] [place]: Lower Arm SYNTHES 212.124 / / Screw Lock 3.5 12mm 212.102 - [id number] Implanted:Qty: 2 on 07/10/2007 [place] [facility] [place]: Lower Arm SYNTHES 212.102 / / Screw Lock 3.5 14mm 212.103 - [id number] Implanted:Qty: 1 on 07/10/2007 [place] [facility] [place]: Lower Arm SYNTHES 212.103 / / Screw Lock 3.5 16mm 212.104 - [id number] Implanted:Qty: 1 on 07/10/2007 [place] [facility] [place]: Lower Arm SYNTHES 212.104 / / Screw Lock 3.5 20mm 212.106 - [id number] Implanted:Qty: 1 on 07/10/2007 [place] [facility] [place]: Lower Arm SYNTHES 212.106 / / Screw Lock 3.5 22mm 212.107 - [id number] Implanted:Qty: 1 on 07/10/2007 [place] [facility] [place]: Lower Arm SYNTHES 212.107 / / documented as of this encounter Advance Directives Documents on File Type Date Recorded Patient Resort Housekeeper Expl anation Power of E Business Specialist 05/25/2019 POWER OF A TTORNEY Advance Directives and Katy Tovar 07/09/2005 ADVANCE DIRECTIVE Care Teams Scroll Machine Operator Relationship Specialty Start Date End Date Shelton Dhillon MD [address] [place] [address] PCP - General Family Medicine 11/14/23 documented as of this encounter
--- OUTSIDE RECORDS SUMMARY | 2023-12-11 11:17 | External Medical Summary | Summary of Care ---
Author Name Unknown Organization [facility] Address [address] [place] [address] Phone [phone] Care Team Providers Care Broommaking Supervisor Name Role Phone Shelton Dhillon MD Primary Care Provider [phone]- [phone] Reason for Visit * Reason Onset Date Comments Pacemaker Clinic 11/21/2023 Remote transmis lisa Encounter Details Date Type Department Care Team (Late st Contact Info) Description 11/21/2023 Telephone Cardiology, [facility] [address] [facility] [place] [address] [place], Pacer Clinic [facility] [address] [place] [address] Pacemaker Clinic (Remote transmission ) Allergies Active Allergy Reactions Criticality Noted Date Comments Penicillins 07/10/2007 Simvastatin 07/04/2014 Sulfa Antibiotics 07/10/2007 documented as of this encounter (statuses as of 11/21/2023) Medications Medication Sig Dispensed Refills Start Date [...] (Facial swelling). 30 Cap 12/01/2019 Active Nystatin 046126 UNIT/GM External Cream As needed Active Calcium [...] as of this encounter (statuses as of 11/21/2023) Active Problems Problem Noted Date Diagnosed Date [...] as of this encounter (statuses as of 11/21/2023) Resolved Problems Problem Noted Date Diagnosed Date [...] as of this encounter (statuses as of 11/21/2023) Immunizations Name Administration Dates Next Due COVID-19 [...] encounter Miscellaneous Notes * Telephone Encounter - Nisa Cortez LPN - 11/21/2023 12:46 PM EDT Normal Remote: With Events Normal Device Function Events or Alerts: 79 Battery: 2.99V, 8.58 yrs Sensing, impedance and thresholds reviewed Programmed parameters reviewed Presenting rhythm APVS Heart Rate Histograms reviewed Tachycardia: AF Stored EGMs are consistent with or suggestive of Atrial Fibrillation AT/AF [place]: 4.9% Total number of events: 79 Longest episode 9hr 30sec Additional Notes: Eliquis Appropriate AT/AF Therapy: Successful Stored EGMs are consistent with or suggestive of appropriate Atrial ATP therapy delivered due to AT/AF Total episodes: 79 AT [place]: 4.9% ATP therapy: 8 Shock(s) delivered: 0 Appropriate AT/AF Therapy: Unsuccessful Stored EGMs are consistent with or suggestive of AT/AF with unsuccessful therapy Total episodes: 79 AT [place]: 4.9% Number of ATP therapy: 42 Alert: Yellow 1 A Yellow Alert was reported by the device: 79 episodes of AF (AC-Eliquis) 8 successful ATP therapies delivered 42 unsuccessful ATP therapies documented in this encounter Plan of Treatment Health Maintenance Due Date Last Done Comments DISCUSS TOBACCO CESSATION (REFER TO SMARTSET #3291) 1940 Alpha-1 Antitrypsin 1956 *COPD SEVERITY VERIFIED [...] D LEVEL ONCE IN A LIFETIME-USE SMARTSET# 93782 Completed 05/15/2020, 10/21/2017 HPV (Gardasil) Vaccine Aged Out No lo nger eligible based on patient's age to complete this topic Hepatitis B Vaccine Aged Out No longe r eligible based on patient's age to complete this topic MENINGOCOCCAL (MENACTRA/MENVEO) Aged Out No longer eligible based on patient's age to complete this topic documented as of this encounter Medical Devices Implanted Type Area Load Test Mechanic Device Identifier Shelf Expiration Date Model / Serial / Lot Plate T Lcp 3h5 Ob Lt 241.951 - [id number] Implanted:Qty: 1 [place]10[place] [facility] [place] Lower Arm SYNTHES 241.951 / / Screw Lock 3.5 10mm 212.101 - [id number] Implanted:Qty: 1 on 07[place]10/2007 [place] [facility] [place] Lower Arm SYNTHES 212.101 / / Screw Lock 3.5 60mm 212.124 - [id number] Implanted:Qty: 1 on 07[place]10/2007 [place] [facility] [place] Lower Arm SYNTHES 212.124 / / Screw Lock 3.5 12mm 212.102 - [id number] Implanted:Qty: 2 on 07/10/2007 at OR [facility] Left: Lower Arm SYNTHES 212.102 / / Screw Lock 3.5 14mm 212.103 - [id number] Implanted:Qty: 1 on 07/10/2007 [place] [facility] [place]: Lower Arm SYNTHES 212.103 / / Screw Lock 3.5 16mm 212.104 - [id number] Implanted:Qty: 1 on 07/10/2007 [place] [facility] [place]: Lower Arm SYNTHES 212.104 / / Screw Lock 3.5 20mm 212.106 - [id number] Implanted:Qty: 1 on 07/10/2007 [place] [facility] [place]: Lower Arm SYNTHES 212.106 / / Screw Lock 3.5 22mm 212.107 - [id number] Implanted:Qty: 1 on 07/10/2007 [place] [facility] [place]: Lower Arm SYNTHES 212.107 / / documented as of this encounter Advance Directives Documents on File Type Date Recorded Patient Sofa Inspector Expl anation Power of Milk Route Supervisor 05/25/2019 POWER OF A TTORNEY Advance Directives and Livin g Will 07/09/2005 ADVANCE DIRECTIVE Care Teams Broommaking Supervisor Relationship Specialty Start Date End Date Shelton Dhillon MD [address] [facility] [place] [address] PCP - General Family Medicine 11/14/23 documented as of this encounter
--- OUTSIDE RECORDS SUMMARY | 2023-12-11 11:18 | External Medical Summary | Summary of Care ---
Author Name Unknown Organization [facility] Address [address] [place] [address] Phone [phone] Care Team Providers Care Photographic Spotter Name Role Phone Unavailable Primary Care Provider Unavailabl e Reason for Visit * Reason Comments eRx-Medication Refill Encounter Details Date Type Department Care Team (Late st Contact Info) Description 08/07/2023 Refill [facility] [address] [place] [address] Truong Kincaid MD [address] [place] [address] Allergies Active Allergy Reactions Criticality Noted Date Comments Penicillins 07/10/2007 Simvastatin 07/04/2014 Sulfa Antibiotics 07/10/2007 documented as of this encounter (statuses as of 08/07/2023) Medications Medication Sig Dispensed Refills Start Date [...] for Other (Facial swelling). 30 Cap 0 0 Active Nystatin 379930 UNIT/GM External Cream As needed 0 Active Calcium Carb-Cholecalcife rol 600-500 MG-UNIT Oral Capsule Take 2 Tabs by mouth daily. 0 Active Mucinex DM 30-600 MG Oral Tablet Extended Release 12 Hour Take 1 Tab by mouth 2 times a day as needed for Cough. Take with plenty of water. Do not cut, crush or chew 60 Tab 3 1 Active oxygen IN GAS Use 4 L/min(Oxygen) as directed as needed. 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 *A-FIB* 180 Tablet 3 3 Active Furosemide 40 MG Oral Tablet (Lasix)Indication s:HTN, goal below 140/90 Take 1 tab twice per day for 4 days and then resume previous dosing of 1 tab in the morning with an extra tab in the afternoon on Mon, Wed, Fri. 140 Tablet 3 3 Active Fluticasone-Salme terol 250-50 MCG/ACT Inhalation Aerosol Powder Breath Activated (Advair Diskus) Inhale 1 Puff by mouth in the morning and 1 Puff before bedtime. 180 Each 3 3 Active Ipratropium-Albut quynh 0.5-2.5 (3) MG/3ML Inhalation Solution (Duoneb)Indicatio ns:COPD, severity to be determined (HCC) INHALE 1 VIAL VIA NEB EVERY 6 HOURS 90 mL 11 3 Active Omeprazole 20 MG Oral Capsule [...] as needed for Pain, Moderate. 40 Tablet 0 3 Active Metoprolol Succinate ER 50 MG Oral Tablet Extended Release 24 Hour (toPROL XL)Indications:HT N, goal below 140/90,Paroxysmal atrial fibrillation (HCC) Take 1 Tablet by mouth daily. 90 Tablet 3 4 Active Loratadine 10 MG Oral Capsule Take 1 Capsule by mouth as needed for Allergies. 0 Active Systane 0.4-0.3 % Ophthalmic Solution (Artificial Tears) Instill 2 Drops into both eyes as needed for Dry eyes. 0 Active Montelukast Sodium 10 MG Oral Tablet [...] FOR CONGESTION 16 g 1 4 Active Fluticasone Propionate 50 MCG/ACT Nasal Suspension (Flonase) Administer 2 Sprays into each nostril in the morning. 16 g 1 3 08/07/19 24 Discontinued documented as of this encounter (statuses as of 08/07/2023) Active Problems Problem Noted Date Diagnosed Date [...] as of this encounter (statuses as of 08/07/2023) Resolved Problems Problem Noted Date Diagnosed Date [...] as of this encounter (statuses as of 08/07/2023) Immunizations Name Administration Dates Next Due COVID-19 [...] in the Last Year Never true 04/20/2019 Sex and Gender Information Value Date Recorded Sex Assigned at Female 04/20/2019 11:06 AM EST Gender Identity Female 04/20/2019 11:06 AM EST Sexual Orientation Straight 04/20/2019 11 :06 AM EST Job Start Date Occupation Industry Not on file Not on file Not on file documented as of this encounter Miscellaneous Notes * Telephone Encounter - Catalino Desai, [facility] - 08/07/2023 8:42 PM EDTSigned Prescriptions: Disp Refills Fluticasone Propionate 50 MCG/ACT Nasal Herman*16 g 1 Sig: INSTILL 2SPRAYS INTO EACH NOSTRIL ONCE DAILY IN THE MORNING FOR CONGESTIONAuthorizing Provider: Rafiq KINCAID User: CATALINO DESAI documented in this encounter Plan of Treatment Health Maintenance Due Date Last Done Comments DISCUSS TOBACCO CESSATION (REFER TO SMARTSET #2017) 1940 Alpha-1 Antitrypsin 1956 *COPD SEVERITY VERIFIED BY PFT 03/24/2015 DXA Scan 03/24/2019 03/24/2017, 10/27/2013 Depression, Most Recent Score >= 10 (will fire each visit until score < 10) 12/06/2020 12/05/2020 Zoster Vaccines (2 of 2) 08/21/2021 06/26/2021 COVID-19 Vaccine ( season) 2022 01/28/2022, 03/09/2021, [...] D LEVEL ONCE IN A LIFETIME-USE SMARTSET# 72014 Completed 05/15/2020, 10/21/2017 GARDASIL-HPV IMMUNIZATION SERIES Aged Out No longer eligible based on patient's age to complete this topic Hepatitis B Aged Out No longer eligi ble based on patient's age to complete this topic MENINGOCOCCAL (MENACTRA/MENVEO) Aged Out No longer eligible based on patient's age to complete this topic documented as of this encounter Medical Devices Implanted Type Area Fire Supervisor Device Identifier Shelf Expiration Date Model / Serial / Lot Plate T Lcp 3h5 Ob Lt 241.951 - [id number] Implanted:Qty: 1 on 07/10/2007 at [place] [facility] [place] Left: Lower Arm SYNTHES 241.951 / / Screw Lock 3.5 10mm 212.101 - [id number] Implanted:Qty: 1 on 07/10/2007 at [place] [facility] [place] Left: Lower Arm SYNTHES 212.101 / / Screw Lock 3.5 60mm 212.124 - [id number] Implanted:Qty: 1 on 07/10/2007 at [place] [facility] [place] Left: Lower Arm SYNTHES 212.124 / / Screw Lock 3.5 12mm 212.102 - [id number] Implanted:Qty: 2 on 07/10/2007 at [place] [facility] [place] Left: Lower Arm SYNTHES 212.102 / / Screw Lock 3.5 14mm 212.103 - [id number] Implanted:Qty: 1 on 07/10/2007 at [place] [facility] [place] Left: Lower Arm SYNTHES 212.103 / / Screw Lock 3.5 16mm 212.104 - [id number] Implanted:Qty: 1 on 07/10/2007 at [place] [facility] [place] Left: Lower Arm SYNTHES 212.104 / / Screw Lock 3.5 20mm 212.106 - [id number] Implanted:Qty: 1 on 07/10/2007 at [place] [facility] [place] Left: Lower Arm SYNTHES 212.106 / / Screw Lock 3.5 22mm 212.107 - [id number] Implanted:Qty: 1 on 07/10/2007 at [place] [facility] [place] Left: Lower Arm SYNTHES 212.107 / / documented as of this encounter Advance Directives Documents on File Type Date Recorded Patient Piano Stringer Expl anation Power of Training Lead 05/25/2019 POWER OF A TTORNEY Advance Directives and Katy g Will 07/09/2005 ADVANCE DIRECTIVE
--- OUTSIDE RECORDS SUMMARY | 2023-12-11 11:18 | External Medical Summary | Summary of Care ---
Author Name Unknown Organization [facility] Address [address] [place] [address] Phone [phone] Care Team Providers Care Contour Grinder Name Role Phone Unavailable Primary Care Provider Unavailabl e Encounter Details Date Type Department Care Team (Latest Contact Info) Description 08/11/2023 Medication Management [facility] [address] [place] [address] Nola Guevara CPhT Referred for management of medication therapy* Allergies Active Allergy Reactions Criticality Noted Date Comments Penicillins 07/10/2007 Simvastatin 07/04/2014 Sulfa Antibiotics 07/10/2007 documented as of this encounter (statuses as of 08/11/2023) Medications Medication Sig Dispensed Refills Start Date [...] for Other (Facial swelling). 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 40 Tablet 0 04/11/2023 Active Metoprolol Succinate ER 50 MG [...] FOR CONGESTION 16 g 1 08/07/2023 Active documented as of this encounter (statuses as of 08/11/2023) Active Problems Problem Noted Date Diagnosed Date [...] as of this encounter (statuses as of 08/11/2023) Resolved Problems Problem Noted Date Diagnosed Date [...] as of this encounter (statuses as of 08/11/2023) Immunizations Name Administration Dates Next Due COVID-19 [...] on file documented as of this encounter Progress Notes * Nola Guevara, Marie - 08/11/2023 1:20 PM EDT Whitney Russell is a 82 year old female. TMR Interventions Incomplete Medication Therapy Recommendations No medication therapy recommendations to display Completed Medication Therapy Recommendations Referred for management of medication therapy Rationale: Patient Education Recommendation: Provide Education Rationale: Patient Education Recommendation: Provide Education Assessment & Plan Indication, effectiveness, safety and convenience of her medications were reviewed today. The patient's medical conditions were assessed, evaluated, and deemed meeting goals of drug therapy, with thefollowing exceptions. Additional Notes: TMR for maintenance inhaler and opioid therapy no longer relevant. Nola Guevara CPhT 08/11/2023, 1:20 PM documented in this encounter Plan of Treatment Health Maintenance Due Date Last Done Comments DISCUSS TOBACCO CESSATION (REFER TO SMARTSET #5327) 1940 Alpha-1 Antitrypsin 1956 *COPD SEVERITY VERIFIED BY PFT 03/24/2015 DXA Scan 03/24/2019 03/24/2017, 10/27/2013 Depression, Most Recent Score >= 10 (will fire each visit until score < 10) 12/06/2020 12/05/2020 Zoster Vaccines (2 of 2) 08/21/2021 06/26/2021 COVID-19 Vaccine (2022- season) 2022 01/28/2022, 03/09/2021, 06/12/2020, Additional history [...] D LEVEL ONCE IN A LIFETIME-USE SMARTSET# 00607 Completed 05/15/2020, 10/21/2017 GARDASIL-HPV IMMUNIZATION SERIES Aged Out No longer eligible based on patient's age to complete this topic Hepatitis B Aged Out No longer eligi ble based on patient's age to complete this topic MENINGOCOCCAL (MENACTRA/MENVEO) Aged Out No longer eligible based on patient's age to complete this topic documented as of this encounter Medical Devices Implanted Type Area Spiral Winding Machine Helper Device Identifier Shelf Expiration Date Model / Serial / Lot Plate T Lcp 3h5 Ob Lt 241.951 - [id number] Implanted:Qty: 1 on 07/10/2007 at [place] [facility] [place] Left: Lower Arm SYNTHES 241.951 / / Screw Lock 3.5 10mm 212.101 - [id number] Implanted:Qty: 1 on 07/10/2007 at [place] [facility] [place] Left: Lower Arm SYNTHES 212.101 / / Screw Lock 3.5 60mm 212.124 - [id number] Implanted:Qty: 1 on 07/10/2007 at [place] [facility] [place] Left: Lower Arm SYNTHES 212.124 / / Screw Lock 3.5 12mm 212.102 - [id number] Implanted:Qty: 2 on 07/10/2007 at [place] [facility] [place] Left: Lower Arm SYNTHES 212.102 / / Screw Lock 3.5 14mm 212.103 - [id number] Implanted:Qty: 1 on 07/10/2007 at [place] [facility] [place] Left: Lower Arm SYNTHES 212.103 / / Screw Lock 3.5 16mm 212.104 - [id number] Implanted:Qty: 1 on 07/10/2007 at [place] [facility] [place] Left: Lower Arm SYNTHES 212.104 / / Screw Lock 3.5 20mm 212.106 - [id number] Implanted:Qty: 1 on 07/10/2007 at [place] [facility] [place] Left: Lower Arm SYNTHES 212.106 / / Screw Lock 3.5 22mm 212.107 - [id number] Implanted:Qty: 1 on 07/10/2007 at [place] [facility] [place] Left: Lower Arm SYNTHES 212.107 / / documented as of this encounter Visit Diagnoses Diagnosis Referred for management of medication therapy- Primary Encounter for long-term (current) use of other medications documented in this encounter Advance Directives Documents on File Type Date Recorded Patient Lead Manufacturing Engineer Expl anation Power of Portfolio Lead 05/25/2019 POWER OF A TTORNEY Advance Directives and Katy Tovar 07/09/2005 ADVANCE DIRECTIVE
--- OUTSIDE RECORDS SUMMARY | 2023-12-11 11:18 | External Medical Summary | Summary of Care ---
Author Name Unknown Organization [facility] Address [address] [facility] [place] 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 30 Cap 0 0 Active Nystatin 283575 UNIT/GM External Cream As needed 0 Active [...] FOR HEART 31 Tablet 11 3 Active Eliquis 2.5 [...] the morning. 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 TAKE ONE TABLET BY MOUTH ONCE DAILY AT LEAST 30 MINUTES PRIOR TO BREAFAST OR OTHER MEDS *THYROID* 31 Tablet 11 3 08/29/19 24 Discontinued documented as of this encounter (statuses as of 08/29/2023) Active Problems Problem Noted Date Diagnosed Date [...] as of this encounter (statuses as of 08/29/2023) Resolved Problems Problem Noted Date Diagnosed Date [...] as of this encounter (statuses as of 08/29/2023) Immunizations Name Administration Dates Next Due COVID-19 [...] encounter Miscellaneous Notes * Telephone Encounter - David Hairston PA-C - 08/29/2023 3:43 PM EDT Signed Prescriptions: Disp Refills Levothyroxine Sodium 100 MCG Oral Tablet (*30 Tab*5 Sig: Take 1 Tablet by mouth daily first thing in the morning. Authorizing Provider: DAVID HAIRSTON * Telephone Encounter - Komal Navarrete RN - 08/29/2023 11:19 AM EDTPending Prescriptions: Disp Refills Levothyroxine Sodium 100 MCG Oral Tablet (*30 Tab*5 Sig: Take 1 Tablet by mouth daily first thing in the morning. * Telephone Encounter - Komal Navarrete RN - 08/29/2023 11:19 AM EDT Pending Prescriptions: Disp Refills Levothyroxine Sodium 100 MCG Oral Tablet *30 Tab*5 Sig: Take 1 Tablet by mouth daily first thing in the morning. documented in this encounter Plan of Treatment Health Maintenance Due Date Last Done Comments DISCUSS TOBACCO CESSATION (REFER TO SMARTSET #3669) 1940 Alpha-1 Antitrypsin 1956 *COPD SEVERITY VERIFIED BY PFT 03/24/2015 DXA Scan 03/24/2019 03/24/2017, 10/27/2013 Depression, Most Recent Score >= 10 (will fire each visit until score < 10) 12/06/2020 12/05/2020 Zoster Vaccines (2 of 2) 08/21/2021 06/26/2021 COVID-19 Vaccine (5 - season) 2022 01/28/2022, 03/09/2021, 06/12/2020, Additional history [...] D LEVEL ONCE IN A LIFETIME-USE SMARTSET# 08449 Completed 05/15/2020, 10/21/2017 GARDASIL-HPV IMMUNIZATION SERIES Aged Out No longer eligible based on patient's age to complete this topic Hepatitis B Aged Out No longer eligi ble based on patient's age to complete this topic MENINGOCOCCAL (MENACTRA/MENVEO) Aged Out No longer eligible based on patient's age to complete this topic documented as of this encounter Medical Devices Implanted Type Area Curam Developer Device Identifier Shelf Expiration Date Model / Serial / Lot Plate T Lcp 3h5 Ob Lt 241.951 - [id number] [place] [facility] [place]: Lower Arm SYNTHES 241.951 / / Screw Lock 3.5 10mm 212.101 - [id number] Implanted:Qty: 1 on 07/10[place]2007 [place] [facility] [place]: Lower Arm SYNTHES 212.101 / / Screw Lock 3.5 60mm 212.124 - [id number] Implanted:Qty: 1 on 07/10/2007 [place] [facility] [place]: Lower Arm SYNTHES 212.124 / / Screw Lock 3.5 12mm 212.102 - [id number] Implanted:Qty: 2 on 07/10/2007 [place] [facility] [place]: Lower Arm SYNTHES 212.102 / / Screw Lock 3.5 14mm 212.103 - [id number] Implanted:Qty: 1 on 07[place]10[place]2007 [place] [facility] [place]: Lower Arm SYNTHES 212.103 / / Screw Lock 3.5 16mm 212.104 - [id number] Implanted:Qty: 1 on 07[place]10[place]2007 [place] [facility] [place]: Lower Arm SYNTHES 212.104 / / Screw Lock 3.5 20mm 212.106 - [id number] Implanted:Qty: 1 on 07[place]10[place]2007 [place] [facility] [place]: Lower Arm SYNTHES 212.106 / / Screw Lock 3.5 22mm 212.107 - [id number] Implanted:Qty: 1 on 07[place]10[place]2007 [place] [facility] [place]: Lower Arm SYNTHES 212.107 / / documented as of this encounter Visit Diagnoses Diagnosis 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
--- OUTSIDE RECORDS SUMMARY | 2023-12-11 11:18 | External Medical Summary | Summary of Care ---
Author Name Unknown Organization [facility] Address [address] [place] [address] Phone [phone] Care Team Providers Care Meat And Seafood Clerk Name Role Phone Unavailable Primary Care Provider Unavailabl e Encounter Details Date Type Department Care Team (Late st Contact Info) Description 09/09/2023 Population Health External Data Unspecified Department Allergies Active Allergy Reactions Criticality Noted Date Comments Penicillins 07/10/2007 Simvastatin 07/04/2014 Sulfa Antibiotics 07/10/2007 documented as of this encounter (statuses as of 09/10/2023) Medications Medication Sig Dispensed Refills Start Date [...] (Facial swelling). 30 Cap 12/01/2019 Active Nystatin 395199 UNIT/GM External Cream As needed Active Calcium [...] FOR HEART 31 Tablet 11 09/25/2022 Active Eliquis 2.5 [...] the morning. 30 Tablet 5 08/29/2023 Active documented as of this encounter (statuses as of 09/10/2023) Active Problems Problem Noted Date Diagnosed Date [...] as of this encounter (statuses as of 09/10/2023) Resolved Problems Problem Noted Date Diagnosed Date [...] as of this encounter (statuses as of 09/10/2023) Immunizations Name Administration Dates Next Due COVID-19 [...] Comments DISCUSS TOBACCO CESSATION (REFER TO SMARTSET #8454) 1940 Alpha-1 Antitrypsin 1956 *COPD SEVERITY VERIFIED [...] D LEVEL ONCE IN A LIFETIME-USE SMARTSET# 90649 Completed 05/15/2020, 10/21/2017 GARDASIL-HPV IMMUNIZATION SERIES Aged Out No longer eligible based on patient's age to complete this topic Hepatitis B Aged Out No longer eligi ble based on patient's age to complete this topic MENINGOCOCCAL (MENACTRA/MENVEO) Aged Out No longer eligible based on patient's age to complete this topic documented as of this encounter Medical Devices Implanted Type Area Set Up Person Device Identifier Shelf Expiration Date Model / Serial / Lot Plate T Lcp 3h5 Ob Lt 241.951 - [id number] Implanted:Qty: 1 on 07/10/2007 at [place] [facility] [place] Left: Lower Arm SYNTHES 241.951 / / Screw Lock 3.5 10mm 212.101 - [id number] Implanted:Qty: 1 on 07/10/2007 at [place] [facility] [place] Left: Lower Arm SYNTHES 212.101 / / Screw Lock 3.5 60mm 212.124 - [id number] Implanted:Qty: 1 on 07/10/2007 at [place] [facility] [place] Left: Lower Arm SYNTHES 212.124 / / Screw Lock 3.5 12mm 212.102 - [id number] Implanted:Qty: 2 on 07/10/2007 at [place] [facility] [place] Left: Lower Arm SYNTHES 212.102 / / Screw Lock 3.5 14mm 212.103 - [id number] Implanted:Qty: 1 on 07/10/2007 at [place] [facility] [place] Left: Lower Arm SYNTHES 212.103 / / Screw Lock 3.5 16mm 212.104 - [id number] Implanted:Qty: 1 on 07/10/2007 at [place] [facility] [place] Left: Lower Arm SYNTHES 212.104 / / Screw Lock 3.5 20mm 212.106 - [id number] Implanted:Qty: 1 on 07/10/2007 at [place] [facility] [place] Left: Lower Arm SYNTHES 212.106 / / Screw Lock 3.5 22mm 212.107 - [id number] Implanted:Qty: 1 on 07/10/2007 at [place] [facility] [place] Left: Lower Arm SYNTHES 212.107 / / documented as of this encounter Advance Directives Documents on File Type Date Recorded Patient Relief Driller Expl anation Power of As400 Programmer Analyst 05/25/2019 POWER OF A TTORNEY Advance Directives and Katy Tovar 07/09/2005 ADVANCE DIRECTIVE
--- OUTSIDE RECORDS SUMMARY | 2023-12-11 11:18 | External Medical Summary | Summary of Care ---
Author Name Unknown Organization [facility] Address [address] [facility] [address] Phone [phone] Care Team Providers Care Jig Boring Machine Set Up Operator Name Role Phone Unavailable Primary Care Provider Unavailabl e Encounter Details Date Type Department Care Team (Late st Contact Info) Description 08/29/2023 Result Scan Unspecified Department Kalpesh Gray, DO [address] [place] [address] <No scans attached> Allergies Active Allergy Reactions [...] swelling). 30 Cap 0 12/01/2019 Active Nystatin 780506 UNIT/GM External Cream As needed 0 Active [...] D LEVEL ONCE IN A LIFETIME-USE SMARTSET# 35268 Completed 05/15/2020, 10/21/2017 GARDASIL-HPV IMMUNIZATION SERIES Aged Out No longer eligible based on patient's age to complete this topic Hepatitis B Aged Out No longer eligi ble based on patient's age to complete this topic MENINGOCOCCAL (MENACTRA/MENVEO) Aged Out No longer eligible based on patient's age to complete this topic documented as of this encounter Medical Devices Implanted Type Area Supervisor Tree Trimming Device Identifier Shelf Expiration Date Model / Serial / Lot Plate T Lcp 3h5 Ob Lt 241.951 - [id number] Implanted:Qty: 1 on 07/10/2007 at [place] [facility] [place] Left: Lower Arm SYNTHES 241.951 / / Screw Lock 3.5 10mm 212.101 - [id number] Implanted:Qty: 1 on 07/10/2007 at [place] [facility] [place] Left: Lower Arm SYNTHES 212.101 / / Screw Lock 3.5 60mm 212.124 - [id number] Implanted:Qty: 1 on 07/10/2007 at [place] [facility] [place] Left: Lower Arm SYNTHES 212.124 / / Screw Lock 3.5 12mm 212.102 - [id number] Implanted:Qty: 2 on 07/10/2007 at [place] [facility] [place] Left: Lower Arm SYNTHES 212.102 / / Screw Lock 3.5 14mm 212.103 - [id number] Implanted:Qty: 1 on 07/10/2007 at [place] [facility] [place] Left: Lower Arm SYNTHES 212.103 / / Screw Lock 3.5 16mm 212.104 - [id number] Implanted:Qty: 1 on 07/10/2007 at [place] [facility] [place] Left: Lower Arm SYNTHES 212.104 / / Screw Lock 3.5 20mm 212.106 - [id number] Implanted:Qty: 1 on 07/10/2007 at [place] [facility] [place] Left: Lower Arm SYNTHES 212.106 / / Screw Lock 3.5 22mm 212.107 - [id number] Implanted:Qty: 1 on 07/10/2007 at [place] [facility] [place] Left: Lower Arm SYNTHES 212.107 / / documented as of this encounter Procedures Procedure Name Priority Date/Time Associated Diagnosis Comments CARDIOLOGY SCANNED RESULT 08/29/2023 documented in this encounter Results * CARDIOLOGY SCANNED RESULT (08/29/2023) 08/29/2023 Kalpesh Gray DO OTHER documented in this encounter Advance Directives Documents on File Type Date Recorded Patient Aircraft Refueller Expl anation Power of Retail Operations Specialist 05/25/2019 POWER OF A TTORNEY Advance Directives and Katy Tovar 07/09/2005 ADVANCE DIRECTIVE
[2023-12-11] MEDS ORDERED: bisacodyL 10 MG SUPP PR PRN (13:01)
[2023-12-11] MEDS ORDERED: NALOXONE HCL 0.4 MG/1 ML VIAL/CARP IV PRN (13:01)
[2023-12-11] MEDS ORDERED: MoRPHine SULFATE 4 MG/ML 1 ML CARP\\VIAL IV PRN (13:01)
[2023-12-11] MEDS ORDERED: MAGNESIUM HYDROXIDE SUSP 30 ML UDC PO PRN (13:01)
[2023-12-11] MEDS ORDERED: PROMETHAZINE 12.5 MG/50.5 ML BAG IV PRN (13:01)
[2023-12-11] MEDS: ACETAMINOPHEN 1,000 MG/100 ML VIAL IV SCH (13:33)
[2023-12-11] MEDS: cefTRIAXone SODIUM 2,000 MG/50 ML BAG IV SCH (14:11)
[2023-12-11] MEDS: SOTALOL HCL 80 MG TAB PO SCH (14:14)
--- NOTE | 2023-12-11 15:12 | Orthopedic Consultation ---
Date of Service December 11, 2023 Assessment & Plan (1) Closed fracture of right hip: She was seen and examined by Dr. Ni. Her son and his fiance are present today. She can have a diet today but we'll make her npo after midnight. Plan is for IM nailing of the right hip fracture on Monday 12/11. History of Present Illness Reason for Consultation: . Requesting Physician: . Attending Physician: Terrance Mims MD . Whitney is a 83 year old patient who resides at [facility], normally ambulates with a walker, was twisting and fell, and fractured her right hip. She complains of right hip pain. No other orthopedic complaints at this time. Allergies Allergy/AdvReac Type Severity Reaction Status Date / Time Penicillins Allergy Intermediate Hives of Verified 12/11/23 09:15 lower extremeties, no resp symptoms Sulfa (Sulfonamide Allergy Intermediate hives Verified 12/11/23 09:15 Antibiotics) simvastatin Allergy Unknown Unknown Verified 05/21/19 23:08 Home Medications Medication Instructions Recorded Confirmed Type aspirin 81 mg tablet,delayed 81 mg PO DAILY 03/13/19 12/11/23 History release (Kristi Low Dose Aspirin) atorvastatin 10 mg tablet 10 mg PO HS 03/13/19 12/11/23 History ferrous sulfate 325 mg (65 mg 325 mg PO BID 03/13/19 12/11/23 History iron) tablet omeprazole 20 mg capsule,delayed 20 mg PO DAILYBB 03/13/19 12/11/23 History release potassium chloride 10 mEq 10 meq PO BID 03/13/19 12/11/23 History tablet,extended release diphenhydramine HCl 25 mg capsule 25 mg PO HS Allergies 05/21/19 12/11/23 History (Benadryl) ipratropium 0.5 mg-albuterol 3 mg 3 ml inhalation Q6H PRN SOB/COPD 05/21/19 12/11/23 History (2.5 mg base)/3 mL nebulization soln multivit-iron 18 mg-folic acid 400 1 tab PO DAILY 05/21/19 12/11/23 History mcg-calcium 500 mg-minerals tablet (Women's One Daily) sotalol 80 mg tablet 40 mg PO BID 05/21/19 12/11/23 History acetaminophen 325 mg tablet 650 mg PO Q6H PRN Mild Pain/Fever 12/11/23 12/11/23 History (Tylenol) apixaban 2.5 mg tablet (Eliquis) 2.5 mg PO BID 12/11/23 12/11/23 History calcium carbonate 600 mg-vitamin 2 tab PO DAILY 12/11/23 12/11/23 History D3 10 mcg (400 unit) tablet (Calcium 600 + D(3)) diphenhydramine 25 1 tab PO HS PRN Sleep 12/11/23 12/11/23 History mg-acetaminophen 500 mg tablet (Tylenol PM Extra Strength) fluticasone 250 mcg-salmeterol 50 1 inh inhalation BID SOB/Wheezing 12/11/23 12/11/23 History mcg/dose blistr powdr for inhalation fluticasone propionate 50 1 spray intranasal QAM Congestion 12/11/23 12/11/23 History mcg/actuation nasal spray,suspension furosemide 80 mg tablet See Rx Instructions .Route .COMPLEX 12/11/23 12/11/23 History guaifenesin 600 mg tablet, 600 mg PO BID 12/11/23 12/11/23 History extended release 12 hr (Mucus Relief ER) levothyroxine 100 mcg tablet 100 mcg PO DAILYBB 12/11/23 12/11/23 History metoprolol succinate 50 mg 50 mg PO DAILY HTN 12/11/23 12/11/23 History tablet,extended release 24 hr montelukast 10 mg tablet 10 mg PO DAILY 12/11/23 12/11/23 History nystatin 100,000 unit/gram topical 1 applic topical BID PRN yeast rash 12/11/23 12/11/23 History powder peg 400-propylene glycol (PF) 0.4 2 drp OPB BID Dry Eye 12/11/23 12/11/23 History %-0.3 % eye drops in a dropperette (Systane (PF)) Past Med/Surg History Problem List Acute UTI (urinary tract infection) Fall (Acute) Closed fracture of right hip (Acute) Symptomatic bradycardia SSS (sick sinus syndrome) Tachy-shad syndrome (Acute) Near syncope (Acute) Paroxysmal A-fib (Acute) Syncope (Acute) Respiratory failure, acute Oxygen desaturation (Acute) Pneumonia (Acute) Troponin level elevated (Acute) Leukocytosis (Acute) Hyponatremia (Acute) Humeral surgical neck fracture (Acute) Forearm fracture (Acute) COPD (chronic obstructive pulmonary disease) (Chronic) Heart disease (Chronic) Dizziness (Acute) Fall (Acute) Medical History Afib Family History Other No significant family history Social History Smoking Status: Current every day smoker Tobacco Type: Cigarettes Second Hand Exposure: Yes; Do You Dip or Chew Tobacco: No; Tobacco Cessation Education Requested by Patient: No Hx Alcohol Use: No Hx Substance Use: No Preferred Language: [place] Communication Ability: Effective Slurry Man Required: No Beliefs That Will Affect Care: None Current Living Situation: [facility] Feels Safe at Home: Yes Safety Concerns: Feels Safe At This Time Assistive Devices: Hearing Aid - Bilateral, Hospital Bed, Oxygen - Continuous and Walker Review of Systems All systems reviewed & are unremarkable except as noted in HPI & below. Physical Exam .alert and oriented. NAD No pain with range of motion of upper extremities or left hip. Right leg is shortened and externally rotated. Painful with limited movement of right hip. She can dorsiflex and plantarflex. NVI. Results & Data Results & Data Laboratory Results . Diagnostic Findings . xrays of the pelvis and right hip shows a displaced intertroch fracture of the right hip PG Care Time/CCT Total # of Minutes Spent Total Time Spent with Patient: Total time spent is greater than 50% in coordination of care (as documented) at patient's floor/unit and/or counseling patient: Coding Level of Care Code 10891 IN/OBS CONSULT LVL 4,60M (57 - DECISION FOR SURGERY) Diagnoses Closed fracture of right hip S72.001A Encounter type: initial encounter (1) Closed fracture of right hip Encounter type: initial encounter Qualified Code(s): S72.001A - Fracture of unspecified part of neck of right femur, initial encounter for closed fracture
[2023-12-11] MEDS: ADVANCED PROBIOTIC 625 MG CAPSULE PO SCH (18:04)
[2023-12-11] MEDS: POTASSIUM CHLORIDE 10 MEQ TABCR PO SCH (20:30)
[2023-12-11] MEDS: guaiFENesin 600 MG TABCR PO SCH (20:30)
[2023-12-11] MEDS: diphenhydrAMINE Capsule 25 MG CAP PO SCH (20:31)
[2023-12-11] MEDS: ATORVASTATIN 10 MG TAB PO SCH (20:31)
[2023-12-11] MEDS: ARTIFICIAL TEARS OPB SCH (22:12)
[2023-12-12] MEDS: LEVOTHYROXINE SODIUM 100 MCG TABLET PO SCH (06:02)
[2023-12-12] MEDS: PANTOprazole 40 MG TAB PO SCH (06:02)
[2023-12-12 06:08] LABS: Basophils # (auto) 0.05 K/uL (0.00-0.20); Basophils % (auto) 0.4 %; Eosinophils # (auto) 0.13 K/uL (0.00-0.50); Hematocrit (blood only) 30.2 % (37.0-47.0); Hemoglobin 9.6 g/dl (12.0-16.0); Immature Granulocytes # (auto) 0.05 K/uL (0.01-0.20); Immature Granulocytes % (auto) 0.4 %; Mean Corpuscular Hemoglobin 29.2 pg (25.0-34.0); Mean Corpuscular Hgb Conc 31.8 g/dL (32.0-36.0); Mean Corpuscular Volume 91.8 fL (80.0-100.0); Mean Platelet Volume 10.7 fL (9.4-12.4); Monocytes # (auto) 1.85 K/uL (0.11-0.59); Monocytes % (auto) 13.9 %; Neutrophils # (auto) 10.04 K/uL (1.40-6.50); Neutrophils % (auto) 75.3 %; Platelet Count 281 K/uL (130-400); RDW Standard Deviation 47.3 fL (36.4-46.3); Red Blood Count 3.29 M/uL (4.20-5.40); White Blood Count 13.32 K/ul (4.8-10.8)
[2023-12-12 06:28] LABS: Calcium 10.6 mg/dl (8.6-10.3); Potassium 4.5 mmol/L (3.5-5.1)
[2023-12-12 06:34] LABS: BUN Creatinine Ratio 31.9 (10-20); Creatinine Clr Calc Pharmacy 36.3 ml/min; Est GFR (African American) 64.1 ml/min; Est GFR (Non-African American) 55.3 ml/min
[2023-12-12] MEDS: CALCIUM 600MG + VIT D 400 IU TAB PO SCH (08:25)
[2023-12-12] MEDS ORDERED: METOPROLOL SUCC 50MG EXT REL TAB PO SCH (09:00)
[2023-12-12] MEDS: FLUTICASONE PROPIONATE NA SPR 16 GM BTL SCH (09:32)
[2023-12-12] MEDS: MONTELUKAST SODIUM 10 MG TABLET PO SCH (09:32)
[2023-12-12] MEDS: FLUTICASONE/VILANTEROL 200/25MCG 14 PUFFS/INHALER INH SCH (10:07)
--- NOTE | 2023-12-12 10:33 | Anesthesiology Consultation ---
Date of Service December 12, 2023 Assessment & Plan (1) Encounter for pre-operative examination: Chart Review Chart Review: Acceptable Risk for Surgery and Patient NOT seen in Pre Admission Testing Patient has taken eliquis 12/11/23 in AM per [facility] nurse. Consults Requested none History Surgery Operation Date: 12/12/23 07:00 Proposed Procedures p Right Long Troch Nail - Anup Renteria, DO Height/Weight Height: 4 ft 10 in Weight: 70 kg Allergies Allergy/AdvReac Type Severity Reaction Status Date / Time Penicillins Allergy Intermediate Hives of Verified 12/12/23 10:48 lower extremeties, no resp symptoms Sulfa (Sulfonamide Allergy Intermediate hives Verified 12/12/23 10:48 Antibiotics) simvastatin Allergy Unknown Unknown Verified 12/12/23 10:48 Medications Home Medications Medication Instructions Recorded Confirmed Last Taken aspirin 81 mg tablet,delayed 81 mg PO DAILY 03/13/19 12/11/23 05/21/19 release (Kristi Low Dose Aspirin) atorvastatin 10 mg tablet 10 mg PO HS 03/13/19 12/11/23 05/21/19 ferrous sulfate 325 mg (65 mg 325 mg PO BID 03/13/19 12/11/23 05/21/19 iron) tablet omeprazole 20 mg capsule,delayed 20 mg PO DAILYBB 03/13/19 12/11/23 05/21/19 release potassium chloride 10 mEq 10 meq PO BID 03/13/19 12/11/23 05/21/19 tablet,extended release diphenhydramine HCl 25 mg capsule 25 mg PO HS Allergies 05/21/19 12/11/23 Unknown (Benadryl) ipratropium 0.5 mg-albuterol 3 mg 3 ml inhalation Q6H PRN SOB/COPD 05/21/19 12/11/23 Unknown (2.5 mg base)/3 mL nebulization soln multivit-iron 18 mg-folic acid 400 1 tab PO DAILY 05/21/19 12/11/23 05/21/19 mcg-calcium 500 mg-minerals tablet (Women's One Daily) sotalol 80 mg tablet 40 mg PO BID 05/21/19 12/11/23 05/21/19 acetaminophen 325 mg tablet 650 mg PO Q6H PRN Mild Pain/Fever 12/11/23 12/11/23 Unknown (Tylenol) apixaban 2.5 mg tablet (Eliquis) 2.5 mg PO BID 12/11/23 12/12/23 12/11/23 06:14 calcium carbonate 600 mg-vitamin 2 tab PO DAILY 12/11/23 12/11/23 Unknown D3 10 mcg (400 unit) tablet (Calcium 600 + D(3)) diphenhydramine 25 1 tab PO HS PRN Sleep 12/11/23 12/11/23 Unknown mg-acetaminophen 500 mg tablet (Tylenol PM Extra Strength) fluticasone 250 mcg-salmeterol 50 1 inh inhalation BID SOB/Wheezing 12/11/23 12/11/23 Unknown mcg/dose blistr powdr for inhalation fluticasone propionate 50 1 spray intranasal QAM Congestion 12/11/23 12/11/23 Unknown mcg/actuation nasal spray,suspension furosemide 80 mg tablet See Rx Instructions .Route .COMPLEX 12/11/23 12/11/23 Unknown guaifenesin 600 mg tablet, 600 mg PO BID 12/11/23 12/11/23 Unknown extended release 12 hr (Mucus Relief ER) levothyroxine 100 mcg tablet 100 mcg PO DAILYBB 12/11/23 12/11/23 Unknown metoprolol succinate 50 mg 50 mg PO DAILY HTN 12/11/23 12/11/23 Unknown tablet,extended release 24 hr montelukast 10 mg tablet 10 mg PO DAILY 12/11/23 12/11/23 Unknown nystatin 100,000 unit/gram topical 1 applic topical BID PRN yeast rash 12/11/23 12/11/23 Unknown powder peg 400-propylene glycol (PF) 0.4 2 drp OPB BID Dry Eye 12/11/23 12/11/23 Unknown %-0.3 % eye drops in a dropperette (Systane (PF)) Active Medications Generic Name Dose Route Start Last Admin Trade Name Freq PRN Reason Stop Dose Admin Artificial Tears 1 drops 12/11/23 21:00 12/12/23 08:23 Artificial Tears OPB 01/10/24 20:59 1 drops BID DAVID Administration Atorvastatin Calcium 10 mg 12/11/23 21:00 12/11/23 20:31 Atorvastatin 10 Mg Tab PO 01/10/24 20:59 10 mg HS DAVID Administration Calcium/Vitamin D 2 tab 12/12/23 09:00 12/12/23 08:25 Calcium 600mg + Vit D 400 Iu Tab PO 01/11/24 08:59 2 tab DAILY DAVID Administration Diphenhydramine HCl 25 mg 12/11/23 21:00 12/11/23 20:31 Diphenhydramine Capsule 25 Mg Cap PO 01/10/24 20:59 25 mg HS DAVID Administration Fluticasone Propionate 1 sprays 12/12/23 09:00 12/12/23 09:32 Fluticasone Propionate Na Spr 16 Gm Btl NA 01/11/24 08:59 1 sprays QAM DAVID Administration Fluticasone/Vilanterol 1 puffs 12/12/23 09:00 12/12/23 10:07 Fluticasone/Vilanterol 200/25mcg 14 Puffs/Inhaler INH 01/11/24 08:59 1 puffs DAILY DAVID Administration Guaifenesin 600 mg 12/11/23 21:00 12/12/23 08:26 Guaifenesin 600 Mg Tabcr PO 01/10/24 20:59 600 mg BID DAVID Administration Acetaminophen 1,000 mg in 100 mls @ 400 mls/hr 12/11/23 14:00 12/12/23 07:28 Ofirmev IV 12/14/23 13:59 Infused Q8H DAVID Infusion Ceftriaxone Sodium 2,000 mg in 50 mls @ 100 mls/hr 12/11/23 14:00 12/11/23 14:45 Rocephin IV 12/16/23 13:59 Infused Q24H DAVID Infusion Lactobacillus Acidophilus 1,250 mg 12/11/23 17:00 12/12/23 08:26 Advanced Probiotic 625 Mg Capsule PO 01/10/24 16:59 1,250 mg DAILY DAVID Administration Levothyroxine Sodium 100 mcg 12/12/23 06:30 12/12/23 06:02 Levothyroxine Sodium 100 Mcg Tablet PO 01/11/24 06:29 100 mcg DAILYBB DAVID Administration Montelukast Sodium 10 mg 12/12/23 09:00 12/12/23 09:32 Montelukast Sodium 10 Mg Tablet PO 01/11/24 08:59 10 mg DAILY DAVID Administration Pantoprazole Sodium 40 mg 12/12/23 06:30 12/12/23 06:02 Pantoprazole 40 Mg Tab PO 01/11/24 06:29 40 mg DAILYBB DAVID Administration Potassium Chloride 10 meq 12/11/23 21:00 12/12/23 08:25 Potassium Chloride 10 Meq Tabcr PO 01/10/24 20:59 10 meq BID DAVID Administration Sotalol HCl 40 mg 12/11/23 13:01 12/12/23 08:24 Sotalol Hcl 80 Mg Tab PO 01/10/24 13:00 40 mg BID DAVID Administration Past Medical History Medical History Encounter for pre-operative examination Wrist injury Hypoxemic respiratory failure, chronic Tobacco use disorder Diastolic congestive heart failure PAD (peripheral artery disease) Carotid stenosis, bilateral Pacemaker Hypertension Hypothyroidism Acute UTI (urinary tract infection) Fall SSS (sick sinus syndrome) Tachy-shad syndrome COPD (chronic obstructive pulmonary disease) Afib Son reports that she is generally on ~7L supplemental O2 via NC at baseline given her chronic respiratory failure Past Family History Family History Other No significant family history Past Surgical History Surgical History History of arthroplasty of left shoulder History of total replacement of right shoulder joint History of surgery on left wrist fracture repair, Carotid Artery Stenosis: History of R carotid endarterectomy. Pacemaker placement Social History Smoking Status: Current every day smoker Do You Dip or Chew Tobacco: No Hx Alcohol Use: No Hx Substance Use: No Physical Exam Vital Signs Last Vital Signs Temp 36.9 C 12/12/23 10:53 Pulse 71 12/12/23 10:53 Resp 20 12/12/23 10:53 BP 142/65 H 12/12/23 10:53 Pulse Ox 97 12/12/23 10:53 O2 Del Method Nasal Cannula 12/12/23 10:53 O2 Flow Rate 3 12/12/23 10:53 Testing Laboratory Results 12/12/23 05:44 12/12/23 05:44 PT 10.7 Seconds (9.0-12.0) 12/11/23 06:40 INR 1.0 (0.9-1.1) 12/11/23 06:40 Urine Color Yellow 12/11/23 07:20 Urine Appearance Clear (Clear) 12/11/23 07:20 Urine pH 6.0 (4.5-7.5) 12/11/23 07:20 Ur Specific [place] 1.010 (1.000-1.030) 12/11/23 07:20 Urine Protein Negative (Negative) 12/11/23 07:20 Urine Glucose (UA) Negative (Negative) 12/11/23 07:20 Urine Ketones Negative (Negative) 12/11/23 07:20 Urine Nitrite Negative (Negative) 12/11/23 07:20 Ur Leukocyte Esterase Trace (Negative) H 12/11/23 07:20 Urine WBC (Auto) 11-20 /hpf (0-5) H 12/11/23 07:20 Urine RBC (Auto) 0-2 /hpf (0-2) 12/11/23 07:20 U Hyaline Cast (Auto) 0-2 /lpf (0-2) 12/11/23 07:20 U Epithel Cells (Auto) 0-2 /hpf (0-2) 12/11/23 07:20 Urine Bacteria (Auto) 1+ (None Seen) H 12/11/23 07:20 Blood Type B Positive 12/11/23 15:11 Antibody Screen NEGATIVE 12/11/23 15:11 12/11/23 07:20 Urine Culture - Preliminary Urine,Straight Cath Gram negative bacilli Electrocardiogram Date: 12/11/23 DICTATED BY: Blaine Edward MD Test Reason : Blood Pressure : */* mmHG Vent. Rate : 71 BPM Atrial Rate : 71 BPM P-R Int : 242 ms QRS Dur : 92 ms QT Int : 408 ms P-R-T Axes : * -17 18 degrees QTcB Int : 443 ms Atrial-paced rhythm with prolonged AV conduction Abnormal ECG When compared with ECG of 25-Jul-2020 11:16, Atrial fibrillation no longer present Confirmed by Blaine Edward ([id number]) on 12/11/2023 8:21:58 AM Chest X-Ray Date: 12/11/23 XR chest 1V portable CLINICAL HISTORY: weakness TECHNIQUE: Single frontal radiograph of the chest was obtained. Comparison: Comparison is made to chest radiograph 07/25/2020 FINDINGS: An implanted pacemaker is seen. There is a right shoulder arthroplasty. Age indeterminate displaced fracture of the left humeral head is seen. Calcified aortic knob is seen. The lungs are clear. No evidence of pleural effusion or pneumothorax. IMPRESSION: No acute chest disease. Other Testing Most recent echo done 05/20/2023 that showed the following: LVEF of 60 to 64%, grade 1 LV diastolic dysfunction, moderately enlarged left atrium and mild aortic valve regurgitation. PACER AAIR-DDDR
[2023-12-12] MEDS ORDERED: ATROPINE SULFATE 0.1 MG/ML 10ML SYR IV PRN (10:40)
[2023-12-12] MEDS ORDERED: ePHEDrine sulfate 50 MG/ML AMP IV PRN (10:40)
[2023-12-12] MEDS ORDERED: fentaNYL citrate PF 100 MCG/2 ML VIAL IV PRN (10:40)
--- NOTE | 2023-12-12 11:20 | History & Physical Bridge Note ---
Date of Service December 12, 2023 History & Physical Bridge Note I have examined the patient, reviewed the History & Physical and in the interval since the performance of the History & Physical I have noted the following changes of clinical significance: no changes noted
[2023-12-12] MEDS ORDERED: fentaNYL citrate PF 100 MCG/2 ML VIAL ONE (11:46)
[2023-12-12] MEDS ORDERED: PROPOFOL IV EMULSION 10 MG/ML 20 ML VIAL IV ONE (12:41)
[2023-12-12] MEDS ORDERED: LIDOCAINE 2% 2 ML VIAL/AMP(20MG/ML) INFIL ONE (12:41)
[2023-12-12] MEDS ORDERED: PHENYLEPHRINE 100MCG/ML 10ML SYR IV ONE (12:44)
[2023-12-12] MEDS ORDERED: ONDANSETRON INJ 2 MG/ML 2 ML VIAL ONE (12:44)
[2023-12-12] MEDS: TRANEXAMIC ACID / 0.7% NACL 1,000 MG/100 ML BAG IV ONE ×2 (13:08→15:11)
[2023-12-12] MEDS: BUPIVACAINE/EPINEPHRINE 0.25% 1:200,000 30 ML VIAL ONE (13:20)
--- NOTE | 2023-12-12 14:01 | Fluoroscopy Report ---
INTRAOPERATIVE RADIOGRAPHS CLINICAL HISTORY: Open reduction and internal fixation of the right femur. Fluoro time: 52 seconds Ka,r: 11.34 mGy FINDINGS: 3 spot fluoroscopic views of the right proximal femur are compared to radiographs dated 11/20. There has been intertrochanteric and intramedullary nail fixation of an intertrochanteric fra cture. Near-anatomic alignment is restored. A single cortical lag screw transfixes the distal end of the intramedullary tail. Surgical clips project over the right groin. IMPRESSION: Intraoperative images from open reduction and internal fixation of the right femur as abo ve. Electronically signed by: Inocente Sheriff M.D. 12/12/2023 2:00 PM
--- NOTE | 2023-12-12 14:01 | Hospitalist Progress Note ---
Date of Service December 12, 2023 Assessment & Plan (1) Closed fracture of right hip: (2) Acute UTI (urinary tract infection): Plan per admitting notes with addendum: Whitney Russell is an 83y/o F with PMHx of chronic hypoxemic respiratory failure [on oxygen supplementation therapy], dyslipidemia, hypothyroidism, COPD, HTN, bilateral carotid artery stenosis, PAD, chronic diastolic congestive heart failure, paroxysmal atrial fibrillation, tachybrady syndrome s/p pacemaker alok cement, osteoporosis, history of tobacco use disorder and other problems listed below who presented to the ED today from [facility] for evaluation secondary to right hip pain after sustaining a fall and was found to have an acute fracture of her right hip. Closed Fracture of Right Hip CXR negative. Lab work rather unremarkable. Right hip XR reveals an angulated and mildly displaced intertrochanteric fracture within the proximal femur. Routine ortho consult, NPO until evaluated. Pain regimen. Will need PT/OT evals. [place] cath placed. 12/11 No medical contraindication for planned orthopedic surgery Will monitor closely in telemetry unit Acute UTI: No leukocytosis. UA positive for trace leukocyte esterase, WBC and urine bacteria. Will start her on IV Rocephin for now, urine cx pending - follow. 12/11 Afebrile Continue IV ceftriaxone day #2 for now Chronic Hypoxemic Respiratory Failure, COPD: Patient on ~7L O2 via NC at baseline per her son. Continue home inhaler PRN. Currently sating well on 4L via NC at time of admission - continue. CXR negative. 12/11 Respiratory status stable Currently on 3 L O2 via nasal cannula Paroxysmal Atrial Fibrillation Tachybrady Syndrome s/p Pacemaker Placement: Patient follows w/ [facility]. Pacemaker interrogation pending - follow. Hold ASA and Eliquis for now. 12/11 Pacemaker interrogation performed, discussed with cardiology service, pacemaker functioning appropriately Aspirin and Eliquis on hold for now Continue metoprolol and sotalol Chronic Diastolic Heart Failure CXR negative. Patient follows w/ [facility]. Most recent echo done 05/20/2023 that showed the following: LVEF of 60 to 64%, grade 1 LV diastolic dysfunction, moderately enlarged left atrium and mild aortic valve regurgitation. Euvolemic HTN: Chronic, stable. Lasix and metoprolol on hold. Continue sotalol. Dyslipidemia, PAD Carotid Artery Stenosis: History of R carotid endarterectomy. Chronic, stable. Continue statin. Hold ASA for now. Hypothyroidism: TSH elevated, free T4 WNL. Continue levothyroxine. DVT Prophylaxis: SCDs/TEDs for now pending orthopedic evaluation. Code Status: FULL CODE PCP: Shelton Dhillon MD Disposition:Pending Lives in a [facility] facility Admission and Anticipated Discharge Date Admission Date: December 11, 2023 Subjective Follow-up for right femoral fracture, etc. Seen resting in bed, comfortable, not in distress Still having right hip pain, pain medications helping No shortness of breath, chest pain, palpitations, dizziness, nausea No other new symptoms Review of Systems Review of Systems: all noted and negative except for above Physical Exam Physical Exam: General- oriented x 3, not in distress, speaks in sentences with no effort or accessory muscle use Eyes- anicteric Neck- no JVD Lungs- clear breath sounds bilaterally, no rales/wheezes Heart- normal rate, regular rhythm; no murmurs Abdomen- normal bowel sounds, nondistended, soft, nontender Extremities- no pretibial edema, no calf tenderness Right lower extremity externally rotated Neuro- alert, oriented x 3; no gross focal neurologic deficits Skin- warm & dry Results & Data Results & Data Vital Signs (Past 12 Hours) Vital Signs Temp Pulse Pulse Resp BP Pulse Ox O2 Del Method 12/12/23 10:53 36.9 C 71 20 142/65 H 97 Nasal Cannula 12/12/23 08:30 Nasal Cannula 12/12/23 07:56 79 12/12/23 07:39 36.7 C 99 H 18 145/76 H 99 Nasal Cannula 12/12/23 02:51 36.6 C 67 18 136/72 94 Nasal Cannula O2 Flow Rate 12/12/23 10:53 3 12/12/23 08:30 3 12/12/23 07:56 12/12/23 07:39 4 12/12/23 02:51 4 all noted and reviewed including below (1) Closed fracture of right hip Encounter type: initial encounter Qualified Code(s): S72.001A - Fracture of unspecified part of neck of right femur, initial encounter for closed fracture
--- NOTE | 2023-12-12 14:26 | Anesthesiology Progress Note ---
Date of Service December 12, 2023 Anesthesia Post Procedure Vital Signs Vital Signs: Temp Pulse Pulse Pulse Resp BP Pulse Ox 12/12/23 14:10 84 17 149/93 H 90 12/12/23 14:00 72 17 154/68 H 90 12/12/23 13:50 73 17 159/64 H 92 12/12/23 13:42 36.1 C L 71 20 164/65 H 100 12/12/23 10:53 36.9 C 71 20 142/65 H 97 12/12/23 08:30 12/12/23 07:56 79 12/12/23 07:39 36.7 C 99 H 18 145/76 H 99 12/12/23 02:51 36.6 C 67 18 136/72 94 12/12/23 00:00 82 12/11/23 21:56 37.1 C 74 18 154/91 H 97 12/11/23 19:51 37.1 C 73 18 141/55 H 100 12/11/23 19:15 12/11/23 16:19 70 12/11/23 15:00 12/11/23 15:00 36.7 C 72 16 149/67 H 96 12/11/23 14:44 36.7 C 71 16 149/67 H 98 O2 Del Method O2 Flow Rate 12/12/23 14:10 Nasal Cannula 6 12/12/23 14:00 Nasal Cannula 6 12/12/23 13:50 Nasal Cannula 6 12/12/23 13:42 Nasal Cannula 2 12/12/23 10:53 Nasal Cannula 3 12/12/23 08:30 Nasal Cannula 3 12/12/23 07:56 12/12/23 07:39 Nasal Cannula 4 12/12/23 02:51 Nasal Cannula 4 12/12/23 00:00 12/11/23 21:56 Nasal Cannula 4 12/11/23 19:51 Nasal Cannula 4 12/11/23 19:15 Nasal Cannula 4 12/11/23 16:19 12/11/23 15:00 Nasal Cannula 4 12/11/23 15:00 Nasal Cannula 4 12/11/23 14:44 Nasal Cannula 4 Pain Intensity Right Hip: Pain Intensity: 7 Transfer of Care Handoff Completed per policy Notes Mental Status: alert / awake / arousable and participated in evaluation Patient Amnestic to Procedure: Yes Nausea / Vomiting: adequately controlled Pain: adequately controlled Airway Patency, RR, SpO2: stable & adequate BP & HR: stable & adequate Hydration State: stable & adequate Anesthetic Complications: no major complications apparent and Pt Satisfied with anesthetic care
--- NOTE | 2023-12-12 14:32 | Operative Report ---
PG Post Operative Report Pre & Post Diagnosis Operation Date: 12/12/23 07:00 Pre-Op Diagnosis: RIGHT HIP FRACTURE Post-Op Diagnosis: RIGHT HIP FRACTURE I identified the patient and participated in the time-out.: Yes Procedure Operation Date: 12/12/23 07:00 Actual Procedures p Right Hip Troch Nail(Right) - Anup Renteria DO Surgeon Anup Renteria DO English Language Learner Tutor Maria Elena Duran PA-C Estimated Blood Loss 50 Findings Consistent with Post-Op Diagnosis Specimens None Description of Procedure On December 12, 2023 Whitney was brought down from the hospital room to the preoperative holding area. The operative extremity identified and signed. She is given a preoperative antibiotic. She is taken back the operative room and placed under general anesthesia. She was then transferred to a fracture table. The right leg was brought out to traction. Fluoroscopic images were used to ensure reduction of the fracture. The right hip was prepped and draped sterile fashion. A a timeout was done. The patient and the operative extremity was properly identified. A transverse incision was made just superior to the greater trochanter. D issection was taken down through the fascia. The tip of the greater trochanter was identified. A guidepin was placed at the tip of the greater trochanter and advanced into the femoral canal. Appropriate placement was checked on fluoroscopy. A 17 mm opening reamer was used and the proximal femur was opened up. An 11 mm short Synthes TFN nail was then impacted into place. Appropriate placement was checked under fluoroscopy. An outrigger was then placed from the nail. A small lateral incision was made and a cannula was advanced to the lateral cortex of the femur for a helical blade. A guidepin was then placed into the center center position of the femoral head. The lateral cortex was then drilled. The helical blade was then drilled. A 95 mm helical blade was then impacted into place. Appropriate placement was checked on fluoroscopy. The fracture was then compressed and the setscrew was locked. Attention was turned to the locking screw. A small lateral incision was made and a cannula was advanced to the lateral cortex of the femur. A drill was used to drill the locking screw and a 32 mm locking screw was then placed. The outrigger was then removed. Final fluoroscopic images showed anatomic alignment. The wounds were then irrigated. The deep fascia was closed with #1 Vicryl. Skin was closed with 2-0 Vicryl and simone. She was then placed in soft dressings. She was then extubated and transferred to a hospital bed. She was taken to the postanesthesia care unit in stable condition. She tolerated the procedure well. Maria Elena Duran PA-C, was present for the entire procedure. He was critical for patient positioning, prepping, draping, retraction exposure, wound closure and application of sterile dressing. I attest to the content of the Intraoperative Record and any orders documented therein. Any exceptions are noted below.
[2023-12-12] MEDS: ONDANSETRON INJ 2 MG/ML 2 ML VIAL IV PRN (14:43)
[2023-12-12] MEDS: TRANEXAMIC ACID / 0.7% NACL 1000MG/100ML BAG IV ONE (15:09)
[2023-12-12] MEDS: LACTATED RINGER'S 1,000 ML IV SCH (15:11)
[2023-12-12] MEDS: TRANEXAMIC ACID IV ONE (15:11)
[2023-12-12] MEDS: SODIUM CHLORIDE 0.9% IV ONE (15:11)
--- NOTE | 2023-12-12 16:49 | XRay Report ---
XR hip RT min 2V CLINICAL HISTORY: Post-Operative implant position TECHNIQUE: 2 views of the right hip and single frontal view of the pelvis were obtained. Comparison: Comparison is made to hip radiograph 12/11/2023 FINDINGS: Interval open reduction internal fixation of the previously noted femoral fracture. Degenerative alexandra ges are seen in the hip joint. Vascular calcifications are noted. IMPRESSION: Expected postoperative appearance status post open reduction internal fixation of the femoral fractur e. ACT 112: Negative or not required by law. Electronically signed by: Miguel Ángel Kaye M.D. 12/12/2023 4:48 PM
[2023-12-12] MEDS: ceFAZolin 2000MG 2,000 MG/15 ML SYR IV SCH (19:35)
[2023-12-13] MEDS: METOPROLOL SUCC 50MG EXT REL TAB PO SCH (08:14)
--- NOTE | 2023-12-13 08:14 | Orthopedic Progress Note ---
Date of Service December 13, 2023 Assessment & Plan (1) Closed fracture of right hip: Overall she is doing fairly well. She is not having too much pain in the hip today. She can be weightbearing as tolerated. She will be seen by physical therapy for ambulation and range of motion exercises. She is on Eliquis for DVT prophylaxis. Full orthopedic discharge instructions were placed in the discharge summary. She is orthopedically stable for discharge when medically ready. Leeanne Valera was seen and examined at bedside this morning. Overall she is doing fairly well. She is not having too much pain in the right hip. She has not been ambulating yet. She is no complaints.. Review of Systems All systems reviewed & are unremarkable except as noted in HPI & below. Physical Exam On physical examination of the right hip, the dressings are clean and dry. She has active motion of her ankle.. Results & Data Results & Data Laboratory Results . Diagnostic Findings . PG Care Time/CCT Total # of Minutes Spent Total Time Spent with Patient: Total time spent is greater than 50% in coordination of care (as documented) at patient's floor/unit and/or counseling patient: Coding Level of Care Code 18808 Post Operative Follow-Up Diagnoses Closed fracture of right hip S72.001A Encounter type: initial encounter (1) Closed fracture of right hip Encounter type: initial encounter Qualified Code(s): S72.001A - Fracture of unspecified part of neck of right femur, initial encounter for closed fracture
[2023-12-13] MEDS: APIXABAN 2.5 MG TAB PO SCH (08:15)
[2023-12-13] MEDS: traMADol HCL 50 MG TABLET PO PRN (11:32)
--- NOTE | 2023-12-13 18:29 | Hospitalist Progress Note ---
Date of Service December 13, 2023 Assessment & Plan (1) Closed fracture of right hip: (2) Acute UTI (urinary tract infection): Plan per admitting notes with addendum: Whitney Russell is an 83y/o F with PMHx of chronic hypoxemic respiratory failure [on oxygen supplementation therapy], dyslipidemia, hypothyroidism, COPD, HTN, bilateral carotid artery stenosis, PAD, chronic diastolic congestive heart failure, paroxysmal atrial fibrillation, tachybrady syndrome s/p pacemaker alok cement, osteoporosis, history of tobacco use disorder and other problems listed below who presented to the ED today from [facility] for evaluation secondary to right hip pain after sustaining a fall and was found to have an acute fracture of her right hip. Closed Fracture of Right Hip CXR negative. Lab work rather unremarkable. Right hip XR reveals an angulated and mildly displaced intertrochanteric fracture within the proximal femur. Routine ortho consult, NPO until evaluated. Pain regimen. Will need PT/OT evals. Clifton cath placed. 12/11 No medical contraindication for planned orthopedic surgery Will monitor closely in telemetry unit 12/12 Patient stable overall after surgery Continue pain control, PT OT On Eliquis 2.5 mg p.o. twice daily for DVT prophylaxis Acute UTI: No leukocytosis. UA positive for trace leukocyte esterase, WBC and urine bacteria. Will start her on IV Rocephin for now, urine cx pending - follow. 12/11 Afebrile Continue IV ceftriaxone day #2 for now 12/12 Continue IV ceftriaxone day #3 Chronic Hypoxemic Respiratory Failure, COPD: Patient on ~7L O2 via NC at baseline per her son. Continue home inhaler PRN. Currently sating well on 4L via NC at time of admission - continue. CXR negative. 12/11 Respiratory status stable Currently on 3 L O2 via nasal cannula 12/12 Stable Paroxysmal Atrial Fibrillation Tachybrady Syndrome s/p Pacemaker Placement: Patient follows w/ [facility]. Pacemaker interrogation pending - follow. Hold ASA and Eliquis for now. 12/11 Pacemaker interrogation performed, discussed with cardiology service, pacemaker functioning appropriately Aspirin and Eliquis on hold for now Continue metoprolol and sotalol 12/12 Heart rate controlled Eliquis resumed Chronic Diastolic Heart Failure CXR negative. Patient follows w/ [facility]. Most recent echo done 05/20/2023 that showed the following: LVEF of 60 to 64%, grade 1 LV diastolic dysfunction, moderately enlarged left atrium and mild aortic valve regurgitation. Euvolemic HTN: Chronic, stable. On metoprolol Lasix held Dyslipidemia, PAD Carotid Artery Stenosis: History of R carotid endarterectomy. Chronic, stable. Continue statin. Hold ASA for now. Hypothyroidism: TSH elevated, free T4 WNL. Continue levothyroxine. DVT Prophylaxis: SCDs/TEDs for now pending orthopedic evaluation. Code Status: FULL CODE PCP: Shelton Dhillon MD Disposition:[facility]ending [facility] a [facility] facility Admission and Anticipated Discharge Date Admission Date: December 11, 2023 Subjective Follow-up for right humeral fracture, status post surgery, etc. Seen resting in bed, comfortable, not in distress, on 3 L of oxygen States she has some pain over the right hip with pain medication helping No chest pain, palpitations, dizziness No other new symptoms Review of Systems Review of Systems: all noted and negative except for above Physical Exam Physical Exam: General- oriented x 3, not in distress, speaks in sentences with no effort or accessory muscle use Eyes- anicteric Neck- no JVD Lungs- clear breath sounds bilaterally, no crackles/wheezing Heart- normal rate, regular rhythm; no murmurs Abdomen- normal bowel sounds, nondistended, soft, no tenderness Extremities- no pretibial edema, no calf tenderness R hip: dressing in place, no bleeding/hematoma Neuro- alert, oriented x 3; no gross focal neurologic deficits Skin- warm & dry Results & Data Results & Data Vital Signs (Past 12 Hours) Vital Signs Temp Pulse Pulse Resp BP Pulse Ox Pulse Ox 12/13/23 16:07 36.4 C L 70 18 124/58 L 97 12/13/23 14:16 72 12/13/23 13:01 94 12/13/23 11:00 36.5 C 70 18 105/65 95 12/13/23 07:45 70 12/13/23 07:45 12/13/23 07:30 36.6 C 74 18 114/66 97 Pulse Ox O2 Del Method O2 Flow Rate O2 Flow Rate O2 Flow Rate 12/13/23 16:07 Room Air 12/13/23 14:16 12/13/23 13:01 98 4 4 12/13/23 11:00 Nasal Cannula 4 12/13/23 07:45 12/13/23 07:45 Nasal Cannula 5 12/13/23 07:30 Nasal Cannula 5 all noted and reviewed including below (1) Closed fracture of right hip Encounter type: initial encounter Qualified Code(s): S72.001A - Fracture of unspecified part of neck of right femur, initial encounter for closed fracture
--- NOTE | 2023-12-14 07:36 | Orthopedic Progress Note ---
Date of Service December 14, 2023 Assessment & Plan (1) Closed fracture of right hip: Overall she is doing well. She is not having much pain in the right hip. She will be seen by physical therapy today for ambulation and range of motion exercises. The dressings can be changed today. She is on Eliquis for DVT prophylaxis. She is orthopedically stable for discharge when medically ready. Full orthopedic discharge instructions were placed in the discharge summary. Leeanne Olson was seen and examined at bedside this morning. Overall she is doing very well. She is not having much pain in the right hip. She was able to get up to a chair yesterday. She has no complaints.. Review of Systems All systems reviewed & are unremarkable except as noted in HPI & below. Physical Exam Physical examination of the right hip, the dressings are clean and dry. Her leg is out full extension. She has active dorsiflexion plantarflexion of the right ankle.. Results & Data Results & Data Laboratory Results . Diagnostic Findings . PG Care Time/CCT Total # of Minutes Spent Total Time Spent with Patient: Total time spent is greater than 50% in coordination of care (as documented) at patient's floor/unit and/or counseling patient: Coding Level of Care Code 28666 Post Operative Follow-Up Diagnoses Closed fracture of right hip S72.001A Encounter type: initial encounter (1) Closed fracture of right hip Encounter type: initial encounter Qualified Code(s): S72.001A - Fracture of unspecified part of neck of right femur, initial encounter for closed fracture
[2023-12-14 12:58] LABS: Basophils # (auto) 0.06 K/uL (0.00-0.20); Basophils % (auto) 0.4 %; Eosinophils # (auto) 0.26 K/uL (0.00-0.50); Eosinophils % (auto) 1.9 %; Hematocrit (blood only) 25.8 % (37.0-47.0); Hemoglobin 8.1 g/dl (12.0-16.0); Immature Granulocytes # (auto) 0.07 K/uL (0.01-0.20); Immature Granulocytes % (auto) 0.5 %; Lymphocytes # (auto) 1.09 K/uL (1.20-3.40); Lymphocytes % (auto) 7.9 %; Mean Corpuscular Hemoglobin 29.3 pg (25.0-34.0); Mean Corpuscular Hgb Conc 31.4 g/dL (32.0-36.0); Mean Corpuscular Volume 93.5 fL (80.0-100.0); Mean Platelet Volume 10.9 fL (9.4-12.4); Monocytes # (auto) 2.11 K/uL (0.11-0.59); Monocytes % (auto) 15.4 %; Neutrophils # (auto) 10.15 K/uL (1.40-6.50); Neutrophils % (auto) 73.9 %; Platelet Count 238 K/uL (130-400); RDW Coefficient of Variation 14.1 % (11.5-14.5); RDW Standard Deviation 47.5 fL (36.4-46.3); Red Blood Count 2.76 M/uL (4.20-5.40); White Blood Count 13.74 K/ul (4.8-10.8)
[2023-12-14 13:07] LABS: Calcium 11.1 mg/dl (8.6-10.3); Creatinine Clr Calc Pharmacy 43.2 ml/min; Est GFR (African American) 77.9 ml/min; Est GFR (Non-African American) 67.2 ml/min; Potassium 4.7 mmol/L (3.5-5.1)
--- NOTE | 2023-12-14 15:52 | Hospitalist Progress Note ---
Date of Service December 14, 2023 Assessment & Plan (1) Closed fracture of right hip: (2) Acute UTI (urinary tract infection): Plan per admitting notes with addendum: Whitney Russell is an 83y/o F with PMHx of chronic hypoxemic respiratory failure [on oxygen supplementation therapy], dyslipidemia, hypothyroidism, COPD, HTN, bilateral carotid artery stenosis, PAD, chronic diastolic congestive heart failure, paroxysmal atrial fibrillation, tachybrady syndrome s/p pacemaker alok cement, osteoporosis, history of tobacco use disorder and other problems listed below who [place] [facility] [place] to right hip pain after sustaining a fall and was found to have an acute fracture of her right hip. Closed Fracture of Right Hip CXR negative. Lab work rather unremarkable. Right hip XR reveals an angulated and mildly displaced intertrochanteric fracture within the proximal femur. Routine ortho consult, NPO until evaluated. Pain regimen. Will need PT/OT evals. Clifton cath placed. 12/11 No medical contraindication for planned orthopedic surgery Will monitor closely in telemetry unit 12/12 Patient stable overall after surgery Continue pain control, PT OT On Eliquis 2.5 mg p.o. twice daily for DVT prophylaxis 12/13 stable overall continue pain control, PT/OT eval on Eliquis BID Acute UTI: No leukocytosis. UA positive for trace leukocyte esterase, WBC and urine bacteria. Will start her on IV Rocephin for now, urine cx pending - follow. 12/11 Afebrile Continue IV ceftriaxone day #2 for now 12/13 Continue IV ceftriaxone day #4/5 Chronic Hypoxemic Respiratory Failure, COPD: Patient on ~7L O2 via NC at baseline per her son. Continue home inhaler PRN. Currently sating well on 4L via NC at time of admission - continue. CXR negative. 12/11 Respiratory status stable Currently on 3 L O2 via nasal cannula 12/12 Stable 12/13 stable Paroxysmal Atrial Fibrillation Tachybrady Syndrome s/p Pacemaker Placement: Patient follows w/ [facility]. Pacemaker interrogation pending - follow. 12/11 Pacemaker interrogation performed, discussed with cardiology service, pacemaker functioning appropriately Aspirin and Eliquis on hold for now Continue metoprolol and sotalol 12/12 Heart rate controlled Eliquis resumed Chronic Diastolic Heart Failure CXR negative. Patient follows w/ [facility]. Most recent echo done 05/20/2023 that showed the following: LVEF of 60 to 64%, grade 1 LV diastolic dysfunction, moderately enlarged left atrium and mild aortic valve regurgitation. Euvolemic HTN: Chronic, stable. On metoprolol Lasix held Dyslipidemia, PAD Carotid Artery Stenosis: History of R carotid endarterectomy. Chronic, stable. Continue statin. Hold ASA for now. Hypothyroidism: TSH elevated, free T4 WNL. Continue levothyroxine. DVT Prophylaxis: Eliquis Code Status: FULL CODE PCP: Shelton Dhillon MD Disposition:Pending Lives in a [facility] facility Admission and Anticipated Discharge Date Admission Date: December 11, 2023 Subjective ff up for s/p R hip troch nail, etc seen resting in bed, comfortable states she ok overall minimal R hip discomfort no chest pain, dyspnea, palpitations, dizziness reports constipation, but no nausea, (+) flatus no other symptoms Review of Systems Review of Systems: all noted and negative except for above Physical Exam Physical Exam: General- oriented x 3, not in distress, speaks in sentences with no effort or accessory muscle use Eyes- anicteric Neck- no JVD Lungs- clear breath sounds bilaterally, no crackles/wheezing Heart- normal rate, regular rhythm; no murmurs Abdomen- normal bowel sounds, nondistended, soft, nontender Extremities- R hip: mild edema, no bleeding, hematoma, discharge no pretibial edema, no calf tenderness Neuro- alert, oriented x 3; no gross focal neurologic deficits Skin- warm & dry Results & Data Results & Data Vital Signs (Past 12 Hours) Vital Signs Temp Pulse Pulse Resp BP Pulse Ox O2 Del Method 12/14/23 15:24 71 12/14/23 12:01 36.6 C 71 16 119/61 94 Nasal Cannula 12/14/23 07:45 36.5 C 72 21 119/67 93 Nasal Cannula 12/14/23 07:26 74 O2 Flow Rate 12/14/23 15:24 12/14/23 12:01 4 12/14/23 07:45 4 12/14/23 07:26 all noted and reviewed including below (1) Closed fracture of right hip Encounter type: initial encounter Qualified Code(s): S72.001A - Fracture of unspecified part of neck of right femur, initial encounter for closed fracture
[2023-12-14] MEDS: SODIUM CHLORIDE 0.9% 1,000 ML IV SCH (16:17)
[2023-12-14] MEDS: POLYETHYLENE (MIRALAX) 17 GM PACK PO SCH (16:45)
[2023-12-15 06:15] LABS: Basophils # (auto) 0.04 K/uL (0.00-0.20); Basophils % (auto) 0.3 %; Eosinophils % (auto) 2.3 %; Hematocrit (blood only) 23.1 % (37.0-47.0); Hemoglobin 7.4 g/dl (12.0-16.0); Immature Granulocytes # (auto) 0.09 K/uL (0.01-0.20); Immature Granulocytes % (auto) 0.7 %; Lymphocytes # (auto) 1.13 K/uL (1.20-3.40); Lymphocytes % (auto) 8.6 %; Mean Corpuscular Hemoglobin 29.1 pg (25.0-34.0); Mean Corpuscular Volume 90.9 fL (80.0-100.0); Mean Platelet Volume 10.9 fL (9.4-12.4); Monocytes # (auto) 2.22 K/uL (0.11-0.59); Monocytes % (auto) 16.9 %; Neutrophils # (auto) 9.38 K/uL (1.40-6.50); Neutrophils % (auto) 71.2 %; Platelet Count 235 K/uL (130-400); RDW Coefficient of Variation 13.7 % (11.5-14.5); RDW Standard Deviation 46.1 fL (36.4-46.3); Red Blood Count 2.54 M/uL (4.20-5.40); White Blood Count 13.16 K/ul (4.8-10.8)
[2023-12-15 06:26] LABS: BUN Creatinine Ratio 27.1 (10-20); Calcium 10.1 mg/dl (8.6-10.3); Creatinine Clr Calc Pharmacy 59.1 ml/min; Est GFR (African American) 96.9 ml/min; Est GFR (Non-African American) 83.6 ml/min; Potassium 4.6 mmol/L (3.5-5.1)
[2023-12-15 06:34] LABS: Polychromasia 1+
[2023-12-15 13:29] LABS: Hematocrit (blood only) 25.4 % (37.0-47.0); Hemoglobin 8.1 g/dl (12.0-16.0)
--- NOTE | 2023-12-15 16:56 | Hospitalist Progress Note ---
Date of Service December 15, 2023 delayed entry date of service noted above Assessment & Plan (1) Closed fracture of right hip: (2) Acute UTI (urinary tract infection): Plan per admitting notes with addendum: Whitney Russell is an 83y/o F with PMHx of chronic hypoxemic respiratory failure [on oxygen supplementation therapy], dyslipidemia, hypothyroidism, COPD, HTN, bilateral carotid artery stenosis, PAD, chronic diastolic congestive heart failure, paroxysmal atrial fibrillation, tachybrady syndrome s/p pacemaker placement, osteoporosis, history of tobacco use disorder and other problems listed below who presented to the ED today from [facility] for evaluation secondary to right hip pain after sustaining a fall and was found to have an acute fracture of her right hip. Closed Fracture of Right Hip CXR negative. Lab work rather unremarkable. Right hip XR reveals an angulated and mildly displaced intertrochanteric fracture within the proximal femur. Routine ortho consult, NPO until evaluated. Pain regimen. Will need PT/OT evals. Clifton cath placed. 12/11 No medical contraindication for planned orthopedic surgery Will monitor closely in telemetry unit 12/12 Patient stable overall after surgery Continue pain control, PT OT On Eliquis 2.5 mg p.o. twice daily for DVT prophylaxis 12/13 stable overall continue pain control, PT/OT eval on Eliquis BID 12/14 stable overall on Eliquis BID continue pain control Acute UTI: No leukocytosis. UA positive for trace leukocyte esterase, WBC and urine bacteria. Will start her on IV Rocephin for now, urine cx pending - follow. 12/11 Afebrile Continue IV ceftriaxone day #2 for now 12/13 Continue IV ceftriaxone day #4/5 12/14 IV Ceftriaxone 5/5 Chronic Hypoxemic Respiratory Failure, COPD: Patient on ~7L O2 via NC at baseline per her son. Continue home inhaler PRN. Currently sating well on 4L via NC at time of admission - continue. CXR negative. 12/11 Respiratory status stable Currently on 3 L O2 via nasal cannula 12/12 Stable 12/13 stable 12/14 stable Paroxysmal Atrial Fibrillation Tachybrady Syndrome s/p Pacemaker Placement: Patient follows w/ [facility]. Pacemaker interrogation pending - follow. 12/11 Pacemaker interrogation performed, discussed with cardiology service, pacemaker functioning appropriately Aspirin and Eliquis on hold for now Continue metoprolol and sotalol 12/12 Heart rate controlled Eliquis resumed 12/14 heart rate controlled on Eliquis Chronic Diastolic Heart Failure CXR negative. Patient follows / [facility]. Most recent echo done 05/20/2023 that showed the following: LVEF of 60 to 64%, grade 1 LV diastolic dysfunction, moderately enlarged left atrium and mild aortic valve regurgitation. Euvolemic Acute blood loss anemia Hg 8 monitor HTN: Chronic, stable. On metoprolol Lasix held Dyslipidemia, PAD Carotid Artery Stenosis: History of R carotid endarterectomy. Chronic, stable. Continue statin. Hold ASA for now. Hypothyroidism: TSH elevated, free T4 WNL. Continue levothyroxine. DVT Prophylaxis: Eliquis Code Status: FULL CODE PCP: Shelton Dhillon MD Disposition:Pending Lives in a nursing home facility Admission and Anticipated Discharge Date Admission Date: December 11, 2023 Subjective ff up s/p femur fracture etc seen resting in in chair comfortable states she feels fine R hip pain well controlled no chest pain, dyspnea, palpitations, dizziness no other symptoms Review of Systems Review of Systems: all noted and negative except for above Physical Exam Physical Exam: General- oriented x 3; not in distress, speaks in sentences with no effort or accessory muscle use Eyes- anicteric Neck- no JVD Lungs- clear breath sounds bilaterally, no rales/wheezes Heart- normal rate, regular rhythm; no murmurs Abdomen- normal bowel sounds, nondistended, soft, nontender Extremities- no pretibial edema, no calf tenderness R hip: dressing in place, no bleeding/discharge mild edema Neuro- alert, oriented x 3; no gross focal neurologic deficits Skin- warm & dry Results & Data Results & Data Vital Signs (Past 12 Hours) Vital Signs Temp Pulse Pulse Resp BP Pulse Ox O2 Del Method 12/15/23 16:36 70 12/15/23 15:18 36.7 C 70 17 123/68 97 Nasal Cannula 12/15/23 11:39 36.5 C 69 20 159/74 H 100 Nasal Cannula 12/15/23 07:48 70 12/15/23 07:48 Nasal Cannula 12/15/23 07:43 36.6 C 74 17 160/73 H 92 Room Air O2 Flow Rate 12/15/23 16:36 12/15/23 15:18 2 12/15/23 11:39 4 12/15/23 07:48 12/15/23 07:48 4 12/15/23 07:43 all noted and reviewed including below (1) Closed fracture of right hip Encounter type: initial encounter Qualified Code(s): S72.001A - Fracture of unspecified part of neck of right femur, initial encounter for closed fracture
[2023-12-16 09:07] LABS: Basophils # (auto) 0.05 K/uL (0.00-0.20); Basophils % (auto) 0.4 %; Eosinophils # (auto) 0.25 K/uL (0.00-0.50); Eosinophils % (auto) 2.1 %; Hematocrit (blood only) 26.2 % (37.0-47.0); Hemoglobin 8.2 g/dl (12.0-16.0); Immature Granulocytes # (auto) 0.08 K/uL (0.01-0.20); Immature Granulocytes % (auto) 0.7 %; Lymphocytes # (auto) 1.15 K/uL (1.20-3.40); Lymphocytes % (auto) 9.5 %; Mean Corpuscular Hemoglobin 28.6 pg (25.0-34.0); Mean Corpuscular Hgb Conc 31.3 g/dL (32.0-36.0); Mean Corpuscular Volume 91.3 fL (80.0-100.0); Mean Platelet Volume 10.5 fL (9.4-12.4); Monocytes # (auto) 1.58 K/uL (0.11-0.59); Monocytes % (auto) 13.1 %; Neutrophils # (auto) 8.99 K/uL (1.40-6.50); Neutrophils % (auto) 74.2 %; Platelet Count 305 K/uL (130-400); RDW Standard Deviation 46.5 fL (36.4-46.3); Red Blood Count 2.87 M/uL (4.20-5.40)
[2023-12-16 09:25] LABS: BUN Creatinine Ratio 28.4 (10-20); Calcium 10.9 mg/dl (8.6-10.3); Est GFR (African American) 92.9 ml/min; Est GFR (Non-African American) 80.2 ml/min; Potassium 4.8 mmol/L (3.5-5.1)
--- NOTE | 2023-12-16 17:25 | Hospitalist Progress Note ---
Date of Service December 16, 2023 Assessment & Plan (1) Closed fracture of right hip: (2) Acute UTI (urinary tract infection): Plan per admitting notes with addendum: Whitney Russell is an 83y/o F with PMHx of chronic hypoxemic respiratory failure [on oxygen supplementation therapy], dyslipidemia, hypothyroidism, COPD, HTN, bilateral carotid artery stenosis, PAD, chronic diastolic congestive heart failure, paroxysmal atrial fibrillation, tachybrady syndrome s/p pacemaker alok cement, osteoporosis, history of tobacco use disorder and other problems listed below who presented to the ED today from [facility] for evaluation secondary to right hip pain after sustaining a fall and was found to have an acute fracture of her right hip. Closed Fracture of Right Hip CXR negative. Lab work rather unremarkable. Right hip XR reveals an angulated and mildly displaced intertrochanteric fracture within the proximal femur. 12/11 Status post right hip troches nail by Dr. Renteria 12/15 Hemoglobin 9.6-8.1, 8.2 Likely acute blood loss anemia secondary to surgery Monitor hemoglobin continue pain control, PT/OT eval- Lives in personal-long-term, will need acute rehab on Eliquis BID Acute UTI: No leukocytosis. UA positive for trace leukocyte esterase, WBC and urine bacteria. Completed 5-day course of ceftriaxone IV Chronic Hypoxemic Respiratory Failure, COPD: Patient on ~7L O2 via NC at baseline per her son. Continue home inhaler PRN. Currently sating well on 4L via NC at time of admission - continue. CXR negative. 12/15 Respiratory status stable Currently on 3 L O2 via nasal cannula Paroxysmal Atrial Fibrillation Tachybrady Syndrome s/p Pacemaker Placement: Patient follows w/ [facility]. 12/11 Pacemaker interrogation performed, discussed with cardiology service, pacemaker functioning appropriately 12/15 No arrhythmias, Heart rate controlled Eliquis resumed Chronic Diastolic Heart Failure CXR negative. Patient follows w/ [facility]. Most recent echo done 05/20/2023 that showed the following: LVEF of 60 to 64%, grade 1 LV diastolic dysfunction, moderately enlarged left atrium and mild aortic valve regurgitation. Euvolemic HTN: Chronic, stable. On metoprolol Lasix held Dyslipidemia, PAD Carotid Artery Stenosis: History of R carotid endarterectomy. Chronic, stable. Continue statin. Hold ASA for now. Hypothyroidism: TSH elevated, free T4 WNL. Continue levothyroxine. DVT Prophylaxis: Eliquis Code Status: FULL CODE PCP: Shelton Dhillon MD Disposition:Pending Lives in a prison facility--> Transition to [facility] in 1 to 2 days Admission and Anticipated Discharge Date Admission Date: December 11, 2023 Subjective Follow-up for right femur fracture, status post surgery, etc. Seen resting in bedside chair, comfortable, not in distress Feels somewhat weak but overall fine States right hip surgical site is somewhat " burning ", pain manageable Denies shortness of breath, chest pain, dizziness, nausea Positive BM today No other new symptoms Review of Systems Review of Systems: all noted and negative except for above Physical Exam Physical Exam: General- oriented x 3, not in distress, speaks in sentences with no effort or accessory muscle use Eyes- anicteric Neck- no JVD Lungs- clear breath sounds bilaterally, no rales/wheezes Heart- normal rate, regular rhythm; no murmurs Abdomen- normal bowel sounds, nondistended, soft, nontender Extremities- no pretibial edema, no calf tenderness Right hip: Mild edema, but now hematoma/erythema/tenderness Neuro- alert, oriented x 3; no gross focal neurologic deficits Skin- warm & dry Results & Data Results & Data Vital Signs (Past 12 Hours) Vital Signs Temp Pulse Pulse Resp BP Pulse Ox O2 Del Method 12/16/23 16:26 36.4 C L 69 20 127/84 95 Room Air 12/16/23 14:24 75 12/16/23 12:20 36.4 C L 70 20 99/54 L 100 Nasal Cannula 12/16/23 08:19 36.7 C 72 20 151/55 H 99 Nasal Cannula 12/16/23 07:35 70 12/16/23 07:35 Nasal Cannula O2 Flow Rate 12/16/23 16:26 12/16/23 14:24 12/16/23 12:20 12/16/23 08:19 4 12/16/23 07:35 12/16/23 07:35 4 all noted and reviewed including below (1) Closed fracture of right hip Encounter type: initial encounter Qualified Code(s): S72.001A - Fracture of unspecified part of neck of right femur, initial encounter for closed fracture
[2023-12-17 03:32] VITALS: O2SAT 99
[2023-12-17] MEDS: ACETAMINOPHEN 325 MG TAB PO PRN (04:05)
[2023-12-17 06:30] LABS: Basophils # (auto) 0.05 K/uL (0.00-0.20); Basophils % (auto) 0.5 %; Eosinophils % (auto) 4.9 %; Hematocrit (blood only) 23.6 % (37.0-47.0); Hemoglobin 7.6 g/dl (12.0-16.0); Immature Granulocytes # (auto) 0.08 K/uL (0.01-0.20); Immature Granulocytes % (auto) 0.8 %; Lymphocytes # (auto) 1.08 K/uL (1.20-3.40); Lymphocytes % (auto) 10.7 %; Mean Corpuscular Hgb Conc 32.2 g/dL (32.0-36.0); Mean Corpuscular Volume 90.1 fL (80.0-100.0); Mean Platelet Volume 10.7 fL (9.4-12.4); Monocytes # (auto) 1.56 K/uL (0.11-0.59); Monocytes % (auto) 15.4 %; Neutrophils # (auto) 6.86 K/uL (1.40-6.50); Neutrophils % (auto) 67.7 %; Platelet Count 293 K/uL (130-400); RDW Standard Deviation 45.4 fL (36.4-46.3); Red Blood Count 2.62 M/uL (4.20-5.40); White Blood Count 10.13 K/ul (4.8-10.8)
[2023-12-17 06:52] LABS: Polychromasia 1+
[2023-12-17 08:01] VITALS: RESP 19; TEMP 97.5
[2023-12-17 11:56] VITALS: BP 102/57; PULSE 87
--- NOTE | 2023-12-17 14:19 | Discharge Summary ---
Date of Service December 17, 2023 Admission HPI Per Admitting Provider Whitney Russell is an 83y/o F with PMHx of chronic hypoxemic respiratory failure [on oxygen supplementation therapy], dyslipidemia, hypothyroidism, COPD, HTN, bilateral carotid artery stenosis, PAD, chronic diastolic congestive heart failure, paroxysmal atrial fibrillation, tachybrady syndrome s/p pacemaker placement, osteoporosis, history of tobacco use disorder and other problems listed below who presented to the ED today for evaluation of right hip pain after sustaining a fall. History obtained from patient, son at bedside and associated chart review. Patient was made a trauma alert prior to arrival given a fall on antiplatelet therapy. She was trying to stand and twist herself around this morning around 6AM when she fell onto her right hip region. Did not hit her head or lose consciousness at any point. Son reports that she is generally on ~7L supplemental O2 via NC at baseline given her chronic respiratory failure. Patient is having some pain in her right hip region. Notes a bit of improvement in her pain following a dose of IV fentanyl in the ED. Has been intermittently nauseous since the fall, but no vomiting. Admission Exam Per Admitting Provider General: WD/WN, vitals as above, NAD, laying down in bed, pleasant, conversing, very hard of hearing, A+Ox3, euthymic affect. HEENT: Normocephalic, atraumatic. Conjunctivae normal, anicteric sclerae. External ear and nose normal, oropharynx normal. Respiratory: Normal respiratory effort, chronic wheezing heard throughout, no crackles. No accessory muscle use. Cardiovascular: Regular rate, rhythm, no murmur, normal peripheral pulses, no BLE edema. Vessels: No JVD Abdomen/GI: Normal bowel sounds, soft, nontender, no hepatosplenomegaly. : Clifton catheter in place and draining clear, yellow urine. Extremities/Musculoskeletal: No cyanosis or clubbing, unable to move right leg very well 2/2 pain. Neurologic: PERRL, EOMI, accommodation nl, no face palsy, no dysarthria. Skin: No rashes, normal color, warm/dry. Principal Diagnosis Right hip fracture status post trochanteric nailing on 12/11 Discharge Exam General- oriented x 3, not in distress, speaks in sentences with no effort or accessory muscle use Eyes- anicteric Neck- no JVD Lungs- clear breath sounds bilaterally, no rales/wheezes Heart- normal rate, regular rhythm; no murmurs Abdomen- normal bowel sounds, nondistended, soft, nontender Extremities- no pretibial edema, no calf tenderness Right hip: Mild edema, but no hematoma/erythema/tenderness Neuro- alert, oriented x 3; no gross focal neurologic deficits Skin- warm & dry Discharge Data Allergies Allergy/AdvReac Type Severity Reaction Status Date / Time Penicillins Allergy Intermediate Hives of Verified 12/12/23 10:48 lower extremeties, no resp symptoms Sulfa (Sulfonamide Allergy Intermediate hives Verified 12/12/23 10:48 Antibiotics) simvastatin Allergy Unknown Unknown Verified 12/12/23 10:48 Consultations 12/11/23 07:31 ED Decision to Admit Stat 12/11/23 13:01 Consult Orthopedic Surgery Routine Procedures Performed Operation Date: 12/12/23 07:00 Actual Procedures p Right Hip Troch Nail(Right) - Anup Renteria, Ordered Studies 12/12/23 11:00 FL femur RT 2V Routine Hospital Course (1) Closed fracture of right hip: (2) Acute UTI (urinary tract infection): Tiny Russell is an 83y/o F with PMHx of chronic hypoxemic respiratory failure [on oxygen supplementation therapy], dyslipidemia, hypothyroidism, COPD, HTN, bilateral carotid artery stenosis, PAD, chronic diastolic congestive heart failure, paroxysmal atrial fibrillation, tachybrady syndrome s/p pacemaker placement, osteoporosis, history of tobacco use disorder and other problems listed below who presented to the ED today from [facility] for evaluation secondary to right hip pain after sustaining a fall and was found to have an acute fracture of her right hip. Closed Fracture of Right Hip CXR negative. Lab work rather unremarkable. Right hip XR reveals an angulated and mildly displaced intertrochanteric fracture within the proximal femur. On 12/11, She underwent post right hip troches nail by Dr. Renteria Postoperative period was uncomplicated. Patient was started on Eliquis for DVT prophylaxis She participated in physical therapy and Occupational Therapy. She was discharged to acute rehab. Acute UTI: No leukocytosis. UA positive for trace leukocyte esterase, WBC and urine bacteria. Completed 5-day course of ceftriaxone IV Please note the above document was generated using voice recognition software. It may contain grammatical, syntax or spelling errors. Any formal questions or concerns about the content, text or information contained within the body of this dictation should be directly addressed to the provider for clarification Total Time Total Time Spent Total Time Spent (In Minutes): 45 Total Time Includes: Examination of the Patient, Discharge Planning, Medication Reconciliation, Communication With Other Providers and Other Discharge Plan Discharge Items Patient Disposition: Transfer Inpatient Rehab Fac Reason For Visit: HIP FRACTURE Discharge Diagnosis: Hip fracture status post right hip trochanteric nail Activity: Resume your previous activity Non-emergency contact: Primary Care Provider Call non-emergency contact if: you have any medication questions and your symptoms worsen Follow-up/Referrals: [facility] [Primary Care Provider] - Diet: Regular Addtl Attending Provider Instructions: You were admitted to the hospital due to a fracture and underwent surgery by orthopedics. Please follow the instructions given by orthopedics. You are found to have slightly high calcium level during the hospitalization. Your parathyroid hormone level were also on the higher side. You will need follow-up with your primary care doctor with referral to endocrinology for workup after you get discharged from the rehab. Please do Trial of void on December 19, 2023. 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 You were shown a series of exercises in the hospital. Do these exercises three times each day if you are able. 2. Get up and walk several times each day if you are capable. Make sure you have assistance is needed. For the first four weeks, try not to stand or walk for more than one hour at a time. If you do stand or walk for more than one hour, you will not hurt anything, but your leg will likely swell. 3. As you feel comfortable, you may change from the walker or crutches to a cane and then to independent walking if you are able. Please be safe. Medications: 1. Narcotic You will likely be sent from the hospital with the narcotic pain medication that worked best throughout your stay. 2. Continue taking your Eliquis as prescribed. 3. Other medications may be given for specific circumstances. If you have any questions, please call the office at [phone]. 4. Resume previous home medications unless otherwise instructed TEDs/Elastic Stockings: The white elastic stockings help limit swelling and prevent blood clots from forming in your legs. The more you wear them, the more they work. Wear them for six weeks. Dressing Care: [place] can be open to air as long as the incisions are not draining. If the incisions are draining or if the simone are getting caught on your clothes then please cover the simone with dry gauze. Change the dressings as necessary to keep the incision as dry as possible Showering: You may shower 5 days from the day of surgery as long as the incisions are not draining. Do not soak the incision. Let soapy water run over the simone and pat them dry. Things To Watch For: 1. Drainage from the incision site that occurs more than one week after your surgery. 2. Increased redness at the incision site. 3. Fever above 102 degrees Fahrenheit. 4. Unusual chest pain or shortness of breath. 5. Call [facility] at with any of the above problems Follow-Up Visit: Follow-up with Dr. Renteria's PA (Anup Celeste) 2-3 weeks after your day of surgery. He will remove your simone and answer any questions. If you have any additional questions or concerns, Dr Renteria is usually in the office at the same time and will be available Please call the office to set up an appointment for a time that works for you. Pending Studies at Discharge: No Stand-Alone Forms: My [facility] Skilled Items Patient informed of condition?: Yes DNR: No Discharge Level of Care: Acute rehab Communicable Disease: No Discharge Prognosis: Stable Lines: None Urinary Catheter: No Medications and DC Order Prescriptions: New polyethylene glycol 3350 [Miralax] 17 gram Powder In Packet 17 g PO DAILY PRN (Reason: constipation) Qty: 30 0RF tramadol 50 mg Tablet 25 mg PO Q6H PRN (Reason: pain) Qty: 10 0RF Continued atorvastatin 10 mg Tablet 10 mg PO HS potassium chloride 10 mEq Tablet Extended Release 10 meq PO BID aspirin [Kristi Low Dose Aspirin] 81 mg Tablet,Delayed Release (Dr/Ec) 81 mg PO DAILY ferrous sulfate 325 mg (65 mg iron) Tablet 325 mg PO BID omeprazole 20 mg Capsule,Delayed Release(Dr/Ec) 20 mg PO DAILYBB ipratropium-albuterol 0.5 mg-3 mg(2.5 mg base)/3 mL Solution For Nebulization 3 ml INHALATION Q6H PRN (Reason: SOB/COPD) sotalol 80 mg Tablet 40 mg PO BID diphenhydramine HCl [Benadryl] 25 mg Capsule 25 mg PO HS Women's One Daily 18 mg iron-400 mcg-500 mg Ca Tablet 1 tab PO DAILY fluticasone propion-salmeterol 250-50 mcg/dose blister with device 1 inh INHALATION BID acetaminophen [Tylenol] 325 mg Tablet 650 mg PO Q6H MDD 3g/24hr PRN (Reason: Mild Pain/Fever) metoprolol succinate 50 mg tablet extended release 24 hr 50 mg PO DAILY levothyroxine 100 mcg tablet 100 mcg PO DAILYBB furosemide 80 mg tablet See Rx Instructions .ROUTE .COMPLEX Rx Instructions: Per RN at Nursing facility: "Take 40mg by mouth twice daily on Mon/Wed/Fri and 40mg by mouth once daily all other days." montelukast 10 mg tablet 10 mg PO DAILY nystatin 100,000 unit/gram powder 1 applic TOPICAL BID PRN (Reason: yeast rash) diphenhydramine-acetaminophen [Tylenol PM Extra Strength] 25-500 mg Tablet 1 tab PO HS PRN (Reason: Sleep) fluticasone propionate 50 mcg/actuation spray,suspension 1 spray INTRANASAL QAM Systane (PF) 0.4-0.3 % Dropperette 2 drp OPB BID Eliquis 2.5 mg tablet 2.5 mg PO BID guaifenesin [Mucus Relief ER] 600 mg Tablet Extended Release 12hr 600 mg PO BID Discontinued calcium carbonate-vitamin D3 [Calcium 600 + D(3)] 600 mg-10 mcg (400 unit) Tablet 2 tab PO DAILY Discharge Orders: Discharge Order (Routine); Ordered 12/17/23 Ordered By: Ulises Cardoso Admission Data Admit Date/Time: 12/11/23 08:20 Attending Provider: Ulises Cardoso Admit Provider: Terrance Mims Primary Care Provider: Juan Carlos Lainez,[facility], [facility] Other Providers: Terrance Mims; Kalpesh Ni; [facility]; [facility]
== END 2023-12-17 17:12 | DRG 481 ==
LOC: ED 06:21 → EDINP 08:20 → SUATTDRO 08:20 → EDINP 13:01 → 4W 14:40